=== PATIENT | male | born 1955 | race Caucasian/White ===

== ENCOUNTER 2016-08-10 21:24 | Inpatient (IN) | payer BC ==
[2016-08-10 22:55] LABS: Basophils # (A) 0.1 k/uL (0-0.2); Basophils % (A) 1 %; CH 30.2; CHCM 34.3; Eosinophils # (A) 0.1 k/uL (0-0.7); Eosinophils % (A) 2 %; HCT 45.6 % (39.0-53.0); HDW 2.36; HGB 15.1 gm/dL (13.0-17.5); Luc # (Auto) 0.18; Luc % (Auto) 2; Lymphocytes # (A) 2.4 k/uL (1.0-4.8); Lymphocytes % (A) 28 %; MCH 29.3 pg (25.0-35.0); MCHC 33.1 g/dL (31.0-37.0); MCV 88.4 fL (80.0-100.0); Mean Platelet Volume 7.5; Monocytes # (A) 0.6 k/uL (0-1.0); Monocytes % (A) 7 %; Neutrophils # (A) 5.3 k/uL (1.3-7.7); Neutrophils % (A) 61 %; RBC 5.16 m/uL (4.30-5.90); RDW 12.4 % (11.5-15.5); WBC 8.7 k/uL (3.8-10.6); WBC (Perox) 9.08
--- NOTE | 2016-08-10 23:05 | ED ---
General Adult HPI - General Source: patient, RN notes reviewed Mode of arrival: ambulatory Limitations: no limitations <Cesar Castillo - Last Filed: 08/11/16 00:06> <Armani Becerra - Last Filed: 08/11/16 00:30> - General Chief complaint: Extremity Problem,Nontraumatic Stated complaint: poss blood clot post spinal surg Time Seen by Provider: 08/10/16 21:59 - History of Present Illness Initial comments: 60-year-old male presents emergency Department with multiple complaints. Patient states that he has left calf pain over the last 2 days. Patient states he is concerned that she's had a prior DVT with PE. Patient states pain started resembles pain is having the past. Patient denies any trauma. Patient states that he had lumbar surgery performed at the [facility] and 2015. Patient states this was his fourth surgery third at the [facility]. Patient denies any chest pain or shortness breath. Patient also states that his been having low-grade times at home as high as 11.5. Patient states she's been taking Tylenol products occasionally [place]. Patient states that he's had some cough, chest congestion along with headaches. Patient states the headaches have been more frequent and consistent in which she states that the temporal region and occipital region. Patient states that shortly after the surgery he was having fever secondary to urinary tract infection in which she took antibiotics for. Patient states that he is was fever free for 1 week and his urinalysis came back clean. Patient states is also been told that he has a seroma of his incision site. Patient states it's worse when he stands up. States there is an area of bulging which is non-erythematous. Patient states that he has right leg pain on a regular basis prior to surgery. Patient states it's not worse. Patient denies bowel, bladder incontinence or retention. (Cesar Castillo) - Related Data Home Medications Medication Instructions Recorded Confirmed Diazepam [Diazepam] 5 mg PO HS PRN 01/22/15 08/10/16 HYDROcodone/APAP 10-325MG [[place] 1 tab PO DAILY PRN 01/22/15 08/10/16 10-325] Methocarbamol [Methocarbamol] 750 mg PO DAILY PRN 01/22/15 08/10/16 Tamsulosin HCl [Tamsulosin HCl] 0.4 mg PO HS 01/22/15 08/10/16 Docusate [Colace] 100 mg PO BID 08/10/16 08/10/16 Gabapentin 600 mg PO TID 08/10/16 08/10/16 Omeprazole 40 mg PO DAILY 08/10/16 08/10/16 Oxymetazoline 0.05% Nasl [place] 1 - 2 spray EA NOSTRIL HS PRN 08/10/16 08/10/16 [Afrin 0.05% Nasal [place]] Allergies Allergy/AdvReac Type Severity Reaction Status Date / Time codeine Allergy Rash/Hives Verified 08/10/16 22:24 Review of Systems ROS Other: All systems not noted in ROS Statement are negative. <Cesar Castillo - Last Filed: 08/11/16 00:06> ROS Other: All systems not noted in ROS Statement are negative. <Armani Becerra - Last Filed: 08/11/16 00:30> ROS Statement: Those systems with pertinent positive or pertinent negative responses have been documented in the HPI. Past Medical History Past Medical History: GERD/Reflux, Prostate Disorder Additional Past Medical History / Comment(s): Neuropathy; Degenerative disc disease; Back pain History of Any Multi-Drug Resistant Organisms: None Reported Past Surgical History: Back Surgery Additional Past Surgical History / Comment(s): Back surgery x4; Cervical surgery ; Knee surgery Past Psychological History: No Psychological Hx Reported Smoking Status: Never smoker Past Alcohol Use History: None Reported Past Drug Use History: None Reported <Cesar Castillo - Last Filed: 08/11/16 00:06> General Exam Limitations: no limitations General appearance: alert, in no apparent distress Head exam: Present: atraumatic, normocephalic, normal inspection ENT exam: Present: normal exam, normal oropharynx, mucous membranes moist, TM's normal bilaterally, normal external ear exam Neck exam: Present: normal inspection, full ROM. Absent: tenderness, meningismus, lymphadenopathy Respiratory exam: Present: normal lung sounds bilaterally. Absent: respiratory distress, wheezes, rales, rhonchi, stridor Cardiovascular Exam: Present: regular rate, normal rhythm, normal heart sounds. Absent: systolic murmur, diastolic murmur, rubs, gallop, clicks GI/Abdominal exam: Present: soft, normal bowel sounds. Absent: distended, tenderness, guarding, rebound, rigid Extremities exam: Present: other (Left calf there is mild tenderness, neurovascular intact full strength of lower extremities pedal pulses equal bilaterally) Back exam: Present: tenderness (Minimal lumbar). Absent: normal inspection ( Incision site noted in the lumbar region well-healed no erythema no warmth there is a large area of swelling which is boggy in nature), full ROM Neurological exam: Present: alert, oriented X3, CN II-XII intact, reflexes normal. Absent: motor sensory deficit Skin exam: Present: warm, dry, intact, normal color. Absent: rash <Cesar Castillo - Last Filed: 08/11/16 00:06> Medical Decision Making - Lab Data Result diagrams: 08/10/16 22:42 08/10/16 22:42 <Cesar Castillo - Last Filed: 08/11/16 00:06> - Lab Data Result diagrams: 08/10/16 22:42 08/10/16 22:42 <Armani Becerra - Last Filed: 08/11/16 00:30> - Medical Decision Making 60-year-old male presented for fever, left leg pain, postsurgical collection. Patient's ultrasound shows no acute DVT. Patient does have a temp of 101.4 along with an epidural and subcutaneous fluid collection along the lumbar spine. Patient be admitted at this time with dual antibiotic coverage infectious disease consult, surgery consult and observation. (Cesar Castillo) Patient reevaluated by myself, Dr. Becerra. Secondary to fever with unclear etiology patient will be admitted with consult for ID. Consult will also be placed for Dr. Medina to evaluate back and computed tomography scan. Patient and family updated. Dr. Sanders paged for admission for Dr. Mccarty. (Armani Becerra) - Lab Data Lab Results 08/10/16 08/10/16 08/10/16 Range/Units 22:42 22:42 22:42 WBC 8.7 (3.8-10.6) k/uL RBC 5.16 (4.30-5.90) m/uL Hgb 15.1 (13.0-17.5) gm/dL Hct 45.6 (39.0-53.0) % MCV 88.4 (80.0-100.0) fL MCH 29.3 (25.0-35.0) pg MCHC 33.1 (31.0-37.0) g/dL RDW 12.4 (11.5-15.5) % Plt Count 325 (150-450) k/uL Neutrophils % 61 % Lymphocytes % 28 % Monocytes % 7 % Eosinophils % 2 % Basophils % 1 % Neutrophils # 5.3 (1.3-7.7) k/uL Lymphocytes # 2.4 (1.0-4.8) k/uL Monocytes # 0.6 (0-1.0) k/uL Eosinophils # 0.1 (0-0.7) k/uL Basophils # 0.1 (0-0.2) k/uL Sodium 137 (137-145) mmol/L Potassium 4.5 (3.5-5.1) mmol/L Chloride 100 (98-107) mmol/L Carbon Dioxide 28 (22-30) mmol/L Anion Gap 9 mmol/L BUN 16 (9-20) mg/dL Creatinine 0.88 (0.66-1.25) mg/dL Est GFR (MDRD) Af Amer >60 (>60 ml/min/1.73 sqM) Est GFR (MDRD) Non-Af >60 (>60 ml/min/1.73 sqM) Glucose 104 H (74-99) mg/dL Calcium 9.5 (8.4-10.2) mg/dL Total Bilirubin 0.5 (0.2-1.3) mg/dL AST 15 L (17-59) U/L ALT 26 (21-72) U/L Alkaline Phosphatase 55 (38-126) U/L Total Protein 7.2 (6.3-8.2) g/dL Albumin 4.3 (3.5-5.0) g/dL Urine Color Urine Appearance (Clear) Urine pH (5.0-8.0) Ur Specific [place] (1.001-1.035) Urine Protein (Negative) Urine Glucose (UA) (Negative) Urine Ketones (Negative) Urine Blood (Negative) Urine Nitrate (Negative) Urine Bilirubin (Negative) Urine Urobilinogen (<2.0) mg/dL Ur Leukocyte Esterase (Negative) Influenza Type A RNA Not Detected (Not Detectd) Influenza Type B (PCR) Not Detected (Not Detectd) 08/10/16 Range/Units 23:30 WBC (3.8-10.6) k/uL RBC (4.30-5.90) m/uL Hgb (13.0-17.5) gm/dL Hct (39.0-53.0) % MCV (80.0-100.0) fL MCH (25.0-35.0) pg MCHC (31.0-37.0) g/dL RDW (11.5-15.5) % Plt Count (150-450) k/uL Neutrophils % % Lymphocytes % % Monocytes % % Eosinophils % % Basophils % % Neutrophils # (1.3-7.7) k/uL Lymphocytes # (1.0-4.8) k/uL Monocytes # (0-1.0) k/uL Eosinophils # (0-0.7) k/uL Basophils # (0-0.2) k/uL Sodium (137-145) mmol/L Potassium (3.5-5.1) mmol/L Chloride (98-107) mmol/L Carbon Dioxide (22-30) mmol/L Anion Gap mmol/L BUN (9-20) mg/dL Creatinine (0.66-1.25) mg/dL Est GFR (MDRD) Af Amer (>60 ml/min/1.73 sqM) Est GFR (MDRD) Non-Af (>60 ml/min/1.73 sqM) Glucose (74-99) mg/dL Calcium (8.4-10.2) mg/dL Total Bilirubin (0.2-1.3) mg/dL AST (17-59) U/L ALT (21-72) U/L Alkaline Phosphatase (38-126) U/L Total Protein (6.3-8.2) g/dL Albumin (3.5-5.0) g/dL Urine Color Yellow Urine Appearance Clear (Clear) Urine pH 6.5 (5.0-8.0) Ur Specific [place] 1.013 (1.001-1.035) Urine Protein Negative (Negative) Urine Glucose (UA) Negative (Negative) Urine Ketones Negative (Negative) Urine Blood Negative (Negative) Urine Nitrate Negative (Negative) Urine Bilirubin Negative (Negative) Urine Urobilinogen <2.0 (<2.0) mg/dL Ur Leukocyte Esterase Negative (Negative) Influenza Type A RNA (Not Detectd) Influenza Type B (PCR) (Not Detectd) Disposition <Cesar Castillo - Last Filed: 08/11/16 00:06> <Armani Becerra - Last Filed: 08/11/16 00:30> Clinical Impression: Lumbar surgical wound fluid collection, Fever Disposition: ADMITTED IP TO THIS HOSP Condition: Stable Referrals: Gregg Mccarty MD [Primary Care Provider] - 1-2 days
[2016-08-10 23:06] LABS: ALT 26 U/L (21-72); AST 15 U/L (17-59); Alkaline Phosphatase 55 U/L (38-126); Anion Gap 9 mmol/L; Blood Urea Nitrogen 16 mg/dL (9-20); Calcium 9.5 mg/dL (8.4-10.2); Carbon Dioxide 28 mmol/L (22-30); Chloride 100 mmol/L (98-107); Glucose 104 mg/dL (74-99); Non-African American GFR(MDRD) >60 (>60 ml/min/1.73 sqM); Potassium 4.5 mmol/L (3.5-5.1); Sodium 137 mmol/L (137-145); Total Bilirubin 0.5 mg/dL (0.2-1.3); Total Protein 7.2 g/dL (6.3-8.2)
--- NOTE | 2016-08-10 23:10 | XR ---
EXAMINATION TYPE: XR chest 2V DATE OF EXAM: 08/10/2016 10:55 PM COMPARISON: 11/08/2013 HISTORY: Chest pain TECHNIQUE: Frontal and lateral views of the chest are obtained. FINDINGS: Heart and mediastinum are normal. Lungs are clear of consolidation. There are no hilar mas ses. Costophrenic angles are clear. Bony thorax is intact. IMPRESSION: No active cardiopulmonary disease. No change.
--- NOTE | 2016-08-10 23:17 | CT ---
EXAMINATION TYPE: CT lumbar spine wo con DATE OF EXAM: 08/10/2016 11:06 PM COMPARISON: NONE HISTORY: 1 Month P O Lumbar Surgery CT DLP: 856.40 mGycm Automated exposure control for dose reduction was used. Unenhanced CT of the lumbar spine was performed. Bone and soft tissue window settings are submitted as well as coronal and sagittal reconstructions. The vertebra have normal alignment. There is moderate narrowing of disc spaces from L2 to L5. There a re small posterior disc herniations at L4-5 and L5-S1. There is laminectomy defect of L5. There is a 4 cm rounded fluid collection posterior to the spinal canal and thecal sac at the L5 level. There is also a subcutaneous fluid collection posterior to L5 L4 and L3. This measures 10 x 2 cm. I see no foc al bone destruction. The sacroiliac joints appear normal. I see no spinal stenosis. There is no lumba r paraspinal mass. IMPRESSION: There is a posterior central and right-sided L4-5 disc herniation with some impingement on the right- sided neural foramen. There is narrowing of the neural foramina bilaterally at L4-5 and L5-S1. There is a mild posterior central L5-S1 disc herniation. Epidural 4 cm fluid collection posterior to L5 consistent with a seroma or hematoma. Subcutaneous fluid collection consistent with seroma or hematoma. Multilevel spondylosis. No compression fracture. The fluid collections are new compared to old MR scan of 04/26/2016.
[2016-08-10 23:46] LABS: Appearance,Urine Clear (Clear); Bilirubin,Urine Negative (Negative); Glucose,Urine (UA) Negative (Negative); Ketones,Urine Negative (Negative); Leukocyte Esterase,Urine Negative (Negative); Nitrite,Urine Negative (Negative); PH, Urine 6.5 (5.0-8.0); Protein,Urine Negative (Negative); Specific Gravity,Urine 1.013 (1.001-1.035); UA Billing (MACRO vs. MICRO) CHEM; Urobilinogen,Urine <2.0 mg/dL (<2.0)
[2016-08-10] MEDS ORDERED: ACETAMINOPHEN TAB 325 MG TAB PO STA (23:50)
--- NOTE | 2016-08-10 23:51 | US ---
EXAMINATION TYPE: US venous doppler duplex LE LT DATE OF EXAM: 08/10/2016 11:29 PM COMPARISON: NONE CLINICAL HISTORY: Hx of PE and left leg DVT x 3 years ago, not on blood thinners. SIDE PERFORMED: Left VESSELS IMAGED: External Iliac Vein (EIV) Common Femoral Vein Deep Femoral Vein Greater Saphenous Vein * Femoral Vein Popliteal Vein Small Saphenous Vein * Proximal Calf Veins (* superficial vessels) TECHNOLOGIST IMPRESSION: Left Leg: Appears negative for DVT. Thickened valves seen in Prox Femoral Vein near bifurcation. IMPRESSION: No evidence of deep venous thrombosis in the left leg. Normal augmentation.
[2016-08-11] MEDS ORDERED: ACETAMINOPHEN TAB 325 MG TAB PO PRN (00:09)
[2016-08-11] MEDS ORDERED: NALOXONE 0.4 MG/ML 1 ML VIAL IV PRN (00:09)
[2016-08-11] MEDS ORDERED: DIAZEPAM 5 MG TAB PO PRN (00:11)
[2016-08-11] MEDS ORDERED: HYDROcodone/APAP 10-325MG 1 EACH TAB PO PRN (00:11)
[2016-08-11] MEDS ORDERED: METHOCARBAMOL 750 MG TAB PO PRN (00:11)
[2016-08-11] MEDS ORDERED: IV VANCOMYCIN PER PHARMACY 1 EACH MISC MISCELLANE PRN (00:12)
[2016-08-11] MEDS ORDERED: VANCOMYCIN 1,500 MG in SODIUM CHLORIDE 0.9% 250 ML IVPB STA (00:27)
[2016-08-11] MEDS: SODIUM CHLORIDE 0.9% 1,000 ML IV SCH ×2 (00:36→13:28)
[2016-08-11] MEDS: ONDANSETRON 4 MG/2 ML VIAL IVP PRN ×2 (00:36→08:05)
[2016-08-11] MEDS: MORPHINE SULFATE 4 MG/ML SYRINGE IV PRN ×3 (00:36→14:01)
[2016-08-11 03:17] VITALS: BMI 27.8
[2016-08-11] MEDS ORDERED: AMPICILLIN-SULBACTAM 3 GM in SODIUM CHLORIDE 0.9% 100 ML IVPB SCH (08:00)
[2016-08-11] MEDS: HYDROcodone/APAP 5-325MG 1 EACH TAB PO PRN ×2 (08:02→19:45)
[2016-08-11] MEDS: GABAPENTIN 300 MG CAP PO SCH ×3 (08:12→21:28)
[2016-08-11] MEDS: DOCUSATE 100 MG CAP PO SCH ×2 (08:12→21:29)
[2016-08-11] MEDS: PANTOPRAZOLE 40 MG/10 ML VIAL IV SCH (08:12)
--- NOTE | 2016-08-11 09:13 | P.CNOR ---
History of Present Illness - [facility] Consult date: 08/11/16 Requesting physician: Cesar Castillo Consult reason: other (Possible postoperative lumbar spine infection; headaches ; low-grade fever) History of present illness: Patient is a very pleasant 60-year-old male who is seen and examined at bedside after we are consulted for further evaluation in regards to a seroma/hematoma of the lumbar spine. He is known have recently undergone surgical intervention at the [facility] in [place], [place] on 07/12/2016. He states he had foraminotomies performed at L4-5 performed by the head of neurosurgery. He states he had been doing well postsurgically. He states over the past week has been experiencing significant headaches daily. He states he must lie down for some alleviation of his symptoms. He has also been experiencing significant swelling at the surgical site. Upon presentation to the emergency department he was having some left lower extremity calf pain. An ultrasound venous Doppler was taken at that time which showed no evidence of deep venous thrombosis. Patient states his left leg pain has subsided. He states he has not been experiencing significant back pain or lower extremity radiculopathy or weakness. He states his headaches are his most significant symptom. He states he is also been running a low-grade fever over the past several days. He states he is scheduled to follow-up with his surgeon at the [facility] on 08/23/2016. He is currently receiving Unasyn 3 g IV. Consultation has been placed for Dr. Lorenzana in infectious disease. Patient states he has been eating and voiding without difficulty does not have much of an appetite. Past Medical History Past Medical History: GERD/Reflux, Prostate Disorder Additional Past Medical History / Comment(s): Neuropathy; Degenerative disc disease; Back pain History of Any Multi-Drug Resistant Organisms: None Reported Past Surgical History: Back Surgery Additional Past Surgical History / Comment(s): Back surgery x4; Cervical surgery ; Knee surgery Past Anesthesia/Blood Transfusion Reactions: No Reported Reaction Past Psychological History: No Psychological Hx Reported Smoking Status: Never smoker Past Alcohol Use History: None Reported Past Drug Use History: None Reported - Past Family History Mother Family Medical History: Pulmonary Embolus Medications and Allergies Home Medications Medication Instructions Recorded Confirmed Type Diazepam [Diazepam] 5 mg PO HS PRN 01/22/15 08/10/16 History HYDROcodone/APAP 10-325MG [[place] 1 tab PO DAILY PRN 01/22/15 08/10/16 History 10-325] Methocarbamol [Methocarbamol] 750 mg PO DAILY PRN 01/22/15 08/10/16 History Tamsulosin HCl [Tamsulosin HCl] 0.4 mg PO HS 01/22/15 08/10/16 History Docusate [Colace] 100 mg PO BID 08/10/16 08/10/16 History Gabapentin 600 mg PO TID 08/10/16 08/10/16 History Omeprazole 40 mg PO DAILY 08/10/16 08/10/16 History Oxymetazoline 0.05% Nasl [place] 1 - 2 spray EA NOSTRIL HS PRN 08/10/16 08/10/16 History [Afrin 0.05% Nasal [place]] Allergies Allergy/AdvReac Type Severity Reaction Status Date / Time codeine Allergy Rash/Hives Verified 08/10/16 22:24 Physical Examination Physical exam: Patient is awake, alert, and oriented 3 Vital signs stable Good chest excursion with deep inspiration and expiration Abdomen soft nontender Examination of lumbar spine reveals skin is intact with no abrasions, lacerations, or bruises; no erythema, purulence or signs of infection Evidence of a well-healed incision with previous staple removal along the midline of the lower lumbar spine Evidence of a large fluid collection along the entire surgical incision that is soft to palpation and feels fluid filled; no firmness with palpation along the incision site No active drainage at the incision site; I am unable to express any drainage at the incision site No pain with palpation along the incision site Dorsiflexion, plantarflexion, and extensor hallucis longus positive sustained bilaterally Lower extremity strength 5/5 bilaterally No signs or symptoms of DVT; no calf pain; calves are soft nontender to palpation No pain with internal and external rotation of the hips bilaterally Neurovascularly intact Results Pertinent studies: CT of the lumbar spine: Subcutaneous fluid collection and L3-5 measuring approximately 10 cm x 2 cm; epidural 4 cm fluid collection posterior to L5 consistent with seroma or hematoma; L4-5 posterior central and right-sided disc herniation with some impingement of the right neural foramen; L4-5 and L5-S1 bilateral neural foraminal narrowing; L5-S1 mild posterior central disc herniation; evidence of L5 laminectomy defect Ultrasound venous Doppler left lower extremity: No evidence of deep venous thrombosis of the left leg; normal augmentation - Labs Result Diagrams: 08/10/16 22:42 08/10/16 22:42 Assessment and Plan (1) Frequent headaches Status: Acute (2) Status post lumbar surgery Status: Acute (3) Fever Status: Acute (4) Lumbar surgical wound fluid collection Status: Acute Plan: Assessment: Status post lumbar foraminotomy surgery at the [facility] in [place], [place] on 07/12/2016 Headaches Low-grade fever Subcutaneous fluid collection and L3-5 measuring approximately 10 cm x 2 cm Epidural 4 cm fluid collection posterior to L5 consistent with seroma or hematoma Plan: 1. Patient has been discussed in detail with Dr. Gautam Medina. We will further discuss the patient following my bedside examination. It was discussed with the patient that we will currently planned to continue with conservative treatment with antibiotics versus incision and drainage at the surgical site. We'll plan to have him continue with current antibiotic regimen and consultation by Dr. Lorenzana in infectious disease. We will continue to follow patient closely. After further discussion with Dr. Gautam Medina, we will adjust our plan of care accordingly if needed. If he does need to undergo an incision and drainage, we discussed the possibility of doing this procedure later today. We'll continue to follow the patient with a further treatment plan. 2. Medicine to continue following the patient 3. Patient currently waiting for consultation by Dr. Lorenzana in infectious disease 4. We will continue to follow patient closely 5. I will again discuss this patient detail with Dr. Gautam Medina Time with Patient: Greater than 30
[2016-08-11] MEDS: VANCOMYCIN 1,500 MG in SODIUM CHLORIDE 0.9% 250 ML IVPB SCH ×2 (13:00→22:04)
--- NOTE | 2016-08-11 13:15 | HP ---
DATE OF ADMISSION: The patient is a 60-year-old who came in with fevers and patient has a seroma in the back and patient underwent on the 12 of July, patient underwent back surgery with ( ) of L4-L5 performed by neurosurgery. Patient was having fevers. Patient was having flu-like symptoms as well as ( )-like symptoms. The patient denied any cough, runny nose, dysuria, nausea, vomiting and although his back mass appears to be mostly hematoma, it is not tender at all. No localized temperature. Patient denied any pain in that area except for ( ). The physical exam is not consistent with ( ) and orthopedic surgery, Dr. Medina who is the back surgeon evaluated the patient and they are doing an MRI. Patient's back pain improved. Patient is complaining of headache, which is consistent with allergic sinusitis, which is actually better now. Will go ahead and order Flonase for him. Past medical history is significant for gastroesophageal reflux disease, chronic low back pain, prostrate disorder. Patient underwent back surgery recently, knee surgery and cervical fusion surgery in the past. The patient had DVT in the past. The patient was also complaining of calf pain when he was here because of which venous Doppler of the lower extremity was obtained, which did not show any DVT. SOCIAL HISTORY: Denied any smoking, alcohol abuse or any drug abuse. FAMILY HISTORY: Significant for mother with pulmonary embolism. CT of the back is consistent with hematoma or seroma. Clinically, it appears like mostly hematoma in that area. REVIEW OF SYSTEMS: CONSTITUTIONAL: As described in HPI. HEENT: No recent visual problems or hearing problems. Denied any sore throat. CARDIOVASCULAR: No chest pain, orthopnea, PND, no palpitations, no syncope. PULMONARY: No shortness of breath, no cough, no hemoptysis. GASTROINTESTINAL: No diarrhea, no nausea, no vomiting, no abdominal pain. Normoactive bowel sounds. NEUROLOGICAL: No headaches, no weakness, no numbness. HEMATOLOGICAL: Denies any bleeding or petechiae. GENITOURINARY: Denies any burning micturition, frequency, or urgency. MUSCULOSKELETAL/RHEUMATOLOGICAL: Denies any joint pain, swelling, or any muscle pain. ENDOCRINE: Denies any polyuria or polydipsia. BACK: As described in HPI. The rest of the 14 point review of systems is negative. Home medications include: 1. Diazepam. 2. Hydrocodone. 3. ( ). 4. Methocarbamol. 5. Tamsulosin. 6. Docusate . 7. Gabapentin. 8. Omeprazole. 9. Oxymetazoline. ALLERGIES: Allergic to CODEINE. PHYSICAL EXAMINATION: Temperature 100.0, pulse of 81, respiratory rate of 18, blood pressure 110/56, saturating at 93% on room air. GENERAL: The patient is alert and oriented x3, not in any acute distress. Well developed, well nourished. HEENT: Pupils are round and equally reacting to light. EOMI. No scleral icterus. No conjunctival pallor. Normocephalic, atraumatic. No pharyngeal erythema. No thyromegaly. CARDIOVASCULAR: S1 and S2 present. No murmurs, rubs, or gallops. PULMONARY: Chest is clear to auscultation, no wheezing or crackles. ABDOMEN: Soft, nontender, nondistended, normoactive bowel sounds. No palpable organomegaly. MUSCULOSKELETAL: No joint swelling or deformity. EXTREMITIES: No cyanosis, clubbing, or pedal edema. NEUROLOGICAL: Gross neurological examination did not reveal any focal deficits. SKIN: No rashes. LABORATORY DATA: CBC, CMP, essentially within. ASSESSMENT AND PLAN: 1. Fever, etiologies are not clear. I cannot completely rule out any hematoma in the back that is causing his fevers, although clinically does not appear like abscess. Anyways, patient is on IV antibiotics in the form of vancomycin, which will be continued. Infectious Disease was consulted. Patient is also on ceftazidime. Fever as mentioned above, unsure of the exact etiology. 2. Seroma or hematoma in the back post surgical seroma or hematoma for which patient is going for drainage of hematoma, although patient does not appear to have any symptoms from that. 3. Chronic low back pain. 4. Gastroesophageal reflux disease. 5. Previous history of deep venous thrombosis. Low activity at this point of time. Patient will be on subcu heparin, deep venous thrombosis prophylaxis. 6. Allergic sinusitis for which we will use Flonase. For above mentioned chronic medical problems I will go ahead and continue his home medications. Patient's primary care physician is Dr. Gregg Mccarty.
--- NOTE | 2016-08-11 15:38 | P.CONS ---
History of Present Illness - Reason for Consult Consult date: 08/11/16 Fever - History of Present Illness This is a 60-year-old male. He has a history of undergoing foraminotomies L4-5 on July 12 at [facility] with neurosurgeon. Patient states he always had a small amount of swelling at the surgical site. One week ago he slipped getting out of the shower and he developed sharp shooting pain down his right leg that eventually went away. On the same time, he was on the floor doing his leg lifts and got up and had an extreme headache. He denies any history of migraine headaches, photophobia or phonophobia. He states he has had ongoing problems with headache and that it is very severe and has interfered with his activities of daily living. He talked to his neurosurgeon's office 2 days ago and was instructed to take it easy stop doing his exercises for 1 week. He currently has home care with RN and physical therapy in place. He states he has had some low-grade fevers at home with temperature max being 100.4. He states he's had generalized body aches as well. Patient has had cold symptoms with sore throat and runny nose as his had a cold 2 weeks ago when he thought he had the same. He has been using his incentive spirometry at home and doing very well with this. He denies having any nausea, vomiting, diarrhea. He denies urinary symptoms. Regarding the headache, he states it is sharp and it starts in his temples and the top of his head and when he walks it goes to the back of his head and down his back to between his shoulder blades. He states he developed pain in his left calf and he does have history of DVT a couple years ago and came into the hospital to have this evaluated. Ultrasound duplex of the left lower extremity was negative for DVT. He had a chest x-ray that showed no acute findings. He underwent a CAT scan of the lumbar spine that showed epidural 4 cm fluid collection at the L5 consistent with seroma or hematoma. Patient had fever of 101.4. White count is 8.7. He underwent influenza testing A and B which were negative. Urinalysis was negative. GFR greater than 60. Albumin 4.3. Patient was admitted to the [facility] floor and consult placed with orthopedic spine. He has an MRI scheduled. He was placed on Unasyn and vancomycin. Review of Systems All systems: negative Constitutional: Reports fever, Denies chills Eyes: denies blurred vision, denies pain Ears, nose, mouth and throat: Reports headache, Reports nasal congestion, Reports nasal discharge, Reports sore throat, Denies dental pain, Denies mouth pain Cardiovascular: Denies chest pain, Denies shortness of breath Respiratory: Denies cough Gastrointestinal: Denies abdominal pain, Denies diarrhea, Denies nausea, Denies vomiting Musculoskeletal: Denies myalgias Integumentary: Reports lesions, Denies pruritus, Denies rash Neurological: Denies numbness, Denies weakness Psychiatric: Denies anxiety, Denies depression Endocrine: Denies fatigue, Denies weight change Past Medical History Past Medical History: Deep Vein Thrombosis (DVT), GERD/Reflux, Prostate Disorder Additional Past Medical History / Comment(s): Neuropathy; Degenerative disc disease; Back pain, benign prostatic hypertrophy History of Any Multi-Drug Resistant Organisms: None Reported Past Surgical History: Back Surgery, Tonsillectomy Additional Past Surgical History / Comment(s): Back surgery x4; Cervical surgery ; arthroscopic right knee, TURP Past Anesthesia/Blood Transfusion Reactions: No Reported Reaction Past Psychological History: No Psychological Hx Reported Smoking Status: Never smoker Past Alcohol Use History: None Reported Additional Past Alcohol Use History / Comment(s): He was a smoker of a half a pack per day for 25-30 years. He currently lives at home with his . There are no pets in the home. They did travel last year to [place] but otherwise no extensive traveling. 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 He is currently on disability. Past Drug Use History: None Reported - Past Family History Mother Family Medical History: Pulmonary Embolus Medications and Allergies Home Medications Medication Instructions Recorded Confirmed Type Diazepam [Diazepam] 5 mg PO HS PRN 01/22/15 08/10/16 History HYDROcodone/APAP 10-325MG [[place] 1 tab PO DAILY PRN 01/22/15 08/10/16 History 10-325] Methocarbamol [Methocarbamol] 750 mg PO DAILY PRN 01/22/15 08/10/16 History Tamsulosin HCl [Tamsulosin HCl] 0.4 mg PO HS 01/22/15 08/10/16 History Docusate [Colace] 100 mg PO BID 08/10/16 08/10/16 History Gabapentin 600 mg PO TID 08/10/16 08/10/16 History Omeprazole 40 mg PO DAILY 08/10/16 08/10/16 History Oxymetazoline 0.05% Nasl [place] 1 - 2 spray EA NOSTRIL HS PRN 08/10/16 08/10/16 History [Afrin 0.05% Nasal [place]] Allergies Allergy/AdvReac Type Severity Reaction Status Date / Time codeine Allergy Rash/Hives Verified 08/10/16 22:24 Physical Exam Vitals: Vital Signs Temp Pulse Pulse Resp BP BP Pulse Ox 08/11/16 07:00 100.0 F H 81 18 110/56 93 L 08/11/16 05:50 100.3 F H 08/11/16 01:23 101.4 F H 75 17 118/59 94 L 08/11/16 00:42 100.4 F H 08/11/16 00:25 72 14 128/72 95 Intake and Output 08/10/16 08/11/16 08/11/16 22:59 06:59 14:59 Intake Total 790 Balance 790 Intake: IV 550 Sodium Chloride 0.9% 1, 300 000 ml @ 75 mls/hr IV . [id number] BYRON Rx#:[id number] Vancomycin 1,500 mg In 250 Sodium Chloride 0.9% 250 ml @ 125 mls/hr IVPB Q12H BYRON Rx#:[id number] Oral 240 Other: # Voids 1 Weight 92.986 kg Gen: This is a 60-year-old male. He is lying flat in bed and appears to be very uncomfortable due to headache. HEENT: Head is atraumatic, normocephalic. Pupils equal, round. Sclerae is anicteric. Conjunctiva pink. Mucous members of the mouth are dry. Dentition is in fair order. NECK: Supple. No JVD. No lymphadenopathy. No thyromegaly. LUNGS: Clear to auscultation. No wheezes or rhonchi. No intercostal retractions. HEART: Regular rate and rhythm. No murmur. ABDOMEN: Soft. Bowel sounds are present. No masses. No tenderness. BACK: There is a large fluid collection along the entire surgical incision in the lumbar area that is soft to palpation and appears to be fluid filled. No firmness noted no tenderness at the site. No drainage no foul odor. EXTREMITIES: No pedal edema. No calf tenderness. Her cells pedis +2 bilaterally NEUROLOGICAL: Patient is awake, alert and oriented x3. Cranial nerves 2 through 12 are grossly intact. Results Results: Laboratory Results WBC 8.7 k/uL (3.8-10.6) 08/10/16 22:42 RBC 5.16 m/uL (4.30-5.90) 08/10/16 22:42 Hgb 15.1 gm/dL (13.0-17.5) 08/10/16 22:42 Hct 45.6 % (39.0-53.0) 08/10/16 22:42 MCV 88.4 fL (80.0-100.0) 08/10/16 22:42 MCH 29.3 pg (25.0-35.0) 08/10/16:42 MCHC 33.1 g/dL (31.0-37.0) 08/10/16 22:42 RDW 12.4 % (11.5-15.5) 08/10/16 22:42 Plt Count 325 k/uL (150-450) 08/10/16 22:42 Neutrophils % 61 % 08/10/16 22:42 Lymphocytes % 28 % 08/10/16 22:42 Monocytes % 7 % 08/10/16 22:42 Eosinophils % 2 % 08/10/16 22:42 Basophils % 1 % 08/10/16 22:42 Neutrophils # 5.3 k/uL (1.3-7.7) 08/10/16 22:42 Lymphocytes # 2.4 k/uL (1.0-4.8) 08/10/16 22:42 Monocytes # 0.6 k/uL (0-1.0) 08/10/16 22:42 Eosinophils # 0.1 k/uL (0-0.7) 08/10/16 22:42 Basophils # 0.1 k/uL (0-0.2) 08/10/16 22:42 Sodium 137 mmol/L (137-145) 08/10/16 22:42 Potassium 4.5 mmol/L (3.5-5.1) 08/10/16 22:42 Chloride 100 mmol/L (98-107) 08/10/16 22:42 Carbon Dioxide 28 mmol/L (22-30) 08/10/16 22:42 Anion Gap 9 mmol/L 08/10/16 22:42 BUN 16 mg/dL (9-20) 08/10/16 22:42 Creatinine 0.88 mg/dL (0.66-1.25) 08/10/16 22:42 Est GFR (MDRD) Af Amer >60 (>60 ml/min/1.73 sqM) 08/10/16 22:42 Est GFR (MDRD) Non-Af >60 (>60 ml/min/1.73 sqM) 08/10/16 22:42 Glucose 104 mg/dL (74-99) H 08/10/16 22:42 Calcium 9.5 mg/dL (8.4-10.2) 08/10/16 22:42 Total Bilirubin 0.5 mg/dL (0.2-1.3) 08/10/16 22:42 AST 15 U/L (17-59) L 08/10/16 22:42 ALT 26 U/L (21-72) 08/10/16 22:42 Alkaline Phosphatase 55 U/L (38-126) 08/10/16 22:42 Total Protein 7.2 g/dL (6.3-8.2) 08/10/16 22:42 Albumin 4.3 g/dL (3.5-5.0) 08/10/16 22:42 Urine Color Yellow 08/10/16 23:30 Urine Appearance Clear (Clear) 08/10/16 23:30 Urine pH 6.5 (5.0-8.0) 08/10/16 23:30 Ur Specific [place] 1.013 (1.001-1.035) 08/10/16 23:30 Urine Protein Negative (Negative) 08/10/16 23:30 Urine Glucose (UA) Negative (Negative) 08/10/16 23:30 Urine Ketones Negative (Negative) 08/10/16 23:30 Urine Blood Negative (Negative) 08/10/16 23:30 Urine Nitrate Negative (Negative) 08/10/16 23: Urine Bilirubin Negative (Negative) 08/10/16 23: Urine Urobilinogen <2.0 mg/dL (<2.0) 08/10/16 23:30 Ur Leukocyte Esterase Negative (Negative) 08/10/16 23:30 Influenza Type A RNA Not Detected (Not Detectd) 08/10/16 22:42 Influenza Type B (PCR) Not Detected (Not Detectd) 08/10/16 22:42 CBC & Chem 7: 08/10/16 22:42 08/10/16 22:42 Assessment and Plan Plan: This is a 60-year-old male who presents to the hospital with headache following recent lumbar laminectomy in June. He also presents with fever with concern for cerebral spinal fluid leak. Patient is scheduled for MRI of the lumbar spine. He is followed by orthopedic spine. He has been on Unasyn and vancomycin. Due to high risk for pseudomonas infection with recent surgery , Unasyn will be switched to Fortaz. Blood cultures status received. Urine culture in progress. Cultures obtained if patient requires surgical intervention will be helpful. Continue supportive care. Further recommendations as patient progresses. The above dictated assessment and findings were discussed with Dr. Lorenzana. The impression and plan of care have been directed as dictated. Mariana Mao nurse practitioner acting as scribe for Dr. Lorenzana. Time with Patient: Greater than 30
--- NOTE | 2016-08-11 15:56 | MR ---
EXAMINATION TYPE: MR lumbar spine wo/w con DATE OF EXAM: 08/11/2016 3:03 PM COMPARISON: Correlation CT 08/10/2016 HISTORY: 60-year-old male S/P lumbar surgery; epidural fluid collection TECHNIQUE: Multiplanar, multisequence images of the lumbar spine were acquired utilizing 18 mL intrav enous MultiHance gadolinium contrast. FINDINGS: There are postsurgical changes of L5 wide laminectomy which was also present on 04/26/2016. Mild diffuse heterogeneity of marrow signal with fatty matrix hemangioma within the right posterior L 5 vertebral body and some small chronic Schmorl's nodes such as at L2-L3 and L3-L4 with associated fa tty Modic type II endplate change. There is moderate multilevel disc/endplate degenerative change with disc bulging. Alignment is maintained. Conus medullaris is normal. Redemonstrated bilateral renal cysts. There is a component of mild congenital spinal canal narrowing within the lumbar spine with AP canal dimension of 1.3 cm. At L2-L3, there is diffuse disc bulge causing mild to moderate left neuroforaminal stenosis and accen tuating the congenital canal narrowing. At L3-L4, diffuse disc bulge with facet degenerative change. Changes result in moderate left and mild right neuroforaminal stenoses without significant spinal canal stenosis. At L4-L5, there is diffuse disc bulge and hypertrophic facet arthropathy. There is moderate to severe right and moderate left neuroforaminal stenoses. There is enhancing tissue around the exiting right L4 nerve root probably granulation tissue. No spinal canal stenosis. At L5-S1, there is diffuse disc bulge and facet arthropathy causing moderate to severe right neurofor aminal stenosis. There is slight enhancement around this nerve root suggesting mild perineural granul ation tissue. There is moderate left neuroforaminal stenosis. No spinal canal stenosis. Within the L5 laminectomy defect, there is a 4.1 cm wide fluid collection that shows mild peripheral enhancement and mass effect onto the dorsal thecal sac. There is extension along the right lateral epidural space at this level and possible contiguously wit h the right L5-S1 facet joint, series 501, axial image 8. There is a tail extending from this fluid c ollection down along the left paramedian paraspinal musculature to the S2 level and additional extens ion superiorly along the right paramedian paraspinal musculature up to the L3 level for a total crani ocaudal dimension of 9.6 cm. This collection measures up to 3.7 cm AP dimension. There may be a small communication with a more superficial fluid collection located at the midline L3 level in the subcutaneous fat measuring 3.2 cm wide and 2.9 cm craniocaudal. No intradiscal enhancement or suspicious features for osteomyelitis. IMPRESSION: 1. 4.1 cm wide fluid collection in the L5 laminectomy defect impressing onto the dorsal thecal sac. T here is thin peripheral enhancement and clinical correlation is recommended as to if this could repre sent an abscess or chronic postoperative seroma. 2. The fluid collection extends to the right lateral epidural space with possible involvement of the right L5-S1 facet joint. There is also extension along the paraspinal musculature inferiorly to the S 2 level and superiorly to the L3 level for a total length of nearly 10 cm. 3. A more superficial fluid collection, seroma versus abscess, in the midline subcutaneous fat opposi te the L3 level measures 3.2 cm. 4. Moderate to severe right and moderate left neuroforaminal stenosis at L4-L5. Suspect enhancing per ineural granulation tissue along the exiting right L4 nerve root. 5. Moderate to severe right and moderate left neuroforaminal stenosis also seen at L5-S1.
[2016-08-11] MEDS: HEPARIN SODIUM,PORCINE 5,000 UNIT/ML 1 ML VIAL SQ SCH (17:29)
--- NOTE | 2016-08-11 18:14 | P.HPOR ---
History of Present Illness H&P Date: 08/11/16 Chief Complaint: Headaches and swelling at his low back with fevers, recent history of surge Patient is a very pleasant 60-year-old male with long-standing history of lumbar issues. Most recently he underwent lumbar spine surgery for decompression on 07/12/2016 approximately 4 weeks ago. His performed by Dr. Bettina garcia [facility] for apparently foraminotomy at L4 5 and L5-S1. The patient has had history of prior surgeries on his lumbar spine in the past. In [address] Barclay for decompression at L4 5, in 2002 he had surgery at [facility] with Dr. Dunbar's at L4 5 L5-S1 he had surgery again with Dr. Bettina garcia [facility] in 2012 for revision decompression, he then had surgery again in [address] Jordan foci [facility]. During his most recent surgery in June 2016 at [facility] he apparently sustained a incidental dural tear and underwent dural repair at the time of surgery. He remained in the hospital for 2 days and then was discharged home with his own vehicle laying flat on a mattress in the back of his minivan. He was told remain supine. He returned to [facility] for recheck evaluation at approximately 2 weeks after his surgery and was doing well. His incision was healing well and he was not having any headaches. Approximately a week after that he had a an incident getting out of the shower where he felt a twinge in his back. Since that time he has noticed further swelling as well as increasing headaches especially when he is in upright position. He also noticed some fevers and presented to the hospital. He has been worked up for these issues with medicine and infectious disease as well as with our service. He had a computed tomography scan which showed significant fluid around the site of his surgery as well as his prior laminectomies. With his recent surgeries and his symptoms we ordered an MRI of his lumbar spine which show significant amount of fluid it is difficult to determine if the fluid is communicating with his cervical spinal canal. He still complaining of headaches he is not having any further fevers. His white count has remained normal. He does have history of DVTs in the past. Review of Systems Admits to having significant headaches particularly when he is in an upright position. Headaches resolved to some degree when he is supine. He is not having fevers or chills. He is not having changes bowel bladder function. He is not feeling that he is having significant neurologic changes at his lower extremity is. He is not feeling significant pain in his lower back. Past Medical History Past Medical History: Deep Vein Thrombosis (DVT), GERD/Reflux, Musculoskeletal Disorder (Multiple lumbar spine surgeries in 2000, 2002, 2012, and 2015 for decompression at L4 5 L5-S1 with the most recent surgery 07/12/2016 at [facility]), Neurologic Disorder, Prostate Disorder Additional Past Medical History / Comment(s): Neuropathy; Degenerative disc disease; Back pain, benign prostatic hypertrophy History of Any Multi-Drug Resistant Organisms: None Reported Past Surgical History: Back Surgery, Tonsillectomy Additional Past Surgical History / Comment(s): Back surgery x4; Cervical surgery ; arthroscopic right knee, TURP Past Anesthesia/Blood Transfusion Reactions: No Reported Reaction Past Psychological History: No Psychological Hx Reported Smoking Status: Never smoker Past Alcohol Use History: None Reported Additional Past Alcohol Use History / Comment(s): He was a smoker of a half a pack per day for 25-30 years. He currently lives at home with his . There are no pets in the home. They did travel last year to [place] but otherwise no extensive traveling. 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 He is currently on disability. Past Drug Use History: None Reported - Past Family History Mother Family Medical History: Pulmonary Embolus Medications and Allergies Home Medications Medication Instructions Recorded Confirmed Type Diazepam [Diazepam] 5 mg PO HS PRN 01/22/15 08/10/16 History HYDROcodone/APAP 10-325MG [[place] 1 tab PO DAILY PRN 01/22/15 08/10/16 History 10-325] Methocarbamol [Methocarbamol] 750 mg PO DAILY PRN 01/22/15 08/10/16 History Tamsulosin HCl [Tamsulosin HCl] 0.4 mg PO HS 01/22/15 08/10/16 History Docusate [Colace] 100 mg PO BID 08/10/16 08/10/16 History Gabapentin 600 mg PO TID 08/10/16 08/10/16 History Omeprazole 40 mg PO DAILY 08/10/16 08/10/16 History Oxymetazoline 0.05% Nasl [place] 1 - 2 spray EA NOSTRIL HS PRN 08/10/16 08/10/16 History [Afrin 0.05% Nasal [place]] Allergies Allergy/AdvReac Type Severity Reaction Status Date / Time codeine Allergy Rash/Hives Verified 08/10/16 22:24 Physical Examination Osteopathic Statement: *. No significant issues noted on an osteopathic structural exam other than those noted in the History and Physical/Consult. - L Spine: dermatomal strength & reflexes bilateral Strength: hip flexion: 5/5 (At his back he has a well-healed incision from 4 weeks ago at the midline at his lower lumbar spine. There is significant swelling around the site approximately 15 cm x 4 cm x 3 cm high. There is no erythema. His nontender. His quite fluctuant space. It is nontender to palpation. There is no active drainage. His lower extremities have sustained dorsal flexion plantarflexion and EHL. Incising calves are soft and nontender.) Results - Labs Result Diagrams: 08/10/16 22:42 08/10/16 22:42 - Diagnostic results Lumbar MRI with/without contrast: report reviewed, image reviewed CT Scan - lumbar: report reviewed (I reviewed that MRI and computed tomography scan and x-rays of his lumbar spine. It shows evidence of prior laminectomy L4 5 with decompression L4 5 and L5-S1. There is significant fluid collection around the spinal canal toward the right side and extending into the paraspinal tissue and to the subcutaneous tissue as well. There is neural compression due to the fluid collection.), image reviewed Assessment and Plan Plan: 4 weeks status post revision foraminotomy done on 07/12/[address] 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 He had an incidental durotomy at the time of his surgery in June 2014 and this seems to have reopened in the past week and a half. He did have a fever but his white count is normal and there is no deep margination of his white cells. This does not appear to be active infection but certainly may need to be careful of this given the fluid collection and his one-time fever. Infectious disease is following him as well and he should remain on prophylactic IV antibiotics. I think we need to treat him as an active spinal leak. We should have him on strict bedrest laying in a supine position to decrease the pressure on the dura and all potentially allow healing at the dural leak site. We should have him flat for at least 48 hours to see if his symptoms resolved before starting to mobilize. If he is not having improvement then I think he would best for him to have further evaluation and possible surgical intervention at his spine surgeons facility in [place]. I discussed this with him and they have discussed it with Dr. Dunbar's at [facility] and they appear to be in agreement. We discussed the possibility of transferring now for further observation there but they would like to remain here if possible. We will have to follow him closely and if there is any sign of neurologic decline or evidence of active acute infection we may have to pursue urgent surgery here in town before transferring him back to [facility]. As such we'll make him nothing by mouth after midnight if things become emergent. Our hope is that he make some progress with continued immobilization and supine position but if he is not making progress we will plan for transfer back to [facility]. I discussed this with him at length as well as with infectious disease and housestaff and we are in agreement.
[2016-08-11] MEDS: TAMSULOSIN 0.4 MG CAP.ER.24H PO SCH (21:28)
--- NOTE | 2016-08-11 21:40 | P.CON ---
Consult Note - . Consult date: 08/11/16 Assessment/Plan:: This is a 60-year-old male. He has a history of undergoing foraminotomies L4-5 on July 12 at [facility] with neurosurgeon. Patient states he always had a small amount of swelling at the surgical site. One week ago he slipped getting out of the shower and he developed sharp shooting pain down his right leg that eventually went away. On the same time, he was on the floor doing his leg lifts and got up and had an extreme headache. He denies any history of migraine headaches, photophobia or phonophobia. He states he has had ongoing problems with headache and that it is very severe and has interfered with his activities of daily living. He talked to his neurosurgeon's office 2 days ago and was instructed to take it easy stop doing his exercises for 1 week. He currently has home care with RN and physical therapy in place. He states he has had some low-grade fevers at home with temperature max being 100.4. He states he's had generalized body aches as well. Patient has had cold symptoms with sore throat and runny nose as his had a cold 2 weeks ago when he thought he had the same. He has been using his incentive spirometry at home and doing very well with this. He denies having any nausea, vomiting, diarrhea. He denies urinary symptoms. Regarding the headache, he states it is sharp and it starts in his temples and the top of his head and when he walks it goes to the back of his head and down his back to between his shoulder blades. He states he developed pain in his left calf and he does have history of DVT a couple years ago and came into the hospital to have this evaluated. Ultrasound duplex of the left lower extremity was negative for DVT. He had a chest x-ray that showed no acute findings. He underwent a CAT scan of the lumbar spine that showed epidural 4 cm fluid collection at the L5 consistent with seroma or hematoma. Patient had fever of 101.4. White count is 8.7. He underwent influenza testing A and B which were negative. Urinalysis was negative. GFR greater than 60. Albumin 4.3. Patient was admitted to the [facility] floor and consult placed with orthopedic spine. He has an MRI scheduled. He was placed on Unasyn and vancomycin. Please see the consult note is dictated by nurse practitioner Mrs. Mariana Mao. exam reveals this pleasant 52-year-old male to be in no kayla distress at the moment. He is laying supine as he has been requested. With this his headache is slightly better. He is need of assistance with his meal. I'm able to obtain a Styrofoam cup that he has a lid that is made for sipping coffee that allows him to drink his soup without difficulty. We obtain more soup and some tea for him to help him. She just that he drinks as much caffeine as he can't this will help his headache from his CSF leak. Concerns would be to other sources of infection. His lungs are completely clear despite his recent symptoms. He is having no wheezing on the exam. Chest x-ray is negative. He' s had some sinus congestion this is likely somewhat chronic in nature since he does use some Flonase and other medications. We'll request Gali. If this time he did have the fever which is of concern giving his CSF leak. This should be the most likely and most probable source of infection given his history. In concert antibiotic therapy has been placed at the same with vancomycin and ceftazidime for cover the most likely pathogens related to his central nervous system surgery. Agree that the site is without significant erythema or significant tenderness but still infection at that site is of greatest concern. He is being seen by Dr. Medina of orthopedic spine surgery. And is communicating with the surgeon at the [facility] the lesion does not need emergent surgery. If surgery is required the likely will transport himself to the [facility] for intervention as long as her is not an acute life-threatening need. Air mattress overlay as requested. Horace primary is requested. Fioricet for pain control as requested. He understands he needs to be supine for 48 hours and urinalysis applied as well as bedpan as needed. We will monitor. I agree with evaluation, assessment and plan as dictated by nurse practitioner Mrs. Mariana Mao.
[2016-08-12] MEDS: HEPARIN SODIUM,PORCINE 5,000 UNIT/ML 1 ML VIAL SQ SCH ×4 (00:53→23:56)
[2016-08-12] MEDS: DIAZEPAM 5 MG TAB PO PRN ×3 (01:00→21:42)
[2016-08-12] MEDS: SODIUM CHLORIDE 0.9% 1,000 ML IV SCH ×2 (08:35→15:30)
[2016-08-12] MEDS: FLUTICASONE 50MCG/SPRAY NASAL 16GM EA NOSTRIL PRN (08:37)
[2016-08-12] MEDS: PANTOPRAZOLE 40 MG/10 ML VIAL IV SCH (08:38)
[2016-08-12] MEDS: GABAPENTIN 300 MG CAP PO SCH ×3 (08:38→21:43)
[2016-08-12] MEDS: DOCUSATE 100 MG CAP PO SCH ×2 (08:38→20:00)
[2016-08-12] MEDS: BUTALB/APAP/CAFF 50-325-40MG TAB PO PRN ×2 (08:40→21:49)
[2016-08-12 09:16] LABS: CHCM 33.8; HCT 39.7 % (39.0-53.0); HDW 2.36; HGB 12.8 gm/dL (13.0-17.5); MCH 28.8 pg (25.0-35.0); MCHC 32.4 g/dL (31.0-37.0); MCV 89.1 fL (80.0-100.0); Mean Platelet Volume 7.1; RBC 4.46 m/uL (4.30-5.90); RDW 12.3 % (11.5-15.5); WBC 7.2 k/uL (3.8-10.6)
[2016-08-12 09:34] LABS: Anion Gap 9 mmol/L; Blood Urea Nitrogen 11 mg/dL (9-20); Carbon Dioxide 28 mmol/L (22-30); Chloride 104 mmol/L (98-107); Glucose 108 mg/dL (74-99); Non-African American GFR(MDRD) >60 (>60 ml/min/1.73 sqM); Potassium 4.2 mmol/L (3.5-5.1); Sodium 141 mmol/L (137-145)
--- NOTE | 2016-08-12 09:45 | P.PN ---
Progress Note - Text Patient is seen and examined today at bedside. He is having significant difficulty with his bedrest status because he is unable to urinate while making a bed. He got up out of bed 3 times last night to urinate. He says he had increased headaches each time he got up. He feels his headaches worsened after he got up each time. He denies any nausea or vomiting. He denies any fevers or chills. He denies any changes in his neurologic status and his lower extremities. T-max is 100.7 White count is normal at 7.4 On exam his eminence soft nontender. Chest is good excursion deep inspection expiration. At his back the swelling has not changed there is fluctuation at the incision site with fluid under the skin. There is no erythema. There is no drainage. His lower extremities; at the right lower extremity he has chronic weakness with dorsiflexion and EHL. His thighs and calves soft nontender. There is no acute neurologic change Assessment and plan Headaches appear to be due to spinal headaches with a dural leak secondary to recent lumbar spine surgery of revision decompression at L4 5 L5-S1 at [facility] on 07/12/2016. There was a durotomy with apparent repair at the time of surgery in June at [facility] and there seems to be a recurrent leak at the space causing his headaches. He is having significant difficulty maintaining supine position and bed rest due to his urination and so I think we should go ahead and place a Rosenthal catheter so that he can be immobilized in bed in a supine flat position to give the best chance of healing of the durotomy conservatively. He does not appear to have evidence of infection and I think that the low-grade temperatures are due to atelectasis and he needs to be encouraged to do incentive spirometry. His white count has remained normal. He should continue prophylactic antibiotics for now. He can go ahead and eat today is benign plans for surgical intervention for him at this point. If he were to require surgical intervention I think you be best served with returning to [facility] where he had his surgeries recently and in the past for further definitive care. We'll have case management look into this process or possibly returning to [facility].
[2016-08-12] MEDS ORDERED: VANCOMYCIN TROUGH DUE 1 EACH MISC MISCELLANE ONE (10:00)
[2016-08-12] MEDS: VANCOMYCIN 1,500 MG in SODIUM CHLORIDE 0.9% 250 ML IVPB SCH ×2 (10:53→19:35)
--- NOTE | 2016-08-12 12:16 | PN ---
The patient is admitted with low grade fevers, probably related to hematoma atelectasis and patient is also having spinal headache. Patient had a recent lumbar spine surgery. Patient has a seroma or a hematoma in the back and does not appear to be infected and no intervention is being planned at this point of time as per the recommendations from the neurosurgeon from [facility] as well as our back surgeon. REVIEW OF SYSTEMS: CARDIOVASCULAR: No chest pain, no orthopnea, no PND, no palpitations. PULMONARY: Denied any shortness of breath. No cough or hemoptysis. GASTROINTESTINAL: No diarrhea, nausea or vomiting. No abdominal pain. Normoactive bowel sounds. NEUROLOGICAL: Patient started having headache again, which is a spinal headache. Medications were reviewed. PHYSICAL EXAMINATION: VITAL SIGNS: Temperature 100.7 pulse of 77, respiratory rate of 18, blood pressure is 128/68, saturating at 92% on room air. GENERAL: The patient is alert and oriented x3, not in any acute distress. Well developed, well nourished. HEENT: Pupils are round and equally reacting to light. EOMI. No scleral icterus. No conjunctival pallor. Normocephalic, atraumatic. No pharyngeal erythema. No thyromegaly. CARDIOVASCULAR: S1 and S2 present. No murmurs, rubs, or gallops. PULMONARY: Chest is clear to auscultation, no wheezing or crackles. ABDOMEN: Soft, nontender, nondistended, normoactive bowel sounds. No palpable organomegaly. MUSCULOSKELETAL: No significant change compared to yesterday. EXTREMITIES: No cyanosis, clubbing, or pedal edema. NEUROLOGICAL: Gross neurological examination did not reveal any focal deficits. DERMATOLOGIC: No significant change compared to yesterday. LABORATORY DATA: CBC, CMP essentially within normal limits. ASSESSMENT AND PLAN: 1. Fever without any leukocytosis, unsure this is source of sepsis. The patient may not be septic. The patient probably has atelectasis and the back does not appear to be infected and patient is on ceftazidime and vancomycin. 2. Chronic low back pain. Patient underwent back surgery recently. 3. Gastroesophageal reflux disease. 4. History of deep venous thrombosis in the past. 5. Allergic sinusitis. Patient will be continued on IV antibiotics as per recommendation from Infectious Disease until it is proven that patient does not have any source of infection. Continue with symptomatic treatment for his headache, which appears to be spinal headache. ( ) management for seroma or hematoma.
[2016-08-12] MEDS: TAMSULOSIN 0.4 MG CAP.ER.24H PO SCH (20:00)
--- NOTE | 2016-08-12 22:39 | P.PN ---
Subjective Principal diagnosis: CSF leak with fever This is a 60-year-old male. He has a history of undergoing foraminotomies L4-5 on July 12 at [facility] with neurosurgeon. Patient states he always had a small amount of swelling at the surgical site. One week ago he slipped getting out of the shower and he developed sharp shooting pain down his right leg that eventually went away. On the same time, he was on the floor doing his leg lifts and got up and had an extreme headache. He denies any history of migraine headaches, photophobia or phonophobia. He states he has had ongoing problems with headache and that it is very severe and has interfered with his activities of daily living. He talked to his neurosurgeon's office 2 days ago and was instructed to take it easy stop doing his exercises for 1 week. He currently has home care with RN and physical therapy in place. He states he has had some low-grade fevers at home with temperature max being 100.4. He states he's had generalized body aches as well. Patient has had cold symptoms with sore throat and runny nose as his had a cold 2 weeks ago when he thought he had the same. He has been using his incentive spirometry at home and doing very well with this. He denies having any nausea, vomiting, diarrhea. He denies urinary symptoms. Regarding the headache, he states it is sharp and it starts in his temples and the top of his head and when he walks it goes to the back of his head and down his back to between his shoulder blades. He states he developed pain in his left calf and he does have history of DVT a couple years ago and came into the hospital to have this evaluated. Ultrasound duplex of the left lower extremity was negative for DVT. He had a chest x-ray that showed no acute findings. He underwent a CAT scan of the lumbar spine that showed epidural 4 cm fluid collection at the L5 consistent with seroma or hematoma. Patient had fever of 101.4. White count is 8.7. He underwent influenza testing A and B which were negative. Urinalysis was negative. GFR greater than 60. Albumin 4.3.patient has had some new developments overnight. He had kirby the night. This Rosenthal catheter was attempted to prostate issues. Surprisingly after the Rosenthal attempts it appears to have loosened a stricture and is This temporarily helping his headac spirometer. He improved today. Objective - Vital Signs Vital signs: Vital Signs Temp 98.8 F 08/12/16 22:33 Pulse 72 08/12/16 22:33 Resp 18 08/12/16 22:33 BP 115/66 08/12/16 22:33 Pulse Ox 96 08/12/16 22:33 Intake & Output 08/12/16 08/12/16 08/13/16 06:59 18:59 06:59 Output Total 550 Balance -550 Output: Urine 550 - Exam Gen: This is a 60-year-old male. He is lying flat in bed and appears to be very uncomfortable due to headache. HEENT: Head is atraumatic, normocephalic. Pupils equal, round. Sclerae is anicteric. Conjunctiva pink. Mucous members of the mouth are dry. Dentition is in fair order. NECK: Supple. No JVD. No lymphadenopathy. No thyromegaly. LUNGS: Clear to auscultation. No wheezes or rhonchi. No intercostal retractions. HEART: Regular rate and rhythm. No murmur. ABDOMEN: Soft. Bowel sounds are present. No masses. No tenderness. BACK: There is a large fluid collection along the entire surgical incision in the lumbar area that is soft to palpation and appears to be fluid filled. No firmness noted no tenderness at the site. No drainage no foul odor. EXTREMITIES: No pedal edema. No calf tenderness. Her cells pedis +2 bilaterally NEUROLOGICAL: Patient is awake, alert and oriented x3. - Labs CBC & Chem 7: 08/12/16 08:56 08/12/16 08:56 Labs: Laboratory Results WBC 7.2 k/uL (3.8-10.6) 08/12/16 08:56 RBC 4.46 m/uL (4.30-5.90) 08/12/16 08:56 Hgb 12.8 gm/dL (13.0-17.5) L 08/12/16 08:56 Hct 39.7 % (39.0-53.0) 08/12/16 08:56 MCV 89.1 fL (80.0-100.0) 08/12/16 08:56 MCH 28.8 pg (25.0-35.0) 08/12/16 08:56 MCHC 32.4 g/dL (31.0-37.0) 08/12/16 08:56 RDW 12.3 % (11.5-15.5) 08/12/16 08:56 Plt Count 263 k/uL (150-450) 08/12/16 08:56 Neutrophils % 61 % 08/10/16 22:42 Lymphocytes % 28 % 08/10/16 22:42 Monocytes % 7 % 08/10/16 22:42 Eosinophils % 2 % 08/10/16 22:42 Basophils % 1 % 08/10/16 22:42 Neutrophils # 5.3 k/uL (1.3-7.7) 08/10/16 22:42 Lymphocytes # 2.4 k/uL (1.0-4.8) 08/10/16 22:42 Monocytes # 0.6 k/uL (0-1.0) 08/10/16 22:42 Eosinophils # 0.1 k/uL (0-0.7) 08/10/16 22:42 Basophils # 0.1 k/uL (0-0.2) 08/10/16 22:42 Sodium 141 mmol/L (137-145) 08/12/16 08:56 Potassium 4.2 mmol/L (3.5-5.1) 08/12/16 08:56 Chloride 104 mmol/L (98-107) 08/12/16 08:56 Carbon Dioxide 28 mmol/L (22-30) 08/12/16 08:56 Anion Gap 9 mmol/L 08/12/16 08:56 BUN 11 mg/dL (9-20) 08/12/16 08:56 Creatinine 0.87 mg/dL (0.66-1.25) 08/12/16 08:56 Est GFR (MDRD) Af Amer >60 (>60 ml/min/1.73 sqM) 08/12/16 08:56 Est GFR (MDRD) Non-Af >60 (>60 ml/min/1.73 sqM) 08/12/16 08:56 Glucose 108 mg/dL (74-99) H 08/12/16 08:56 Calcium 9.0 mg/dL (8.4-10.2) 08/12/16 08:56 Total Bilirubin 0.5 mg/dL (0.2-1.3) 08/10/16 22:42 AST 15 U/L (17-59) L 08/10/16 22:42 ALT 26 U/L (21-72) 08/10/16 22:42 Alkaline Phosphatase 55 U/L (38-126) 08/10/16 22:42 Total Protein 7.2 g/dL (6.3-8.2) 08/10/16 22:42 Albumin 4.3 g/dL (3.5-5.0) 08/10/16 22:42 Urine Color Yellow 08/10/16 23:30 Urine Appearance Clear (Clear) 08/10/16 23:30 Urine pH 6.5 (5.0-8.0) 08/10/16 23:30 Ur Specific Dunlow 1.013 (1.001-1.035) 08/10/16 23:30 Urine Protein Negative (Negative) 08/10/16 23:30 Urine Glucose (UA) Negative (Negative) 08/10/16 23:30 Urine Ketones Negative (Negative) 08/10/16 23:30 Urine Blood Negative (Negative) 08/10/16 23:30 Urine Nitrate Negative (Negative) 08/10/16 23:30 Urine Bilirubin Negative (Negative) 08/10/16 23:30 Urine Urobilinogen <2.0 mg/dL (<2.0) 08/10/16 23:30 Ur Leukocyte Esterase Negative (Negative) 08/10/16 23:30 Vancomycin Trough 11.6 ug/mL 08/12/16 08:56 Influenza Type A RNA Not Detected (Not Detectd) 08/10/16 22:42 Influenza Type B (PCR) Not Detected (Not Detectd) 08/10/16 22:42 Microbiology 08/10/16 23:30 Urine,Clean Catch Urine Culture - Final 08/10/16 22:42 Blood Blood Culture - Preliminary No Growth after 24 hours Assessment and Plan (1) Lumbar surgical wound fluid collection Narrative/Plan: 60-year-old male presents to Hospital status post his spinal surgery. Has developed difficulty with a CSF leak with resultant pain and severe headache. This was complicated with fever and consequently he has been admitted. He's been seen by orthopedic spine there's been medication with the neurosurgeon at the [facility] where her surgeries been performed. At this time patient is to only improved. Fevers improved. Is feeling better overall. He is able to urinate laying flat is noted. Is denying other new difficulties. He is definitely feeling better by not having to get to the upright position He is also having good amounts of caffeine. At this time cultures are processing he is receiving antibiotic therapy with vancomycin ceftaz and given the significant concerns. Fortunately he is improving. Does not appear to have evidence of pneumonia or other infection. If he remains afebrile and has no other changes and by therapy will be able to be discontinued in 24-48 hours. Status: Acute (2) Fever Status: Acute
[2016-08-13] MEDS: VANCOMYCIN 1,500 MG in SODIUM CHLORIDE 0.9% 250 ML IVPB SCH ×3 (03:53→19:44)
[2016-08-13] MEDS: HYDROcodone/APAP 5-325MG 1 EACH TAB PO PRN ×3 (04:07→21:45)
[2016-08-13 07:24] LABS: CH 30.1; CHCM 34.1; HCT 38.9 % (39.0-53.0); HDW 2.36; HGB 12.7 gm/dL (13.0-17.5); MCHC 32.7 g/dL (31.0-37.0); MCV 88.6 fL (80.0-100.0); Mean Platelet Volume 7.1; RBC 4.39 m/uL (4.30-5.90); RDW 12.4 % (11.5-15.5); WBC 7.9 k/uL (3.8-10.6)
[2016-08-13] MEDS: SODIUM CHLORIDE 0.9% 1,000 ML IV SCH ×2 (07:28→18:08)
[2016-08-13 07:49] LABS: Anion Gap 9 mmol/L; Blood Urea Nitrogen 11 mg/dL (9-20); Calcium 9.1 mg/dL (8.4-10.2); Carbon Dioxide 29 mmol/L (22-30); Chloride 105 mmol/L (98-107); Glucose 90 mg/dL (74-99); Non-African American GFR(MDRD) >60 (>60 ml/min/1.73 sqM); Potassium 4.3 mmol/L (3.5-5.1); Sodium 143 mmol/L (137-145)
[2016-08-13] MEDS: GABAPENTIN 300 MG CAP PO SCH ×3 (10:12→21:45)
[2016-08-13] MEDS: HEPARIN SODIUM,PORCINE 5,000 UNIT/ML 1 ML VIAL SQ SCH ×2 (10:12→16:26)
[2016-08-13] MEDS: DOCUSATE 100 MG CAP PO SCH ×2 (10:12→10:16)
[2016-08-13] MEDS: PANTOPRAZOLE 40 MG/10 ML VIAL IV SCH (10:13)
[2016-08-13] MEDS: FLUTICASONE 50MCG/SPRAY NASAL 16GM EA NOSTRIL PRN (10:13)
--- NOTE | 2016-08-13 10:56 | P.PN ---
Progress Note - Text Patient is a very pleasant 60-year-old male who seems at bedside for follow-up evaluation for his lumbar spine. He recently underwent surgical intervention at the [facility]. He was known have a dural tear at that time. He appears his had exacerbation of his dural tear. Since being seen exam yesterday , he has remained lying flat in bed. Since that time he states his headaches have improved. He has been afebrile since yesterday. He continues be seen by medicine as well. He was having some difficulty previously with lying flat in bed due to having to urinate. A Rosenthal catheter was attempted to be placed yesterday but he is known to have prostate stricture and a Rosenthal catheter was unable to be placed. Patient states after attempting to place the Rosenthal he has been able to urinate much better. He states he's been able to lay a bit more easily now. Overall his pain is been well-controlled. He is not currently experiencing significant low back pain. We discussed we are planning for him to remain lying flat in bed until tomorrow at which time we will plan to have him sit upright in standard the bedside at lunchtime tomorrow to see if his headaches are exacerbated. He has not had any recurrence of low-grade fever since being seen and examined yesterday. Physical exam: Patient is awake, alert, and oriented 3; patient is examined lying flat in bed Vital signs stable Good chest excursion with deep inspiration and expiration Abdomen soft nontender Examination of lumbar spine reveals skin is intact with no abrasions, lacerations, or bruises; no erythema, purulence or signs of infection Evidence of a well-healed incision with previous staple removal along the midline of the lower lumbar spine Evidence of a large fluid collection along the entire surgical incision that is soft to palpation and feels fluid filled; no firmness with palpation along the incision site No active drainage at the incision site; I am unable to express any drainage at the incision site No pain with palpation along the incision site Dorsiflexion, plantarflexion, and extensor hallucis longus positive sustained bilaterally Lower extremity strength positive sustained bilaterally No signs or symptoms of DVT; no calf pain; calves are soft nontender to palpation Neurovascularly intact Assessment: Status post revision lumbar decompression L4-5 and L5-S1 surgery at the [facility] in [place], [place] on 07/12/2016 Recurrent dural leak Headaches Subcutaneous fluid collection and L3-5 measuring approximately 10 cm x 2 cm Epidural 4 cm fluid collection posterior to L5 consistent with seroma or hematoma Plan: 1. Patient has been discussed in detail with Dr. Gautam Medina. We will plan to have him remain lying flat in bed until tomorrow afternoon. At that time the plan to have him stand at the bedside sat upright to see if he has exacerbation of his headaches. If he has an exacerbation of headaches, we will appears his dural leak has not healed. At that time we'll discuss the possibility of restarting the process with him lying down for another 48-72 hours or discuss transferred to the [facility] for further evaluation by his spinal surgeon. We discussed if we are able to get him stable we will plan for discharge with him to return to the [facility] for further evaluation as well. We are not currently planning acute surgical intervention in regards to his lumbar spine. He must continue to lie flat in bed. 2. Medicine to continue following the patient 3. Continue his IV antibiotic regimen per Dr. Lorenzana recommendations 4. We will continue to follow patient closely 5. I have again discussed this patient detail with Dr. Gautam Medina and he agrees with this plan
--- NOTE | 2016-08-13 14:58 | P.PN ---
Subjective Principal diagnosis: CSF leak with fever This is a 60-year-old male. He has a history of undergoing foraminotomies L4-5 on July 12 at [facility] with neurosurgeon. Patient states he always had a small amount of swelling at the surgical site. One week ago he slipped getting out of the shower and he developed sharp shooting pain down his right leg that eventually went away. On the same time, he was on the floor doing his leg lifts and got up and had an extreme headache. He denies any history of migraine headaches, photophobia or phonophobia. He states he has had ongoing problems with headache and that it is very severe and has interfered with his activities of daily living. He talked to his neurosurgeon's office 2 days ago and was instructed to take it easy stop doing his exercises for 1 week. He currently has home care with RN and physical therapy in place. He states he has had some low-grade fevers at home with temperature max being 100.4. He states he's had generalized body aches as well. Patient has had cold symptoms with sore throat and runny nose as his had a cold 2 weeks ago when he thought he had the same. He has been using his incentive spirometry at home and doing very well with this. He denies having any nausea, vomiting, diarrhea. He denies urinary symptoms. Regarding the headache, he states it is sharp and it starts in his temples and the top of his head and when he walks it goes to the back of his head and down his back to between his shoulder blades. He states he developed pain in his left calf and he does have history of DVT a couple years ago and came into the hospital to have this evaluated. Ultrasound duplex of the left lower extremity was negative for DVT. He had a chest x-ray that showed no acute findings. He underwent a CAT scan of the lumbar spine that showed epidural 4 cm fluid collection at the L5 consistent with seroma or hematoma. Patient had fever of 101.4. White count is 8.7. He underwent influenza testing A and B which were negative. Urinalysis was negative. GFR greater than 60. Albumin 4.3.patient has had some new developments overnight. He had kirby the night. This Rosenthal catheter was attempted to prostate issues. Surprisingly after the Rosenthal attempts it appears to have loosened a stricture and is This temporarily helping his urinary symptoms He is improved today. Objective - Vital Signs Vital signs: Vital Signs Temp 98.0 F 08/13/16 07:00 Pulse 63 08/13/16 08:00 Resp 18 08/13/16 08:00 BP 128/58 08/13/16 07:00 Pulse Ox 93 L 08/13/16 07:00 Intake & Output 08/12/16 08/13/16 08/13/16 18:59 06:59 18:59 Intake Total 600 Output Total 1850 Balance -1250 Intake: IV 600 Sodium Chloride 0.9% 1, 600 000 ml @ 75 mls/hr IV . [id number] [facility] Rx#:[id number] Output: Urine 1850 Other: Voiding Method Urinal Urinal # Voids 4 - Exam Gen: This is a 60-year-old male. He is lying flat in bed and appears to be very uncomfortable due to headache. HEENT: Head is atraumatic, normocephalic. Pupils equal, round. Sclerae is anicteric. Conjunctiva pink. Mucous members of the mouth are dry. Dentition is in fair order. NECK: Supple. No JVD. No lymphadenopathy. No thyromegaly. LUNGS: Clear to auscultation. No wheezes or rhonchi. No intercostal retractions. HEART: Regular rate and rhythm. No murmur. ABDOMEN: Soft. Bowel sounds are present. No masses. No tenderness. BACK: There is a large fluid collection along the entire surgical incision in the lumbar area that is soft to palpation and appears to be fluid filled. No firmness noted no tenderness at the site. No drainage no foul odor. EXTREMITIES: No pedal edema. No calf tenderness. Her cells pedis +2 bilaterally NEUROLOGICAL: Patient is awake, alert and oriented x3. - Labs CBC & Chem 7: 08/13/16 06:51 08/13/16 06:51 Labs: Abnormal Lab Results - Last 24 Hours (Table) 08/13/16 Range/Units 06:51 Hgb 12.7 L (13.0-17.5) gm/dL Hct 38.9 L (39.0-53.0) % Laboratory Results WBC 7.9 k/uL (3.8-10.6) 08/13/16 06:51 RBC 4.39 m/uL (4.30-5.90) 08/13/16 06:51 Hgb 12.7 gm/dL (13.0-17.5) L 08/13/16 06:51 Hct 38.9 % (39.0-53.0) L 08/13/16 06:51 MCV 88.6 fL (80.0-100.0) 08/13/16 06:51 MCH 29.0 pg (25.0-35.0) 08/13/16 06:51 MCHC 32.7 g/dL (31.0-37.0) 08/13/16 06:51 RDW 12.4 % (11.5-15.5) 08/13/16 06:51 Plt Count 259 k/uL (150-450) 08/13/16 06:51 Neutrophils % 61 % 08/10/16 22:42 Lymphocytes % 28 % 08/10/16 22:42 Monocytes % 7 % 08/10/16 22:42 Eosinophils % 2 % 08/10/16 22:42 Basophils % 1 % 08/10/16 22:42 Neutrophils # 5.3 k/uL (1.3-7.7) 08/10/16 22:42 Lymphocytes # 2.4 k/uL (1.0-4.8) 08/10/16 22:42 Monocytes # 0.6 k/uL (0-1.0) 08/10/16 22:42 Eosinophils # 0.1 k/uL (0-0.7) 08/10/16 22:42 Basophils # 0.1 k/uL (0-0.2) 08/10/16 22:42 Sodium 143 mmol/L (137-145) 08/13/16 06:51 Potassium 4.3 mmol/L (3.5-5.1) 08/13/16 06:51 Chloride 105 mmol/L (98-107) 08/13/16 06:51 Carbon Dioxide 29 mmol/L (22-30) 08/13/16 06:51 Anion Gap 9 mmol/L 08/13/16 06:51 BUN 11 mg/dL (9-20) 08/13/16 06:51 Creatinine 0.85 mg/dL (0.66-1.25) 08/13/16 06:51 Est GFR (MDRD) Af Amer >60 (>60 ml/min/1.73 sqM) 08/13/16 06:51 Est GFR (MDRD) Non-Af >60 (>60 ml/min/1.73 sqM) 08/13/16 06:51 Glucose 90 mg/dL (74-99) 08/13/16 06:51 Calcium 9.1 mg/dL (8.4-10.2) 08/13/16 06:51 Total Bilirubin 0.5 mg/dL (0.2-1.3) 08/10/16 22:42 AST 15 U/L (17-59) L 08/10/16 22:42 ALT 26 U/L (21-72) 08/10/16 22:42 Alkaline Phosphatase 55 U/L (38-126) 08/10/16 22:42 Total Protein 7.2 g/dL (6.3-8.2) 08/10/16 22:42 Albumin 4.3 g/dL (3.5-5.0) 08/10/16 22:42 Urine Color Yellow 08/10/16 23:30 Urine Appearance Clear (Clear) 08/10/16 23:30 Urine pH 6.5 (5.0-8.0) 08/10/16 23:30 Ur Specific [place] 1.013 (1.001-1.035) 08/10/16 23:30 Urine Protein Negative (Negative) 08/10/16 23:30 Urine Glucose (UA) Negative (Negative) 08/10/16 23:30 Urine Ketones Negative (Negative) 08/10/16 23:30 Urine Blood Negative (Negative) 08/10/16 23:30 Urine Nitrate Negative (Negative) 08/10/16 23:30 Urine Bilirubin Negative (Negative) 08/10/16 23:30 Urine Urobilinogen <2.0 mg/dL (<2.0) 08/10/16 23:30 Ur Leukocyte Esterase Negative (Negative) 08/10/16 23:30 Vancomycin Trough 11.6 ug/mL 08/12/16 08:56 Influenza Type A RNA Not Detected (Not Detectd) 08/10/16 22:42 Influenza Type B (PCR) Not Detected (Not Detectd) 08/10/16 22:42 Microbiology 08/10/16 22:42 Blood Blood Culture - Preliminary No Growth after 48 hours 08/10/16 23:30 Urine,Clean Catch Urine Culture - Final Assessment and Plan (1) Lumbar surgical wound fluid collection Narrative/Plan: 60-year-old male presents to Hospital status post his spinal surgery. Has developed difficulty with a CSF leak with resultant pain and severe headache. This was complicated with fever and consequently he has been admitted. He's been seen by orthopedic spine there's been medication with the neurosurgeon at the [facility] where her surgeries been performed. At this time patient is to only improved. Fevers improved. Is feeling better overall. He is able to urinate laying flat is noted. Is denying other new difficulties. He is definitely feeling better by not having to get to the upright position He is also having good amounts of caffeine. At this time cultures are processing he is receiving antibiotic therapy with vancomycin ceftaz and given the significant concerns. Fortunately he is improving. Does not appear to have evidence of pneumonia or other infection. If he remains afebrile and has no other changes and by therapy will be able to be discontinued in 24 hours. Status: Acute (2) Fever Status: Acute
--- NOTE | 2016-08-13 15:56 | PN ---
Patient is admitted with a fever, probable source being hematoma atelectasis and no other source of infection was identified. Patient has a dural leak, leading to spinal headache and patient has a collection in the lower back area which does not appear to be infected. Patient appears to be doing well at this point of time. REVIEW OF SYSTEMS: CARDIOVASCULAR: No chest pain, no orthopnea, no PND, no palpitations. PULMONARY: Denied any shortness of breath. No cough or hemoptysis. GASTROINTESTINAL: No diarrhea, nausea or vomiting. No abdominal pain. Normoactive bowel sounds. NEUROLOGIC: No headaches, no weakness, no numbness. MUSCULOSKELETAL: As described in HPI. Medications were reviewed. PHYSICAL EXAMINATION: Temperature 98.0, pulse is 63, respiratory rate of 18, blood pressure 128/58, saturating at 93% on room air. GENERAL: The patient is alert and oriented x3, not in any acute distress. Well developed, well nourished. HEENT: Pupils are round and equally reacting to light. EOMI. No scleral icterus. No conjunctival pallor. Normocephalic, atraumatic. No pharyngeal erythema. No thyromegaly. CARDIOVASCULAR: S1 and S2 present. No murmurs, rubs, or gallops. PULMONARY: Chest is clear to auscultation, no wheezing or crackles. ABDOMEN: Soft, nontender, nondistended, normoactive bowel sounds. No palpable organomegaly. EXTREMITIES: No cyanosis, clubbing, or pedal edema. NEUROLOGICAL: Gross neurological examination did not reveal any focal deficits. SKIN: No rashes. MUSCULOSKELETAL: Unchanged compared to yesterday. ASSESSMENT AND PLAN: 1. Fever without any leukocytosis. Source of sepsis is not evident. Patient's fever is probably related to above-mentioned reasons. 2. Chronic low back pain with a seroma or a hematoma in the back with a dural leak leading to headache. 3. Gastroesophageal reflux disease. 4. Chronic obstructive pulmonary disease in the past. 5. Allergic sinusitis. Continue with the antibiotics as per recommendations per Dr. Lorenzana, probably wait for finalization of the cultures and sensitivities. If he is clinically doing well, patient will be discharged home and will follow with the neurosurgeon in [facility].
[2016-08-13] MEDS: BUTALB/APAP/CAFF 50-325-40MG TAB PO PRN (16:25)
[2016-08-13] MEDS: TAMSULOSIN 0.4 MG CAP.ER.24H PO SCH (19:46)
[2016-08-13 21:45] VITALS: RESP 16
[2016-08-13] MEDS: DIAZEPAM 5 MG TAB PO PRN (21:45)
[2016-08-14] MEDS: HEPARIN SODIUM,PORCINE 5,000 UNIT/ML 1 ML VIAL SQ SCH ×2 (00:12→08:04)
[2016-08-14] MEDS ORDERED: VANCOMYCIN TROUGH DUE 1 EACH MISC MISCELLANE ONE (03:00)
[2016-08-14] MEDS: VANCOMYCIN 1,500 MG in SODIUM CHLORIDE 0.9% 250 ML IVPB SCH (04:51)
[2016-08-14] MEDS: DIAZEPAM 5 MG TAB PO PRN (04:57)
[2016-08-14] MEDS: HYDROcodone/APAP 5-325MG 1 EACH TAB PO PRN (04:57)
[2016-08-14] MEDS: GABAPENTIN 300 MG CAP PO SCH (08:05)
[2016-08-14] MEDS: DOCUSATE 100 MG CAP PO SCH (08:05)
[2016-08-14] MEDS: PANTOPRAZOLE 40 MG/10 ML VIAL IV SCH (08:06)
[2016-08-14] MEDS: BUTALB/APAP/CAFF 50-325-40MG TAB PO PRN (08:09)
--- NOTE | 2016-08-14 08:30 | P.PN ---
Progress Note - Text Patient is a very pleasant 60-year-old male who seems at bedside for follow-up evaluation for his lumbar spine. He recently underwent surgical intervention at the [facility]. He was known have a dural tear at that time. He appears his had exacerbation of his dural tear. Since being seen exam yesterday , he has remained lying flat in bed. He has continued to have some improvement of his headaches but states he was given Fioricet last night by his nurse for some control of his headaches. He continues to be afebrile. He has been able to urinate while lying in bed without significant difficulty. Overall his pain has been well-controlled. He is not currently experiencing significant low back pain. We discussed we are planning for him to remain lying flat in bed until this afternoon at which time we will plan to have him sit upright in standard the bedside at lunchtime to see if his headaches are exacerbated. He has not had any recurrence of low-grade fever since being seen and examined yesterday. Physical exam: Patient is awake, alert, and oriented 3; patient is examined lying flat in bed Vital signs stable Good chest excursion with deep inspiration and expiration Abdomen soft nontender Lumbar spine is unable to be examined as patient is currently lying flat in bed and is restricted to bed rest lying flat Dorsiflexion, plantarflexion, and extensor hallucis longus positive sustained bilaterally Lower extremity strength positive sustained bilaterally No signs or symptoms of DVT; no calf pain; calves are soft nontender to palpation Neurovascularly intact Assessment: Status post revision lumbar decompression L4-5 and L5-S1 surgery at the [facility] in [place], [place] on 07/12/2016 Recurrent dural leak Headaches Subcutaneous fluid collection and L3-5 measuring approximately 10 cm x 2 cm Epidural 4 cm fluid collection posterior to L5 consistent with seroma or hematoma Plan: 1. Patient has been discussed in detail with Dr. Gautam Medina. We will plan to have him remain lying flat in bed until early this afternoon. At that time the plan to have him stand at the bedside sat upright to see if he has exacerbation of his headaches. If he has an exacerbation of headaches, we will appears his dural leak has not healed. At that time we'll discuss the possibility of restarting the process with him lying down for another 48-72 hours or discuss transferred to the [facility] for further evaluation by his spinal surgeon. We discussed if we are able to get him stable we will plan for discharge with him to return to the [facility] for further evaluation as well. We are not currently planning acute surgical intervention in regards to his lumbar spine. He must continue to lie flat in bed. We will also plan to hold his Fioricet this morning prior to having him stand early this afternoon. 2. Medicine to continue following the patient 3. Continue his IV antibiotic regimen per Dr. Lorenzana recommendations 4. We will continue to follow patient closely 5. I have again discussed this patient detail with Dr. Gautam eMdina and he agrees with this plan
[2016-08-14 08:33] VITALS: BP 102/58; PULSE 68; TEMP 98.2
[2016-08-14] MEDS ORDERED: PSYLLIUM HUSK 100% 6 GM PACKET PO SCH (11:30)
[2016-08-14] MEDS: SODIUM CHLORIDE 0.9% 1,000 ML IV SCH (14:17)
--- NOTE | 2016-08-14 15:06 | P.PN ---
Progress Note - Text Patient is seen and examined today at bedside. He reports no headache swelling flat. He has been able to void while in bed without Rosenthal. He denies any neurologic change. On exam at his low back there is still fluid collection underneath his skin. There is no erythema. There is no active drainage. He is nontender over the area. There is fluctuance. His lower extremities do not have neurologic change. He has chronic weakness of the right lower extremity with dorsiflexion and EHL. Assessment and plan Fluid collection lumbar spine wound likely recurrent dural leak status post revision laminectomy decompression in June at [facility] with reported incidental durotomy at surgery and repair. At this point patient has been in bed flat for 48 hours and we try to sit him up at bedside today. He was able to sit up well without evidence of spinal headaches and after 5 minutes we was able to stand up and again remained without any evidence of headaches after approximately 10-15 minutes. He may have had closure at the durotomy and as such it is okay for him to start to gently mobilize. If he remains clear of headaches I think it'll be okay for him to be discharged home. From an orthopedic spine standpoint he is not having neurologic change or neurologic new deficits. He does not appear to have spinal infection. I think it is okay for discharge if he is no longer having spinal headaches and I think he should follow-up with his own spine surgeon at [facility] as scheduled next week. If he is having worsening of his symptoms I think he should contact his surgeon and present to [facility] for further definitive care. I discussed this with him and his at length at bedside. I do not have plans of providing surgical intervention at this point as he is not having any neurologic deficit. If he requires any further surgical intervention for his back he should report to his prior spine surgeon, from whom he is still actively receiving care. In fact he is still in his global period from his recent surgery and has been in contact with his spine surgeon for further follow -up next week.
[2016-08-14] MEDS ORDERED: VANCOMYCIN 1,250 MG in SODIUM CHLORIDE 0.9% 250 ML IVPB SCH (16:00)
--- NOTE | 2016-08-14 22:03 | P.PN ---
Subjective Principal diagnosis: CSF leak with fever This is a 60-year-old male. He has a history of undergoing foraminotomies L4-5 on July 12 at [facility] with neurosurgeon. Patient states he always had a small amount of swelling at the surgical site. One week ago he slipped getting out of the shower and he developed sharp shooting pain down his right leg that eventually went away. On the same time, he was on the floor doing his leg lifts and got up and had an extreme headache. He denies any history of migraine headaches, photophobia or phonophobia. He states he has had ongoing problems with headache and that it is very severe and has interfered with his activities of daily living. He talked to his neurosurgeon's office 2 days ago and was instructed to take it easy stop doing his exercises for 1 week. He currently has home care with RN and physical therapy in place. He states he has had some low-grade fevers at home with temperature max being 100.4. He states he's had generalized body aches as well. Patient has had cold symptoms with sore throat and runny nose as his had a cold 2 weeks ago when he thought he had the same. He has been using his incentive spirometry at home and doing very well with this. He denies having any nausea, vomiting, diarrhea. He denies urinary symptoms. Regarding the headache, he states it is sharp and it starts in his temples and the top of his head and when he walks it goes to the back of his head and down his back to between his shoulder blades. He states he developed pain in his left calf and he does have history of DVT a couple years ago and came into the hospital to have this evaluated. Ultrasound duplex of the left lower extremity was negative for DVT. He had a chest x-ray that showed no acute findings. He underwent a CAT scan of the lumbar spine that showed epidural 4 cm fluid collection at the L5 consistent with seroma or hematoma. Patient had fever of 101.4. White count is 8.7. He underwent influenza testing A and B which were negative. Urinalysis was negative. GFR greater than 60. Albumin 4.3.patient has had some new developments overnight. He had kirby the night. This Rosenthal catheter was attempted to prostate issues. Surprisingly after the Rosenthal attempts it appears to have loosened a stricture and is This temporarily helping his urinary symptoms Patient has had further improvement. He's been seen by a orthopedic spine surgeon. He's been allowed to sit up. He was stable. Consequently be discharged home today. With no evidence of any further fever or infection. Objective - Vital Signs Vital signs: Vital Signs Temp 98.2 F 08/14/16 07:00 Pulse 68 08/14/16 08:00 Resp 16 08/14/16 08:00 BP 102/58 08/14/16 07:00 Pulse Ox 98 08/14/16 07:00 Intake & Output 08/14/16 08/14/16 08/15/16 06:59 18:59 06:59 Intake Total 1702 Output Total 400 Balance 1302 Intake: IV 750 Sodium Chloride 0.9% 1, 750 000 ml @ 75 mls/hr IV . [id number] [facility] Rx#:[id number] Intake, IV Titration 250 Amount Vancomycin 1,500 mg In 250 Sodium Chloride 0.9% 250 ml @ 125 mls/hr IVPB Q8H [facility] Rx#:[id number] Oral 702 Output: Urine 400 Other: Voiding Method Urinal Urinal # Voids 1 - Exam Gen: This is a 60-year-old male. He is lying flat in bed and appears to be very uncomfortable due to headache. HEENT: Head is atraumatic, normocephalic. Pupils equal, round. Sclerae is anicteric. Conjunctiva pink. Mucous members of the mouth are dry. Dentition is in fair order. NECK: Supple. No JVD. No lymphadenopathy. No thyromegaly. LUNGS: Clear to auscultation. No wheezes or rhonchi. No intercostal retractions. HEART: Regular rate and rhythm. No murmur. ABDOMEN: Soft. Bowel sounds are present. No masses. No tenderness. BACK: There is a large fluid collection along the entire surgical incision in the lumbar area that is soft to palpation and appears to be fluid filled. No firmness noted no tenderness at the site. No drainage no foul odor. EXTREMITIES: No pedal edema. No calf tenderness. NEUROLOGICAL: Patient is awake, alert and oriented x3. - Labs CBC & Chem 7: 08/13/16 06:51 08/13/16 06:51 Labs: Laboratory Results WBC 7.9 k/uL (3.8-10.6) 08/13/16 06:51 RBC 4.39 m/uL (4.30-5.90) 08/13/16 06:51 Hgb 12.7 gm/dL (13.0-17.5) L 08/13/16 06:51 Hct 38.9 % (39.0-53.0) L 08/13/16 06:51 MCV 88.6 fL (80.0-100.0) 08/13/16 06:51 MCH 29.0 pg (25.0-35.0) 08/13/16 06:51 MCHC 32.7 g/dL (31.0-37.0) 08/13/16 06:51 RDW 12.4 % (11.5-15.5) 08/13/16 06:51 Plt Count 259 k/uL (150-450) 08/13/16 06:51 Neutrophils % 61 % 08/10/16 22:42 Lymphocytes % 28 % 08/10/16 22:42 Monocytes % 7 % 08/10/16 22:42 Eosinophils % 2 % 08/10/16 22:42 Basophils % 1 % 08/10/16 22:42 Neutrophils # 5.3 k/uL (1.3-7.7) 08/10/16 22:42 Lymphocytes # 2.4 k/uL (1.0-4.8) 08/10/16 22:42 Monocytes # 0.6 k/uL (0-1.0) 08/10/16 22:42 Eosinophils # 0.1 k/uL (0-0.7) 08/10/16 22:42 Basophils # 0.1 k/uL (0-0.2) 08/10/16 22:42 Sodium 143 mmol/L (137-145) 08/13/16 06:51 Potassium 4.3 mmol/L (3.5-5.1) 08/13/16 06:51 Chloride 105 mmol/L (98-107) 08/13/16 06:51 Carbon Dioxide 29 mmol/L (22-30) 08/13/16 06:51 Anion Gap 9 mmol/L 08/13/16 06:51 BUN 11 mg/dL (9-20) 08/13/16 06:51 Creatinine 0.85 mg/dL (0.66-1.25) 08/13/16 06:51 Est GFR (MDRD) Af Amer >60 (>60 ml/min/1.73 sqM) 08/13/16 06:51 Est GFR (MDRD) Non-Af >60 (>60 ml/min/1.73 sqM) 08/13/16 06:51 Glucose 90 mg/dL (74-99) 08/13/16 06:51 Calcium 9.1 mg/dL (8.4-10.2) 08/13/16 06:51 Total Bilirubin 0.5 mg/dL (0.2-1.3) 08/10/16 22:42 AST 15 U/L (17-59) L 08/10/16 22:42 ALT 26 U/L (21-72) 08/10/16 22:42 Alkaline Phosphatase 55 U/L (38-126) 08/10/16 22:42 Total Protein 7.2 g/dL (6.3-8.2) 08/10/16 22:42 Albumin 4.3 g/dL (3.5-5.0) 08/10/16 22:42 Urine Color Yellow 08/10/16 23:30 Urine Appearance Clear (Clear) 08/10/16 23:30 Urine pH 6.5 (5.0-8.0) 08/10/16 23:30 Ur Specific [place] 1.013 (1.001-1.035) 08/10/16 23:30 Urine Protein Negative (Negative) 08/10/16 23:30 Urine Glucose (UA) Negative (Negative) 08/10/16 23:30 Urine Ketones Negative (Negative) 08/10/16 23:30 Urine Blood Negative (Negative) 08/10/16 23:30 Urine Nitrate Negative (Negative) 08/10/16 23:30 Urine Bilirubin Negative (Negative) 08/10/16 23:30 Urine Urobilinogen <2.0 mg/dL (<2.0) 08/10/16 23:30 Ur Leukocyte Esterase Negative (Negative) 08/10/16 23:30 Vancomycin Trough 22.9 ug/mL 08/14/16 02:52 Influenza Type A RNA Not Detected (Not Detectd) 08/10/16 22:42 Influenza Type B (PCR) Not Detected (Not Detectd) 08/10/16 22:42 Microbiology 08/10/16 22:42 Blood Blood Culture - Preliminary No Growth after 72 hours 08/10/16 23:30 Urine,Clean Catch Urine Culture - Final Assessment and Plan (1) Lumbar surgical wound fluid collection Narrative/Plan: 60-year-old male presents to Hospital status post his spinal surgery. Has developed difficulty with a CSF leak with resultant pain and severe headache. This was complicated with fever and consequently he has been admitted. He's been seen by orthopedic spine there's been medication with the neurosurgeon at the [facility] where her surgeries been performed. At this time patient is to only improved. Fevers improved. Is feeling better overall. He is able to urinate laying flat is noted. Is denying other new difficulties. He is definitely feeling better by not having to get to the upright position He is also having good amounts of caffeine. At this time cultures are processing he is receiving antibiotic therapy with vancomycin ceftaz and given the significant concerns. Fortunately he is improving. Does not appear to have evidence of pneumonia or other infection. 79-year-old male presents to the emergency center after gently going to the floor while he was in front of the sink. He does recall the event. He became weak and went to the floor. Was brought in by EMS because he was so weak. Was found to have evidence of significant shortness of breath and was brought into hospital. He then decompensated and required transfer to intensive care unit because of respiratory failure. He was treated with BiPAP. He has been added by cardiology for his non-ST segment depression myocardial infarction. He also has had some worsening of his underlying atrial fibrillation.because he developed fever Abic therapy was initiated with c and infectious diseases consultation was requested. Status: Acute (2) Fever Status: Acute
--- NOTE | 2016-08-15 08:20 | DS ---
DATE OF ADMISSION: 08/12/2016 DATE OF DISCHARGE: 08/14/2016 Patient is admitted with fever, possible source being hematoma or atelectasis and patient has a recent back surgery and patient has a dural leak and a hematoma or seroma in the back, that does not appear to be infected. Clinical exam is not consistent with abscess. Patient is having bedrest and patient's pain, headache is controlled with Fioricet because of which I am going to discharge him on Fioricet. Spinal surgeon here evaluated the patient and they are recommending him to stand up around afternoon. If he is stable enough, the patient will be discharged as per their assessment. Patient will not require any antibiotics. Infectious Disease evaluated the patient as well. Patient was seen and examined on the day of discharge. Vitals are stable. PHYSICAL EXAMINATION: GENERAL: The patient is alert and oriented x3, not in any acute distress. Well developed, well nourished. HEENT: Pupils are round and equally reacting to light. EOMI. No scleral icterus. No conjunctival pallor. Normocephalic, atraumatic. No pharyngeal erythema. No thyromegaly. CARDIOVASCULAR: S1 and S2 present. No murmurs, rubs, or gallops. PULMONARY: Chest is clear to auscultation, no wheezing or crackles. ABDOMEN: Soft, nontender, nondistended, normoactive bowel sounds. No palpable organomegaly. MUSCULOSKELETAL: Unchanged compared to yesterday. EXTREMITIES: No cyanosis, clubbing, or pedal edema. NEUROLOGICAL: Gross neurological examination did not reveal any focal deficits. SKIN: No rashes. FINAL DIAGNOSES: 1. Fever without any leukocytosis. All the cultures are negative. No source of sepsis was found. Patient's fever is probably related to atelectasis or hematoma in the back. 2. Chronic low back pain with seroma, hematoma in the back and dural leak leading to headache post back surgery. 3. Gastroesophageal reflux disease. 4. Chronic obstructive pulmonary disease without any acute exacerbation. 5. Allergic sinusitis. Please refer to my depart summary for further details of discharge medications. Patient's primary care physician is Dr. Gregg Mccarty, in 3 to 7 days. Follow with [facility] where he got the back surgery done in the next couple of days. Activity as tolerated. Regular diet. Spent greater than 35 minutes in total discharge process. Patient does have benign prostatic hypertrophy.
== END 2016-08-14 15:42 | disposition home or self-care (01) | DRG 920 ==
LOC: EC 21:24 → 5MS5E 08-11 00:09 → INTOOBSV 08-11 00:09 → 5MS5E 08-11 00:35 → OBSVTOIN 08-12 14:52
PROVIDERS: ADMIT Hospitalist; ATTEND Hospitalist
DX: G97.63 Postprocedural seroma of a nervous system organ or structure following a nervous system procedure (principal); G97.82 Other postprocedural complications and disorders of nervous system; G96.0 Cerebrospinal fluid leak; I48.91 Unspecified atrial fibrillation; G62.9 Polyneuropathy, unspecified; J44.9 Chronic obstructive pulmonary disease, unspecified; J98.11 Atelectasis; G97.61 Postprocedural hematoma of a nervous system organ or structure following a nervous system procedure; K21.9 Gastro-esophageal reflux disease without esophagitis; J30.9 Allergic rhinitis, unspecified; N40.0 Benign prostatic hyperplasia without lower urinary tract symptoms; G89.29 Other chronic pain; Z86.718 Personal history of other venous thrombosis and embolism; Z87.891 Personal history of nicotine dependence; Y83.4 Other reconstructive surgery as the cause of abnormal reaction of the patient, or of later complication, without mention of misadventure at the time of the procedure; Y92.009 Unspecified place in unspecified non-institutional (private) residence as the place of occurrence of the external cause
CPT/HCPCS: 36415; 71020; 72131; 72158; 80048; 80053; 80202; 81003; 85025; 85027; 87040; 87086; 87502; 96361; 96365; 96366; 96372; 96375; 96376; 99284

== ENCOUNTER 2016-08-16 12:13 | Inpatient (IN) | payer BC ==
[2016-08-16] MEDS ORDERED: SODIUM CHLORIDE 0.9% 1,000 ML IV STA (13:15)
[2016-08-16] MEDS ORDERED: RX INFO: IV CONTRAST WAS GIVEN 1 EACH MISC MISCELLANE PRN (13:17)
--- NOTE | 2016-08-16 13:21 | ED ---
Recheck HPI - General Chief Complaint: Recheck/Abnormal Lab/Rx Stated Complaint: Pain in Ribcage/SOB sent by Time Seen by Provider: 08/16/16 13:00 Source: patient, RN/MD, RN notes reviewed, old records reviewed Mode of arrival: wheelchair Limitations: no limitations - History of Present Illness Initial Comments: This is a 60-year-old male who is sent to the emergency department by his family physician reevaluation less sided chest pain and fever. He does have a history of DVT and pulmonary embolus in the past he had a recent foraminotomy of L4 [address] [facility] on 07/12/16 apparently was a dural tear at that time he does have swelling to the lower lumbar region at the surgical site. He recently was in the hospital for a fever of unknown origin on IV antibiotics and did seem to improve he purely was then sent home with oral antibiotics. He today his temperature 100.9. Additionally per family he has a history of a urinary tract infection. He states he has left-sided anterior chest pain gets worse with deep breathing somewhat sharp in nature. Some cough no definite phlegm production. Concern is for pneumonia and/or pulmonary embolism. - Related Data Home Medications Medication Instructions Recorded Confirmed Diazepam 5 mg PO HS PRN 01/22/15 08/16/16 HYDROcodone/APAP 10-325MG [[place] 1 tab PO DAILY PRN 01/22/15 08/16/16 10-325] Methocarbamol 750 mg PO DAILY PRN 01/22/15 08/16/16 Tamsulosin HCl 0.4 mg PO HS 01/22/15 08/16/16 Docusate [Colace] 100 mg PO BID 08/10/16 08/16/16 Gabapentin 600 mg PO TID 08/10/16 08/16/16 Omeprazole 40 mg PO DAILY 08/10/16 08/16/16 Acetaminophen Tab [Tylenol Tab] 325 mg PO Q4H PRN 08/16/16 08/16/16 Previous Rx's Medication Instructions Recorded Fluticasone Nasal [place] [Flonase 2 spray EA NOSTRIL DAILY PRN #1 08/14/16 Nasal [place]] each Allergies Allergy/AdvReac Type Severity Reaction Status Date / Time codeine Allergy Rash/Hives Verified 08/16/16 13:33 Review of Systems ROS Statement: Those systems with pertinent positive or pertinent negative responses have been documented in the HPI. ROS Other: All systems not noted in ROS Statement are negative. Past Medical History Past Medical History: Deep Vein Thrombosis (DVT), GERD/Reflux, Musculoskeletal Disorder, Neurologic Disorder, Prostate Disorder Additional Past Medical History / Comment(s): Neuropathy; Degenerative disc disease; Back pain, benign prostatic hypertrophy History of Any Multi-Drug Resistant Organisms: None Reported Past Surgical History: Back Surgery, Tonsillectomy Additional Past Surgical History / Comment(s): Back surgery x4; Cervical surgery ; arthroscopic right knee, TURP Past Anesthesia/Blood Transfusion Reactions: No Reported Reaction Past Psychological History: No Psychological Hx Reported Smoking Status: Never smoker Past Alcohol Use History: None Reported Additional Past Alcohol Use History / Comment(s): He was a smoker of a half a pack per day for 25-30 years. He currently lives at home with his . There are no pets in the home. They did travel last year to [place] but otherwise no extensive traveling. 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 He is currently on disability. Past Drug Use History: None Reported - Past Family History Mother Family Medical History: Pulmonary Embolus Father Family Medical History: Pulmonary Embolus General Exam - General Exam Comments Initial Comments: This is a well-developed well-nourished awake alert oriented 3 male Limitations: no limitations General appearance: alert, in distress Head exam: Present: atraumatic, normocephalic, normal inspection Eye exam: Present: normal appearance, PERRL, EOMI. Absent: scleral icterus, conjunctival injection, periorbital swelling ENT exam: Present: mucous membranes dry Neck exam: Present: normal inspection. Absent: tenderness, meningismus, lymphadenopathy Respiratory exam: Present: rales, rhonchi, decreased breath sounds. Absent: respiratory distress, wheezes, stridor Cardiovascular Exam: Present: regular rate, normal rhythm, normal heart sounds. Absent: systolic murmur, diastolic murmur, rubs, gallop, clicks GI/Abdominal exam: Present: soft, normal bowel sounds. Absent: distended, tenderness, guarding, rebound, rigid Extremities exam: Present: normal inspection, full ROM, normal capillary refill. Absent: tenderness, pedal edema, joint swelling, calf tenderness Back exam: Present: full ROM, other (Examination lower back reveals the aforementioned lumbar swelling consistent with a dural leak. Nontender to palpation no increased localized temperature no erythema no fluid the it well- healed surgical line.). Absent: tenderness Neurological exam: Present: alert, oriented X3, CN II-XII intact Psychiatric exam: Present: normal affect, normal mood Skin exam: Present: warm, dry, intact, normal color. Absent: rash Course Vital Signs 08/16/16 08/16/16 08/16/16 12:27 12:45 14:02 Temperature 98.8 F 100.9 F H 100.4 F H Pulse Rate 98 89 81 Respiratory 22 18 16 Rate Blood Pressure 108/74 129/61 114/75 O2 Sat by Pulse 93 L 88 L 96 Oximetry 08/16/16 14:46 Temperature Pulse Rate 78 Respiratory 16 Rate Blood Pressure 110/84 O2 Sat by Pulse 92 L Oximetry - Reevaluation(s) Reevaluation #1: 08/16/16 15:02 Reevaluation patient reveals no changes Medical Decision Making - Medical Decision Making I did a long discussion the patient family regarding findings at did discuss case with Dr. Mccarty patient will be admitted with diagnoses of pulmonary embolism and fever of unknown origin. Dr. Lorenzana will be consulted. - Lab Data Result diagrams: 08/16/16 12:50 08/16/16 12:50 Lab Results 08/16/16 08/16/16 08/16/16 Range/Units 12:50 12:50 12:50 WBC 9.5 (3.8-10.6) k/uL RBC 5.03 (4.30-5.90) m/uL Hgb 15.0 (13.0-17.5) gm/dL Hct 44.3 (39.0-53.0) % MCV 88.0 (80.0-100.0) fL MCH 29.8 (25.0-35.0) pg MCHC 33.8 (31.0-37.0) g/dL RDW 12.5 (11.5-15.5) % Plt Count 276 (150-450) k/uL Neutrophils % 72 % Lymphocytes % 17 % Monocytes % 7 % Eosinophils % 1 % Basophils % 1 % Neutrophils # 6.9 (1.3-7.7) k/uL Lymphocytes # 1.7 (1.0-4.8) k/uL Monocytes # 0.6 (0-1.0) k/uL Eosinophils # 0.1 (0-0.7) k/uL Basophils # 0.1 (0-0.2) k/uL PT (9.0-12.0) sec INR (<1.1) APTT (22.0-30.0) sec D-Dimer (<0.60) mg/L FEU Sodium 140 (137-145) mmol/L Potassium 4.6 (3.5-5.1) mmol/L Chloride 103 (98-107) mmol/L Carbon Dioxide 27 (22-30) mmol/L Anion Gap 10 mmol/L BUN 14 (9-20) mg/dL Creatinine 0.81 (0.66-1.25) mg/dL Est GFR (MDRD) Af Amer >60 (>60 ml/min/1.73 sqM) Est GFR (MDRD) Non-Af >60 (>60 ml/min/1.73 sqM) Glucose 113 H (74-99) mg/dL Plasma Lactic Acid Andrey (0.7-2.0) mmol/L Calcium 9.4 (8.4-10.2) mg/dL Magnesium 2.2 (1.6-2.3) mg/dL Total Bilirubin 0.5 (0.2-1.3) mg/dL AST 17 (17-59) U/L ALT 31 (21-72) U/L Alkaline Phosphatase 61 (38-126) U/L Total Creatine Kinase 27 L (55-170) U/L CK-MB (CK-2) <0.2 (0.0-2.4) ng/mL CK-MB (CK-2) Rel Index Troponin I <0.012 (0.000-0.034) ng/mL NT-Pro-B Natriuret Pep pg/mL Total Protein 6.7 (6.3-8.2) g/dL Albumin 3.9 (3.5-5.0) g/dL 08/16/16 08/16/16 08/16/16 Range/Units 12:50 12:50 12:50 WBC (3.8-10.6) k/uL RBC (4.30-5.90) m/uL Hgb (13.0-17.5) gm/dL Hct (39.0-53.0) % MCV (80.0-100.0) fL MCH (25.0-35.0) pg MCHC (31.0-37.0) g/dL RDW (11.5-15.5) % Plt Count (150-450) k/uL Neutrophils % % Lymphocytes % % Monocytes % % Eosinophils % % Basophils % % Neutrophils # (1.3-7.7) k/uL Lymphocytes # (1.0-4.8) k/uL Monocytes # (0-1.0) k/uL Eosinophils # (0-0.7) k/uL Basophils # (0-0.2) k/uL PT 11.0 (9.0-12.0) sec INR 1.1 (<1.1) APTT 22.7 (22.0-30.0) sec D-Dimer 5.71 H (<0.60) mg/L FEU Sodium (137-145) mmol/L Potassium (3.5-5.1) mmol/L Chloride (98-107) mmol/L Carbon Dioxide (22-30) mmol/L Anion Gap mmol/L BUN (9-20) mg/dL Creatinine (0.66-1.25) mg/dL Est GFR (MDRD) Af Amer (>60 ml/min/1.73 sqM) Est GFR (MDRD) Non-Af (>60 ml/min/1.73 sqM) Glucose (74-99) mg/dL Plasma Lactic Acid Andrey 1.1 (0.7-2.0) mmol/L Calcium (8.4-10.2) mg/dL Magnesium (1.6-2.3) mg/dL Total Bilirubin (0.2-1.3) mg/dL AST (17-59) U/L ALT (21-72) U/L Alkaline Phosphatase (38-126) U/L Total Creatine Kinase (55-170) U/L CK-MB (CK-2) (0.0-2.4) ng/mL CK-MB (CK-2) Rel Index Troponin I (0.000-0.034) ng/mL NT-Pro-B Natriuret Pep 31 pg/mL Total Protein (6.3-8.2) g/dL Albumin (3.5-5.0) g/dL - EKG Data -: EKG Interpreted by Me EKG shows normal: sinus rhythm, axis, intervals, QRS complexes, ST-T waves (EKG shows normal sinus rhythm of 89. A 148 QRS rate 86 daily since QTC of 376/[address]-T wave changes.) Rate: normal - Radiology Data Radiology results: report reviewed (I did discuss findings with radiologist he does demonstrate pulmonary embolism with a small central embolus. No right heart strain seen at this time), image reviewed Critical Care Time Critical Care Time: Yes Critical Care Time: 31 minutes which includes the initial presentation with history physical and initial discussion with the sending physician and later discussion with him for admission. Evaluation of lab work and CAT scan as well as results discussion with the radiologist. Review of old charting. Admission orders and documentation of the above. Disposition Clinical Impression: Pulmonary embolism, Fever of unknown origin (FUO), Chest pain Disposition: ADMITTED IP TO THIS [facility] Condition: Serious
[2016-08-16 13:27] LABS: Basophils # (A) 0.1 k/uL (0-0.2); Basophils % (A) 1 %; CHCM 34.2; Eosinophils # (A) 0.1 k/uL (0-0.7); Eosinophils % (A) 1 %; HCT 44.3 % (39.0-53.0); HDW 2.34; Luc # (Auto) 0.22; Luc % (Auto) 2; Lymphocytes # (A) 1.7 k/uL (1.0-4.8); Lymphocytes % (A) 17 %; MCH 29.8 pg (25.0-35.0); MCHC 33.8 g/dL (31.0-37.0); Mean Platelet Volume 6.6; Monocytes # (A) 0.6 k/uL (0-1.0); Monocytes % (A) 7 %; Neutrophils # (A) 6.9 k/uL (1.3-7.7); Neutrophils % (A) 72 %; RBC 5.03 m/uL (4.30-5.90); RDW 12.5 % (11.5-15.5); WBC 9.5 k/uL (3.8-10.6); WBC (Perox) 9.91
[2016-08-16 13:42] LABS: ALT 31 U/L (21-72); AST 17 U/L (17-59); Alkaline Phosphatase 61 U/L (38-126); Anion Gap 10 mmol/L; Blood Urea Nitrogen 14 mg/dL (9-20); Calcium 9.4 mg/dL (8.4-10.2); Carbon Dioxide 27 mmol/L (22-30); Chloride 103 mmol/L (98-107); Glucose 113 mg/dL (74-99); Magnesium 2.2 mg/dL (1.6-2.3); Non-African American GFR(MDRD) >60 (>60 ml/min/1.73 sqM); Potassium 4.6 mmol/L (3.5-5.1); Sodium 140 mmol/L (137-145); Total Bilirubin 0.5 mg/dL (0.2-1.3); Total Protein 6.7 g/dL (6.3-8.2)
--- NOTE | 2016-08-16 13:45 | XR ---
EXAMINATION TYPE: XR chest 2V DATE OF EXAM: 08/16/2016 1:33 PM COMPARISON: Prior chest x-ray August 10, 2016 HISTORY: Chest pain per order. History of spinal surgery last week with new shortness of breath, coug h, and fever. TECHNIQUE: Frontal and lateral views of the chest are obtained. FINDINGS: There is new bibasilar opacity consistent with infiltrate and/or atelectasis with suspecte d new small right greater than left pleural effusions as there is fluid extending into major fissure on lateral view. Upper lungs are clear without pneumothorax. The cardiac silhouette size is within no rmal limits. There is fusion plate in the lower cervical spine partially imaged. IMPRESSION: New patchy bibasilar atelectasis and/or infiltrate and small right greater than left ple ural effusions suspected.
[2016-08-16 13:53] LABS: INR 1.1 (<1.1); Partial Thromboplastin Time 22.7 sec (22.0-30.0)
[2016-08-16 13:55] LABS: Creatine Kinase 27 U/L (55-170)
[2016-08-16 14:06] LABS: Creatine Kinase MB <0.2 ng/mL (0.0-2.4); Troponin I <0.012 ng/mL (0.000-0.034)
--- NOTE | 2016-08-16 14:17 | CT ---
EXAMINATION TYPE: CT angio chest DATE OF EXAM: 08/16/2016 2:03 PM COMPARISON: Radiograph same day HISTORY: 60-year-old male left-sided chest pain, shortness of breath, elevated d-dimer TECHNIQUE: Contiguous axial scanning of the chest performed with IV Contrast, patient injected with 7 5 mL of Omnipaque 350. Coronal/sagittal MIP reconstructions performed. CT DLP: 352.3 mGycm Automated exposure control for dose reduction was used. FINDINGS: Heart is normal size without pericardial effusion. There is no flattening of the interventricular sep pilo or reflux of contrast into the IVC/hepatic veins. The aorta is normal caliber with conventional arch vessel branching anatomy. No thoracic lymphadenopathy. Satisfactory opacification of the pulmonary arterial system with a exam positive for bilateral pulmon wallace emboli. There is a small saddle embolism present. On the left, embolic material extends into the lobar branches and proximal segmental branches of the lingula and into the segmental and subsegmental branches of the basilar left lower lobe. On the right, there is prominent embolic material at the di stal main pulmonary artery with a lobar embolic material in to the upper lobe and lower lobe and mayi tional thrombus extending throughout the segmental and subsegmental vessels. Prominent strandy areas of atelectasis in the mid to lower lungs. There is a 6 mm subpleural pulmonary nodule peripheral right mid lung axial image 69 warrants follow- up. There appears to be a trace left pleural effusion and prominent dependent atelectasis. Visualized upper abdomen shows no gross abnormality. Bones: No osseous destructive process. IMPRESSION: 1. EXAM POSITIVE FOR BILATERAL PULMONARY EMBOLI, MODERATE TO SEVERE BURDEN, RIGHT GREATER THAN LEFT. A SMALL SADDLE EMBOLUS IS ALSO PRESENT. 2. NO CT FEATURES OF RIGHT HEART STRAIN. 3. PROMINENT BANDS OF ATELECTASIS IN THE MID TO LOWER LUNGS. 4. A TRACE LEFT PLEURAL EFFUSION AND A 6 MM RIGHT MIDLUNG PULMONARY NODULE WHICH WARRANTS A 6 MONTH F OLLOW-UP EXAM. CRITICAL FINDINGS ABOVE CALLED TO DR. AMBRIZ IN THE ER AT 2:10 PM.
[2016-08-16] MEDS ORDERED: HEPARIN SODIUM,PORCINE 5,000 UNIT/ML 1 ML VIAL IV STA (14:20)
[2016-08-16] MEDS ORDERED: ACETAMINOPHEN IV (For NPO) 1,000 MG in EMPTY BAG 1 BAG IVPB STA (14:35)
[2016-08-16] MEDS ORDERED: ONDANSETRON 4 MG/2 ML VIAL IVP PRN (15:06)
[2016-08-16] MEDS ORDERED: NALOXONE 0.4 MG/ML 1 ML VIAL IV PRN (15:06)
[2016-08-16] MEDS ORDERED: ACETAMINOPHEN TAB 325 MG TAB PO PRN (15:08)
[2016-08-16] MEDS ORDERED: IPRATROPIUM-ALBUTEROL 3 ML NEB INHALATION STA (15:09)
[2016-08-16 15:20] LABS: Glucose,Whole Blood 126 mg/dL (75-99)
[2016-08-16] MEDS: HEPARIN SODIUM,PORCINE/D5W PMX 25,000 UNIT in DEXTROSE/WATER 1 500ML.BAG IV SCH (15:21)
[2016-08-16 16:05] LABS: Appearance,Urine Clear (Clear); Bilirubin,Urine Negative (Negative); Glucose,Urine (UA) Negative (Negative); Ketones,Urine Negative (Negative); Leukocyte Esterase,Urine Negative (Negative); Nitrite,Urine Negative (Negative); Protein,Urine Trace (Negative); UA Billing (MACRO vs. MICRO) CHEM; Urobilinogen,Urine <2.0 mg/dL (<2.0)
[2016-08-16] MEDS ORDERED: IV VANCOMYCIN PER PHARMACY 1 EACH MISC MISCELLANE PRN (17:16)
[2016-08-16] MEDS: VANCOMYCIN 1,500 MG in SODIUM CHLORIDE 0.9% 250 ML IVPB SCH (18:18)
[2016-08-16] MEDS: GABAPENTIN 300 MG CAP PO SCH ×2 (18:19→23:32)
[2016-08-16] MEDS: HYDROcodone/APAP 10-325MG 1 EACH TAB PO PRN (19:16)
--- NOTE | 2016-08-16 21:09 | P.CONS ---
History of Present Illness - Reason for Consult Consult date: 08/16/16 - Chief Complaint Left chest pain - History of Present Illness 60-year-old male who is a known history of severe degenerative disc disease of the spine has had 7 surgeries to his spine. On 07/12/2016 he had his last seizure. This is an L4-L5 f foraminotomies. Apparently had difficulty in the postoperative time frame with a dural tear. And when he was discharged home he laid in a mattress in the back of their minivan for his trip to home. As time went by was having difficulties with some swelling to the his lower back. The swelling increased. He then developed low-grade fever and had severe headache. It was so severe that he could not tolerate and he came to hospital. There is no evidence of a ongoing cervical spinal fluid leak. Because of his fever there was concerns of infection. He was treated with antibiotic therapy and conservative therapy which was bed rest. After 48 hours of rest he had marked improvement. Cultures were negative and he was discharged home with no antibiotic therapy. The MRI that was performed showed evidence of the fluid extension rate to the lateral epidural space. There was fortunately no evidence of any infection. The patient was sent home but he is now developed increasing discomfort in his left side of his chest. He had some mild shortness of breath and again a fever of 102. Because he presented emergency center. A CT chest angiogram revealed evidence of the saddle thrombus and bilateral pulmonary embolus. The patient was treated with heparin therapy as well as mechanical treatment during his stay because of his high risk of deep venous thrombosis. Is no history of a DVT after surgery a few years ago. He also apparently had pulmonary embolus at that time. Relates this time is different because he did not feel it moving through his chest. Because of the fever the infectious diseases consultation is been requested Review of Systems Constitutional: Reports fever, Denies chills Eyes: denies blurred vision, denies pain Ears, nose, mouth and throat: Reports headache, Reports nasal congestion, Reports nasal discharge, Reports sore throat, Denies dental pain, Denies mouth pain Cardiovascular: Denies chest pain, Denies shortness of breath Respiratory: Denies cough Gastrointestinal: Denies abdominal pain, Denies diarrhea, Denies nausea, Denies vomiting Musculoskeletal: Denies myalgias Integumentary: Reports lesions, Denies pruritus, Denies rash Neurological: Denies numbness, Denies weakness Psychiatric: Denies anxiety, Denies depression Endocrine: Denies fatigue, Denies weight change Past Medical History Past Medical History: Deep Vein Thrombosis (DVT), GERD/Reflux, Musculoskeletal Disorder, Neurologic Disorder, Prostate Disorder Additional Past Medical History / Comment(s): Neuropathy; Degenerative disc disease; Back pain, benign prostatic hypertrophy History of Any Multi-Drug Resistant Organisms: None Reported Past Surgical History: Back Surgery, Tonsillectomy Additional Past Surgical History / Comment(s): Back surgery x4; Cervical surgery ; arthroscopic right knee, TURP Past Anesthesia/Blood Transfusion Reactions: No Reported Reaction Past Psychological History: No Psychological Hx Reported Smoking Status: Never smoker Past Alcohol Use History: None Reported Additional Past Alcohol Use History / Comment(s): He was a smoker of a half a pack per day for 25-30 years. He currently lives at home with his . There are no pets in the home. They did travel last year to [place] but otherwise no extensive traveling. 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 He is currently on disability. Past Drug Use History: None Reported - Past Family History Mother Family Medical History: Pulmonary Embolus Father Family Medical History: Pulmonary Embolus Medications and Allergies Home Medications and Allergies Comment(s): Current Medications Acetaminophen (Tylenol Tab) 650 mg PO Q6HR PRN PRN Reason: Mild Pain or Fever > 100.5 Acetaminophen/Hydrocodone Bitart ([place] 10) 1 each PO DAILY PRN PRN Reason: Moderate Pain Last Admin: 08/16/16 19:16 Dose: 1 each Diazepam (Valium) 5 mg PO HS PRN PRN Reason: Insomnia Docusate Sodium (Colace) 100 mg PO BID [facility] Fluticasone Propionate (Flonase Nasal [place]) 2 spray EA NOSTRIL DAILY PRN PRN Reason: Allergy Symptoms Gabapentin (Neurontin) 600 mg PO TID [place] Last Admin: 08/16/16 18:19 Dose: 600 mg Sodium Chloride (Saline 0.9%) 1,000 mls @ 75 mls/hr IV .[id number] STA Stop: 08/17/16 02:34 Last Admin: 08/16/16 14:44 Dose: 75 mls/hr Heparin Sodium/Dextrose 25,000 (unit/ IV Solution) 500 mls @ 32.65 mls/hr IV .[id number] [place]; 18 UNITS/KG/HR PRN Reason: Protocol Last Admin: 08/16/16 15:21 Dose: 18 units/kg/hr, 32.65 mls/hr Ceftazidime 2 gm/ Sodium (Chloride) 100 mls @ 100 mls/hr IVPB Q8HR [facility] Vancomycin HCl 1,500 mg/ (Sodium Chloride) 250 mls @ 125 mls/hr IVPB Q12H [facility] Last Admin: 08/16/16 18:18 Dose: 125 mls/hr Methocarbamol (Robaxin) 750 mg PO DAILY PRN PRN Reason: Spasms Miscellaneous Information (Rx Info: Iv Contrast Was Given) 1 each MISCELLANE DAILY PRN PRN Reason: Per Protocol Stop: 08/18/16 13:17 Naloxone HCl (Narcan) 0.2 mg IV Q2M PRN PRN Reason: Opioid Reversal Ondansetron HCl (Zofran) 4 mg IVP Q8HR PRN PRN Reason: Nausea And Vomiting Pantoprazole Sodium (Protonix) 40 mg PO DAILY [facility] Tamsulosin HCl (Flomax) 0.4 mg PO HS [facility] Home Medications Medication Instructions Recorded Confirmed Type Diazepam 5 mg PO HS PRN 01/22/15 08/16/16 History HYDROcodone/APAP 10-325MG [[place] 1 tab PO DAILY PRN 01/22/15 08/16/16 History 10-325] Methocarbamol 750 mg PO DAILY PRN 01/22/15 08/16/16 History Tamsulosin HCl 0.4 mg PO HS 01/22/15 08/16/16 History Docusate [Colace] 100 mg PO BID 08/10/16 08/16/16 History Gabapentin 600 mg PO TID 08/10/16 08/16/16 History Omeprazole 40 mg PO DAILY 08/10/16 08/16/16 History Acetaminophen Tab [Tylenol Tab] 325 mg PO Q4H PRN 08/16/16 08/16/16 History Allergies Allergy/AdvReac Type Severity Reaction Status Date / Time codeine Allergy Rash/Hives Verified 08/16/16 13:33 Physical Exam Vitals: Vital Signs Temp Pulse Pulse Resp BP BP Pulse Ox 08/16/16 18:57 20 08/16/16 18:54 100.3 F H 77 20 99/70 96 08/16/16 17:37 98 F 71 20 120/77 96 08/16/16 16:25 72 20 120/77 95 08/16/16 15:25 69 18 117/69 92 L Intake and Output 08/16/16 08/16/16 08/16/16 06:59 14:59 22:59 Intake Total 180 Balance 180 Intake: Oral 180 Other: # Voids 2 Pleasant 60-year-old male who has some ongoing left chest pain and is not extremely short of breath HEENT: Anicteric conjunctiva are pink and moist nasal mucosa grossly intact without significant lesions, there is no thrush. Neck: The neck is supple without significant lymphadenopathy or thyromegaly. Lungs: Good bilateral air entry without significant crackles or wheezing. There is no significant bronchial sounds. There is no egophony or dullness. Does complain of some left-sided chest pain when he takes a deep breath Heart: Regular rate and rhythm with an audible S1-S2, loud S4. There is no significant murmur click or rub, PMI was nondisplaced. Abdomen: Positive bowel sounds soft and nontender without palpable masses or organomegaly. There was no guarding or rebound. Extremities: The upper extremities have excellent pulses they are symmetric, no significant petechiae or telangiectasia. No splinter hemorrhages were noted. The lower extremities are free from significant edema. The peripheral pulses were 2+ and symmetric. Neuro: Awake alert oriented to person place and time. There are no acute new gross focal sensory motor deficits. The back shows evidence of recent surgical intervention. The large fluid collection is still present. It is however less taunt than it was on the last examination and is less tender. Results CBC & Chem 7: 08/16/16 12:50 08/16/16 12:50 Labs: Abnormal Lab Results - Last 24 Hours (Table) 08/16/16 08/16/16 Range/Units 15:13 15:56 POC Glucose (mg/dL) 126 H (75-99) mg/dL Ur Specific [place] 1.050 H (1.001-1.035) Urine Protein Trace H (Negative) Laboratory Results WBC 9.5 k/uL (3.8-10.6) 08/16/16 12:50 RBC 5.03 m/uL (4.30-5.90) 08/16/16 12:50 Hgb 15.0 gm/dL (13.0-17.5) 08/16/16 12:50 Hct 44.3 % (39.0-53.0) 08/16/16 12:50 MCV 88.0 fL (80.0-100.0) 08/16/16 12:50 MCH 29.8 pg (25.0-35.0) 08/16/16 12:50 MCHC 33.8 g/dL (31.0-37.0) 08/16/16 12:50 RDW 12.5 % (11.5-15.5) 08/16/16 12:50 Plt Count 276 k/uL (150-450) 08/16/16 12:50 Neutrophils % 72 % 08/16/16 12:50 Lymphocytes % 17 % 08/16/16 12:50 Monocytes % 7 % 08/16/16 12:50 Eosinophils % 1 % 08/16/16 12:50 Basophils % 1 % 08/16/16 12:50 Neutrophils # 6.9 k/uL (1.3-7.7) 08/16/16 12:50 Lymphocytes # 1.7 k/uL (1.0-4.8) 08/16/16 12:50 Monocytes # 0.6 k/uL (0-1.0) 08/16/16 12:50 Eosinophils # 0.1 k/uL (0-0.7) 08/16/16 12:50 Basophils # 0.1 k/uL (0-0.2) 08/16/16 12:50 PT 11.0 sec (9.0-12.0) 08/16/16 12:50 INR 1.1 (<1.1) 08/16/16 12:50 APTT 22.7 sec (22.0-30.0) 08/16/16 12:50 D-Dimer 5.71 mg/L FEU (<0.60) H 08/16/16 12:50 Sodium 140 mmol/L (137-145) 08/16/16 12:50 Potassium 4.6 mmol/L (3.5-5.1) 08/16/16 12:50 Chloride 103 mmol/L (98-107) 08/16/16 12:50 Carbon Dioxide 27 mmol/L (22-30) 08/16/16 12:50 Anion Gap 10 mmol/L 08/16/16 12:50 BUN 14 mg/dL (9-20) 08/16/16 12:50 Creatinine 0.81 mg/dL (0.66-1.25) 08/16/16 12:50 Est GFR (MDRD) Af Amer >60 (>60 ml/min/1.73 sqM) 08/16/16 12:50 Est GFR (MDRD) Non-Af >60 (>60 ml/min/1.73 sqM) 08/16/16 12:50 Glucose 113 mg/dL (74-99) H 08/16/16 12:50 POC Glucose (mg/dL) 126 mg/dL (75-99) H 08/16/16 15:13 POC Glu Human Service Technician ID [place] 08/16/16 15:13 Plasma Lactic Acid [place] 1.1 mmol/L (0.7-2.0) 08/16/16 12:50 Calcium 9.4 mg/dL (8.4-10.2) 08/16/16 12:50 Magnesium 2.2 mg/dL (1.6-2.3) 08/16/16 12:50 Total Bilirubin 0.5 mg/dL (0.2-1.3) 08/16/16 12:50 AST 17 U/L (17-59) 08/16/16 12:50 ALT 31 U/L (21-72) 08/16/16 12:50 Alkaline Phosphatase 61 U/L (38-126) 08/16/16 12:50 Total Creatine Kinase 27 U/L (55-170) L 08/16/16 12:50 CK-MB (CK-2) <0.2 ng/mL (0.0-2.4) 08/16/16 12:50 CK-MB (CK-2) Rel Index 08/16/16 12:50 Troponin I <0.012 ng/mL (0.000-0.034) 08/16/16 12:50 NT-Pro-B Natriuret Pep 31 pg/mL 08/16/16 12:50 Total Protein 6.7 g/dL (6.3-8.2) 08/16/16 12:50 Albumin 3.9 g/dL (3.5-5.0) 08/16/16 12:50 Urine Color Yellow 08/16/16 15:56 Urine Appearance Clear (Clear) 08/16/16 15:56 Urine pH 8.0 (5.0-8.0) 08/16/16 15:56 Ur Specific [place] 1.050 (1.001-1.035) H 08/16/16 15:56 Urine Protein Trace (Negative) H 08/16/16 15:56 Urine Glucose (UA) Negative (Negative) 08/16/16 15:56 Urine Ketones Negative (Negative) 08/16/16 15:56 Urine Blood Negative (Negative) 08/16/16 15:56 Urine Nitrate Negative (Negative) 08/16/16 15:56 Urine Bilirubin Negative (Negative) 08/16/16 15:56 Urine Urobilinogen <2.0 mg/dL (<2.0) 08/16/16 15:56 Ur Leukocyte Esterase Negative (Negative) 08/16/16 15:56 CT scan - chest: report reviewed (Bilateral pulmonary emboli a small saddle embolus is also present) Assessment and Plan (1) Status post lumbar surgery Status: Acute (2) Dural tear Status: Acute (3) Saddle pulmonary embolus Narrative/Plan: 60-year-old male presents to hospital with sudden onset of discomfort into his left chest with some shortness of breath. He does have a history of a known prior DVT in the left leg and pulmonary embolism after surgery a few years ago. He has recently been anticoagulated and received mechanical compressive therapy to the lower extremities due to his immobility during his recent stay. It appears despite these interventions he's had another pulmonary embolus. Duplex scans are pending. Patient has been antibiotic with heparin. Because of the fever antibiotic therapy was restarted with vancomycin and ceftazidime. This is utilize during his recent hospitalization when there was a potential for greater than infection related to the fluid collection. However we had cultures that were negative and his fever resolved. The current fever appears to be directly related to the acute pulmonary embolus. He has had some difficulties with his urinary system over time. Analysis performed which is negative and he is not having significant urinary symptoms except some difficulties with retention which is not new. It is tender appears to be no stiffness source of infection, any fever appears to be related to the acute pulmonary embolus. Would discontinue antibiotic therapy at this time. Ongoing monitoring for any other potential sources of infection should be performed. Oxygen saturation has improved. Status: Acute
[2016-08-16] MEDS: TAMSULOSIN 0.4 MG CAP.ER.24H PO SCH (21:42)
[2016-08-16] MEDS: DIAZEPAM 5 MG TAB PO PRN (21:42)
[2016-08-16] MEDS: DOCUSATE 100 MG CAP PO SCH (21:42)
[2016-08-17] MEDS: VANCOMYCIN 1,500 MG in SODIUM CHLORIDE 0.9% 250 ML IVPB SCH (06:14)
[2016-08-17] MEDS: HEPARIN SODIUM,PORCINE/D5W PMX 25,000 UNIT in DEXTROSE/WATER 1 500ML.BAG IV SCH (06:14)
[2016-08-17] MEDS: PANTOPRAZOLE 40 MG TABLET PO SCH (09:56)
[2016-08-17] MEDS: DOCUSATE 100 MG CAP PO SCH ×2 (09:56→22:28)
[2016-08-17] MEDS: GABAPENTIN 300 MG CAP PO SCH ×3 (09:56→22:28)
[2016-08-17] MEDS: ACETAMINOPHEN TAB 325 MG TAB PO PRN ×2 (11:30→22:28)
--- NOTE | 2016-08-17 11:54 | P.HPIM ---
History of Present Illness 60-year-old male after evaluation and family physician office was sent over for workup of chest pain. Found to have a cerebral thrombosis with pulmonary embolism. History of recent lumbar surgery with the dural tear. Patient is return visit for fever was treated and released after IV antibiotics last week patient to be evaluated by pulmonology and infectious disease Dr. Lorenzana patient does have history of DVT Review of Systems Constitutional: Reports fever Cardiovascular: Reports chest pain, Reports shortness of breath Past Medical History Past Medical History: Deep Vein Thrombosis (DVT), GERD/Reflux, Musculoskeletal Disorder, Neurologic Disorder, Prostate Disorder Additional Past Medical History / Comment(s): Neuropathy; Degenerative disc disease; Back pain, benign prostatic hypertrophy History of Any Multi-Drug Resistant Organisms: None Reported Past Surgical History: Back Surgery, Tonsillectomy Additional Past Surgical History / Comment(s): Back surgery x4; Cervical surgery ; arthroscopic right knee, TURP Past Anesthesia/Blood Transfusion Reactions: No Reported Reaction Past Psychological History: No Psychological Hx Reported Smoking Status: Former smoker Past Alcohol Use History: None Reported Additional Past Alcohol Use History / Comment(s): He was a smoker of a half a pack per day for 25-30 years. He currently lives at home with his . There are no pets in the home. They did travel last year to [place] but otherwise no extensive traveling. 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 He is currently on disability. Past Drug Use History: None Reported - Past Family History Mother Family Medical History: Pulmonary Embolus Sister(s) Family Medical History: Cancer Additional Family Medical History / Comment(s): MELANOMA Father Family Medical History: Pulmonary Embolus Medications and Allergies Home Medications Medication Instructions Recorded Confirmed Type Diazepam 5 mg PO HS PRN 01/22/15 08/16/16 History HYDROcodone/APAP 10-325MG [[place] 1 tab PO DAILY PRN 01/22/15 08/16/16 History 10-325] Methocarbamol 750 mg PO DAILY PRN 01/22/15 08/16/16 History Tamsulosin HCl 0.4 mg PO HS 01/22/15 08/16/16 History Docusate [Colace] 100 mg PO BID 08/10/16 08/16/16 History Gabapentin 600 mg PO TID 08/10/16 08/16/16 History Omeprazole 40 mg PO DAILY 08/10/16 08/16/16 History Acetaminophen Tab [Tylenol Tab] 325 mg PO Q4H PRN 08/16/16 08/16/16 History Allergies Allergy/AdvReac Type Severity Reaction Status Date / Time codeine Allergy Rash/Hives Verified 08/16/16 13:33 Physical Exam Vitals: Vital Signs Temp Pulse Pulse Resp BP BP Pulse Ox 08/17/16 08:00 98.7 F 71 16 117/69 95 08/17/16 04:33 98.2 F 73 16 98/58 93 L 08/17/16 00:00 97.7 F 72 16 122/76 95 08/16/16 20:00 99.1 F 71 18 112/71 91 L 08/16/16 18:57 20 08/16/16 18:54 100.3 F H 77 20 99/70 96 08/16/16 17:37 98 F 71 20 120/77 96 08/16/16 16:25 72 20 120/77 95 08/16/16 15:25 69 18 117/69 92 L Intake and Output 08/16/16 08/17/16 08/17/16 22:59 06:59 14:59 Intake Total 421.61 258.39 240 Output Total 600 840 Balance 421.61 -341.61 -600 Intake: Intake, IV Titration 241.61 258.39 Amount Heparin Sodium,Porcine/ 241.61 258.39 D5w Pmx 25,000 unit In Dextrose/Water 1 500ml. bag @ 18 UNITS/KG/HR 32. 65 mls/hr IV .[id number] [facility] Rx#:[id number] Oral 180 240 Output: Urine 600 840 Other: # Voids 2 Weight 91 kg Patient Weight 08/18/16 06:59 Weight 91 kg - Constitutional General appearance: mild distress, obese - EENT Eyes: PERRLA Ears: bilateral: normal - Neck Neck: normal ROM - Respiratory Respiratory: bilateral: CTA - Cardiovascular Rhythm: regular - Gastrointestinal General gastrointestinal: soft - Integumentary Integumentary: normal - Neurologic Neurologic: CNII-XII intact - Musculoskeletal Musculoskeletal: generalized weakness - Psychiatric Psychiatric: A&O x's 3, appropriate affect, intact judgment & insight Results CBC & Chem 7: 08/16/16 12:50 08/16/16 12:50 Labs: Abnormal Lab Results - Last 24 Hours (Table) 08/16/16 08/16/16 08/16/16 Range/Units 15:13 15:56 22:00 APTT 33.9 H (22.0-30.0) sec POC Glucose (mg/dL) 126 H (75-99) mg/dL Ur Specific [place] 1.050 H (1.001-1.035) Urine Protein Trace H (Negative) 08/17/16 Range/Units 05:16 APTT 41.7 H (22.0-30.0) sec POC Glucose (mg/dL) (75-99) mg/dL Ur Specific [place] (1.001-1.035) Urine Protein (Negative) Chest x-ray: report reviewed CT scan - chest: report reviewed Thrombosis Risk Factor Assmnt - Choose All That Apply Any of the Below Risk Factors Present?: Yes Each Factor Represents 1 point: Age 41-60 years, Obesity (BMI >25) Other Risk Factors: Yes Each Risk Factor Represents 3 Points: Family history of DVT/PE, History of DVT/ PE Other congenital or acquired thrombophilia - If yes, enter type in comment: No Thrombosis Risk Factor Assessment Total Risk Factor Score: 8 Thrombosis Risk Factor Assessment Level: High Risk Assessment and Plan Plan: Assessment Pulmonary embolism with saddle embolus Fever of unknown origin which chest pain History of DVT History of GERD Degenerative disc disease with recent lumbar surgery with dural tear Plan Consultation with Dr. Lorenzana regarding fever on vancomycin and ceftazidine Patient to be evaluated by pulmonology Venous Doppler studies and echo ordered
--- NOTE | 2016-08-17 13:00 | P.CNPUL ---
History of Present Illness Consult date: 08/17/16 Requesting physician: Gregg Mccarty Reason for consult: pulmonary embolism Chief complaint: Left-sided chest pain History of present illness: This is a very pleasant 60-year-old gentleman who follows with Dr. Gregg Mccarty as his primary care physician. He has a past medical history of osteoarthritis , degenerative disc disease, gastroesophageal reflux disease, benign prosthetic hypertrophy, neuropathy. He has had multiple back surgeries including a cervical surgery. He did have a DVT following one of his surgeries 3 years ago. He was treated with warfarin for 4 months. His most recent back surgery was at the [facility] in June 2016. He was admitted here on 2016 with complaints of fever and ongoing back pain. He had developed was felt to be a seroma and he had been seen and evaluated by infectious disease at that time. He also had complained of left lower extremity discomfort and the Doppler was negative for DVT. He is subsequent discharged on 08/14/2016. Later that same evening he had developed recurrent fever and by yesterday he was complaining of left-sided chest discomfort and was seen by his PCP who referred him here to the emergency room. A CT angiogram did confirm bilateral pulmonary pulmonary emboli with moderate to severe burden right greater than left. There is also a small saddle embolism present. Consulted for the same. There is also a 6 mm right mid lung pulmonary nodule noted. Of note, the patient had been followed in regards to this nodule approximately [address] Parker. The patient subsequently felt that there was no changes and had not returned to the office since then. He has no other pulmonary disease. No COPD/emphysema no asthma. No inhalers at home. He is seen today in consultation on the selective care unit. He is awake and alert in no acute distress. He states the left-sided chest discomfort has subsided somewhat. He still has pain on inhalation. He denies any worsening shortness of breath. He is maintaining good O2 saturations in the upper 90s on 3 L/m per nasal cannula. He is complaining of some right lower extremity discomfort. He's been afebrile. Hemodynamically stable. He is currently on a heparin drip. Review of Systems 14 point review of system was conducted. All negative other than as mentioned in the HPI. Past Medical History Past Medical History: Deep Vein Thrombosis (DVT), GERD/Reflux, Musculoskeletal Disorder, Neurologic Disorder, Prostate Disorder Additional Past Medical History / Comment(s): Neuropathy; Degenerative disc disease; Back pain, benign prostatic hypertrophy History of Any Multi-Drug Resistant Organisms: None Reported Past Surgical History: Back Surgery, Tonsillectomy Additional Past Surgical History / Comment(s): Back surgery x4; Cervical surgery ; arthroscopic right knee, TURP Past Anesthesia/Blood Transfusion Reactions: No Reported Reaction Past Psychological History: No Psychological Hx Reported Smoking Status: Former smoker Past Alcohol Use History: None Reported Additional Past Alcohol Use History / Comment(s): He was a smoker of a half a pack per day for 25-30 years. He currently lives at home with his . There are no pets in the home. They did travel last year to [place] but otherwise no extensive traveling. 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 He is currently on disability. Past Drug Use History: None Reported - Past Family History Mother Family Medical History: Pulmonary Embolus Sister(s) Family Medical History: Cancer Additional Family Medical History / Comment(s): MELANOMA Father Family Medical History: Pulmonary Embolus Medications and Allergies Home Medications Medication Instructions Recorded Confirmed Type Diazepam 5 mg PO HS PRN 01/22/15 08/16/16 History HYDROcodone/APAP 10-325MG [[place] 1 tab PO DAILY PRN 01/22/15 08/16/16 History 10-325] Methocarbamol 750 mg PO DAILY PRN 01/22/15 08/16/16 History Tamsulosin HCl 0.4 mg PO HS 01/22/15 08/16/16 History Docusate [Colace] 100 mg PO BID 08/10/16 08/16/16 History Gabapentin 600 mg PO TID 08/10/16 08/16/16 History Omeprazole 40 mg PO DAILY 08/10/16 08/16/16 History Acetaminophen Tab [Tylenol Tab] 325 mg PO Q4H PRN 08/16/16 08/16/16 History Allergies Allergy/AdvReac Type Severity Reaction Status Date / Time codeine Allergy Rash/Hives Verified 08/16/16 13:33 Physical Exam Vitals: Vital Signs Temp Pulse Pulse Resp BP BP Pulse Ox 08/17/16 12:00 97.5 F L 70 16 108/62 97 08/17/16 08:00 98.7 F 71 16 117/69 95 08/17/16 04:33 98.2 F 73 16 98/58 93 L 08/17/16 00:00 97.7 F 72 16 122/76 95 08/16/16 20:00 99.1 F 71 18 112/71 91 L 08/16/16 18:57 20 08/16/16 18:54 100.3 F H 77 20 99/70 96 08/16/16 17:37 98 F 71 20 120/77 96 08/16/16 16:25 72 20 120/77 95 08/16/16 15:25 69 18 117/69 92 L Intake and Output 08/16/16 08/17/16 08/17/16 22:59 06:59 14:59 Intake Total 421.61 258.39 240 Output Total 600 840 Balance 421.61 -341.61 -600 Intake: Intake, IV Titration 241.61 258.39 Amount Heparin Sodium,Porcine/ 241.61 258.39 D5w Pmx 25,000 unit In Dextrose/Water 1 500ml. bag @ 18 UNITS/KG/HR 32. 65 mls/hr IV .[id number] [facility] Rx#:[id number] Oral 180 240 Output: Urine 600 840 Other: # Voids 2 Weight 91 kg Patient Weight 08/18/16 06:59 Weight 91 kg GENERAL EXAM: Alert, comfortable in no apparent distress. HEAD: Normocephalic. EYES: Normal reaction of pupils, equal size. NOSE: Clear with pink turbinates. THROAT: No erythema or exudates. NECK: No masses, no JVD. CHEST: No chest wall deformity. LUNGS: Equal air entry with no crackles, wheeze, rhonchi or dullness. CVS: S1 and S2 normal with no audible murmurs, regular rhythm. ABDOMEN: No hepatosplenomegaly, normal bowel sounds, no guarding or rigidity. SPINE: Multiple scars noted. SKIN: No rashes CENTRAL NERVOUS SYSTEM: No focal deficits, tone is normal in all 4 extremities. Extremities: There is no significant peripheral edema. No clubbing, no cyanosis. Peripheral pulses are intact. Results - Laboratory Findings CBC and BMP: 08/16/16 12:50 08/16/16 12:50 PT/INR, D-dimer PT 11.0 sec (9.0-12.0) 08/16/16 12:50 INR 1.1 (<1.1) 08/16/16 12:50 D-Dimer 5.71 mg/L FEU (<0.60) H 08/16/16 12:50 Abnormal lab findings: Abnormal Labs 08/16/16 08/16/16 08/16/16 15:13 15:56 22:00 APTT 33.9 H POC Glucose (mg/dL) 126 H Ur Specific [place] 1.050 H Urine Protein Trace H 08/17/16 05:16 APTT 41.7 H POC Glucose (mg/dL) Ur Specific [place] Urine Protein - Diagnostic Findings Chest x-ray: image reviewed CT scan - chest: image reviewed Assessment and Plan Plan: Impression: #1 Left sided chest discomfort secondary to bilateral pulmonary emboli including small saddle embolus. Most likely secondary to sedentary lifestyle following recent back surgery and subsequent complications of suspected seroma/ hematoma and febrile illness. #2 Degenerative disc disease with multiple back surgeries most recently on 07/12 at the [facility] with subsequent dural tear/leak, admitted here from 08/12 through 08/14/2016. DVT of the left lower extremity was negative. #3 History of DVT following back surgery approximately 3 years ago. Treated with 4 months of warfarin. #4 Gastroesophageal reflux disease. #5 Benign prostatic hypertrophy. #6 Family history of fatal pulmonary embolism in his father. #7 Chronic tobacco dependence for approximately 30 years however quit 3 years ago. #8 History of 6 mm right-sided pulmonary nodule which had been followed in the outpatient setting. Remains stable on computed tomography scan from yesterday. Plan: The patient was seen and evaluated by Dr. Parker. His chest x-ray and CT scans were reviewed. There is significant amount of clot burden noted. Echocardiogram is pending. Dopplers of lower extremity are pending. We'll continue the patient on heparin. He will definitely need lifelong anticoagulation based on his recurrent history of DVT/PE. We will continue to follow the nonspecific pulmonary nodule in the outpatient setting. We'll continue to follow make further recommendations based on his clinical status. Time with Patient: Greater than 30
[2016-08-17 13:38] VITALS: BMI 27.9
--- NOTE | 2016-08-17 16:05 | US ---
EXAMINATION TYPE: US venous doppler duplex LE BI DATE OF EXAM: 08/17/2016 11:49 AM COMPARISON: NONE CLINICAL HISTORY: 60-year-old male with pulmonary embolism, calf pain, patient states clots seen with in calf veins at [facility]. TECHNIQUE: Duplex Doppler ultrasound examination of the bilateral lower extremities. FINDINGS: SIDE PERFORMED: Bilateral VESSELS IMAGED: External Iliac Vein (EIV) Common Femoral Vein Deep Femoral Vein Greater Saphenous Vein * Femoral Vein Popliteal Vein Small Saphenous Vein * Proximal Calf Veins Posterior tibial veins (* superficial vessels) Right Leg: Appears negative for DVT Left Leg: Some mural-based echogenic material is seen along the anterior margin of the lower common femoral vein near the valve preventing complete compressibility. IMPRESSION: 1. No evidence of DVT within the right lower extremity. 2. Possibly some nonocclusive chronic mural DVT in the lower left common femoral vein. No evidence fo r acute DVT in the left lower extremity.
[2016-08-17] MEDS: HEPARIN SODIUM,PORCINE 5,000 UNIT/ML 1 ML VIAL IV PRN (17:31)
--- NOTE | 2016-08-17 22:10 | P.PN ---
Subjective Principal diagnosis: Fever 60-year-old male who is a known history of severe degenerative disc disease of the spine has had 7 surgeries to his spine. On 07/12/2016 he had his last seizure. This is an L4-L5 f foraminotomies. Apparently had difficulty in the postoperative time frame with a dural tear. And when he was discharged home he laid in a mattress in the back of their minivan for his trip to home. As time went by was having difficulties with some swelling to the his lower back. The swelling increased. He then developed low-grade fever and had severe headache. It was so severe that he could not tolerate and he came to hospital. There is no evidence of a ongoing cervical spinal fluid leak. Because of his fever there was concerns of infection. He was treated with antibiotic therapy and conservative therapy which was bed rest. After 48 hours of rest he had marked improvement. Cultures were negative and he was discharged home with no antibiotic therapy. The MRI that was performed showed evidence of the fluid extension rate to the lateral epidural space. There was fortunately no evidence of any infection. The patient was sent home but he is now developed increasing discomfort in his left side of his chest. He had some mild shortness of breath and again a fever of 102. Because he presented emergency center. A CT chest angiogram revealed evidence of the saddle thrombus and bilateral pulmonary embolus. The patient was treated with heparin therapy as well as mechanical treatment during his stay because of his high risk of deep venous thrombosis. Is no history of a DVT after surgery a few years ago. He also apparently had pulmonary embolus at that time. Relates this time is different because he did not feel it moving through his chest. Because of the fever the infectious diseases consultation is been requested Patient is feeling better today. Fever is improved. Cultures are negative. Objective - Vital Signs Vital signs: Vital Signs Temp 98.1 F 08/17/16 16:00 Pulse 68 08/17/16 16:00 Resp 16 08/17/16 16:00 BP 119/70 08/17/16 16:00 Pulse Ox 92 L 08/17/16 16:00 Intake & Output 08/17/16 08/17/16 08/18/16 06:59 18:59 06:59 Intake Total 680.00 927.044 Output Total 600 1240 450 Balance 80.00 -312.956 -450 Weight 91 kg Intake: Intake, IV Titration 500.00 447.044 Amount Heparin Sodium,Porcine/ 500.00 447.044 D5w Pmx 25,000 unit In Dextrose/Water 1 500ml. bag @ 18 UNITS/KG/HR 32. 65 mls/hr IV .[id number] [facility] Rx#:[id number] Oral 180 480 Output: Urine 600 1240 450 Other: # Voids 2 - Exam Pleasant 60-year-old male who has some ongoing left chest pain and is not extremely short of breath HEENT: Anicteric conjunctiva are pink and moist nasal mucosa grossly intact without significant lesions, there is no thrush. Neck: The neck is supple without significant lymphadenopathy or thyromegaly. Lungs: Good bilateral air entry without significant crackles or wheezing. There is no significant bronchial sounds. There is no egophony or dullness. Does complain of some left-sided chest pain when he takes a deep breath Heart: Regular rate and rhythm with an audible S1-S2, loud S4. There is no significant murmur click or rub, PMI was nondisplaced. Abdomen: Positive bowel sounds soft and nontender without palpable masses or organomegaly. There was no guarding or rebound. Extremities: The upper extremities have excellent pulses they are symmetric, no significant petechiae or telangiectasia. No splinter hemorrhages were noted. The lower extremities are free from significant edema. The peripheral pulses were 2+ and symmetric. Neuro: Awake alert oriented to person place and time. There are no acute new gross focal sensory motor deficits. The back shows evidence of recent surgical intervention. The large fluid collection is still present. It is however less taunt than it was on the last examination and is less tender. - Labs CBC & Chem 7: 08/16/16 12:50 08/16/16 12:50 Labs: Abnormal Lab Results - Last 24 Hours (Table) 08/16/16 08/17/16 08/17/16 Range/Units 22:00 05:16 15:45 APTT 33.9 H 41.7 H 39.0 H (22.0-30.0) sec Laboratory Results WBC 9.5 k/uL (3.8-10.6) 08/16/16 12:50 RBC 5.03 m/uL (4.30-5.90) 08/16/16 12:50 Hgb 15.0 gm/dL (13.0-17.5) 08/16/16 12:50 Hct 44.3 % (39.0-53.0) 08/16/16 12:50 MCV 88.0 fL (80.0-100.0) 08/16/16 12:50 MCH 29.8 pg (25.0-35.0) 08/16/16 12:50 MCHC 33.8 g/dL (31.0-37.0) 08/16/16 12:50 RDW 12.5 % (11.5-15.5) 08/16/16 12:50 Plt Count 276 k/uL (150-450) 08/16/16 12:50 Neutrophils % 72 % 08/16/16 12:50 Lymphocytes % 17 % 08/16/16 12:50 Monocytes % 7 % 08/16/16 12:50 Eosinophils % 1 % 08/16/16 12:50 Basophils % 1 % 08/16/16 12:50 Neutrophils # 6.9 k/uL (1.3-7.7) 08/16/16 12:50 Lymphocytes # 1.7 k/uL (1.0-4.8) 08/16/16 12:50 Monocytes # 0.6 k/uL (0-1.0) 08/16/16 12:50 Eosinophils # 0.1 k/uL (0-0.7) 08/16/16 12:50 Basophils # 0.1 k/uL (0-0.2) 08/16/16 12:50 PT 11.0 sec (9.0-12.0) 08/16/16 12:50 INR 1.1 (<1.1) 08/16/16 12:50 APTT 39.0 sec (22.0-30.0) H 08/17/16 15:45 D-Dimer 5.71 mg/L FEU (<0.60) H 08/16/16 12:50 Sodium 140 mmol/L (137-145) 08/16/16 12:50 Potassium 4.6 mmol/L (3.5-5.1) 08/16/16 12:50 Chloride 103 mmol/L (98-107) 08/16/16 12:50 Carbon Dioxide 27 mmol/L (22-30) 08/16/16 12:50 Anion Gap 10 mmol/L 08/16/16 12:50 BUN 14 mg/dL (9-20) 08/16/16 12:50 Creatinine 0.81 mg/dL (0.66-1.25) 08/16/16 12:50 Est GFR (MDRD) Af Amer >60 (>60 ml/min/1.73 sqM) 08/16/16 12:50 Est GFR (MDRD) Non-Af >60 (>60 ml/min/1.73 sqM) 08/16/16 12:50 Glucose 113 mg/dL (74-99) H 08/16/16 12:50 POC Glucose (mg/dL) 126 mg/dL (75-99) H 08/16/16 15:13 POC Glu Hand Ii Blocker ID Alma De Dios 08/16/16 15:13 Plasma Lactic Acid And[place] 1.1 mmol/L (0.7-2.0) 08/16/16 12:50 Calcium 9.4 mg/dL (8.4-10.2) 08/16/16 12:50 Magnesium 2.2 mg/dL (1.6-2.3) 08/16/16 12:50 Total Bilirubin 0.5 mg/dL (0.2-1.3) 08/16/16 12:50 AST 17 U/L (17-59) 08/16/16 12:50 ALT 31 U/L (21-72) 08/16/16 12:50 Alkaline Phosphatase 61 U/L (38-126) 08/16/16 12:50 Total Creatine Kinase 27 U/L (55-170) L 08/16/16 12:50 CK-MB (CK-2) <0.2 ng/mL (0.0-2.4) 08/16/16 12:50 CK-MB (CK-2) Rel Index 08/16/16 12:50 Troponin I <0.012 ng/mL (0.000-0.034) 08/16/16 12:50 NT-Pro-B Natriuret Pep 31 pg/mL 08/16/16 12:50 Total Protein 6.7 g/dL (6.3-8.2) 08/16/16 12:50 Albumin 3.9 g/dL (3.5-5.0) 08/16/16 12:50 Urine Color Yellow 08/16/16 15:56 Urine Appearance Clear (Clear) 08/16/16 15:56 Urine pH 8.0 (5.0-8.0) 08/16/16 15:56 Ur Specific [place] 1.050 (1.001-1.035) H 08/16/16 15:56 Urine Protein Trace (Negative) H 08/16/16 15:56 Urine Glucose (UA) Negative (Negative) 08/16/16 15:56 Urine Ketones Negative (Negative) 08/16/16 15:56 Urine Blood Negative (Negative) 08/16/16 15:56 Urine Nitrate Negative (Negative) 08/16/16 15:56 Urine Bilirubin Negative (Negative) 08/16/16 15:56 Urine Urobilinogen <2.0 mg/dL (<2.0) 08/16/16 15:56 Ur Leukocyte Esterase Negative (Negative) 08/16/16 15:56 Microbiology 08/16/16 12:50 Blood Blood Culture - Preliminary No Growth after 24 hours Assessment and Plan (1) Status post lumbar surgery Status: Acute (2) Dural tear Status: Acute (3) Saddle pulmonary embolus Narrative/Plan: 60-year-old male presents to hospital with sudden onset of discomfort into his left chest with some shortness of breath. He does have a history of a known prior DVT in the left leg and pulmonary embolism after surgery a few years ago. He has recently been anticoagulated and received mechanical compressive therapy to the lower extremities due to his immobility during his recent stay. It appears despite these interventions he's had another pulmonary embolus. Duplex scans are pending. Patient has been antibiotic with heparin. Because of the fever antibiotic therapy was restarted with vancomycin and ceftazidime. This is utilize during his recent hospitalization when there was a potential for greater than infection related to the fluid collection. However we had cultures that were negative and his fever resolved. The current fever appears to be directly related to the acute pulmonary embolus. He has had some difficulties with his urinary system over time. Analysis performed which is negative and he is not having significant urinary symptoms except some difficulties with retention which is not new. It is tender does not appear to be a source of infection, fever appears to be related to the acute pulmonary embolus. Antibiotic therapy was discontinued. Ongoing monitoring for any other potential sources of infection should be performed. Oxygen saturation has improved. Status: Acute
[2016-08-17] MEDS: DIAZEPAM 5 MG TAB PO PRN (22:28)
[2016-08-17] MEDS: TAMSULOSIN 0.4 MG CAP.ER.24H PO SCH (22:28)
[2016-08-18] MEDS: HEPARIN SODIUM,PORCINE/D5W PMX 25,000 UNIT in DEXTROSE/WATER 1 500ML.BAG IV SCH ×2 (02:48→08:34)
[2016-08-18] MEDS ORDERED: VANCOMYCIN TROUGH DUE 1 EACH MISC MISCELLANE ONE (05:00)
[2016-08-18] MEDS: DOCUSATE 100 MG CAP PO SCH ×2 (08:32→21:05)
[2016-08-18] MEDS: PANTOPRAZOLE 40 MG TABLET PO SCH (08:32)
[2016-08-18] MEDS: GABAPENTIN 300 MG CAP PO SCH ×3 (08:33→21:04)
[2016-08-18] MEDS: HYDROcodone/APAP 10-325MG 1 EACH TAB PO PRN (10:42)
[2016-08-18] MEDS: FLUTICASONE 50MCG/SPRAY NASAL 16GM EA NOSTRIL PRN (10:43)
--- NOTE | 2016-08-18 12:06 | ECHOF ---
Referral Reason:pulmonary embolism MEASUREMENTS -------- HEIGHT: 182.9 cm WEIGHT: 90.7 kg BP: RVIDd: 2.7 cm (< 3.3) IVSd: 1.2 cm (0.6 - 1.1) LVIDd: 4.7 cm (3.9 - 5.3) LVPWd: 1.3 cm (0.6 - 1.1) IVSs: 1.6 cm LVIDs: 3.2 cm LVPWs: 1.6 cm Ao Diam: 3.5 cm (2.0 - 3.7) AV Cusp: 2.5 cm (1.5 - 2.6) LA Diam: 4.1 cm (2.7 - 3.8) MV EXCURSION: 13.189 mm (> 18.000) MV EF SLOPE: 63 mm/s (70 - 150) EPSS: 0.6 cm MV E Mick: 0.44 m/s MV DecT: 317 ms MV A Mick: 0.75 m/s MV E/A Ratio: 0.59 RAP: 5.00 mmHg RVSP: 30.99 mmHg FINDINGS -------- Sinus rhythm. This was a technically good study. There is mild concentric left ventricular hypertrophy. Overall left ventricular systolic function is normal with, an EF between 55 - 60 %. The right ventricle is normal in size and function. The left atrium is normal in size. The right atrium is normal in size. Aortic valve is trileaflet and is mildly thickened. The mitral valve leaflets are mildly thickened. Mild mitral annular calcification present. There is trace mitral regurgitation. Mild tricuspid regurgitation present. The right ventricular systolic pressure, as measured by Doppler, is 30.99mmHg. Pulmonic valve appears structurally normal. The aortic root, ascending aorta and aortic arch are normal. The pericardium is normal. CONCLUSIONS -------- 1. Sinus rhythm. 2. Mild mitral annular calcification present. 3. There is trace mitral regurgitation. 4. Mild tricuspid regurgitation present. 5. The right ventricular systolic pressure, as measured by Doppler, is 30.99mmHg. 6. Pulmonic valve appears structurally normal. 7. The aortic root, ascending aorta and aortic arch are normal. 8. The pericardium is normal. 9. This was a technically good study. 10. There is mild concentric left ventricular hypertrophy. 11. Overall left ventricular systolic function is normal with, an EF between 55 - 60 %. 12. The right ventricle is normal in size and function. 13. The left atrium is normal in size. 14. The right atrium is normal in size. 15. Aortic valve is trileaflet and is mildly thickened. 16. The mitral valve leaflets are mildly thickened. TRANSPORT ANALYST: Dominique Cerda RDCS
--- NOTE | 2016-08-18 13:05 | P.PN ---
Subjective Principal diagnosis: Acute pulmonary embolism This is a very pleasant 60-year-old gentleman who follows with Dr. Gregg Mccarty as his primary care physician. He has a past medical history of osteoarthritis , degenerative disc disease, gastroesophageal reflux disease, benign prosthetic hypertrophy, neuropathy. He has had multiple back surgeries including a cervical surgery. He did have a DVT following one of his surgeries 3 years ago. He was treated with warfarin for 4 months. His most recent back surgery was at the [facility] in June 2016. He was admitted here on 2016 with complaints of fever and ongoing back pain. He had developed was felt to be a seroma and he had been seen and evaluated by infectious disease at that time. He also had complained of left lower extremity discomfort and the Doppler was negative for DVT. He is subsequent discharged on 08/14/2016. Later that same evening he had developed recurrent fever and by yesterday he was complaining of left-sided chest discomfort and was seen by his PCP who referred him here to the emergency room. A CT angiogram did confirm bilateral pulmonary pulmonary emboli with moderate to severe burden right greater than left. There is also a small saddle embolism present. Consulted for the same. There is also a 6 mm right mid lung pulmonary nodule noted. Of note, the patient had been followed in regards to this nodule approximately [address] Parker. The patient subsequently felt that there was no changes and had not returned to the office since then. He has no other pulmonary disease. No COPD/emphysema no asthma. No inhalers at home. He is seen today in consultation on the selective care unit. He is awake and alert in no acute distress. He states the left-sided chest discomfort has subsided somewhat. He still has pain on inhalation. He denies any worsening shortness of breath. He is maintaining good O2 saturations in the upper 90s on 3 L/m per nasal cannula. He is complaining of some right lower extremity discomfort. He's been afebrile. Hemodynamically stable. He is currently on a heparin drip. Reevaluated today on 08/18/2016, patient is feeling better, less shortness of breath, less chest pain, remains on heparin and the PTT is therapeutic. Objective - Vital Signs Vital signs: Vital Signs Temp 98.4 F 08/18/16 08:00 Pulse 78 08/18/16 08:00 Resp 16 08/18/16 08:00 BP 102/80 08/18/16 08:00 Pulse Ox 94 L 08/18/16 08:00 Intake & Output 08/17/16 08/18/16 08/18/16 18:59 06:59 18:59 Intake Total 927.044 52.956 388.603 Output Total 1240 650 400 Balance -312.956 -597.044 -11.397 Weight 91 kg 91.5 kg Intake: Intake, IV Titration 447.044 52.956 268.603 Amount Heparin Sodium,Porcine/ 447.044 52.956 268.603 D5w Pmx 25,000 unit In Dextrose/Water 1 500ml. bag @ 18 UNITS/KG/HR 32. 65 mls/hr IV .[id number] [facility] Rx#:[id number] Oral 480 120 Output: Urine 1240 650 400 Other: # Voids 1 - Exam GENERAL EXAM: Alert, comfortable in no apparent distress. HEAD: Normocephalic. EYES: Normal reaction of pupils, equal size. NOSE: Clear with pink turbinates. THROAT: No erythema or exudates. NECK: No masses, no JVD. CHEST: No chest wall deformity. LUNGS: Equal air entry with no crackles, wheeze, rhonchi or dullness. CVS: S1 and S2 normal with no audible murmurs, regular rhythm. ABDOMEN: No hepatosplenomegaly, normal bowel sounds, no guarding or rigidity. SPINE: Multiple scars noted. SKIN: No rashes CENTRAL NERVOUS SYSTEM: No focal deficits, tone is normal in all 4 extremities. Extremities: There is no significant peripheral edema. No clubbing, no cyanosis. Peripheral pulses are intact. - Labs CBC & Chem 7: 08/16/16 12:50 08/16/16 12:50 Labs: Abnormal Lab Results - Last 24 Hours (Table) 08/17/16 08/17/16 08/18/16 Range/Units 15:45 23:55 05:50 APTT 39.0 H 88.8 H 77.7 H (22.0-30.0) sec Assessment and Plan Plan: #1 Left sided chest discomfort secondary to bilateral pulmonary emboli including small saddle embolus. Most likely secondary to sedentary lifestyle following recent back surgery and subsequent complications of suspected seroma/ hematoma and febrile illness. #2 Degenerative disc disease with multiple back surgeries most recently on 07/12 at the [facility] with subsequent dural tear/leak, admitted here from 08/12 through 08/14/2016. DVT of the left lower extremity was negative. #3 History of DVT following back surgery approximately 3 years ago. Treated with 4 months of warfarin. #4 Gastroesophageal reflux disease. #5 Benign prostatic hypertrophy. #6 Family history of fatal pulmonary embolism in his father. #7 Chronic tobacco dependence for approximately 30 years however quit 3 years ago. #8 History of 6 mm right-sided pulmonary nodule which had been followed in the outpatient setting. Remains stable on computed tomography scan from yesterday. Recommendation: Continue present treatment plan, consider switching patient to Xarelto in a.m., assuming it would be approved by his provider, and consider discharge planning in the next 24-48 hours. Time with Patient: Less than 30
[2016-08-18] MEDS: METHOCARBAMOL 750 MG TAB PO PRN (17:06)
[2016-08-18] MEDS: ACETAMINOPHEN TAB 325 MG TAB PO PRN (21:04)
[2016-08-18] MEDS: TAMSULOSIN 0.4 MG CAP.ER.24H PO SCH (21:05)
[2016-08-18] MEDS: DIAZEPAM 5 MG TAB PO PRN (22:02)
--- NOTE | 2016-08-18 23:01 | P.PN ---
Subjective Principal diagnosis: Fever 60-year-old male who is a known history of severe degenerative disc disease of the spine has had 7 surgeries to his spine. On 07/12/2016 he had his last seizure. This is an L4-L5 f foraminotomies. Apparently had difficulty in the postoperative time frame with a dural tear. And when he was discharged home he laid in a mattress in the back of their minivan for his trip to home. As time went by was having difficulties with some swelling to the his lower back. The swelling increased. He then developed low-grade fever and had severe headache. It was so severe that he could not tolerate and he came to hospital. There is no evidence of a ongoing cervical spinal fluid leak. Because of his fever there was concerns of infection. He was treated with antibiotic therapy and conservative therapy which was bed rest. After 48 hours of rest he had marked improvement. Cultures were negative and he was discharged home with no antibiotic therapy. The MRI that was performed showed evidence of the fluid extension rate to the lateral epidural space. There was fortunately no evidence of any infection. The patient was sent home but he is now developed increasing discomfort in his left side of his chest. He had some mild shortness of breath and again a fever of 102. Because he presented emergency center. A CT chest angiogram revealed evidence of the saddle thrombus and bilateral pulmonary embolus. The patient was treated with heparin therapy as well as mechanical treatment during his stay because of his high risk of deep venous thrombosis. Is no history of a DVT after surgery a few years ago. He also apparently had pulmonary embolus at that time. Relates this time is different because he did not feel it moving through his chest. Because of the fever the infectious diseases consultation is been requested Patient is feeling better today. Fever is resolved. Cultures are negative. Objective - Vital Signs Vital signs: Vital Signs Temp 97.5 F L 08/18/16 16:00 Pulse 68 08/18/16 16:00 Resp 16 08/18/16 16:00 BP 101/71 08/18/16 16:00 Pulse Ox 94 L 08/18/16 16:00 Intake & Output 08/18/16 08/18/16 08/19/16 06:59 18:59 06:59 Intake Total 52.956 868.603 Output Total 650 900 Balance -597.044 -31.397 Weight 91.5 kg Intake: Intake, IV Titration 52.956 268.603 Amount Heparin Sodium,Porcine/ 52.956 268.603 D5w Pmx 25,000 unit In Dextrose/Water 1 500ml. bag @ 18 UNITS/KG/HR 32. 65 mls/hr IV .[id number] [facility] Rx#:[id number] Oral 600 Output: Urine 650 900 Other: # Voids 1 - Exam Pleasant 60-year-old male who has some ongoing left chest pain and is not extremely short of breath HEENT: Anicteric conjunctiva are pink and moist nasal mucosa grossly intact without significant lesions, there is no thrush. Neck: The neck is supple without significant lymphadenopathy or thyromegaly. Lungs: Good bilateral air entry without significant crackles or wheezing. There is no significant bronchial sounds. There is no egophony or dullness. Does complain of some left-sided chest pain when he takes a deep breath Heart: Regular rate and rhythm with an audible S1-S2, loud S4. There is no significant murmur click or rub, PMI was nondisplaced. Abdomen: Positive bowel sounds soft and nontender without palpable masses or organomegaly. There was no guarding or rebound. Extremities: The upper extremities have excellent pulses they are symmetric, no significant petechiae or telangiectasia. No splinter hemorrhages were noted. The lower extremities are free from significant edema. The peripheral pulses were 2+ and symmetric. Neuro: Awake alert oriented to person place and time. There are no acute new gross focal sensory motor deficits. The back shows evidence of recent surgical intervention. The large fluid collection is still present. but improved. - Labs CBC & Chem 7: 08/16/16 12:50 08/16/16 12:50 Labs: Abnormal Lab Results - Last 24 Hours (Table) 08/17/16 08/18/16 08/18/16 Range/Units 23:55 05:50 16:12 APTT 88.8 H 77.7 H 47.8 H (22.0-30.0) sec Laboratory Results WBC 9.5 k/uL (3.8-10.6) 08/16/16 12:50 RBC 5.03 m/uL (4.30-5.90) 08/16/16 12:50 Hgb 15.0 gm/dL (13.0-17.5) 08/16/16 12:50 Hct 44.3 % (39.0-53.0) 08/16/16 12:50 MCV 88.0 fL (80.0-100.0) 08/16/16 12:50 MCH 29.8 pg (25.0-35.0) 08/16/16 12:50 MCHC 33.8 g/dL (31.0-37.0) 08/16/16 12:50 RDW 12.5 % (11.5-15.5) 08/16/16 12:50 Plt Count 276 k/uL (150-450) 08/16/16 12:50 Neutrophils % 72 % 08/16/16 12:50 Lymphocytes % 17 % 08/16/16 12:50 Monocytes % 7 % 08/16/16 12:50 Eosinophils % 1 % 08/16/16 12:50 Basophils % 1 % 08/16/16 12:50 Neutrophils # 6.9 k/uL (1.3-7.7) 08/16/16 12:50 Lymphocytes # 1.7 k/uL (1.0-4.8) 08/16/16 12:50 Monocytes # 0.6 k/uL (0-1.0) 08/16/16 12:50 Eosinophils # 0.1 k/uL (0-0.7) 08/16/16 12:50 Basophils # 0.1 k/uL (0-0.2) 08/16/16 12:50 PT 11.0 sec (9.0-12.0) 08/16/16 12:50 INR 1.1 (<1.1) 08/16/16 12:50 APTT 47.2 sec (22.0-30.0) H 08/18/16 22:17 D-Dimer 5.71 mg/L FEU (<0.60) H 08/16/16 12:50 Sodium 140 mmol/L (137-145) 08/16/16 12:50 Potassium 4.6 mmol/L (3.5-5.1) 08/16/16 12:50 Chloride 103 mmol/L (98-107) 08/16/16 12:50 Carbon Dioxide 27 mmol/L (22-30) 08/16/16 12:50 Anion Gap 10 mmol/L 08/16/16 12:50 BUN 14 mg/dL (9-20) 08/16/16 12:50 Creatinine 0.81 mg/dL (0.66-1.25) 08/16/16 12:50 Est GFR (MDRD) Af Amer >60 (>60 ml/min/1.73 sqM) 08/16/16 12:50 Est GFR (MDRD) Non-Af >60 (>60 ml/min/1.73 sqM) 08/16/16 12:50 Glucose 113 mg/dL (74-99) H 08/16/16 12:50 POC Glucose (mg/dL) 126 mg/dL (75-99) H 08/16/16 15:13 POC Glu Staffing Recruiter ID Alma De Dios 08/16/16 15:13 Plasma Lactic Acid Andrey 1.1 mmol/L (0.7-2.0) 08/16/16 12:50 Calcium 9.4 mg/dL (8.4-10.2) 08/16/16 12:50 Magnesium 2.2 mg/dL (1.6-2.3) 08/16/16 12:50 Total Bilirubin 0.5 mg/dL (0.2-1.3) 08/16/16 12:50 AST 17 U/L (17-59) 08/16/16 12:50 ALT 31 U/L (21-72) 08/16/16 12:50 Alkaline Phosphatase 61 U/L (38-126) 08/16/16 12:50 Total Creatine Kinase 27 U/L (55-170) L 08/16/16 12:50 CK-MB (CK-2) <0.2 ng/mL (0.0-2.4) 08/16/16 12:50 CK-MB (CK-2) Rel Index 08/16/16 12:50 Troponin I <0.012 ng/mL (0.000-0.034) 08/16/16 12:50 NT-Pro-B Natriuret Pep 31 pg/mL 08/16/16 12:50 Total Protein 6.7 g/dL (6.3-8.2) 08/16/16 12:50 Albumin 3.9 g/dL (3.5-5.0) 08/16/16 12:50 Urine Color Yellow 08/16/16 15:56 Urine Appearance Clear (Clear) 08/16/16 15:56 Urine pH 8.0 (5.0-8.0) 08/16/16 15:56 Ur Specific [place] 1.050 (1.001-1.035) H 08/16/16 15:56 Urine Protein Trace (Negative) H 08/16/16 15:56 Urine Glucose (UA) Negative (Negative) 08/16/16 15:56 Urine Ketones Negative (Negative) 08/16/16 15:56 Urine Blood Negative (Negative) 08/16/16 15:56 Urine Nitrate Negative (Negative) 08/16/16 15:56 Urine Bilirubin Negative (Negative) 08/16/16 15:56 Urine Urobilinogen <2.0 mg/dL (<2.0) 08/16/16 15:56 Ur Leukocyte Esterase Negative (Negative) 08/16/16 15:56 Assessment and Plan (1) Status post lumbar surgery Status: Acute (2) Dural tear Status: Acute (3) Saddle pulmonary embolus Narrative/Plan: 60-year-old male presents to hospital with sudden onset of discomfort into his left chest with some shortness of breath. He does have a history of a known prior DVT in the left leg and pulmonary embolism after surgery a few years ago. He has recently been anticoagulated and received mechanical compressive therapy to the lower extremities due to his immobility during his recent stay. It appears despite these interventions he's had another pulmonary embolus. Duplex scans are pending. Patient has been antibiotic with heparin. Because of the fever antibiotic therapy was restarted with vancomycin and ceftazidime. This is utilize during his recent hospitalization when there was a potential for greater than infection related to the fluid collection. However we had cultures that were negative and his fever resolved. The current fever appears to be directly related to the acute pulmonary embolus. He has had some difficulties with his urinary system over time. Analysis performed which is negative and he is not having significant urinary symptoms except some difficulties with retention which is not new. It is tender does not appear to be a source of infection, fever appears to be related to the acute pulmonary embolus. Antibiotic therapy was discontinued. Ongoing monitoring for any other potential sources of infection should be performed. Oxygen saturation has improved. Status: Acute
[2016-08-19] MEDS: HEPARIN SODIUM,PORCINE/D5W PMX 25,000 UNIT in DEXTROSE/WATER 1 500ML.BAG IV SCH (02:30)
[2016-08-19] MEDS: PANTOPRAZOLE 40 MG TABLET PO SCH (06:37)
[2016-08-19] MEDS: GABAPENTIN 300 MG CAP PO SCH ×3 (09:07→20:46)
[2016-08-19] MEDS: DOCUSATE 100 MG CAP PO SCH ×2 (09:07→20:47)
[2016-08-19] MEDS: FLUTICASONE 50MCG/SPRAY NASAL 16GM EA NOSTRIL PRN (09:07)
[2016-08-19] MEDS: HYDROcodone/APAP 10-325MG 1 EACH TAB PO PRN (09:08)
[2016-08-19] MEDS: HEPARIN SODIUM,PORCINE 5,000 UNIT/ML 1 ML VIAL IV PRN (09:15)
--- NOTE | 2016-08-19 09:31 | PN ---
DATE OF SERVICE: 08/18/2016 INTERVAL HISTORY: Mr. Marin is a 60-year-old man with a known history of degenerative disc disease and GERD and benign prostatic hypertrophy, and neuropathy, history of deep venous thrombosis about three years back who had a recent back surgery at [facility] in June 2016. The patient was admitted to the hospital from primary care physician's office with complaints of left-sided chest pain and was found to have CT angiogram evidence of pulmonary embolism and small saddle embolism as well with moderate to severe ( ) right greater than left. Currently on anticoagulation with heparin and being evaluated for oral anticoagulants, depending on ( ) depending on his ( ) Cipro and pulmonary following the patient. Otherwise, patient does have ( ) from the previous back surgery. Currently he is not suggestive of infective focus and no antibiotics have been started now. Otherwise, the patient denied any complaints of chest pain today. No nausea or vomiting. No complaints of dizziness or lightheadedness. Sating well on 3 L nasal cannula. REVIEW OF SYSTEMS: CONSTITUTIONAL: No fever. No chills. RESPIRATORY: No cough or sputum production. CARDIOVASCULAR: No chest pain. No short of breath. No leg swelling. ABDOMEN: No nausea, vomiting or abdominal pain. GENITOURINARY: Negative. SKIN: Negative. PSYCHIATRY: Negative. MUSCULOSKELETAL: Negative. All other 14 point review of systems negative except as above. Current medications include: 1. Tylenol. 2. [place] 10. 3. Valium. 4. Colace. 5. Flonase. 6. Neurontin. 7. Heparin IV. 8. Robaxin. 9. Narcan. 10. Zofran. 11. Protonix. 12. Flomax. PHYSICAL EXAMINATION: A 60-year-old male lying in bed comfortably, awake and alert and oriented times three. Appears to be in no apparent distress. VITALS: Blood pressure is 101/71, pulse is 68, respiration 16, temperature afebrile, pulse ox 95% on 3 liters nasal cannula. HEENT: Atraumatic, normocephalic. Neck is supple. No JVD. CVS: S1, S2 are heard. No murmurs. No gallop. No rub. LUNGS: Bilateral air entry is present. No wheezing, no crackles. Nonlabored breathing. ABDOMEN: Soft, nontender. Bowel sounds present. APPLE PICKING SUPERVISOR: Awake, alert, oriented, x3. No focal neurologic deficits. Cranial nerves grossly intact. EXTREMITIES: No edema. Pulses palpable bilaterally. No clubbing or cyanosis. PSYCHIATRIC: Cooperative. LABORATORY DATA: Reviewed. IMPRESSION: 1. Left-sided chest pain secondary to bilateral pulmonary including small saddle embolus most likely secondary to sedentary from recent back surgery. 2. History of deep venous thrombosis following back surgery about 3 years ago. 3. Degenerative joint disc disease and back surgery at [facility] on 07/12/2016 with subsequent dural leak, admitted here from 08/12 to 08/14. 4. Improved now. 5. Gastroesophageal reflux disease. 6. Benign prostatic hypertrophy. 7. Family history of saddle pulmonary embolism in his father. 8. Chronic tobacco abuse approximately 30 years, however, quit three years ago. 9. History of right side pulmonary nodule, follow-up as an outpatient. RECOMMENDATIONS AND PLAN: We will continue with IV heparin now. Pulmonary will start xarelto tomorrow and await for provider approval. Otherwise, we will continue current management and continue ambulation. Further recommendation based on clinical course. MTDD
--- NOTE | 2016-08-19 11:41 | P.PN ---
Subjective Principal diagnosis: Acute pulmonary embolism This is a very pleasant 60-year-old gentleman who follows with Dr. Gregg Mccarty as his primary care physician. He has a past medical history of osteoarthritis , degenerative disc disease, gastroesophageal reflux disease, benign prosthetic hypertrophy, neuropathy. He has had multiple back surgeries including a cervical surgery. He did have a DVT following one of his surgeries 3 years ago. He was treated with warfarin for 4 months. His most recent back surgery was at the [facility] in June 2016. He was admitted here on 2016 with complaints of fever and ongoing back pain. He had developed was felt to be a seroma and he had been seen and evaluated by infectious disease at that time. He also had complained of left lower extremity discomfort and the Doppler was negative for DVT. He is subsequent discharged on 08/14/2016. Later that same evening he had developed recurrent fever and by yesterday he was complaining of left-sided chest discomfort and was seen by his PCP who referred him here to the emergency room. A CT angiogram did confirm bilateral pulmonary pulmonary emboli with moderate to severe burden right greater than left. There is also a small saddle embolism present. Consulted for the same. There is also a 6 mm right mid lung pulmonary nodule noted. Of note, the patient had been followed in regards to this nodule approximately [address] Parker. The patient subsequently felt that there was no changes and had not returned to the office since then. He has no other pulmonary disease. No COPD/emphysema no asthma. No inhalers at home. He is seen today in consultation on the selective care unit. He is awake and alert in no acute distress. He states the left-sided chest discomfort has subsided somewhat. He still has pain on inhalation. He denies any worsening shortness of breath. He is maintaining good O2 saturations in the upper 90s on 3 L/m per nasal cannula. He is complaining of some right lower extremity discomfort. He's been afebrile. Hemodynamically stable. He is currently on a heparin drip. Reevaluated today on 08/18/2016, patient is feeling better, less shortness of breath, less chest pain, remains on heparin and the PTT is therapeutic. Reevaluated today on 08/19/2016, continues to do well, less shortness of breath, no chest pain, no cough, no fever, no chills, no hemoptysis. PTT is 43.2, patient remains on protocol for heparin Objective - Vital Signs Vital signs: Vital Signs Temp 97.6 F 08/19/16 08:00 Pulse 72 08/19/16 08:00 Resp 18 08/19/16 08:00 BP 112/78 08/19/16 08:00 Pulse Ox 95 08/19/16 08:00 Intake & Output 08/18/16 08/19/16 08/19/16 18:59 06:59 18:59 Intake Total 868.603 500 291.548 Output Total 900 900 Balance -31.397 -400 291.548 Weight 97.5 kg Intake: Intake, IV Titration 268.603 500 291.548 Amount Heparin Sodium,Porcine/ 268.603 500 291.548 D5w Pmx 25,000 unit In Dextrose/Water 1 500ml. bag @ 18 UNITS/KG/HR 32. 65 mls/hr IV .[id number] [facility] Rx#:[id number] Oral 600 Output: Urine 900 900 Other: # Voids 4 - Exam GENERAL EXAM: Alert, comfortable in no apparent distress. HEAD: Normocephalic. EYES: Normal reaction of pupils, equal size. NOSE: Clear with pink turbinates. THROAT: No erythema or exudates. NECK: No masses, no JVD. CHEST: No chest wall deformity. LUNGS: Equal air entry with no crackles, wheeze, rhonchi or dullness. CVS: S1 and S2 normal with no audible murmurs, regular rhythm. ABDOMEN: No hepatosplenomegaly, normal bowel sounds, no guarding or rigidity. SPINE: Multiple scars noted. SKIN: No rashes CENTRAL NERVOUS SYSTEM: No focal deficits, tone is normal in all 4 extremities. Extremities: There is no significant peripheral edema. No clubbing, no cyanosis. Peripheral pulses are intact. - Labs CBC & Chem 7: 08/16/16 12:50 08/16/16 12:50 Labs: Abnormal Lab Results - Last 24 Hours (Table) 08/18/16 08/18/16 08/19/16 Range/Units 16:12 22:17 05:43 APTT 47.8 H 47.2 H 43.2 H (22.0-30.0) sec Assessment and Plan Plan: #1 Left sided chest discomfort secondary to bilateral pulmonary emboli including small saddle embolus. Most likely secondary to sedentary lifestyle following recent back surgery and subsequent complications of suspected seroma/ hematoma and febrile illness. #2 Degenerative disc disease with multiple back surgeries most recently on 07/12 at the [facility] with subsequent dural tear/leak, admitted here from 08/12 through 08/14/2016. DVT of the left lower extremity was negative. #3 History of DVT following back surgery approximately 3 years ago. Treated with 4 months of warfarin. #4 Gastroesophageal reflux disease. #5 Benign prostatic hypertrophy. #6 Family history of fatal pulmonary embolism in his father. #7 Chronic tobacco dependence for approximately 30 years however quit 3 years ago. #8 History of 6 mm right-sided pulmonary nodule which had been followed in the outpatient setting. Remains stable on computed tomography scan from yesterday. Recommendation: Continue present treatment plan, consider switching patient to Xarelto assuming it would be approved by his provider, and consider discharge planning in the next 24-48 hours. Time with Patient: Less than 30
[2016-08-19] MEDS: METHOCARBAMOL 750 MG TAB PO PRN (11:50)
[2016-08-19] MEDS: RIVAROXABAN 15 MG TAB PO SCH (17:29)
[2016-08-19] MEDS: DIAZEPAM 5 MG TAB PO PRN (20:46)
[2016-08-19] MEDS: ACETAMINOPHEN TAB 325 MG TAB PO PRN (20:46)
[2016-08-19] MEDS: TAMSULOSIN 0.4 MG CAP.ER.24H PO SCH (20:47)
[2016-08-20] MEDS: HYDROcodone/APAP 10-325MG 1 EACH TAB PO PRN (01:56)
[2016-08-20 05:46] VITALS: TEMP 97.4
[2016-08-20 06:27] LABS: Basophils # (A) 0.1 k/uL (0-0.2); Basophils % (A) 1 %; CH 29.4; CHCM 32.8; Eosinophils # (A) 0.3 k/uL (0-0.7); Eosinophils % (A) 4 %; HCT 44.1 % (39.0-53.0); HDW 2.49; Luc # (Auto) 0.22; Luc % (Auto) 3; Lymphocytes # (A) 2.2 k/uL (1.0-4.8); Lymphocytes % (A) 31 %; MCH 28.6 pg (25.0-35.0); MCHC 31.8 g/dL (31.0-37.0); MCV 90.1 fL (80.0-100.0); Mean Platelet Volume 8.2; Monocytes # (A) 0.7 k/uL (0-1.0); Monocytes % (A) 10 %; Neutrophils # (A) 3.6 k/uL (1.3-7.7); Neutrophils % (A) 52 %; RBC 4.89 m/uL (4.30-5.90); RDW 12.4 % (11.5-15.5); WBC (Perox) 6.41
[2016-08-20 06:37] LABS: Anion Gap 9 mmol/L; Blood Urea Nitrogen 15 mg/dL (9-20); Calcium 9.5 mg/dL (8.4-10.2); Carbon Dioxide 27 mmol/L (22-30); Chloride 106 mmol/L (98-107); Glucose 88 mg/dL (74-99); Non-African American GFR(MDRD) >60 (>60 ml/min/1.73 sqM); Potassium 4.7 mmol/L (3.5-5.1); Sodium 142 mmol/L (137-145)
[2016-08-20] MEDS: RIVAROXABAN 15 MG TAB PO SCH ×2 (06:54→17:37)
[2016-08-20] MEDS: PANTOPRAZOLE 40 MG TABLET PO SCH (06:54)
[2016-08-20] MEDS: ACETAMINOPHEN TAB 325 MG TAB PO PRN (10:54)
[2016-08-20] MEDS: GABAPENTIN 300 MG CAP PO SCH ×2 (10:55→17:37)
[2016-08-20] MEDS: DOCUSATE 100 MG CAP PO SCH (10:55)
--- NOTE | 2016-08-20 11:59 | P.PN ---
Subjective Principal diagnosis: Acute pulmonary embolism This is a very pleasant 60-year-old gentleman who follows with Dr. Gregg Mccarty as his primary care physician. He has a past medical history of osteoarthritis , degenerative disc disease, gastroesophageal reflux disease, benign prosthetic hypertrophy, neuropathy. He has had multiple back surgeries including a cervical surgery. He did have a DVT following one of his surgeries 3 years ago. He was treated with warfarin for 4 months. His most recent back surgery was at the [facility] in June 2016. He was admitted here on 2016 with complaints of fever and ongoing back pain. He had developed was felt to be a seroma and he had been seen and evaluated by infectious disease at that time. He also had complained of left lower extremity discomfort and the Doppler was negative for DVT. He is subsequent discharged on 08/14/2016. Later that same evening he had developed recurrent fever and by yesterday he was complaining of left-sided chest discomfort and was seen by his PCP who referred him here to the emergency room. A CT angiogram did confirm bilateral pulmonary pulmonary emboli with moderate to severe burden right greater than left. There is also a small saddle embolism present. Consulted for the same. There is also a 6 mm right mid lung pulmonary nodule noted. Of note, the patient had been followed in regards to this nodule approximately [address] Parker. The patient subsequently felt that there was no changes and had not returned to the office since then. He has no other pulmonary disease. No COPD/emphysema no asthma. No inhalers at home. He is seen today in consultation on the selective care unit. He is awake and alert in no acute distress. He states the left-sided chest discomfort has subsided somewhat. He still has pain on inhalation. He denies any worsening shortness of breath. He is maintaining good O2 saturations in the upper 90s on 3 L/m per nasal cannula. He is complaining of some right lower extremity discomfort. He's been afebrile. Hemodynamically stable. He is currently on a heparin drip. Reevaluated today on 08/18/2016, patient is feeling better, less shortness of breath, less chest pain, remains on heparin and the PTT is therapeutic. Reevaluated today on 08/19/2016, continues to do well, less shortness of breath, no chest pain, no cough, no fever, no chills, no hemoptysis. PTT is 43.2, patient remains on protocol for heparin Reevaluated today on 08/20/2016, continues to do well, no hemodynamic instability , no cough no wheezing, no shortness of breath. His labs were reviewed, and his last PTT was 56.6 yesterday. Patient was started on Xarelto yesterday, and he is presently on 15 mg by mouth twice a day for 21 days. Hence I believe the patient could be considered for discharge planning today. Objective - Vital Signs Vital signs: Vital Signs Temp 97.4 F L 08/20/16 04:00 Pulse 73 08/20/16 04:00 Resp 16 08/20/16 04:00 BP 117/75 08/20/16 04:00 Pulse Ox 98 08/20/16 04:00 Intake & Output 08/19/16 08/20/16 08/20/16 18:59 06:59 18:59 Intake Total 291.548 Output Total 900 Balance 291.548 -900 Weight 90.4 kg Intake: Intake, IV Titration 291.548 Amount Heparin Sodium,Porcine/ 291.548 D5w Pmx 25,000 unit In Dextrose/Water 1 500ml. bag @ 18 UNITS/KG/HR 32. 65 mls/hr IV .[id number] [facility] Rx#:[id number] Output: Urine 900 Other: # Voids 1 - Exam GENERAL EXAM: Alert, comfortable in no apparent distress. HEAD: Normocephalic. EYES: Normal reaction of pupils, equal size. NOSE: Clear with pink turbinates. THROAT: No erythema or exudates. NECK: No masses, no JVD. CHEST: No chest wall deformity. LUNGS: Equal air entry with no crackles, wheeze, rhonchi or dullness. CVS: S1 and S2 normal with no audible murmurs, regular rhythm. ABDOMEN: No hepatosplenomegaly, normal bowel sounds, no guarding or rigidity. SPINE: Multiple scars noted. SKIN: No rashes CENTRAL NERVOUS SYSTEM: No focal deficits, tone is normal in all 4 extremities. Extremities: There is no significant peripheral edema. No clubbing, no cyanosis. Peripheral pulses are intact. - Labs CBC & Chem 7: 08/20/16 06:00 08/20/16 06:00 Labs: Abnormal Lab Results - Last 24 Hours (Table) 08/19/16 Range/Units 15:46 APTT 56.6 H (22.0-30.0) sec Assessment and Plan Plan: #1 Left sided chest discomfort secondary to bilateral pulmonary emboli including small saddle embolus. Most likely secondary to sedentary lifestyle following recent back surgery and subsequent complications of suspected seroma/ hematoma and febrile illness. #2 Degenerative disc disease with multiple back surgeries most recently on 07/12 at the [facility] with subsequent dural tear/leak, admitted here from 08/12 through 08/14/2016. DVT of the left lower extremity was negative. #3 History of DVT following back surgery approximately 3 years ago. Treated with 4 months of warfarin. #4 Gastroesophageal reflux disease. #5 Benign prostatic hypertrophy. #6 Family history of fatal pulmonary embolism in his father. #7 Chronic tobacco dependence for approximately 30 years however quit 3 years ago. #8 History of 6 mm right-sided pulmonary nodule which had been followed in the outpatient setting. Remains stable on computed tomography scan from yesterday. Recommendation: Clear for discharge by pulmonary, patient is to remain on Xarelto, most likely he will be on it lifetime. Time with Patient: Less than 30
[2016-08-20 15:27] VITALS: BP 110/71; PULSE 84; RESP 18
--- NOTE | 2016-09-13 22:50 | DS ---
DATE OF ADMISSION: 08/16/2016 DATE OF DISCHARGE: 08/20/2016 DISCHARGE DIAGNOSES: 1. Left-sided chest pain secondary to bilateral pulmonary embolism including small saddle embolus most likely secondary to her sedentary lifestyle from recent back surgery and pain and also history of recent dural leak and seroma. 2. History of deep venous thrombosis followed by back surgery about 3 years ago. 3. Degenerative disc disease and back surgery at [facility] on 07/12/2016 followed by a dural leak, and was admitted here in July 2016. 4. Gastroesophageal reflux disease. 5. Benign prostatic hypertrophy. 6. Family history of saddle embolus in his father. 7. Chronic tobacco abuse quit 3 years ago. 8. History of right sided pulmonary nodule. Follow-up as an outpatient with pulmonary clinic. HOSPITAL COURSE: Mr. Marin is a 60-year-old male with known history of recent back surgery admitted the hospital with worsening shortness of breath and was sent for ( ). Patient subsequently had CT angiogram of the chest showed bilateral pulmonary embolism and saddle embolus. The patient was continued on IV heparin and the patient did improve symptomatically. Anticoagulant has been changed to Xarelto due to history of previous deep venous thrombosis and also family history of pulmonary embolism. Patient will need lifelong anticoagulation. The patient was improved with Xarelto and patient was advised to follow with the primary care physician and continue with the Xarelto, possibly lifelong. The patient symptomatically much improved now. Saturating well and ( ). The patient will be discharged home in stable condition. DISCHARGE PHYSICAL EXAMINATION: A 60-year-old male lying in the bed comfortably. Awake, alert, oriented, x3. Appears to be in no apparent distress. VITALS: Blood pressure is 110/71, pulse is 84, respiration 16, temperature afebrile, pulse ox 94% on room air. LABORATORY DATA: Reviewed. Discharge physical examination done. Discharge medications include: 1. Diazepam 5 mg p.o. at bedtime p.r.n. for anxiety. 2. [place] 10, 1 tablet p.o. q.6 hourly p.r.n. for pain. 3. Methocarbamol 750 mg p.o. daily. 4. Tamsulosin 0.4 mg p.o. at bedtime. 5. Docusate 100 milligrams p.o. b.i.d. p.r.n. for constipation. 6. Gabapentin 600 mg p.o. t.i.d. 7. Omeprazole 40 mg p.o. daily. 8. Flonase nasal spray, 2 sprays each nostril daily p.r.n. for nasal blockage. 9. Xarelto 15 mg p.o. b.i.d. for 21 days followed by 20 mg daily. 10. Fiorinal one to two capsules p.o. q.4 hourly p.r.n. for headache. 11. Tylenol 500 mg p.o. q.6 hourly p.r.n. for pain. Patient will be discharged to home in stable condition. DISCHARGE PHYSICAL EXAMINATION: Examination done. Follow up with Dr. Mccarty in one to two days. Home with home health care services. Follow with pulmonary clinic with Dr. Parker.
--- NOTE | 2016-09-13 23:17 | PN ---
DATE OF SERVICE: 08/19/2016 INTERVAL HISTORY: Mr. Marin is a 60-year-old male with a known history of DJD, GERD degenerative disc disease, BPH, neuropathy, history of DVT about 3 years back after back surgery, who also had recent back surgery at [facility] in June 2016. Patient was admitted to the hospital from the PCP's office with complaints of left-sided chest pain and was found to have CT angiogram evidence of pulmonary embolism and small saddle embolus, greater on the right than on the left. Currently patient is on anticoagulation in the form of Xarelto, changed from IV warfarin. Patient is symptomatically improved now. Breathing status much improved. Denied any dizziness or lightheadedness at this time. No complaints of shortness of breath. No headache, dizziness or lightheadedness. No acute overnight issues. Saturating well on nasal cannula. REVIEW OF SYSTEMS: CONSTITUTIONAL: No fever. No chills. RESPIRATORY: No cough or sputum production. CARDIOVASCULAR: No chest pain or shortness of breath. ABDOMEN: No nausea, vomiting, abdominal pain. GENITOURINARY: Negative. ENDOCRINE: Negative. PSYCHIATRIC: Negative. MUSCULOSKELETAL: Negative. All other 14-point review of systems negative except as above. CURRENT MEDICATIONS: Reviewed. PHYSICAL EXAMINATION: [id number]-old male lying in bed comfortably. Awake, alert, oriented x3. Appears to be in no distress. VITALS: Blood pressure is 117/75. Pulse is 73, respiration 16, temperature afebrile, pulse ox 98% on nasal cannula. HEENT: Atraumatic, normocephalic. Neck is supple. No JVD. CVS EXAM: S1, S2 heard. No murmurs. No gallop. LUNGS: Bilateral air entry is present. No wheezing. No crackles. Non-labored breathing. ABDOMEN: Soft, nontender. Bowel sounds are present. LINING LAYER: Awake, alert, oriented x3. No focal neurologic deficit. EXTREMITIES: No edema. Pulses palpable bilaterally. No clubbing or cyanosis. PSYCHIATRIC: Cooperative. LABORATORY DATA: WBC 7.0, hemoglobin 14.0, platelets 384. Sodium 142, potassium 4.7, chloride 106. Bicarb is 27. BUN 15, creatinine 0.79. IMPRESSION: 1. Left-sided chest pain secondary to bilateral pulmonary embolism, including small saddle embolus most likely secondary to sedentary lifestyle from recent back surgery. 2. History of deep venous thrombosis following back surgery about 3 years back. 3. Degenerative disc disease and back surgery at [facility] on 07/12/2016 with subsequent dural leak, admitted here between 08/12/2016 and 08/14/2016, improved now. 4. Gastroesophageal reflux disease. 5. Benign prostatic hypertrophy. 6. Family history of saddle pulmonary embolus in his father. 7. Chronic tobacco abuse approximately 30 years ( ) however, quit 3 years ago. 8. History of right-sided pulmonary nodule followed up as an outpatient. DISCUSSION AND PLAN: Patient will be started on Xarelto. Will discontinue IV heparin. Patient is symptomatically improved. Patient does require lifelong anticoagulation. Will send a prescription to Pharmacy for ( ) for Xarelto. Anticipate discharge in the next 24 hours with more clinical improvement.
== END 2016-08-20 18:27 | disposition home health service (06) | DRG 176 ==
LOC: EC 12:13 → 6SEL 15:06
PROVIDERS: ADMIT Family Medicine; ATTEND Family Medicine
DX: I26.92 Saddle embolus of pulmonary artery without acute cor pulmonale (principal); G62.9 Polyneuropathy, unspecified; R91.1 Solitary pulmonary nodule; R50.9 Fever, unspecified; K21.9 Gastro-esophageal reflux disease without esophagitis; M19.90 Unspecified osteoarthritis, unspecified site; R51 Headache; M51.36 Other intervertebral disc degeneration, lumbar region; R05 Cough; R33.8 Other retention of urine; N40.1 Benign prostatic hyperplasia with lower urinary tract symptoms; R09.81 Nasal congestion; J02.9 Acute pharyngitis, unspecified; R53.1 Weakness; Z88.5 Allergy status to narcotic agent; Z87.440 Personal history of urinary (tract) infections; Z79.891 Long term (current) use of opiate analgesic; Z79.51 Long term (current) use of inhaled steroids; Z79.899 Other long term (current) drug therapy; Z87.891 Personal history of nicotine dependence; Z80.8 Family history of malignant neoplasm of other organs or systems; Z86.718 Personal history of other venous thrombosis and embolism; Z86.711 Personal history of pulmonary embolism; Z98.890 Other specified postprocedural states; Z90.79 Acquired absence of other genital organ(s); Z83.2 Family history of diseases of the blood and blood-forming organs and certain disorders involving the immune mechanism
CPT/HCPCS: 36415; 71020; 71275; 80048; 80053; 81003; 82550; 82553; 83605; 83735; 83880; 84484; 85025; 85379; 85610; 85730; 87040; 93005; 93306; 93970; 96361; 96365; 96366; 96375; 96376; 99291

== ENCOUNTER 2016-08-31 11:40 | Emergency (ER) | payer BC, MEDICARE ==
[2016-08-31] MEDS ORDERED: SODIUM CHLORIDE 0.9% 500 ML IV STA (12:07)
[2016-08-31] MEDS ORDERED: SODIUM CHLORIDE 0.9% 1,000 ML IV STA ×2 (12:07)
[2016-08-31] MEDS ORDERED: MORPHINE SULFATE 4 MG/ML SYRINGE IV STA (12:07)
[2016-08-31] MEDS ORDERED: KETOROLAC 30 MG/ML 1 ML VIAL IVP STA (12:08)
[2016-08-31] MEDS ORDERED: ACETAMINOPHEN IV (For NPO) 1,000 MG in EMPTY BAG 1 BAG IVPB STA (12:08)
--- NOTE | 2016-08-31 12:53 | ED ---
General Adult HPI - General Chief complaint: Extremity Problem,Nontraumatic Stated complaint: blood clot Time Seen by Provider: 08/31/16 11:50 Source: patient, RN notes reviewed, old records reviewed Mode of arrival: wheelchair Limitations: no limitations - History of Present Illness Initial comments: This is a 52-year-old male the ER for evaluation of multiple complaints. Patient's cool complaints are round centered around pain. She has significant and lengthy recent medical history, patient is a postop patient back surgery, and splitting of dura. Patient also had episodic fevers, was diagnosed with DVTs and PEs. Patient is complaining of severe pain severe weakness and not feeling well. Pain in his legs bilaterally and right arm. Patient is taking anticoagulation as directed - Related Data Home Medications Medication Instructions Recorded Confirmed Diazepam 5 mg PO HS PRN 01/22/15 08/31/16 HYDROcodone/APAP 10-325MG [[place] 1 tab PO DAILY PRN 01/22/15 08/31/16 10-325] Methocarbamol 750 mg PO DAILY PRN 01/22/15 08/31/16 Tamsulosin HCl 0.4 mg PO HS 01/22/15 08/31/16 Docusate [Colace] 100 mg PO BID 08/10/16 08/31/16 Gabapentin 600 mg PO TID 08/10/16 08/31/16 Omeprazole 40 mg PO DAILY 08/10/16 08/31/16 Acetaminophen Tab [Tylenol Tab] 325 mg PO Q4H PRN 08/16/16 08/31/16 Butalb/Asprin/Caff 50-325-40Mg 1 - 2 cap PO Q4HR PRN 08/31/16 08/31/16 [Fiorinal 50-325-40 MG] Previous Rx's Medication Instructions Recorded Fluticasone Nasal [place] [Flonase 2 spray EA NOSTRIL DAILY PRN #1 08/14/16 Nasal [place]] each Rivaroxaban [Xarelto] 15 mg PO BID 21 Days 08/19/16 Allergies Allergy/AdvReac Type Severity Reaction Status Date / Time codeine Allergy Rash/Hives Verified 08/31/16 12:26 Review of Systems ROS Statement: Those systems with pertinent positive or pertinent negative responses have been documented in the HPI. ROS Other: All systems not noted in ROS Statement are negative. Past Medical History Past Medical History: Deep Vein Thrombosis (DVT), GERD/Reflux, Musculoskeletal Disorder, Neurologic Disorder, Prostate Disorder, Pulmonary Embolus (PE) Additional Past Medical History / Comment(s): Neuropathy; Degenerative disc disease; Back pain, benign prostatic hypertrophy History of Any Multi-Drug Resistant Organisms: None Reported Past Surgical History: Back Surgery, Tonsillectomy Additional Past Surgical History / Comment(s): Back surgery x4; Cervical surgery ; arthroscopic right knee, TURP Past Anesthesia/Blood Transfusion Reactions: No Reported Reaction Past Psychological History: No Psychological Hx Reported Smoking Status: Former smoker Past Alcohol Use History: None Reported Additional Past Alcohol Use History / Comment(s): He was a smoker of a half a pack per day for 25-30 years. He currently lives at home with his . There are no pets in the home. They did travel last year to [place] but otherwise no extensive traveling. 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 He is currently on disability. Past Drug Use History: None Reported - Past Family History Mother Family Medical History: Pulmonary Embolus Sister(s) Family Medical History: Cancer Additional Family Medical History / Comment(s): MELANOMA Father Family Medical History: Pulmonary Embolus General Exam Limitations: no limitations General appearance: alert, in no apparent distress Head exam: Present: atraumatic, normocephalic, normal inspection Eye exam: Present: normal appearance, PERRL, EOMI. Absent: scleral icterus, conjunctival injection, periorbital swelling ENT exam: Present: normal exam, mucous membranes moist Neck exam: Present: normal inspection. Absent: tenderness, meningismus, lymphadenopathy Respiratory exam: Present: normal lung sounds bilaterally. Absent: respiratory distress, wheezes, rales, rhonchi, stridor Cardiovascular Exam: Present: regular rate, normal rhythm, normal heart sounds. Absent: systolic murmur, diastolic murmur, rubs, gallop, clicks GI/Abdominal exam: Present: soft, normal bowel sounds. Absent: distended, tenderness, guarding, rebound, rigid Extremities exam: Present: normal inspection, full ROM, normal capillary refill. Absent: tenderness, pedal edema, joint swelling, calf tenderness Back exam: Present: normal inspection Neurological exam: Present: alert, oriented X3, CN II-XII intact Psychiatric exam: Present: normal affect, normal mood Skin exam: Present: warm, dry, intact, normal color. Absent: rash Course Vital Signs 08/31/16 08/31/16 08/31/16 11:43 12:50 13:00 Temperature 99.7 F H 97.8 F Pulse Rate 86 77 70 Respiratory 16 16 18 Rate Blood Pressure 131/85 115/58 O2 Sat by Pulse 97 94 L 98 Oximetry 08/31/16 08/31/16 08/31/16 14:00 15:13 15:39 Temperature 97.4 F L Pulse Rate 68 61 59 L Respiratory 20 18 16 Rate Blood Pressure 100/64 118/66 102/68 O2 Sat by Pulse 96 96 96 Oximetry - Reevaluation(s) Reevaluation #1: 08/31/16 13:01 At this time patient's pain is improved EKG Findings - EKG Comments: EKG Findings:: EKG shows normal sinus rhythm rate of 79, AL 160, QRS 90, QTC 421 Medical Decision Making - Medical Decision Making 60 male ER for evaluation. This patient presents ER for evaluation of pain, leg pain and arm pain, ultrasound is negative for new DVT, superficial phlebitis right arm, pain is controlled, no pneumonia, patient's Adela able to be discharged home - Lab Data Result diagrams: 08/31/16 12:35 08/31/16 12:35 Lab Results 08/31/16 08/31/16 08/31/16 Range/Units 12:35 12:35 12:35 WBC 8.5 (3.8-10.6) k/uL RBC 4.83 (4.30-5.90) m/uL Hgb 14.0 (13.0-17.5) gm/dL Hct 42.6 (39.0-53.0) % MCV 88.1 (80.0-100.0) fL MCH 29.0 (25.0-35.0) pg MCHC 32.9 (31.0-37.0) g/dL RDW 12.6 (11.5-15.5) % Plt Count 378 (150-450) k/uL Neutrophils % 63 % Lymphocytes % 25 % Monocytes % 7 % Eosinophils % 2 % Basophils % 1 % Neutrophils # 5.4 (1.3-7.7) k/uL Lymphocytes # 2.1 (1.0-4.8) k/uL Monocytes # 0.6 (0-1.0) k/uL Eosinophils # 0.1 (0-0.7) k/uL Basophils # 0.1 (0-0.2) k/uL PT (9.0-12.0) sec INR (<1.1) APTT (22.0-30.0) sec Sodium 139 (137-145) mmol/L Potassium 4.2 (3.5-5.1) mmol/L Chloride 103 (98-107) mmol/L Carbon Dioxide 25 (22-30) mmol/L Anion Gap 11 mmol/L BUN 12 (9-20) mg/dL Creatinine 0.80 (0.66-1.25) mg/dL Est GFR (MDRD) Af Amer >60 (>60 ml/min/1.73 sqM) Est GFR (MDRD) Non-Af >60 (>60 ml/min/1.73 sqM) Glucose 117 H (74-99) mg/dL Plasma Lactic Acid Andrey (0.7-2.0) mmol/L Calcium 9.1 (8.4-10.2) mg/dL Phosphorus 4.2 (2.5-4.5) mg/dL Total Bilirubin 0.4 (0.2-1.3) mg/dL AST 11 L (17-59) U/L ALT 25 (21-72) U/L Alkaline Phosphatase 45 (38-126) U/L Total Creatine Kinase 31 L (55-170) U/L CK-MB (CK-2) <0.2 (0.0-2.4) ng/mL CK-MB (CK-2) Rel Index Troponin I <0.012 (0.000-0.034) ng/mL Total Protein 6.2 L (6.3-8.2) g/dL Albumin 3.8 (3.5-5.0) g/dL Urine Color Urine Appearance (Clear) Urine pH (5.0-8.0) Ur Specific [place] (1.001-1.035) Urine Protein (Negative) Urine Glucose (UA) (Negative) Urine Ketones (Negative) Urine Blood (Negative) Urine Nitrate (Negative) Urine Bilirubin (Negative) Urine Urobilinogen (<2.0) mg/dL Ur Leukocyte Esterase (Negative) Urine RBC (0-5) /hpf Urine WBC (0-5) /hpf Ur Squamous Epith Cells (0-4) /hpf Urine Bacteria (None) /hpf Urine Mucus (None) /hpf 08/31/16 08/31/16 08/31/16 Range/Units 12:35 12:35 15:55 WBC (3.8-10.6) k/uL RBC (4.30-5.90) m/uL Hgb (13.0-17.5) gm/dL Hct (39.0-53.0) % MCV (80.0-100.0) fL MCH (25.0-35.0) pg MCHC (31.0-37.0) g/dL RDW (11.5-15.5) % Plt Count (150-450) k/uL Neutrophils % % Lymphocytes % % Monocytes % % Eosinophils % % Basophils % % Neutrophils # (1.3-7.7) k/uL Lymphocytes # (1.0-4.8) k/uL Monocytes # (0-1.0) k/uL Eosinophils # (0-0.7) k/uL Basophils # (0-0.2) k/uL PT 13.2 H (9.0-12.0) sec INR 1.3 (<1.1) APTT 26.4 (22.0-30.0) sec Sodium (137-145) mmol/L Potassium (3.5-5.1) mmol/L Chloride (98-107) mmol/L Carbon Dioxide (22-30) mmol/L Anion Gap mmol/L BUN (9-20) mg/dL Creatinine (0.66-1.25) mg/dL Est GFR (MDRD) Af Amer (>60 ml/min/1.73 sqM) Est GFR (MDRD) Non-Af (>60 ml/min/1.73 sqM) Glucose (74-99) mg/dL Plasma Lactic Acid Andrey 1.6 (0.7-2.0) mmol/L Calcium (8.4-10.2) mg/dL Phosphorus (2.5-4.5) mg/dL Total Bilirubin (0.2-1.3) mg/dL AST (17-59) U/L ALT (21-72) U/L Alkaline Phosphatase (38-126) U/L Total Creatine Kinase (55-170) U/L CK-MB (CK-2) (0.0-2.4) ng/mL CK-MB (CK-2) Rel Index Troponin I (0.000-0.034) ng/mL Total Protein (6.3-8.2) g/dL Albumin (3.5-5.0) g/dL Urine Color Yellow Urine Appearance Clear (Clear) Urine pH 5.0 (5.0-8.0) Ur Specific [place] 1.006 (1.001-1.035) Urine Protein Negative (Negative) Urine Glucose (UA) Negative (Negative) Urine Ketones Negative (Negative) Urine Blood Negative (Negative) Urine Nitrate Negative (Negative) Urine Bilirubin Negative (Negative) Urine Urobilinogen <2.0 (<2.0) mg/dL Ur Leukocyte Esterase Trace H (Negative) Urine RBC 1 (0-5) /hpf Urine WBC 8 H (0-5) /hpf Ur Squamous Epith Cells <1 (0-4) /hpf Urine Bacteria Rare H (None) /hpf Urine Mucus Rare H (None) /hpf - Radiology Data Radiology results: report reviewed (Chest x-ray negative for acute disease, ultrasound bilateral lower extremity right upper extremity negative for new DVT) , image reviewed Disposition Clinical Impression: Lumbar surgical wound fluid collection, Fever, Fever of unknown origin (FUO), Dural tear, Status post lumbar surgery, Saddle pulmonary embolus, Frequent headaches, Chest pain Disposition: HOME SELF-CARE Condition: Good Instructions: Deep Venous Thrombosis (ED) Referrals: Gregg Mccarty MD [Primary Care Provider] - 1-2 days
[2016-08-31 12:59] LABS: Basophils # (A) 0.1 k/uL (0-0.2); Basophils % (A) 1 %; CH 29.8; CHCM 33.9; Eosinophils # (A) 0.1 k/uL (0-0.7); Eosinophils % (A) 2 %; HCT 42.6 % (39.0-53.0); Luc # (Auto) 0.25; Luc % (Auto) 3; Lymphocytes # (A) 2.1 k/uL (1.0-4.8); Lymphocytes % (A) 25 %; MCHC 32.9 g/dL (31.0-37.0); MCV 88.1 fL (80.0-100.0); Mean Platelet Volume 6.2; Monocytes # (A) 0.6 k/uL (0-1.0); Monocytes % (A) 7 %; Neutrophils # (A) 5.4 k/uL (1.3-7.7); Neutrophils % (A) 63 %; RBC 4.83 m/uL (4.30-5.90); RDW 12.6 % (11.5-15.5); WBC 8.5 k/uL (3.8-10.6); WBC (Perox) 8.61
[2016-08-31 13:12] LABS: ALT 25 U/L (21-72); AST 11 U/L (17-59); Alkaline Phosphatase 45 U/L (38-126); Anion Gap 11 mmol/L; Blood Urea Nitrogen 12 mg/dL (9-20); Calcium 9.1 mg/dL (8.4-10.2); Carbon Dioxide 25 mmol/L (22-30); Chloride 103 mmol/L (98-107); Glucose 117 mg/dL (74-99); Non-African American GFR(MDRD) >60 (>60 ml/min/1.73 sqM); Phosphorous 4.2 mg/dL (2.5-4.5); Potassium 4.2 mmol/L (3.5-5.1); Sodium 139 mmol/L (137-145); Total Bilirubin 0.4 mg/dL (0.2-1.3); Total Protein 6.2 g/dL (6.3-8.2)
--- NOTE | 2016-08-31 13:14 | XR ---
EXAMINATION TYPE: XR chest 2V DATE OF EXAM: 08/31/2016 1:07 PM COMPARISON: 08/16/2016 HISTORY: 60-year-old male with pain and weakness TECHNIQUE: Frontal and lateral views FINDINGS: Heart is normal size. Aortopulmonary vasculature within normal limits. I see bibasilar opacities have a somewhat linear configuration suggesting prominent bands of atelectasis. No pleural effusion. Slig htly low lung volumes. IMPRESSION: Hypoventilatory changes with bibasilar patchy opacities. The opacities have a somewhat linear configu ration suggesting prominent bands of atelectasis.
[2016-08-31 13:21] LABS: INR 1.3 (<1.1); Partial Thromboplastin Time 26.4 sec (22.0-30.0); Prothrombin Time 13.2 sec (9.0-12.0)
[2016-08-31 13:23] LABS: Creatine Kinase 31 U/L (55-170)
[2016-08-31 13:37] LABS: Creatine Kinase MB <0.2 ng/mL (0.0-2.4); Troponin I <0.012 ng/mL (0.000-0.034)
--- NOTE | 2016-08-31 15:14 | US ---
EXAMINATION TYPE: US venous doppler duplex UE RT DATE OF EXAM: 08/31/2016 2:31 PM COMPARISON: NONE CLINICAL HISTORY: 60-year-old male with Pain. Tingling sensation in right upper arm, recent IV site during hospital stay in right arm TECHNIQUE: Duplex Doppler ultrasound examination of right upper extremity was performed. COMPARISON: [<None>] FINDINGS: Superficial and deep veins of the right upper extremity were evaluated utilizing color doppler flow a nalysis along with assessment of phasicity and compressibility. The following vessels were imaged: IJV Subclavian Vein Axilla Vein Brachial Vein(s) Radial Paired Veins Ulnar Paired Veins Cephalic Vein * Basilic Vein * (* superficial vessels) Right Arm: Appears to have thrombus within his superficial cephalic vein in upper arm, internal echoe s, noncompressible, no color flow detected. No DVT seen. IMPRESSION: 1. SVT involving the cephalic vein in the upper arm. 2. No evidence for DVT within the right lower extremity.
--- NOTE | 2016-08-31 15:17 | US ---
EXAMINATION TYPE: US venous doppler duplex LE BI DATE OF EXAM: 08/31/2016 2:59 PM COMPARISON: 08/17/16 CLINICAL HISTORY: 60-year-old male with Pain in calf and hamstrings . Technique: Duplex Doppler ultrasound examination of the bilateral lower extremities. FINDINGS: SIDE PERFORMED: Bilateral VESSELS IMAGED: External Iliac Vein (EIV) Common Femoral Vein Deep Femoral Vein Greater Saphenous Vein * Femoral Vein Popliteal Vein Small Saphenous Vein * Proximal Calf Veins Posterior tibial veins (* superficial vessels) Right Leg: Appears negative for DVT Left Leg: Appears negative for DVT IMPRESSION: 1. No evidence for DVT within the bilateral lower extremities. 2. Previously seen nonocclusive mural based chronic DVT in the lower left common femoral vein is no l onger seen.
[2016-08-31 15:41] VITALS: BP 102/68; PULSE 59; RESP 16; TEMP 97.4
[2016-08-31 16:16] LABS: Appearance,Urine Clear (Clear); Bacteria,Urine Rare /hpf; Bilirubin,Urine Negative (Negative); Glucose,Urine (UA) Negative (Negative); Ketones,Urine Negative (Negative); Leukocyte Esterase,Urine Trace (Negative); Mucus,Urine Rare /hpf; Nitrite,Urine Negative (Negative); Particle Count 930; Protein,Urine Negative (Negative); RBC,Urine 1 /hpf (0-5); Specific Gravity,Urine 1.006 (1.001-1.035); Squamous Epithelial Cell,Urine <1 /hpf (0-4); UA Billing (MACRO vs. MICRO) MICRO; Urobilinogen,Urine <2.0 mg/dL (<2.0); WBC,Urine 8 /hpf (0-5)
--- NOTE | 2016-09-07 14:09 | CDI ---
Dr. Magallanes, Please specify/confirm whether the patient had a: 1. Superficial Phlebitis, as stated in Ultrasound from the Medical Decision Making. yes 2. On the Venous Doppler Ultrasound of the Right Arm report, the Impression states "SVT of the Cephalic Vein of Right arm." Please confirm whether the patient has the Superficial Phlebitis or SVT of the Cephalic Vein of the Right arm. what is the difference between svt or superficial venous thrombosis and superficial phlebitis 3. Clinical Impression also states "Saddle PE, could you please confirm this as well. this is an old diagnosis that he is currently carrying If you could please confirm the above so that the account can be coded accurately. I would be happy to answer any questions, should you have any. Thank you, Linh Segura, VIKA you may also reach my grocery store manager Kirsten Diop [phone] [facility]
== END 2016-08-31 16:05 | disposition home or self-care (01) ==
LOC: EC 11:40
DX: I82.611 Acute embolism and thrombosis of superficial veins of right upper extremity (principal); I26.92 Saddle embolus of pulmonary artery without acute cor pulmonale; R50.9 Fever, unspecified; R07.9 Chest pain, unspecified; R51 Headache; R91.8 Other nonspecific abnormal finding of lung field; N40.0 Benign prostatic hyperplasia without lower urinary tract symptoms; K21.9 Gastro-esophageal reflux disease without esophagitis; G62.9 Polyneuropathy, unspecified; Z88.5 Allergy status to narcotic agent; Z79.01 Long term (current) use of anticoagulants; Z86.711 Personal history of pulmonary embolism; Z87.891 Personal history of nicotine dependence; Z86.718 Personal history of other venous thrombosis and embolism; Z98.890 Other specified postprocedural states; Z79.899 Other long term (current) drug therapy
CPT/HCPCS: 99284; 96374; 96375 ×2; 96361; 36415; 93005; 80053; 82550; 82553; 83605; 84100; 84484; 85025; 85610; 85730; 81001; 87040; 87086; 71020; 93971; 93970; J2270; J1885; J0131

== ENCOUNTER 2016-09-01 10:59 | Emergency (ER) | payer MEDICARE ==
[2016-09-01] MEDS ORDERED: MORPHINE SULFATE 4 MG/ML SYRINGE IVP STA (11:05)
[2016-09-01] MEDS ORDERED: ACETAMINOPHEN IV (For NPO) 1,000 MG in EMPTY BAG 1 BAG IVPB STA (11:11)
[2016-09-01] MEDS ORDERED: KETOROLAC 30 MG/ML 1 ML VIAL IVP STA (11:11)
--- NOTE | 2016-09-01 11:11 | ED ---
General Adult HPI - General Chief complaint: Recheck/Abnormal Lab/Rx Stated complaint: popss sepsis Time Seen by Provider: 09/01/16 11:05 Source: patient, family, RN notes reviewed, old records reviewed Mode of arrival: wheelchair Limitations: no limitations - History of Present Illness Initial comments: This is a 52-year-old male well-known to this emergency room for evaluation of sepsis, possible causes sepsis. Patient is brought into ER today by family for increasing pain and increasing back pain is increasing leg pain and increasing pain all symptoms he was seen in the emergency department for yesterday. Episodic fevers, fever 2 days ago and persists now home. Mild nausea and decreased appetite no vomiting or diarrhea patient has not been on any new medications - Related Data Home Medications Medication Instructions Recorded Confirmed Diazepam 5 mg PO HS PRN 01/22/15 09/01/16 HYDROcodone/APAP 10-325MG [[place] 1 tab PO DAILY PRN 01/22/15 09/01/16 10-325] Methocarbamol 750 mg PO DAILY PRN 01/22/15 09/01/16 Tamsulosin HCl 0.4 mg PO HS 01/22/15 09/01/16 Docusate [Colace] 100 mg PO BID PRN 08/10/16 09/01/16 Gabapentin 600 mg PO TID 08/10/16 09/01/16 Omeprazole 40 mg PO DAILY 08/10/16 09/01/16 Butalb/Asprin/Caff 50-325-40Mg 1 - 2 cap PO Q4HR PRN 08/31/16 09/01/16 [Fiorinal 50-325-40 MG] Acetaminophen Tab [Tylenol Tab] 1,000 mg PO Q6HR PRN 09/01/16 09/01/16 Previous Rx's Medication Instructions Recorded Fluticasone Nasal [place] [Flonase 2 spray EA NOSTRIL DAILY PRN #1 08/14/16 Nasal [place]] each Rivaroxaban [Xarelto] 15 mg PO BID 21 Days 08/19/16 Allergies Allergy/AdvReac Type Severity Reaction Status Date / Time codeine Allergy Rash/Hives Verified 09/01/16 12:00 Review of Systems ROS Statement: Those systems with pertinent positive or pertinent negative responses have been documented in the HPI. ROS Other: All systems not noted in ROS Statement are negative. Past Medical History Past Medical History: Deep Vein Thrombosis (DVT), GERD/Reflux, Musculoskeletal Disorder, Neurologic Disorder, Prostate Disorder, Pulmonary Embolus (PE) Additional Past Medical History / Comment(s): Neuropathy; Degenerative disc disease; Back pain, benign prostatic hypertrophy History of Any Multi-Drug Resistant Organisms: None Reported Past Surgical History: Back Surgery, Tonsillectomy Additional Past Surgical History / Comment(s): Back surgery x4; Cervical surgery ; arthroscopic right knee, TURP Past Anesthesia/Blood Transfusion Reactions: No Reported Reaction Past Psychological History: No Psychological Hx Reported Smoking Status: Former smoker Past Alcohol Use History: None Reported Additional Past Alcohol Use History / Comment(s): He was a smoker of a half a pack per day for 25-30 years. He currently lives at home with his . There are no pets in the home. They did travel last year to [place] but otherwise no extensive traveling. 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 He is currently on disability. Past Drug Use History: None Reported - Past Family History Mother Family Medical History: Pulmonary Embolus Sister(s) Family Medical History: Cancer Additional Family Medical History / Comment(s): MELANOMA Father Family Medical History: Pulmonary Embolus General Exam Limitations: no limitations General appearance: alert, in no apparent distress Head exam: Present: atraumatic, normocephalic, normal inspection Eye exam: Present: normal appearance, PERRL, EOMI. Absent: scleral icterus, conjunctival injection, periorbital swelling ENT exam: Present: normal exam, mucous membranes moist Neck exam: Present: normal inspection. Absent: tenderness, meningismus, lymphadenopathy Respiratory exam: Present: normal lung sounds bilaterally. Absent: respiratory distress, wheezes, rales, rhonchi, stridor Cardiovascular Exam: Present: regular rate, normal rhythm, normal heart sounds. Absent: systolic murmur, diastolic murmur, rubs, gallop, clicks GI/Abdominal exam: Present: soft, normal bowel sounds. Absent: distended, tenderness, guarding, rebound, rigid Extremities exam: Present: normal inspection, full ROM, normal capillary refill. Absent: tenderness, pedal edema, joint swelling, calf tenderness Back exam: Present: normal inspection Neurological exam: Present: alert, oriented X3, CN II-XII intact Psychiatric exam: Present: normal affect, normal mood Skin exam: Present: warm, dry, intact, normal color. Absent: rash Course Vital Signs 09/01/16 09/01/16 11:01 11:32 Temperature 100.6 F H 100.9 F H Pulse Rate 88 Pulse Rate [ 81 Senior Support Analyst ] Respiratory 18 16 Rate Blood Pressure 105/65 Blood Pressure 110/69 [Right Arm Supine] O2 Sat by Pulse 93 L 92 L Oximetry - Reevaluation(s) Reevaluation #1: 09/01/16 12:45 At this time patient is in no cardiopulmonary distress, hemodynamically stable and okay for transfer Reevaluation #2: 09/01/16 12:45 Spoke with patient's transferring physician, patient is accepted at [facility] EKG Findings - EKG Comments: EKG Findings:: EKG shows normal sinus rhythm rate of 84, ME 150 QRS 8 6, QTC 439 Medical Decision Making - Medical Decision Making 60 male EL with postop problem, postoperative fever, fever of unknown origin or source of sepsis. Patient will be transferred for pain control fever control and further evaluation and treatment - Lab Data Result diagrams: 09/01/16 11:22 09/01/16 11:22 Lab Results 09/01/16 09/01/16 09/01/16 Range/Units 11:22 11:22 11:22 WBC 11.7 H (3.8-10.6) k/uL RBC 4.90 (4.30-5.90) m/uL Hgb 14.2 (13.0-17.5) gm/dL Hct 42.8 (39.0-53.0) % MCV 87.3 (80.0-100.0) fL MCH 28.9 (25.0-35.0) pg MCHC 33.1 (31.0-37.0) g/dL RDW 12.4 (11.5-15.5) % Plt Count 365 (150-450) k/uL Neutrophils % 84 % Lymphocytes % 10 % Monocytes % 4 % Eosinophils % 1 % Basophils % 0 % Neutrophils # 9.8 H (1.3-7.7) k/uL Lymphocytes # 1.2 (1.0-4.8) k/uL Monocytes # 0.5 (0-1.0) k/uL Eosinophils # 0.1 (0-0.7) k/uL Basophils # 0.0 (0-0.2) k/uL PT (9.0-12.0) sec INR (<1.1) APTT (22.0-30.0) sec Sodium 139 (137-145) mmol/L Potassium 4.4 (3.5-5.1) mmol/L Chloride 104 (98-107) mmol/L Carbon Dioxide 24 (22-30) mmol/L Anion Gap 11 mmol/L BUN 14 (9-20) mg/dL Creatinine 0.80 (0.66-1.25) mg/dL Est GFR (MDRD) Af Amer >60 (>60 ml/min/1.73 sqM) Est GFR (MDRD) Non-Af >60 (>60 ml/min/1.73 sqM) Glucose 124 H (74-99) mg/dL Plasma Lactic Acid Andrey 1.2 (0.7-2.0) mmol/L Calcium 9.4 (8.4-10.2) mg/dL Total Bilirubin 0.7 (0.2-1.3) mg/dL AST 12 L (17-59) U/L ALT 31 (21-72) U/L Alkaline Phosphatase 53 (38-126) U/L Total Protein 6.5 (6.3-8.2) g/dL Albumin 3.9 (3.5-5.0) g/dL 09/01/16 Range/Units 11:22 WBC (3.8-10.6) k/uL RBC (4.30-5.90) m/uL Hgb (13.0-17.5) gm/dL Hct (39.0-53.0) % MCV (80.0-100.0) fL MCH (25.0-35.0) pg MCHC (31.0-37.0) g/dL RDW (11.5-15.5) % Plt Count (150-450) k/uL Neutrophils % % Lymphocytes % % Monocytes % % Eosinophils % % Basophils % % Neutrophils # (1.3-7.7) k/uL Lymphocytes # (1.0-4.8) k/uL Monocytes # (0-1.0) k/uL Eosinophils # (0-0.7) k/uL Basophils # (0-0.2) k/uL PT 13.0 H (9.0-12.0) sec INR 1.3 (<1.1) APTT 25.9 (22.0-30.0) sec Sodium (137-145) mmol/L Potassium (3.5-5.1) mmol/L Chloride (98-107) mmol/L Carbon Dioxide (22-30) mmol/L Anion Gap mmol/L BUN (9-20) mg/dL Creatinine (0.66-1.25) mg/dL Est GFR (MDRD) Af Amer (>60 ml/min/1.73 sqM) Est GFR (MDRD) Non-Af (>60 ml/min/1.73 sqM) Glucose (74-99) mg/dL Plasma Lactic Acid Andrey (0.7-2.0) mmol/L Calcium (8.4-10.2) mg/dL Total Bilirubin (0.2-1.3) mg/dL AST (17-59) U/L ALT (21-72) U/L Alkaline Phosphatase (38-126) U/L Total Protein (6.3-8.2) g/dL Albumin (3.5-5.0) g/dL Disposition Clinical Impression: Sepsis, Fever, Dural tear, Status post lumbar surgery, Fever of unknown origin (FUO) Disposition: OTHER INSTITUTION NOT DEFINED Condition: Good Referrals: Gregg Mccarty MD [Primary Care Provider] - 1-2 days - Out of Hospital Transfer - Req. Specs Out of Hospital Transfer - Requested Specifics: Other Emergency Center ( [facility])
[2016-09-01 11:44] LABS: Basophils % (A) 0 %; CH 29.9; CHCM 34.3; Eosinophils # (A) 0.1 k/uL (0-0.7); Eosinophils % (A) 1 %; HCT 42.8 % (39.0-53.0); HDW 2.38; HGB 14.2 gm/dL (13.0-17.5); Luc # (Auto) 0.17; Luc % (Auto) 2; Lymphocytes # (A) 1.2 k/uL (1.0-4.8); Lymphocytes % (A) 10 %; MCH 28.9 pg (25.0-35.0); MCHC 33.1 g/dL (31.0-37.0); MCV 87.3 fL (80.0-100.0); Mean Platelet Volume 6.1; Monocytes # (A) 0.5 k/uL (0-1.0); Monocytes % (A) 4 %; Neutrophils # (A) 9.8 k/uL (1.3-7.7); Neutrophils % (A) 84 %; RDW 12.4 % (11.5-15.5); WBC 11.7 k/uL (3.8-10.6); WBC (Perox) 12.06
[2016-09-01] MEDS ORDERED: SODIUM CHLORIDE 0.9% 1,000 ML IV STA ×2 (11:49)
[2016-09-01 11:56] LABS: ALT 31 U/L (21-72); AST 12 U/L (17-59); Alkaline Phosphatase 53 U/L (38-126); Anion Gap 11 mmol/L; Blood Urea Nitrogen 14 mg/dL (9-20); Calcium 9.4 mg/dL (8.4-10.2); Carbon Dioxide 24 mmol/L (22-30); Chloride 104 mmol/L (98-107); Glucose 124 mg/dL (74-99); Non-African American GFR(MDRD) >60 (>60 ml/min/1.73 sqM); Sodium 139 mmol/L (137-145); Total Bilirubin 0.7 mg/dL (0.2-1.3); Total Protein 6.5 g/dL (6.3-8.2)
[2016-09-01 11:59] LABS: INR 1.3 (<1.1); Partial Thromboplastin Time 25.9 sec (22.0-30.0)
[2016-09-01 12:08] LABS: Potassium 4.4 mmol/L (3.5-5.1)
[2016-09-01 12:48] VITALS: RESP 18
--- NOTE | 2016-09-01 15:40 | ED ---
Medical Decision Making - Medical Decision Making 60 male the ER be transferred to the [facility] for evaluation and reevaluation by neurosurgery, at this time transfer process taking longer to find him a bed frame patient admission, patient will be put in observation until inpatient bed opens up - Lab Data Result diagrams: 09/01/16 11:22 09/01/16 11:22 Lab Results 09/01/16 09/01/16 09/01/16 Range/Units 11:22 11:22 11:22 WBC 11.7 H (3.8-10.6) k/uL RBC 4.90 (4.30-5.90) m/uL Hgb 14.2 (13.0-17.5) gm/dL Hct 42.8 (39.0-53.0) % MCV 87.3 (80.0-100.0) fL MCH 28.9 (25.0-35.0) pg MCHC 33.1 (31.0-37.0) g/dL RDW 12.4 (11.5-15.5) % Plt Count 365 (150-450) k/uL Neutrophils % 84 % Lymphocytes % 10 % Monocytes % 4 % Eosinophils % 1 % Basophils % 0 % Neutrophils # 9.8 H (1.3-7.7) k/uL Lymphocytes # 1.2 (1.0-4.8) k/uL Monocytes # 0.5 (0-1.0) k/uL Eosinophils # 0.1 (0-0.7) k/uL Basophils # 0.0 (0-0.2) k/uL PT (9.0-12.0) sec INR (<1.1) APTT (22.0-30.0) sec Sodium 139 (137-145) mmol/L Potassium 4.4 (3.5-5.1) mmol/L Chloride 104 (98-107) mmol/L Carbon Dioxide 24 (22-30) mmol/L Anion Gap 11 mmol/L BUN 14 (9-20) mg/dL Creatinine 0.80 (0.66-1.25) mg/dL Est GFR (MDRD) Af Amer >60 (>60 ml/min/1.73 sqM) Est GFR (MDRD) Non-Af >60 (>60 ml/min/1.73 sqM) Glucose 124 H (74-99) mg/dL Plasma Lactic Acid Andrey 1.2 (0.7-2.0) mmol/L Calcium 9.4 (8.4-10.2) mg/dL Total Bilirubin 0.7 (0.2-1.3) mg/dL AST 12 L (17-59) U/L ALT 31 (21-72) U/L Alkaline Phosphatase 53 (38-126) U/L C-Reactive Protein (<10.0) mg/L Total Protein 6.5 (6.3-8.2) g/dL Albumin 3.9 (3.5-5.0) g/dL 09/01/16 09/01/16 Range/Units 11:22 11:22 WBC (3.8-10.6) k/uL RBC (4.30-5.90) m/uL Hgb (13.0-17.5) gm/dL Hct (39.0-53.0) % MCV (80.0-100.0) fL MCH (25.0-35.0) pg MCHC (31.0-37.0) g/dL RDW (11.5-15.5) % Plt Count (150-450) k/uL Neutrophils % % Lymphocytes % % Monocytes % % Eosinophils % % Basophils % % Neutrophils # (1.3-7.7) k/uL Lymphocytes # (1.0-4.8) k/uL Monocytes # (0-1.0) k/uL Eosinophils # (0-0.7) k/uL Basophils # (0-0.2) k/uL PT 13.0 H (9.0-12.0) sec INR 1.3 (<1.1) APTT 25.9 (22.0-30.0) sec Sodium (137-145) mmol/L Potassium (3.5-5.1) mmol/L Chloride (98-107) mmol/L Carbon Dioxide (22-30) mmol/L Anion Gap mmol/L BUN (9-20) mg/dL Creatinine (0.66-1.25) mg/dL Est GFR (MDRD) Af Amer (>60 ml/min/1.73 sqM) Est GFR (MDRD) Non-Af (>60 ml/min/1.73 sqM) Glucose (74-99) mg/dL Plasma Lactic Acid Andrey (0.7-2.0) mmol/L Calcium (8.4-10.2) mg/dL Total Bilirubin (0.2-1.3) mg/dL AST (17-59) U/L ALT (21-72) U/L Alkaline Phosphatase (38-126) U/L C-Reactive Protein 6.4 (<10.0) mg/L Total Protein (6.3-8.2) g/dL Albumin (3.5-5.0) g/dL Disposition Clinical Impression: Sepsis, Fever, Dural tear, Status post lumbar surgery, Fever of unknown origin (FUO) Disposition: ADMITTED IP TO THIS [facility] Condition: Good Referrals: Gregg Mccarty MD [Primary Care Provider] - 1-2 days
[2016-09-01] MEDS ORDERED: MORPHINE SULFATE 10 MG/ML SYRINGE IVP STA (16:02)
[2016-09-01 16:07] VITALS: TEMP 97.9
[2016-09-01 16:22] LABS: Appearance,Urine Clear (Clear); Bilirubin,Urine Negative (Negative); Glucose,Urine (UA) Negative (Negative); Ketones,Urine Negative (Negative); Leukocyte Esterase,Urine Negative (Negative); Nitrite,Urine Negative (Negative); PH, Urine 5.5 (5.0-8.0); Protein,Urine Negative (Negative); Specific Gravity,Urine 1.014 (1.001-1.035); UA Billing (MACRO vs. MICRO) CHEM; Urobilinogen,Urine <2.0 mg/dL (<2.0)
[2016-09-01 17:19] VITALS: BP 112/68; PULSE 70
--- NOTE | 2016-09-01 18:16 | ED ---
Medical Decision Making - Lab Data Result diagrams: 09/01/16 11:22 09/01/16 11:22 Lab Results 09/01/16 09/01/16 09/01/16 Range/Units 11:22 11:22 11:22 WBC 11.7 H (3.8-10.6) k/uL RBC 4.90 (4.30-5.90) m/uL Hgb 14.2 (13.0-17.5) gm/dL Hct 42.8 (39.0-53.0) % MCV 87.3 (80.0-100.0) fL MCH 28.9 (25.0-35.0) pg MCHC 33.1 (31.0-37.0) g/dL RDW 12.4 (11.5-15.5) % Plt Count 365 (150-450) k/uL Neutrophils % 84 % Lymphocytes % 10 % Monocytes % 4 % Eosinophils % 1 % Basophils % 0 % Neutrophils # 9.8 H (1.3-7.7) k/uL Lymphocytes # 1.2 (1.0-4.8) k/uL Monocytes # 0.5 (0-1.0) k/uL Eosinophils # 0.1 (0-0.7) k/uL Basophils # 0.0 (0-0.2) k/uL PT (9.0-12.0) sec INR (<1.1) APTT (22.0-30.0) sec Sodium 139 (137-145) mmol/L Potassium 4.4 (3.5-5.1) mmol/L Chloride 104 (98-107) mmol/L Carbon Dioxide 24 (22-30) mmol/L Anion Gap 11 mmol/L BUN 14 (9-20) mg/dL Creatinine 0.80 (0.66-1.25) mg/dL Est GFR (MDRD) Af Amer >60 (>60 ml/min/1.73 sqM) Est GFR (MDRD) Non-Af >60 (>60 ml/min/1.73 sqM) Glucose 124 H (74-99) mg/dL Plasma Lactic Acid Andrey 1.2 (0.7-2.0) mmol/L Calcium 9.4 (8.4-10.2) mg/dL Total Bilirubin 0.7 (0.2-1.3) mg/dL AST 12 L (17-59) U/L ALT 31 (21-72) U/L Alkaline Phosphatase 53 (38-126) U/L C-Reactive Protein (<10.0) mg/L Total Protein 6.5 (6.3-8.2) g/dL Albumin 3.9 (3.5-5.0) g/dL Urine Color Urine Appearance (Clear) Urine pH (5.0-8.0) Ur Specific [place] (1.001-1.035) Urine Protein (Negative) Urine Glucose (UA) (Negative) Urine Ketones (Negative) Urine Blood (Negative) Urine Nitrate (Negative) Urine Bilirubin (Negative) Urine Urobilinogen (<2.0) mg/dL Ur Leukocyte Esterase (Negative) 09/01/16 09/01/16 09/01/16 Range/Units 11:22 11:22 15:58 WBC (3.8-10.6) k/uL RBC (4.30-5.90) m/uL Hgb (13.0-17.5) gm/dL Hct (39.0-53.0) % MCV (80.0-100.0) fL MCH (25.0-35.0) pg MCHC (31.0-37.0) g/dL RDW (11.5-15.5) % Plt Count (150-450) k/uL Neutrophils % % Lymphocytes % % Monocytes % % Eosinophils % % Basophils % % Neutrophils # (1.3-7.7) k/uL Lymphocytes # (1.0-4.8) k/uL Monocytes # (0-1.0) k/uL Eosinophils # (0-0.7) k/uL Basophils # (0-0.2) k/uL PT 13.0 H (9.0-12.0) sec INR 1.3 (<1.1) APTT 25.9 (22.0-30.0) sec Sodium (137-145) mmol/L Potassium (3.5-5.1) mmol/L Chloride (98-107) mmol/L Carbon Dioxide (22-30) mmol/L Anion Gap mmol/L BUN (9-20) mg/dL Creatinine (0.66-1.25) mg/dL Est GFR (MDRD) Af Amer (>60 ml/min/1.73 sqM) Est GFR (MDRD) Non-Af (>60 ml/min/1.73 sqM) Glucose (74-99) mg/dL Plasma Lactic Acid Andrey (0.7-2.0) mmol/L Calcium (8.4-10.2) mg/dL Total Bilirubin (0.2-1.3) mg/dL AST (17-59) U/L ALT (21-72) U/L Alkaline Phosphatase (38-126) U/L C-Reactive Protein 6.4 (<10.0) mg/L Total Protein (6.3-8.2) g/dL Albumin (3.5-5.0) g/dL Urine Color Yellow Urine Appearance Clear (Clear) Urine pH 5.5 (5.0-8.0) Ur Specific [place] 1.014 (1.001-1.035) Urine Protein Negative (Negative) Urine Glucose (UA) Negative (Negative) Urine Ketones Negative (Negative) Urine Blood Negative (Negative) Urine Nitrate Negative (Negative) Urine Bilirubin Negative (Negative) Urine Urobilinogen <2.0 (<2.0) mg/dL Ur Leukocyte Esterase Negative (Negative) Disposition Clinical Impression: Sepsis, Fever, Dural tear, Status post lumbar surgery, Fever of unknown origin (FUO) Disposition: OTHER INSTITUTION NOT DEFINED Condition: Good Referrals: Gregg Mccarty MD [Primary Care Provider] - 1-2 days - Out of Hospital Transfer - Req. Specs Out of Hospital Transfer - Requested Specifics: Medical ICU ([facility])
== END 2016-09-01 17:25 | disposition other institution (70) ==
LOC: EC 10:59
DX: A41.9 Sepsis, unspecified organism (principal); G97.41 Accidental puncture or laceration of dura during a procedure; N40.0 Benign prostatic hyperplasia without lower urinary tract symptoms; K21.9 Gastro-esophageal reflux disease without esophagitis; G62.9 Polyneuropathy, unspecified; Z98.890 Other specified postprocedural states; Z87.891 Personal history of nicotine dependence; Z88.5 Allergy status to narcotic agent; Z79.01 Long term (current) use of anticoagulants; Z86.718 Personal history of other venous thrombosis and embolism; Z79.899 Other long term (current) drug therapy
CPT/HCPCS: 99284; 96374; 96375; 96361 ×5; 36415; 93005; 80053; 83605; 85025; 85610; 85730; 86140; 81003; 87040; 87086; J2270 ×2

== ENCOUNTER → 2017-07-31 | Outpatient (CLI) | payer OTHER ==
--- NOTE | 2017-07-31 16:33 | CT ---
EXAMINATION TYPE: CT ChestAbdPelvis w con DATE OF EXAM: 07/31/2017 COMPARISON: Bone scan dated 07/05/[address] chest 08/16/2016 HISTORY: Bone lesion. CT DLP: 1701.8 mGycm CONTRAST: CT scan of the chest, abdomen and pelvis is performed with Oral Contrast and with IV Contrast, patien t injected with 100 mL of Omnipaque 300. CT Chest: LUNGS: The lungs are clear and free of infiltrate or atelectasis. Stable 6 mm pulmonary nodule right lower lobe pleural base. No concerning pulmonary nodules are identified at this time. Chronic elevati on right hemidiaphragm. No pleural effusion or CT evidence of interstitial lung disease. MEDIASTINUM: Thoracic aorta is of normal caliber. The heart is not enlarged. No evidence for media stinal mass or adenopathy. HILAR STRUCTURES: No evidence for mass. No hilar adenopathy is appreciated. OTHER: No significant abnormality. CONTRAST CT ABDOMEN AND PELVIS FINDINGS: LIVER/GB: No calcified gallstones. No space occupying hepatic lesion. Biliary tree is of normal ca liber. PANCREAS: No inflammation. No distinct mass. SPLEEN: No splenic enlargement. No lesion seen. ADRENALS: No nodule. No thickening. KIDNEYS/BLADDER: No hydronephrosis. No nephrolithiasis. Bilateral simple renal cysts. BOWEL: Normal appendix. Normal bowel caliber. No inflammation. GENITAL ORGANS: No gross abnormality. LYMPH NODES: No greater than 1cm abdominal or pelvic lymph nodes are appreciated. AORTA: No significant abnormality. OSSEOUS STRUCTURES: Degenerative changes lumbar spine. Scapular uptake seen on recent bone scan on th e left does reveal distinct lesion at this time. Correlate clinically. OTHER: Multiple lymph nodes within the small bowel mesentery with the largest lymph node measuring 1. 1 cm. There are also left para-aortic lymph nodes identified with the largest measuring 1.5 cm. Hazy density within the small bowel mesentery is nonspecific and can be seen in patients with mesenteric p anniculitis and/or lymphoma. Fat-containing right inguinal hernia. Suspect varicoceles. IVC filter is in place. IMPRESSION: 1. Multiple small lymph nodes within the small bowel mesentery as well as left periaortic region as d iscussed above. Lymphoma not excluded. 2. Correlate for mesenteric radiculitis. 3. Renal cysts. 4. Stable 6 mm pulmonary nodule. 5. No obvious lesion of the left scapula. Correlate with the MRI.
== END | disposition home or self-care (01) ==
LOC: RADCTMAIN 15:56
PROVIDERS: ATTEND Orthopaedic Surgery
DX: N28.1 Cyst of kidney, acquired (principal); R91.1 Solitary pulmonary nodule; M89.9 Disorder of bone, unspecified
CPT/HCPCS: 71260; 74177; Q9967

== ENCOUNTER → 2017-08-25 | Outpatient (CLI) | payer OTHER ==
--- NOTE | 2017-08-25 16:54 | PE ---
EXAMINATION TYPE: PET CT fusion skull to thigh DATE OF EXAM: 08/25/2017 COMPARISON: CT chest abdomen and pelvis July 31, 2017. Nuclear medicine whole body bone scan [facility] er 7, 2017 HISTORY: Lymphoma diagnosed on biopsy left shoulder August 16, 2017 . MRI left shoulder June 28, 2017 TECHNIQUE: Following the intravenous administration of 14.945 mCi of F-18 FDG, whole body images are performed from the top of skull to the midthigh. Images are reviewed on the computer in the coronal , axial, and sagittal planes. Reconstructed rotating images are created on independent workstation a nd reviewed on the computer. A noncontrast CT is performed in conjunction with the PET scan. SCAN: Initial Scan FINDINGS: MEAN SUV MEDIASTINUM: 0.95 MEAN SUV LIVER: 2.43s HEAD AND NECK: No suspicious hypermetabolic uptake is present with particular attention to the susan rium at area of concern on recent bone scan. CHEST, MEDIASTINUM, AND HILAR REGION: No suspicious hypermetabolic uptake is identified. ABDOMEN AND PELVIS: No suspicious hypermetabolic uptake is seen. OSSEOUS STRUCTURES: There is hypermetabolic uptake in the posterior left scapula at area of recent bi opsy proven lymphoma lateral aspect, max SUV is 5.54. There is hypermetabolic focus right iliac bone axial image 220 with vague hypoechoic lesion on CT, ma x SUV is 6.13. There is hypermetabolic focus some trochanteric region left proximal femur axial image 280 with subtl e sclerosis max SUV is 4.96. There is subtle hypermetabolic focus inferior L3 vertebra axial image 211 with max SUV of 5.02 with s ubtle sclerosis at this level on CT. OTHER CT: There is reversal of normal cervical curvature with moderate to severe multilevel spurring and disc space narrowing throughout the cervical spine. There is marked straightening of the thoracol umbar spine with S-shaped scoliosis. There are surgical changes lower lumbar spine with posterior dec ompression. There is moderate multilevel spurring and disc space narrowing in the lumbar spine. There is dependent atelectasis in both lungs. There is motion artifact degradation limiting evaluatio n for subcentimeter nodularity. There is redemonstration of mild haziness in the mesentery. Small subcentimeter lymph nodes are seen. No suspicious hypermetabolic uptake is present. There are scattered diverticula in the colon most prominent in the left and sigmoid colon. Infrarenal IVC filter is again seen. Simple appearing renal cysts bilaterally are redemonstrated. IMPRESSION: Suspicious hypermetabolic uptake noted posterior lateral scapula at area of biopsy-proven lymphoma. Additional areas of osseous lymphoma involvement in the lumbar spine and pelvis are felt p resent as detailed above. Ana mesentery involvement remain suspicious despite lack of hypermetaboli c uptake.
== END | disposition home or self-care (01) ==
LOC: RADPETMAIN 11:50
PROVIDERS: ATTEND Internal Medicine Hematology & Oncology
DX: C85.98 Non-Hodgkin lymphoma, unspecified, lymph nodes of multiple sites (principal)
CPT/HCPCS: 78815; A9552

== ENCOUNTER 2017-08-30 06:09 | Day surgery (SDC) | payer OTHER ==
[2017-08-28 14:13] VITALS: BMI 29.0
[~2017-08-30 06:09] MED LIST: LACTATED RINGERS 1,000 ML IV SCH; LIDOCAINE 1% 20 ML VIAL (10MG/ML) FOR IV START INTRADERMA PRN; Pre Op ABX Message 1 EACH MISC MISCELLANE ONE
[2017-08-30 06:37] VITALS: TEMP 97
[2017-08-30] MEDS ORDERED: PROPOFOL 10 MG/ML 20 ML VIAL IV ONE (07:00)
[2017-08-30 07:50] VITALS: BP 107/76; PULSE 70; RESP 16
--- NOTE | 2017-08-30 07:50 | PCN ---
PROCEDURE NOTE DATE OF PROCEDURE: 08/30/2017 PROCEDURE: Bone marrow aspirate and biopsy. PREOPERATIVE DIAGNOSIS: Lymphoma. POSTOPERATIVE DIAGNOSES: Lymphoma. ANESTHESIA: Local with IV systemic sedation. DETAILS: Utilizing sterile technique, the skin overlying the right iliac crest was prepared with Betadine and alcohol. After adequate sterile draping, systemic sedation and local anesthesia with 1% lidocaine, a size 11, 4-inch DAQRIshidi needle was utilized to access the periosteum with ease. A total of 15 mL of aspirate as well as 3 cm bone core biopsies were obtained. The patient tolerated the procedure very well. There was no immediate procedure related complications. TOTAL BLOOD LOSS: 1 mL RESULTS: Pending. MMODL / IJN: [id number] /
[2017-08-30 10:31] LABS: Basophils % (A) 1 %; Eosinophils # (A) 0.1 k/uL (0-0.7); Eosinophils % (A) 2 %; HCT 43.6 % (39.0-53.0); HGB 14.5 gm/dL (13.0-17.5); Lymphocytes # (A) 2.1 k/uL (1.0-4.8); Lymphocytes % (A) 33 %; MCH 29.8 pg (25.0-35.0); MCHC 33.3 g/dL (31.0-37.0); MCV 89.6 fL (80.0-100.0); Mean Platelet Volume 7.3; Monocytes # (A) 0.5 k/uL (0-1.0); Monocytes % (A) 8 %; Neutrophils # (A) 3.4 k/uL (1.3-7.7); Neutrophils % (A) 54 %; Platelet Count 315 k/uL (150-450); RBC 4.87 m/uL (4.30-5.90); RDW 13.1 % (11.5-15.5); WBC 6.3 k/uL (3.8-10.6)
== END 2017-08-30 08:02 | disposition home or self-care (01) ==
LOC: OR 06:09
PROVIDERS: ATTEND Internal Medicine Hematology & Oncology
DX: C85.90 Non-Hodgkin lymphoma, unspecified, unspecified site (principal); R59.0 Localized enlarged lymph nodes; K21.9 Gastro-esophageal reflux disease without esophagitis; N42.89 Other specified disorders of prostate; Z88.5 Allergy status to narcotic agent; Z88.8 Allergy status to other drugs, medicaments and biological substances; Z79.01 Long term (current) use of anticoagulants; Z79.899 Other long term (current) drug therapy; Z87.891 Personal history of nicotine dependence; Z86.718 Personal history of other venous thrombosis and embolism; Z86.711 Personal history of pulmonary embolism; Z80.1 Family history of malignant neoplasm of trachea, bronchus and lung; Z80.8 Family history of malignant neoplasm of other organs or systems
CPT/HCPCS: 38222; 85025; J2704

== ENCOUNTER → 2017-10-26 | Outpatient (CLI) | payer OTHER ==
--- NOTE | 2017-10-27 14:44 | ECHOF ---
Referral Reason:Lymphoma,pre chemo MEASUREMENTS -------- HEIGHT: 165.1 cm WEIGHT: 81.7 kg BP: RVIDd: 3.3 cm (< 3.3) IVSd: 0.9 cm (0.6 - 1.1) LVIDd: 4.5 cm (3.9 - 5.3) LVPWd: 0.9 cm (0.6 - 1.1) IVSs: 1.4 cm LVIDs: 3.8 cm LVPWs: 1.3 cm LA Diam: 3.5 cm (2.7 - 3.8) LAESV Index (A-L): 18.48 ml/m Ao Diam: 3.7 cm (2.0 - 3.7) AV Cusp: 2.4 cm (1.5 - 2.6) LA Diam: 4.4 cm (2.7 - 3.8) MV EXCURSION: 22.907 mm (> 18.000) MV EF SLOPE: 91 mm/s (70 - 150) EPSS: 0.8 cm MV E Mick: 0.42 m/s MV DecT: 250 ms MV A Mick: 0.65 m/s MV E/A Ratio: 0.65 RAP: 5.00 mmHg RVSP: 22.70 mmHg FINDINGS -------- Sinus rhythm. This was a technically good study. LV size, wall thickness and systolic function are normal, with an EF greater than 55%. The left lyubov tricular size is normal. The right ventricle is normal in size. The left atrial size is normal. The right atrial size is normal. The aortic valve is trileaflet, and appears structurally normal. No aortic stenosis or regurgitation. Mild mitral annular calcification present. Mild mitral regurgitation is present. Mild tricuspid regurgitation present. There is no evidence of pulmonary hypertension. The right v entricular systolic pressure, as measured by Doppler, is 22.70mmHg. There is no pulmonic regurgitation present. The aortic root size is normal. There is no pericardial effusion. CONCLUSIONS -------- 1. LV size, wall thickness and systolic function are normal, with an EF greater than 55%. 2. The left ventricular size is normal. 3. The aortic valve is trileaflet, and appears structurally normal. No aortic stenosis or regurgitati on. 4. Mild mitral annular calcification present. 5. Mild mitral regurgitation is present. 6. Mild tricuspid regurgitation present. 7. There is no evidence of pulmonary hypertension. 8. The right ventricular systolic pressure, as measured by Doppler, is 22.70mmHg. 9. There is no pulmonic regurgitation present. 10. The aortic root size is normal. 11. There is no pericardial effusion. TOWN PLANNER: Felicity Love RDCS
== END | disposition home or self-care (01) ==
LOC: RADECHMAIN 11:40
PROVIDERS: ATTEND Internal Medicine Hematology & Oncology
DX: I08.1 Rheumatic disorders of both mitral and tricuspid valves (principal); C96.Z Other specified malignant neoplasms of lymphoid, hematopoietic and related tissue
CPT/HCPCS: 93306

== ENCOUNTER 2017-11-17 13:41 | Inpatient (IN) | payer OTHER, MEDICARE ==
[2017-11-17] MEDS ORDERED: SODIUM CHLORIDE 0.9% 1,000 ML IV STA (13:58)
[2017-11-17] MEDS ORDERED: ACETAMINOPHEN IV (For NPO) 1,000 MG in EMPTY BAG 1 BAG IVPB STA (13:59)
--- NOTE | 2017-11-17 14:00 | ED ---
General Adult HPI - General Chief complaint: Abdominal Pain Stated complaint: Abd pain Time Seen by Provider: 11/17/17 13:49 Source: patient, RN notes reviewed Mode of arrival: ambulatory Limitations: no limitations - History of Present Illness Initial comments: Patient 61-year-old male who presents medical history for lymphoma, presents to the emergency room today with a chief complaint of left lower quadrant pain that began earlier this morning. Patient states he woke up around 3 or 4 the morning feeling some discomfort in the left lower quadrant. He describes it as sharp pain. Currently rates a 11/06. Denies any radiation. Patient does admit that currently being treated for lymphoma is on chemotherapy last chemo was approximately 11 days ago. Patient admits to low-grade fever. He denies any other complaints or symptoms. Patient denies any recent shortness of breath, chest pain, back pain, nausea or vomiting, numbness or tingling, dysuria or hematuria, constipation or diarrhea, headaches or visual changes, or any other complaints. - Related Data Home Medications Medication Instructions Recorded Confirmed Diazepam 5 mg PO HS PRN 01/22/15 08/30/17 HYDROcodone/APAP 10-325MG [[place] 1 tab PO DAILY PRN 01/22/15 08/30/17 10-325] Methocarbamol 750 mg PO DAILY PRN 01/22/15 08/30/17 Tamsulosin HCl 0.4 mg PO HS 01/22/15 08/30/17 Docusate [Colace] 100 mg PO BID PRN 08/10/16 08/30/17 Gabapentin 600 mg PO TID 08/10/16 08/30/17 Omeprazole 40 mg PO DAILY PRN 08/10/16 08/30/17 Butalb/Asprin/Caff 50-325-40Mg 1 - 2 cap PO Q4HR PRN 08/31/16 08/30/17 [Fiorinal 50-325-40 MG] Acetaminophen Tab [Tylenol Tab] 1,000 mg PO Q6HR PRN 09/01/16 08/30/17 Montelukast Sodium [Singulair] 10 mg PO HS PRN 08/28/17 08/30/17 Warfarin Sodium [Coumadin] 15 mg PO MOTH 08/28/17 08/30/17 Warfarin [Coumadin] 10 mg PO SUTUWEFRSA 08/28/17 08/30/17 Previous Rx's Medication Instructions Recorded Fluticasone Nasal [place] [Flonase 2 spray EA NOSTRIL DAILY PRN #1 08/14/16 Nasal [place]] each Allergies Allergy/AdvReac Type Severity Reaction Status Date / Time codeine Allergy Rash/Hives Verified 11/17/17 13:46 enoxaparin [From Lovenox] Allergy HITs Verified 11/17/17 13:46 heparin Allergy HITs Verified 11/17/17 13:46 Review of Systems ROS Statement: Those systems with pertinent positive or pertinent negative responses have been documented in the HPI. ROS Other: All systems not noted in ROS Statement are negative. Past Medical History Past Medical History: Cancer, Deep Vein Thrombosis (DVT), GERD/Reflux, Musculoskeletal Disorder, Neurologic Disorder, Prostate Disorder, Pulmonary Embolus (PE) Additional Past Medical History / Comment(s): Lymphoma,Neuropathy; Degenerative disc disease; Back pain, benign prostatic hypertrophy History of Any Multi-Drug Resistant Organisms: None Reported Past Surgical History: Back Surgery, Tonsillectomy Additional Past Surgical History / Comment(s): Back surgery x4; Cervical surgery ; arthroscopic right knee, TURP Past Anesthesia/Blood Transfusion Reactions: No Reported Reaction Past Psychological History: No Psychological Hx Reported Smoking Status: Former smoker Past Alcohol Use History: None Reported Past Drug Use History: None Reported - Past Family History Mother Family Medical History: Pulmonary Embolus Sister(s) Family Medical History: Cancer Additional Family Medical History / Comment(s): MELANOMA Father Family Medical History: Pulmonary Embolus General Exam - General Exam Comments Initial Comments: General: The patient is awake and alert, in no distress, and does not appear acutely ill. Eye: Pupils are equal, round and reactive to light, extra-ocular movements are intact. No nystagmus. There is normal conjunctiva bilaterally. No signs of icterus. Ears, nose, mouth and throat: There are moist mucous membranes and no oral lesions. Neck: The neck is supple, there is no tenderness or JVD. Cardiovascular: There is a regular rate and rhythm. No murmur, rub or gallop is appreciated. Respiratory: Lungs are clear to auscultation, respirations are non-labored, breath sounds are equal. No wheezes, stridor, rales, or rhonchi. Gastrointestinal: Abdomen soft on palpation. Patient does have tenderness left lower quadrant. No rebound tenderness. No guarding. No CVA tenderness. Musculoskeletal: Normal ROM, no tenderness. Strength 5/5. Sensation intact. Pulses equal bilaterally 2+. Neurological: A&O x 3. CN II-XII intact, There are no obvious motor or sensory deficits. Coordination appears grossly intact. Speech is normal. Skin: Skin is warm and dry and no rashes or lesions are noted. Psychiatric: Cooperative, appropriate mood & affect, normal judgment. Limitations: no limitations Course Vital Signs 11/17/17 11/17/17 13:42 15:59 Temperature 100.8 F H 100.4 F H Pulse Rate 90 76 Respiratory 18 16 Rate Blood Pressure 141/86 119/71 O2 Sat by Pulse 98 95 Oximetry Medical Decision Making - Medical Decision Making Patient's CT abdomen and pelvis reviewed and shows findings consistent with a fatty moderate acute diverticulitis center in the left lower quadrant with level of the distal left colon. There is a ariel mesentery appearance reduction without significant interval change. Could be a product of patient's underlying known lymphoma diagnosed in the left shoulder. Patient's white count. Negative lactic acid. Patient will be started on antibiotics of Levaquin and Flagyl in the emergency room be admitted to the hospital. - Lab Data Result diagrams: 11/17/17 14:05 11/17/17 14:05 Lab Results 11/17/17 11/17/17 11/17/17 Range/Units 14:05 14:05 14:05 WBC 8.4 (3.8-10.6) k/uL RBC 5.04 (4.30-5.90) m/uL Hgb 14.5 (13.0-17.5) gm/dL Hct 44.1 (39.0-53.0) % MCV 87.4 (80.0-100.0) fL MCH 28.8 (25.0-35.0) pg MCHC 33.0 (31.0-37.0) g/dL RDW 12.5 (11.5-15.5) % Plt Count 251 (150-450) k/uL Neutrophils % 80 % Lymphocytes % 13 % Monocytes % 5 % Eosinophils % 0 % Basophils % 1 % Neutrophils # 6.7 (1.3-7.7) k/uL Lymphocytes # 1.1 (1.0-4.8) k/uL Monocytes # 0.4 (0-1.0) k/uL Eosinophils # 0.0 (0-0.7) k/uL Basophils # 0.0 (0-0.2) k/uL PT 20.7 H (9.0-12.0) sec INR 2.3 H (<1.2) APTT 29.0 (22.0-30.0) sec Sodium 142 (137-145) mmol/L Potassium 4.2 (3.5-5.1) mmol/L Chloride 103 (98-107) mmol/L Carbon Dioxide 26 (22-30) mmol/L Anion Gap 13 mmol/L BUN 16 (9-20) mg/dL Creatinine 0.80 (0.66-1.25) mg/dL Est GFR (CKD-EPI)AfAm >90 (>60 ml/min/1.73 sqM) Est GFR (CKD-EPI)NonAf >90 (>60 ml/min/1.73 sqM) Glucose 109 H (74-99) mg/dL Plasma Lactic Acid Andrey (0.7-2.0) mmol/L Calcium 9.4 (8.4-10.2) mg/dL Total Bilirubin 0.3 (0.2-1.3) mg/dL AST 13 L (17-59) U/L ALT 15 L (21-72) U/L Alkaline Phosphatase 77 (38-126) U/L Total Protein 6.9 (6.3-8.2) g/dL Albumin 4.2 (3.5-5.0) g/dL Urine Color Urine Appearance (Clear) Urine pH (5.0-8.0) Ur Specific [place] (1.001-1.035) Urine Protein (Negative) Urine Glucose (UA) (Negative) Urine Ketones (Negative) Urine Blood (Negative) Urine Nitrite (Negative) Urine Bilirubin (Negative) Urine Urobilinogen (<2.0) mg/dL Ur Leukocyte Esterase (Negative) 11/17/17 11/17/17 Range/Units 14:05 15:24 WBC (3.8-10.6) k/uL RBC (4.30-5.90) m/uL Hgb (13.0-17.5) gm/dL Hct (39.0-53.0) % MCV (80.0-100.0) fL MCH (25.0-35.0) pg MCHC (31.0-37.0) g/dL RDW (11.5-15.5) % Plt Count (150-450) k/uL Neutrophils % % Lymphocytes % % Monocytes % % Eosinophils % % Basophils % % Neutrophils # (1.3-7.7) k/uL Lymphocytes # (1.0-4.8) k/uL Monocytes # (0-1.0) k/uL Eosinophils # (0-0.7) k/uL Basophils # (0-0.2) k/uL PT (9.0-12.0) sec INR (<1.2) APTT (22.0-30.0) sec Sodium (137-145) mmol/L Potassium (3.5-5.1) mmol/L Chloride (98-107) mmol/L Carbon Dioxide (22-30) mmol/L Anion Gap mmol/L BUN (9-20) mg/dL Creatinine (0.66-1.25) mg/dL Est GFR (CKD-EPI)AfAm (>60 ml/min/1.73 sqM) Est GFR (CKD-EPI)NonAf (>60 ml/min/1.73 sqM) Glucose (74-99) mg/dL Plasma Lactic Acid Andrey 1.3 (0.7-2.0) mmol/L Calcium (8.4-10.2) mg/dL Total Bilirubin (0.2-1.3) mg/dL AST (17-59) U/L ALT (21-72) U/L Alkaline Phosphatase (38-126) U/L Total Protein (6.3-8.2) g/dL Albumin (3.5-5.0) g/dL Urine Color Yellow Urine Appearance Clear (Clear) Urine pH 8.0 (5.0-8.0) Ur Specific [place] 1.016 (1.001-1.035) Urine Protein Negative (Negative) Urine Glucose (UA) Negative (Negative) Urine Ketones Negative (Negative) Urine Blood Negative (Negative) Urine Nitrite Negative (Negative) Urine Bilirubin Negative (Negative) Urine Urobilinogen <2.0 (<2.0) mg/dL Ur Leukocyte Esterase Negative (Negative) Disposition Clinical Impression: Acute diverticulitis, History of lymphoma Disposition: ADMITTED IP TO THIS [facility] Condition: Stable Is patient prescribed a controlled substance at d/c from ED?: No Referrals: Gregg Mccarty MD [Primary Care Provider] - 1-2 days Time of Disposition: 16:38
[2017-11-17 14:24] LABS: Basophils % (A) 1 %; Eosinophils % (A) 0 %; HCT 44.1 % (39.0-53.0); HGB 14.5 gm/dL (13.0-17.5); Lymphocytes # (A) 1.1 k/uL (1.0-4.8); Lymphocytes % (A) 13 %; MCH 28.8 pg (25.0-35.0); MCV 87.4 fL (80.0-100.0); Mean Platelet Volume 7.1; Monocytes # (A) 0.4 k/uL (0-1.0); Monocytes % (A) 5 %; Neutrophils # (A) 6.7 k/uL (1.3-7.7); Neutrophils % (A) 80 %; Platelet Count 251 k/uL (150-450); RBC 5.04 m/uL (4.30-5.90); RDW 12.5 % (11.5-15.5); WBC 8.4 k/uL (3.8-10.6)
[2017-11-17 14:32] LABS: INR 2.3 (<1.2); Prothrombin Time 20.7 sec (9.0-12.0)
[2017-11-17 14:33] LABS: ALT 15 U/L (21-72); AST 13 U/L (17-59); Albumin 4.2 g/dL (3.5-5.0); Alkaline Phosphatase 77 U/L (38-126); Anion Gap 13 mmol/L; Blood Urea Nitrogen 16 mg/dL (9-20); Calcium 9.4 mg/dL (8.4-10.2); Carbon Dioxide 26 mmol/L (22-30); Chloride 103 mmol/L (98-107); Glucose 109 mg/dL (74-99); Potassium 4.2 mmol/L (3.5-5.1); Sodium 142 mmol/L (137-145); Total Bilirubin 0.3 mg/dL (0.2-1.3); Total Protein 6.9 g/dL (6.3-8.2)
[2017-11-17] MEDS ORDERED: RX INFO: IV CONTRAST WAS GIVEN 1 EACH MISC MISCELLANE PRN (14:45)
--- NOTE | 2017-11-17 14:45 | XR ---
EXAMINATION TYPE: XR chest 2V DATE OF EXAM: 11/17/2017 COMPARISON: Chest x-ray August 31, 2016. CT chest abdomen and pelvis July 31, 2017. PET CT August 25, 2017 HISTORY: Fever. History of lymphoma undergoing chemotherapy. TECHNIQUE: Frontal and lateral views of the chest are obtained. FINDINGS: There is new left internal jugular Mediport catheter with tip in SVC. There is persistent b ibasilar horizontal opacity favoring scarring and/or atelectasis. No pleural effusion or pneumothorax is seen bilaterally.. The cardiac silhouette size is within normal limits. Anterior fusion plate lo wer cervical spine is redemonstrated. IMPRESSION: Persistent bibasilar horizontal opacity favors atelectasis and/or scarring, areas of acu te infiltrate are felt less likely but not excluded.
[2017-11-17 15:43] LABS: Appearance,Urine Clear (Clear); Bilirubin,Urine Negative (Negative); Blood,Urine Negative (Negative); Color,Urine Yellow; Glucose,Urine (UA) Negative (Negative); Ketones,Urine Negative (Negative); Leukocyte Esterase,Urine Negative (Negative); Nitrite,Urine Negative (Negative); Protein,Urine Negative (Negative); Specific Gravity,Urine 1.016 (1.001-1.035); Urobilinogen,Urine <2.0 mg/dL (<2.0)
--- NOTE | 2017-11-17 16:13 | CT ---
EXAMINATION TYPE: CT abdomen pelvis w con DATE OF EXAM: 11/17/2017 COMPARISON: CT chest abdomen and pelvis July 31, 2017 HISTORY: Left sided abdominal pain CT DLP: 1749.50 mGycm, Automated Exposure Control for Dose Reduction was Utilized. CONTRAST: CT scan of the abdomen and pelvis is performed without oral but with IV Contrast, patient injected wi th 100 mL of Isovue 300. FINDINGS: LUNG BASES: There is persistent elevated right hemidiaphragm with new right basilar atelectasis and/o r consolidation and new posterior left basilar consolidation and/or atelectatic change. LIVER/GB: No significant abnormality is appreciated. PANCREAS: No significant abnormality is seen. SPLEEN: No significant abnormality is seen. ADRENALS: No significant abnormality is seen. KIDNEYS: There is symmetric cortical medullary uptake and excretion from both kidneys without evidenc e of hydronephrosis bilaterally. There is extrarenal pelvis on the left redemonstrated. There are few scattered simple appearing cysts throughout both kidneys again seen. BOWEL: There are scattered colonic diverticula most prominent in the left and sigmoid colon. There is gas-filled appendix ascending from cecum. There is no suspicious small or large bowel dilatation. Th ere is fairly severe wall thickening with moderate surrounding fat stranding and ill-defined fluid in the left lower quadrant level of distal left colon consistent with acute diverticulitis. No well-for med fluid collection or abscess is seen. No pneumoperitoneum is noted. PROSTATE/SEMINAL VESICLES: Central prominence of urethra and prostate gland could reflect TURP defect or urethral cyst coronal image 56. LYMPH NODES: No definitive new greater than 1cm abdominal or pelvic lymph nodes are appreciated. The re is persistent background mild haziness of the mesentery with scattered subcentimeter lymph node. P rominent but subcentimeter retroperitoneal lymph nodes remain present most prominent left periaortic region. This is not significantly changed from prior. OSSEOUS STRUCTURES: Straightening of spine is redemonstrated. There is underlying dextroconvex scolio sis again seen. Moderate to severe multilevel spurring and disc space narrowing as well as vacuum dis c phenomenon. OTHER: Infrarenal IVC filter is redemonstrated felt stable. IMPRESSION: 1. CT findings consistent with a fairly moderate acute diverticulitis centered in the left lower quad rant at the level of the distal left colon. 2. Ana mesentery appearance redemonstrated without significant interval change. This could be produ ct of patient's underlying known lymphoma diagnosed in left shoulder. 3. New bibasilar atelectasis and/or consolidation noted.
[2017-11-17] MEDS ORDERED: LEVOFLOXACIN 500MG-D5W PMX 500 MG in DEXTROSE/WATER 1 100ML.BAG IVPB STA (16:36)
[2017-11-17] MEDS ORDERED: metroNIDAZOLE-NS PMX 500 MG in SALINE 1 100ML.BAG IVPB STA (16:38)
[2017-11-17] MEDS ORDERED: NALOXONE 0.4 MG/ML 1 ML VIAL IV PRN (16:39)
[2017-11-17] MEDS ORDERED: MORPHINE ORAL SOLN 10 MG/5 ML CUP PO PRN (16:39)
[2017-11-17] MEDS ORDERED: ONDANSETRON 4 MG/2 ML VIAL IVP PRN (16:39)
[2017-11-17] MEDS ORDERED: SODIUM CHLORIDE 0.9% 1,000 ML IV ONE (16:39)
[2017-11-17] MEDS ORDERED: HYDROcodone/APAP 5-325MG 1 EACH TAB PO PRN (16:39)
[2017-11-17] MEDS ORDERED: METHOCARBAMOL 750 MG TAB PO PRN (17:22)
[2017-11-17] MEDS ORDERED: HYDROcodone/APAP 10-325MG 1 EACH TAB PO PRN (17:22)
[2017-11-17] MEDS ORDERED: DIAZEPAM 5 MG TAB PO PRN (17:22)
[2017-11-17] MEDS ORDERED: PANTOPRAZOLE 40 MG TABLET PO PRN (17:22)
[2017-11-17] MEDS ORDERED: MONTELUKAST 10 MG TAB PO PRN (17:22)
--- NOTE | 2017-11-17 18:48 | HP ---
HISTORY AND PHYSICAL DATE OF ADMISSION: 11/17/2017. CHIEF COMPLAINT: Abdominal pain. HISTORY OF PRESENT ILLNESS: This 61-year-old gentleman with a past history of DVT, GERD, history of pulmonary embolus, peripheral neuropathy, being followed by Dr. Gregg Mccarty in the outpatient setting, was complaining of abdominal pain for the last couple of days. The pain is mostly around the left lower part. Patient had a previous history of diverticulitis. The pain is mostly in the lower part of the abdomen. The patient also has a history of back surgery done at [facility]. Because of increasing difficulty, the patient came to [facility] and was admitted for further evaluation and treatment. A CT scan of the abdomen and pelvis showed significant diverticulitis in the left lower quadrant. The patient was admitted for further evaluation and treatment. There is no history of fever, rigors or chills. No history of headache, loss of consciousness, seizures. PAST MEDICAL HISTORY: History of DVT, history of GERD, lymphoma, prostate disease, history of pulmonary embolism, history of neuropathy, history of DJD, history of nicotine dependence. MEDICATIONS: Prior to admission include home medications which are: 1. Coumadin 10 mg Sunday, Sunday, and Sunday and 15 mg Sunday, Sunday and Sunday. 2. Flomax 0.4 mg daily. 3. Omeprazole 40 mg p.o. daily p.r.n. 4. Singular 10 mg at bedtime. 5. Methocarbamol 750 mg daily p.r.n. 6. [place] 10 mg daily p.r.n. 7. Gabapentin 600 mg p.o. t.i.d. 8. Colace 100 mg p.o. b.i.d. p.r.n. 9. Diazepam 5 mg p.o. at bedtime p.r.n. 10.Calcium 600 mg p.o. b.i.d. 11.Tylenol 1000 mg every 6 hours p.r.n. ALLERGIES: CODEINE, ENOXAPARIN, HEPARIN. FAMILY HISTORY: History of pulmonary embolism, melanoma in the family. SOCIAL HISTORY: Previous history of smoking. Occasional alcohol intake. REVIEW OF SYSTEMS: ENT: No diminished hearing or vision. CARDIOVASCULAR: No angina or palpitations. RESPIRATORY: No cough or hemoptysis. GI: As mentioned. : No dysuria. NERVOUS SYSTEM: No numbness or weakness. ALLERGY: None. MUSCULOSKELETAL: As mentioned. RHEUMATOLOGY: As mentioned. ENDOCRINE: No diabetes or hypothyroidism. CONSTITUTIONAL: As mentioned. DERMATOLOGY: Negative. PSYCHIATRY: As mentioned. PHYSICAL EXAMINATION: Pulse is 75, blood pressure 128/80, respirations 18, temperature 100.8, pulse ox 94% on room air. HEENT: Conjunctivae normal. Oral mucosa moist NECK: No jugular venous distention. No lymph node enlargement. CARDIOVASCULAR: S1 and S2 muffled. LUNGS: Breath sounds diminished at the bases. Few scattered rhonchi. No crackles. ABDOMEN: Soft, mild diffuse tenderness especially in the left lower quadrant. Mild diffuse distention. No ascites. EXTREMITIES: Legs no edema, no swelling. NERVOUS SYSTEM: Higher functions as mentioned. Moves all 4 limbs. No focal motor or sensory deficits. LYMPH: No lymph nodes palpable in the neck or axilla. SKIN: No ulcer or rashes or bleeding. LAB STUDIES: CBC within normal limits. INR 2.3. Glucose 109. AST and ALT noted. ASSESSMENT: 1. Acute diverticulitis of the sigmoid with fever. 2. History of lymphoma, on treatment. 3. Deep venous thrombosis. 4. Gastroesophageal reflux disease. 5. Degenerative joint disease. 6. Prostate disorder. 7. Pulmonary embolism. 8. History of peripheral neuropathy. 9. History degenerative joint disease and back surgery. 10.Remote history of nicotine dependence. 11.FULL CODE. RECOMMENDATIONS: This 61-year-old gentleman who presented with multiple complex medical issues, will monitor the patient closely, continue the current management and symptomatic treatment. Recommend broad-spectrum IV antibiotics and surgical consultation. Dr. Harris also will be consulted. Otherwise resume the home medications. DVT prophylaxis. Guarded prognosis because of multiple complex medical conditions. Further recommendations to follow. MMODL / IJN: [id number] / [facility]
[2017-11-17] MEDS ORDERED: WARFARIN 5 MG TAB PO SCH (19:45)
[2017-11-17] MEDS: CALCIUM CARBONATE 500 MG CHEWABLE PO SCH (20:24)
[2017-11-17] MEDS: TAMSULOSIN 0.4 MG CAP.ER.24H PO SCH (20:24)
[2017-11-17] MEDS: PIPERACILLIN-TAZOBACTAM 3.375 GM in DEXTROSE/WATER 1 50ML.BAG IVPB SCH (20:24)
[2017-11-17] MEDS: GABAPENTIN 300 MG CAP PO SCH (20:24)
[2017-11-17] MEDS: WARFARIN 10 MG TAB PO SCH (20:25)
[2017-11-18] MEDS: metroNIDAZOLE-NS PMX 500 MG in SALINE 1 100ML.BAG IVPB SCH ×2 (00:48→07:20)
[2017-11-18] MEDS: PIPERACILLIN-TAZOBACTAM 3.375 GM in DEXTROSE/WATER 1 50ML.BAG IVPB SCH ×3 (04:27→20:31)
[2017-11-18] MEDS: ACETAMINOPHEN TAB 325 MG TAB PO PRN (07:19)
[2017-11-18] MEDS: CALCIUM CARBONATE 500 MG CHEWABLE PO SCH ×2 (07:21→20:34)
[2017-11-18] MEDS: GABAPENTIN 300 MG CAP PO SCH ×3 (07:22→22:18)
[2017-11-18 07:25] LABS: Basophils % (A) 0 %; Eosinophils % (A) 0 %; HCT 38.1 % (39.0-53.0); HGB 12.7 gm/dL (13.0-17.5); Lymphocytes # (A) 0.8 k/uL (1.0-4.8); Lymphocytes % (A) 13 %; MCH 29.3 pg (25.0-35.0); MCHC 33.5 g/dL (31.0-37.0); MCV 87.7 fL (80.0-100.0); Mean Platelet Volume 6.9; Monocytes # (A) 0.4 k/uL (0-1.0); Monocytes % (A) 7 %; Neutrophils # (A) 4.9 k/uL (1.3-7.7); Neutrophils % (A) 78 %; Platelet Count 240 k/uL (150-450); RBC 4.34 m/uL (4.30-5.90); RDW 12.6 % (11.5-15.5); WBC 6.4 k/uL (3.8-10.6)
[2017-11-18 07:28] LABS: INR 2.7 (<1.2); Prothrombin Time 23.8 sec (9.0-12.0)
[2017-11-18 08:14] LABS: ALT 17 U/L (21-72); AST 10 U/L (17-59); Albumin 3.1 g/dL (3.5-5.0); Alkaline Phosphatase 66 U/L (38-126); Anion Gap 9 mmol/L; Blood Urea Nitrogen 11 mg/dL (9-20); Calcium 8.3 mg/dL (8.4-10.2); Carbon Dioxide 25 mmol/L (22-30); Chloride 106 mmol/L (98-107); Glucose 101 mg/dL (74-99); Potassium 4.2 mmol/L (3.5-5.1); Sodium 140 mmol/L (137-145); Total Bilirubin 0.3 mg/dL (0.2-1.3); Total Protein 5.5 g/dL (6.3-8.2)
--- NOTE | 2017-11-18 11:18 | P.GSCN ---
History of Present Illness Consult date: 11/18/17 History of present illness: The patient is a 61-year-old white male who presents with a temperature to 100.8. He also complains of left-sided abdominal pain. Of significance is the fact that he has started a course of chemotherapy for a large B cell lymphoma. He was told if he had any temperature above 100.5 to come to the hospital. The patient states that he has minimal abdominal discomfort at this time. He did have have a computed tomography scan performed which reveals fairly moderate acute diverticulitis in the left lower quadrant. He also was noted to have some mesenteric changes was felt may be related to the lymphoma. Patient's white blood cell count is 6.4, hemoglobin 12.7 Patient's PTT 23.8 patient's INR 2.7 Past surgical history 1. 6 back surgeries 2. Cervical disc surgery 3. IV every 4 filter secondary to DVTs 4. Bone biopsies to diagnose lymphoma Past medical history 1. Large cell B lymphoma 2. History of pulmonary embolism Review of systems: HEENT: Tinnitus Lungs: Pulmonary embolism Heart: Negative GI: Diverticuli with multiple admissions : Negative Musculoskeletal: Multiple back surgeries ALLERGIES: Seasonal ALLERGIES Skin: No rashes Social history: Alcohol: 2 times a week Smoking: Stopped 40 years ago did smoke half a pack per day since age 19 Marijuana: Occasionally Recreational drugs: Negative Review of Systems - Constitutional Reports as per HPI - Cardiovascular Reports as per HPI - Respiratory Reports as per HPI - Gastrointestinal Reports as per HPI - Genitourinary Reports as per HPI - Musculoskeletal Musculoskeleta Comment(s): Multiple back surgeries Reports as per HPI - Integumentary Reports as per HPI - Neurological Neurologic Comment(s): Patient has had some numbness and tingling in his left upper extremity - Hematologic/Lymphatic Reports as per HPI Hematologic/Lymphatic Comment(s): Large cell B lymphoma - Allergic/Immunologic Reports allergic rhinitis Past Medical History Past Medical History: Cancer, Deep Vein Thrombosis (DVT), GERD/Reflux, Musculoskeletal Disorder, Neurologic Disorder, Prostate Disorder, Pulmonary Embolus (PE) Additional Past Medical History / Comment(s): Lymphoma, Neuropathy; Degenerative disc disease; Back pain, benign prostatic hypertrophy. multiple Blood Clots. knicked dura from last back surgery. History of Any Multi-Drug Resistant Organisms: None Reported Past Surgical History: Back Surgery, Tonsillectomy Additional Past Surgical History / Comment(s): Back surgery x6; Cervical surgery ; arthroscopic right knee, TURP. Past Anesthesia/Blood Transfusion Reactions: No Reported Reaction Past Psychological History: No Psychological Hx Reported Smoking Status: Former smoker Past Alcohol Use History: None Reported Additional Past Alcohol Use History / Comment(s): He was a smoker of a half a pack per day for 25-30 years. He currently lives at home with his . There are no pets in the home. 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 He is currently on disability. Past Drug Use History: None Reported - Past Family History Mother Family Medical History: Pulmonary Embolus Sister(s) Family Medical History: Cancer Additional Family Medical History / Comment(s): MELANOMA Father Family Medical History: Pulmonary Embolus Medications and Allergies Home Medications Medication Instructions Recorded Confirmed Type Diazepam 5 mg PO HS PRN 01/22/15 11/17/17 History HYDROcodone/APAP 10-325MG [[place] 1 tab PO DAILY PRN 01/22/15 11/17/17 History 10-325] Methocarbamol 750 mg PO DAILY PRN 01/22/15 11/17/17 History Tamsulosin HCl 0.4 mg PO HS 01/22/15 11/17/17 History Docusate [Colace] 100 mg PO BID PRN 08/10/16 11/17/17 History Gabapentin 600 mg PO TID 08/10/16 11/17/17 History Omeprazole 40 mg PO DAILY PRN 08/10/16 11/17/17 History Acetaminophen Tab [Tylenol Tab] 1,000 mg PO Q6HR PRN 09/01/16 11/17/17 History Montelukast Sodium [Singulair] 10 mg PO HS PRN 08/28/17 11/17/17 History Calcium Carbonate [Calcium] 600 mg PO BID 11/17/17 11/17/17 History Warfarin [Coumadin] 10 mg PO SUTUTHSA 11/17/17 11/17/17 History Warfarin [Coumadin] 15 mg PO MOWEFR 11/17/17 11/17/17 History Allergies Allergy/AdvReac Type Severity Reaction Status Date / Time codeine Allergy Rash/Hives Verified 11/17/17 17:06 enoxaparin [From Lovenox] Allergy HITs Verified 11/17/17 17:06 heparin Allergy HITs Verified 11/17/17 17:06 Surgical - Exam Vital Signs Temp Pulse Resp BP Pulse Ox 100.8 F H 90 18 141/86 98 11/17/17 13:42 11/17/17 13:42 11/17/17 13:42 11/17/17 13:42 11/17/17 13:42 - General well developed, no distress - Eyes normal ocular movement - ENT normal pinna, normal nares, no hearing loss - Neck no masses, trachea midline, no lymphadectomy, no venous distension - Respiratory normal expansion, normal respiratory effort, clear to auscultation - Cardiovascular Rhythm: regular Heart Sounds: normal: S1, S2 - Abdomen Mild tender left lower quadrant area No guarding or rebound Abdomen: soft, bowel sounds - Integumentary no rash - Psychiatric oriented to time, oriented to person, oriented to place, speech is normal Results - Labs 11/18/17 06:55 11/18/17 06:55 Abnormal Lab Results - Last 24 Hours (Table) 11/17/17 11/17/17 11/18/17 Range/Units 14:05 14:05 06:55 Hgb (13.0-17.5) gm/dL Hct (39.0-53.0) % Lymphocytes # (1.0-4.8) k/uL PT 20.7 H (9.0-12.0) sec INR 2.3 H (<1.2) Glucose 109 H 101 H (74-99) mg/dL Calcium 8.3 L (8.4-10.2) mg/dL AST 13 L 10 L (17-59) U/L ALT 15 L 17 L (21-72) U/L Total Protein 5.5 L (6.3-8.2) g/dL Albumin 3.1 L (3.5-5.0) g/dL 11/18/17 11/18/17 Range/Units 06:55 06:55 Hgb 12.7 L (13.0-17.5) gm/dL Hct 38.1 L (39.0-53.0) % Lymphocytes # 0.8 L (1.0-4.8) k/uL PT 23.8 H (9.0-12.0) sec INR 2.7 H (<1.2) Glucose (74-99) mg/dL Calcium (8.4-10.2) mg/dL AST (17-59) U/L ALT (21-72) U/L Total Protein (6.3-8.2) g/dL Albumin (3.5-5.0) g/dL Microbiology - Last 24 Hours (Table) 11/17/17 15:24 Urine Culture - Preliminary Urine,Voided Diabetes panel 11/17/17 11/18/17 Range/Units 14:05 06:55 Sodium 142 140 (137-145) mmol/L Potassium 4.2 4.2 (3.5-5.1) mmol/L Chloride 103 106 (98-107) mmol/L Carbon Dioxide 26 25 (22-30) mmol/L BUN 16 11 (9-20) mg/dL Creatinine 0.80 0.79 (0.66-1.25) mg/dL Glucose 109 H 101 H (74-99) mg/dL Calcium 9.4 8.3 L (8.4-10.2) mg/dL AST 13 L 10 L (17-59) U/L ALT 15 L 17 L (21-72) U/L Alkaline Phosphatase 77 66 (38-126) U/L Total Protein 6.9 5.5 L (6.3-8.2) g/dL Albumin 4.2 3.1 L (3.5-5.0) g/dL Calcium panel 11/17/17 11/18/17 Range/Units 14:05 06:55 Calcium 9.4 8.3 L (8.4-10.2) mg/dL Albumin 4.2 3.1 L (3.5-5.0) g/dL Pituitary panel 11/17/17 11/18/17 Range/Units 14:05 06:55 Sodium 142 140 (137-145) mmol/L Potassium 4.2 4.2 (3.5-5.1) mmol/L Chloride 103 106 (98-107) mmol/L Carbon Dioxide 26 25 (22-30) mmol/L BUN 16 11 (9-20) mg/dL Creatinine 0.80 0.79 (0.66-1.25) mg/dL Glucose 109 H 101 H (74-99) mg/dL Calcium 9.4 8.3 L (8.4-10.2) mg/dL Adrenal panel 11/17/17 11/18/17 Range/Units 14:05 06:55 Sodium 142 140 (137-145) mmol/L Potassium 4.2 4.2 (3.5-5.1) mmol/L Chloride 103 106 (98-107) mmol/L Carbon Dioxide 26 25 (22-30) mmol/L BUN 16 11 (9-20) mg/dL Creatinine 0.80 0.79 (0.66-1.25) mg/dL Glucose 109 H 101 H (74-99) mg/dL Calcium 9.4 8.3 L (8.4-10.2) mg/dL Total Bilirubin 0.3 0.3 (0.2-1.3) mg/dL AST 13 L 10 L (17-59) U/L ALT 15 L 17 L (21-72) U/L Alkaline Phosphatase 77 66 (38-126) U/L Total Protein 6.9 5.5 L (6.3-8.2) g/dL Albumin 4.2 3.1 L (3.5-5.0) g/dL - Imaging CT scan - abdomen: report reviewed, image reviewed Assessment and Plan Assessment: Impression/plan: 1. 61-year-old patient recently diagnosed with lymphoma status post chemotherapy presents with low-grade fever 2. Diverticulitis 3. History of pulmonary embolism 4. History of DVT Plan: 1. IV antibiotics 2. Medical management of medical problems 3. Repeat CBC in a.m. 4. Patient does not have an acute surgical abdomen at this time
[2017-11-18] MEDS: TOBRAMYCIN 0.3% OPHTH DROPS 5 ML BTL BOTH EYES SCH ×2 (11:42→20:34)
--- NOTE | 2017-11-18 16:22 | PN ---
PROGRESS NOTE DATE OF SERVICE: 11/18/2017 INTERVAL HISTORY: This 61-year-old gentleman was admitted with acute diverticulitis of the sigmoid colon, also had a fever. The patient is on broad-spectrum IV antibiotics. No chest pain. No palpitations. No fever. Dr. Figueroa has seen the patient and recommended continued IV antibiotics. No chest pain. No palpitations. No fever. EXAM: Alert and oriented x3. Pulse is 75, blood pressure 97/52, respirations 16, temperature 97.7, pulse ox 98% on room air. HEENT: Conjunctivae normal. Neck: No jugular venous distention. No carotid bruit. Cardiovascular: S1, S2. No S3, no S4. Respiratory: Breath sounds diminished n the bases. No rhonchi. No crackles. Abdomen soft, mild diffuse tenderness. Legs are no edema. No swelling. Central nervous system: No focal deficits. LABS: WBC 6.2, hemoglobin 12.7. INR is 2.7. ASSESSMENT: 1. Abdominal pain with acute diverticulosis sigmoid with fever. 2. History of lymphoma on treatment. 3. History of deep vein thrombosis. 4. Gastroesophageal reflux disease. 5. History degenerative joint disease. 6. History of prostate disorder. 7. History of pulmonary embolism. 8. History of peripheral neuropathy. 9. History of degenerative joint disease and back surgery. 10.Remote history of nicotine dependence. 11.FULL CODE. RECOMMENDATIONS AND DISCUSSION: Recommend to continue current management and symptomatic treatment. Otherwise, at this time, I recommend continue with broad-spectrum IV antibiotics and repeat labs. Guarded prognosis because of the multiple complex medical issues. Further recommendations to follow. MMODL / IJN: [id number] /
[2017-11-18] MEDS: WARFARIN 10 MG TAB PO SCH (17:55)
[2017-11-18] MEDS ORDERED: LEVOFLOXACIN 500MG-D5W PMX 500 MG in DEXTROSE/WATER 1 100ML.BAG IVPB SCH (19:00)
[2017-11-18] MEDS: TAMSULOSIN 0.4 MG CAP.ER.24H PO SCH (20:34)
--- NOTE | 2017-11-18 20:43 | CONS ---
CONSULTATION DATE OF CONSULTATION: November 18, 2017. REASON FOR CONSULTATION: Lymphoma. CHIEF COMPLAINT: Abdominal pain. HISTORY OF PRESENT ILLNESS: Job is a very pleasant, 61 years old gentleman very well known to our practice and he has been under the care of Dr. Rivera for followup. He initially presented with his left shoulder pain of 6 months duration and he had orthopedic evaluation locally and then subsequently ended up having an MRI which revealed replacing bone marrow process involving his left shoulder. He was referred to orthopedic oncologist, Dr. Murphy at [facility]. He initially had a CT- guided biopsy on 08/15/2017, which revealed a totally crushed specimen that is suspicious but not diagnostic of B-cell lymphoma. He had a CT scan of a chest, abdomen and pelvis which revealed mildly enlarged mesenteric periaortic lymphadenopathy. Subsequently, the patient was referred back to Dr. Murphy and ended up having an open biopsy of the left shoulder lesion, which was performed on 10/12/2017 and pathology revealed B-cell lymphoma could not be otherwise classified. However, it was felt to represent large B-cell lymphoma. The patient did have a PET scan done as well before his biopsy, which revealed suspicious hypermetabolic uptake in the posterior lateral scapula with additional area of osseous lymphoma involvement in the lumbar spine and pelvis are felt to be present. The subsequently the patient was started on systemic chemotherapy with R-CHOP regimen. He had the 1st cycle on 11/06/2017, which he tolerated reasonably well. The patient, however, came into the emergency department yesterday, complaining of worsening left lower quadrant abdominal pain along with fever. His symptoms started about a few days ago was initially was gas feeling of some discomfort and then subsequently evolved to significant abdominal pain and he started to develop fever, which prompted his visit to the emergency department. He did have a CT scan of the abdomen and pelvis yesterday which was positive for fairly moderate acute diverticulitis in the left lower quadrant with some mildly large mesenteric lymphadenopathies. So the patient was admitted to the hospital and was started on broad-spectrum IV antibiotics. Of note, the patient has had episodes of recurrent diverticulitis in the past. Currently the patient feels better. His pain has significantly improved. He denies any nausea or vomiting or diarrhea. His fever is subsiding. No melena, hematochezia, hematuria, hemoptysis, hematemesis or epistaxis. Appetite is fair and there is no recent weight loss. PAST MEDICAL HISTORY: In addition to what is stated above in regard to his lymphoma, he has a history of deep venous thrombosis, gastroesophageal reflux disease, history of pulmonary embolus and degenerative joint disease and degenerative disc disease, history of nicotine dependence. FAMILY HISTORY: His mother had lung cancer. His sister has skin cancer. PAST SURGICAL HISTORY: He has IVC filter placement in the past, tonsillectomy, colonoscopy, lumbar spine surgery, prostate biopsy, cervical spine surgery, right meniscus repair. HOME MEDICATIONS: Include diazepam 5 mg as needed, Flonase, Neurontin 600 mg t.i.d., cool solution as needed, [place] 10/325 as needed, omeprazole 20 mg daily, Compazine 10 mg every 6 hours as needed, Tamsulosin 0.4 mg daily, and he is on warfarin. He is currently now in the hospital on IV antibiotics in the form of Zosyn 3.375 mg IV piggyback every 8 hours. Also he is on Levaquin 500 mg IV every 24 hours. REVIEW OF SYSTEMS: As stated above in the history of present illness, otherwise negative. ALLERGIES: HE IS ALLERGIC TO CODEINE, LOVENOX, AND HEPARIN. PHYSICAL EXAMINATION: He is alert, oriented x3. Does not appear to be in distress. His temperature is 97.7 afebrile, pulse 75 regular, respirations 16, blood pressure 97/54. HEENT: Normocephalic, atraumatic. No obvious scleral icterus. NECK: Supple. No jugular venous distention. Chest equal expansion bilaterally. LUNGS: Clear to auscultation and percussion. Heart is regular rate and rhythm. ABDOMEN: Soft. There is no obvious or organomegaly or masses. He has a tenderness in the left lower quadrant. Extremities reveal no edema. Skin no significant bruise, ecchymosis or petechia. Lymphatics: No peripherally enlarged cervical or supraclavicular lymph node. Musculoskeletal: Moving all extremities appropriately. No percussion tenderness detected over spine, sternum. LABORATORY DATA: WBC are 6.4, hemoglobin 12.7, hematocrit 38.1, platelets are 240. Sodium 140, potassium 4.2, chloride 102, CO2 is 25, BUN is 11, creatinine 0.79, total bilirubin 0.3, AST is 10, ALT is 17. IMPRESSION: 1. Large B-cell lymphoma with diagnostic and therapeutic circumstances stated above. 2. Episode of acute diverticulitis. RECOMMENDATION: 1. The patient is currently not neutropenic and he did receive Neulasta in the outpatient setting. 2. Continue with his current antibiotics. 3. He is due for cycle #2 of R-CHOP in about 9 days. If he completely recovers from this acute episode of diverticulitis, then the treatment will be kept on schedule. The above was discussed in detail with the patient. I have answered all his questions. Thank you very much for asking me to participate in the care of this nice gentleman. MMODL / IJN: [id number] /
[2017-11-19] MEDS: PIPERACILLIN-TAZOBACTAM 3.375 GM in DEXTROSE/WATER 1 50ML.BAG IVPB SCH ×3 (03:34→20:30)
[2017-11-19 07:20] LABS: Basophils % (A) 1 %; Eosinophils % (A) 1 %; HCT 42.8 % (39.0-53.0); HGB 13.4 gm/dL (13.0-17.5); Hypochromasia Slight; Lymphocytes # (A) 0.9 k/uL (1.0-4.8); Lymphocytes % (A) 16 %; MCH 29.3 pg (25.0-35.0); MCHC 31.3 g/dL (31.0-37.0); Mean Platelet Volume 7.1; Monocytes # (A) 0.5 k/uL (0-1.0); Monocytes % (A) 9 %; Neutrophils # (A) 4.2 k/uL (1.3-7.7); Neutrophils % (A) 71 %; Platelet Count 302 k/uL (150-450); RBC 4.58 m/uL (4.30-5.90); RDW 12.7 % (11.5-15.5); WBC 5.9 k/uL (3.8-10.6)
[2017-11-19 07:24] LABS: INR 2.7 (<1.2)
[2017-11-19 07:37] LABS: MCV 93.4 fL (80.0-100.0)
[2017-11-19 07:44] LABS: Anion Gap 11 mmol/L; Blood Urea Nitrogen 10 mg/dL (9-20); Calcium 8.2 mg/dL (8.4-10.2); Carbon Dioxide 24 mmol/L (22-30); Chloride 108 mmol/L (98-107); Glucose 92 mg/dL (74-99); Potassium 4.5 mmol/L (3.5-5.1); Sodium 143 mmol/L (137-145)
[2017-11-19] MEDS: GABAPENTIN 300 MG CAP PO SCH ×3 (09:18→22:04)
[2017-11-19] MEDS: CALCIUM CARBONATE 500 MG CHEWABLE PO SCH ×2 (09:19→20:30)
[2017-11-19] MEDS: ACETAMINOPHEN TAB 325 MG TAB PO PRN (09:19)
[2017-11-19] MEDS: TOBRAMYCIN 0.3% OPHTH DROPS 5 ML BTL BOTH EYES SCH ×2 (09:20→20:30)
[2017-11-19] MEDS ORDERED: FLUTICASONE 50MCG/SPRAY NASAL 16GM EA NOSTRIL PRN (10:34)
--- NOTE | 2017-11-19 10:42 | P.PN ---
Subjective Progress Note Date: 11/19/17 Principal diagnosis: diverticulitis Pt seen in follow up. He has less LLQ pain, mild at this time. He had 3 BMs yesterday, loose but formed, no bloody or black stool, he has hemorrhoids but not flared at this time. No fever, nausea, diet is advancing today. No other physical c/o at this time, he is fully ambulatory Objective - Vital Signs Vital signs: Vital Signs Temp 97.4 F L 11/19/17 07:45 Pulse 66 11/19/17 07:45 Resp 18 11/19/17 07:45 BP 94/52 11/19/17 07:45 Pulse Ox 94 L 11/19/17 07:45 Intake & Output 11/18/17 11/19/17 11/19/17 18:59 06:59 18:59 Intake Total 1400 Balance 1400 Weight 97.522 kg Intake: Intake, IV Titration 150 Amount Piperacillin-Tazobactam 3 50 .375 gm In Dextrose/Water 1 50ml.bag @ 12.5 mls/hr IVPB Q8H [facility] Rx#: [id number] metroNIDAZOLE-NS PMX 500 100 mg In Saline 1 100ml.bag @ 100 mls/hr IVPB Q8HR [facility] Rx#:[id number] Oral 1250 Other: Voiding Method Toilet Toilet # Voids 2 1 - Constitutional General appearance: Present: average body habitus, cooperative, no acute distress - Respiratory Respiratory: bilateral: CTA - Cardiovascular Heart sounds: normal: S1, S2 - Peripheral edema leg Peripheral Edema: bilateral: None - Gastrointestinal Localized gastrointestinal: tender: LLQ (with deep palpation, no rebound), epigastric periumbilical - Integumentary Integumentary: Present: normal - Neurologic Neurologic: Present: CNII-XII intact - Musculoskeletal Musculoskeletal: Present: strength equal bilaterally - Psychiatric Psychiatric: Present: A&O x's 3, appropriate affect, intact judgment & insight - Labs CBC & Chem 7: 11/19/17 06:59 11/19/17 06:59 Labs: Abnormal Lab Results - Last 24 Hours (Table) 11/19/17 11/19/17 11/19/17 Range/Units 06:59 06:59 06:59 Lymphocytes # 0.9 L (1.0-4.8) k/uL PT 24.0 H (9.0-12.0) sec INR 2.7 H (<1.2) Chloride 108 H (98-107) mmol/L Calcium 8.2 L (8.4-10.2) mg/dL Microbiology - Last 24 Hours (Table) 11/17/17 15:24 Urine Culture - Final Urine,Voided 11/17/17 14:05 Blood Culture - Preliminary Blood No Growth after 24 hours Assessment and Plan (1) Diffuse large B-cell lymphoma of extranodal site Narrative/Plan: Pt currently in treatment for the same. Plan is to continue therapy on schedule. Pt has appts already Current Visit: Yes Status: Acute Priority: Medium Code(s): C83.39 - DIFFUSE LARGE B-CELL LYMPHOMA, EXTRNOD AND SOLID ORGAN SITES SNOMED Code(s): 904276392 (2) Pulmonary embolism Narrative/Plan: Pt continues on coumadin, INR threapeutic at 2.7 today, no s/s of bleeding Current Visit: No Status: Chronic Priority: Medium Code(s): I26.99 - OTHER PULMONARY EMBOLISM WITHOUT ACUTE COR PULMONALE SNOMED Code(s): 68075135 Plan: Discussed with pt need to strictly follow diverticulosis diet while going through chemotherapy. He will be more susceptible to diverticulitis flares when his WBCs are low from chemo. Dietitian consulted to review appropriate diet with pt. He continues on abx Rx from IM and has been evaluated by Surgery
--- NOTE | 2017-11-19 10:44 | P.PN ---
Subjective Progress Note Date: 11/19/17 Patient is a 61-year-old gentleman who presented to the emergency room with left -sided abdominal discomfort and a temperature to 100.8. He was recently treated for large B-cell lymphoma and was told to present to the hospital for any fever over 100.5. CAT scan was performed which revealed some diverticulitis. At this time he is feeling better and tolerating a full liquid diet. His white count is 5.9 and hemoglobin is 13.4. Objective - Vital Signs Vital signs: Vital Signs Temp 97.4 F L 11/19/17 07:45 Pulse 66 11/19/17 07:45 Resp 18 11/19/17 07:45 BP 94/52 11/19/17 07:45 Pulse Ox 94 L 11/19/17 07:45 Intake & Output 11/18/17 11/19/17 11/19/17 18:59 06:59 18:59 Intake Total 1400 Balance 1400 Weight 97.522 kg Intake: Intake, IV Titration 150 Amount Piperacillin-Tazobactam 3 50 .375 gm In Dextrose/Water 1 50ml.bag @ 12.5 mls/hr IVPB Q8H [facility] Rx#: [id number] metroNIDAZOLE-NS PMX 500 100 mg In Saline 1 100ml.bag @ 100 mls/hr IVPB Q8HR [facility] Rx#:[id number] Oral 1250 Other: Voiding Method Toilet Toilet # Voids 2 1 - Constitutional General appearance: Present: obese - Respiratory Respiratory: bilateral: CTA - Cardiovascular Rhythm: regular - Gastrointestinal Gastrointestinal Comment(s): No guarding or rebound Mild tenderness left lower quadrant General gastrointestinal: Present: soft - Psychiatric Psychiatric: Present: A&O x's 3, appropriate affect, intact judgment & insight - Labs CBC & Chem 7: 11/19/17 06:59 11/19/17 06:59 Labs: Abnormal Lab Results - Last 24 Hours (Table) 11/19/17 11/19/17 11/19/17 Range/Units 06:59 06:59 06:59 Lymphocytes # 0.9 L (1.0-4.8) k/uL PT 24.0 H (9.0-12.0) sec INR 2.7 H (<1.2) Chloride 108 H (98-107) mmol/L Calcium 8.2 L (8.4-10.2) mg/dL Microbiology - Last 24 Hours (Table) 11/17/17 15:24 Urine Culture - Final Urine,Voided 11/17/17 14:05 Blood Culture - Preliminary Blood No Growth after 24 hours Assessment and Plan Assessment: Impression/plan: 1. 61-year-old patient recently diagnosed with lymphoma status post chemotherapy presents with low-grade fever/improved 2. Diverticulitis 3. History of pulmonary embolism 4. History of DVT Plan: 1. IV antibiotics 2. Medical management of medical problems 3. Advance diet 4. Patient does not have an acute surgical abdomen at this time
[2017-11-19 11:25] VITALS: BMI 29.1
[2017-11-19] MEDS ORDERED: WARFARIN 5 MG TAB PO SCH (18:00)
[2017-11-19] MEDS ORDERED: LEVOFLOXACIN 500 MG TAB PO SCH (18:00)
--- NOTE | 2017-11-19 18:50 | PN ---
PROGRESS NOTE DATE OF SERVICE: 11/19/2017 INTERVAL HISTORY: This 61-year-old gentleman who was admitted with abdominal pain, acute diverticulosis is being closely monitored. No chest pain. No palpitations. No fever. Surgery is gradually increasing the diet. EXAM: Alert and oriented times three. Pulse 63. Blood pressure 140/77. Respiration 18, temperature 98 degrees, pulse ox 97% on room air. HEENT: Conjunctivae normal. Neck: No jugular venous distention. No carotid bruit. CARDIOVASCULAR: S1, S2. Respirations: Breath sounds diminished in the bases. A few scattered rhonchi and crackles. Abdomen is soft. Mild diffuse tenderness in the left lower quadrant. Central nervous system: No focal deficits. LABS: INR 2.7. Other labs are noted. ASSESSMENT: 1. Abdominal pain with acute diverticulitis with sigmoid diverticulitis with fever. 2. History of lymphoma, on treatment. 3. History of deep vein thrombosis. 4. Gastroesophageal reflux disease. 5. History of degenerative joint disease. 6. History of prostate disease. 7. History of pulmonary embolism. 8. History of peripheral neuropathy. RECOMMENDATIONS AND DISCUSSION: Recommend to continue current medications, symptomatic treatment, management. Continue with IV antibiotics. Slowly advance diet per surgery. Guarded prognosis because of multiple complex medical issues. Further recommendations to follow. MMODL / IJN: [id number] /
[2017-11-19] MEDS: TAMSULOSIN 0.4 MG CAP.ER.24H PO SCH (20:30)
[2017-11-20] MEDS: PIPERACILLIN-TAZOBACTAM 3.375 GM in DEXTROSE/WATER 1 50ML.BAG IVPB SCH ×2 (05:41→13:13)
[2017-11-20 07:02] LABS: Basophils % (A) 0 %; Eosinophils % (A) 1 %; HCT 38.6 % (39.0-53.0); HGB 12.8 gm/dL (13.0-17.5); Lymphocytes # (A) 0.9 k/uL (1.0-4.8); Lymphocytes % (A) 18 %; MCH 29.2 pg (25.0-35.0); MCHC 33.2 g/dL (31.0-37.0); Mean Platelet Volume 6.5; Monocytes # (A) 0.3 k/uL (0-1.0); Monocytes % (A) 7 %; Neutrophils # (A) 3.4 k/uL (1.3-7.7); Neutrophils % (A) 71 %; Platelet Count 430 k/uL (150-450); RBC 4.39 m/uL (4.30-5.90); RDW 12.7 % (11.5-15.5); WBC 4.8 k/uL (3.8-10.6)
[2017-11-20 07:06] LABS: INR 3.3 (<1.2); Prothrombin Time 29.6 sec (9.0-12.0)
[2017-11-20 07:09] LABS: MCV 87.8 fL (80.0-100.0)
[2017-11-20 07:49] LABS: Anion Gap 10 mmol/L; Blood Urea Nitrogen 11 mg/dL (9-20); Calcium 8.2 mg/dL (8.4-10.2); Carbon Dioxide 23 mmol/L (22-30); Chloride 110 mmol/L (98-107); Glucose 88 mg/dL (74-99); Potassium 4.5 mmol/L (3.5-5.1); Sodium 143 mmol/L (137-145)
[2017-11-20 09:33] VITALS: BP 114/75; PULSE 60; RESP 18; TEMP 97.6
[2017-11-20] MEDS: CALCIUM CARBONATE 500 MG CHEWABLE PO SCH (10:03)
[2017-11-20] MEDS: TOBRAMYCIN 0.3% OPHTH DROPS 5 ML BTL BOTH EYES SCH (10:03)
[2017-11-20] MEDS: GABAPENTIN 300 MG CAP PO SCH (10:03)
--- NOTE | 2017-11-20 13:21 | P.PN ---
Subjective Progress Note Date: 11/20/17 Principal diagnosis: diverticulitis Pt seen today in follow up. He ate most of his breakfast, he is following diverticulosis diet and has met with Dietitian. Denies nausea, his LLQ abd discomfort is less then yesterday, he did have 2 episodes of diarrhea, small amount, no rectal pain, abd bloasting, cramping, no blood or mucus in the stool. He is fully ambulatory Objective - Vital Signs Vital signs: Vital Signs Temp 97.6 F 11/20/17 08:10 Pulse 60 11/20/17 08:10 Resp 18 11/20/17 08:10 BP 114/75 11/20/17 08:10 Pulse Ox 93 L 11/20/17 08:10 Intake & Output 11/19/17 11/20/17 11/20/17 18:59 06:59 18:59 Intake Total 650 1400 Balance 650 1400 Weight 97.522 kg Intake: IV 600 ns@ 100 600 Intake, IV Titration 50 100 Amount Piperacillin-Tazobactam 3 50 100 .375 gm In Dextrose/Water 1 50ml.bag @ 12.5 mls/hr IVPB Q8H [facility] Rx#: [id number] Oral 1300 Other: Voiding Method Toilet Toilet # Voids 2 - Constitutional General appearance: Present: average body habitus, cooperative, no acute distress - EENT Eyes: Present: anicteric sclerae - Respiratory Details: respirations even and unlabored - Cardiovascular Details: skin dry, warm to touch, no diaphoresis - Peripheral edema leg Peripheral Edema: bilateral: None - Gastrointestinal Localized gastrointestinal: tender: LLQ (area of tenderness is less then yesterday, able to palpate deeper before eliciting discomfort, no rebound) - Integumentary Integumentary: Present: normal - Neurologic Neurologic: Present: CNII-XII intact - Musculoskeletal Musculoskeletal: Present: strength equal bilaterally - Psychiatric Psychiatric: Present: A&O x's 3, appropriate affect, intact judgment & insight - Labs CBC & Chem 7: 11/20/17 06:48 11/20/17 06:48 Labs: Abnormal Lab Results - Last 24 Hours (Table) 11/20/17 11/20/17 11/20/17 Range/Units 06:48 06:48 06:48 Hgb 12.8 L (13.0-17.5) gm/dL Hct 38.6 L (39.0-53.0) % Lymphocytes # 0.9 L (1.0-4.8) k/uL PT 29.6 H (9.0-12.0) sec INR 3.3 H (<1.2) Chloride 110 H (98-107) mmol/L Calcium 8.2 L (8.4-10.2) mg/dL Microbiology - Last 24 Hours (Table) 11/17/17 14:05 Blood Culture - Preliminary Blood No Growth after 48 hours Assessment and Plan (1) Diffuse large B-cell lymphoma of extranodal site Narrative/Plan: Pt will continue treatment on schedule, due for chemo next week Dietitian educated pt on appropriate diet to avoid diverticulitis, especially since pt will be at a higher risk for incidents while on chemo. Pt verbally was able to recite dietary restrictions Current Visit: Yes Status: Acute Priority: Medium Code(s): C83.39 - DIFFUSE LARGE B-CELL LYMPHOMA, EXTRNOD AND SOLID ORGAN SITES SNOMED Code(s): 831057941 (2) Pulmonary embolism Narrative/Plan: Pt is on coumadin for anticoagulation. INR today was 3.3. Recommend decreasing weekly dose of coumadin by 5mg and not skipping any doses as holding doses tends to cause more variation in INR then just adjusting dose. Pt has no s/s of bleeding, Hgb is stable. Pt verbalized understanding rational for lowering dose vs holding. Pt has been educated to monitor for bleeding, understands bleeding precautions. Current Visit: No Status: Chronic Priority: Medium Code(s): I26.99 - OTHER PULMONARY EMBOLISM WITHOUT ACUTE COR PULMONALE SNOMED Code(s): 58516810 Plan: Pt ok from Hem/Onc standpoint to be discharged only after he has been cleared by Surgery and IM.
--- NOTE | 2017-11-21 07:44 | DS ---
DISCHARGE SUMMARY FINAL DIAGNOSES: 1. Abdominal pain with acute diverticulitis with sigmoid diverticulitis with fever, improved. 2. History of lymphoma, on treatment. 3. History of deep venous thrombosis. 4. History of gastroesophageal reflux disease. 5. History of degenerative joint disease. 6. History of prostate disease. DISCHARGE DISPOSITION: The patient will be discharged in stable condition with guarded prognosis. HISTORY OF PRESENT ILLNESS: This 61-year-old gentleman with a past medical history of multiple medical problems admitted with abdominal pain, features of sigmoid diverticulitis, treated with IV antibiotics. Surgery saw the patient. Improved significantly. On exam, vitals are stable. CARDIOVASCULAR: S1 and S2, muffled. ABDOMEN: Soft, nontender. NERVOUS SYSTEM: No focal deficits. DISCHARGE ADVICE: 1. Diet is cardiac. 2. Activity limited until followup. 3. Follow up with Dr. Mccarty in 2 to 3 days. 4. Follow up with Dr. Dyson as well as Dr. Harris as advised. Medications are: 1. Tylenol 1000 mg q.6 p.r.n. 2. Augmentin 1 p.o. b.i.d. for 1 week. 3. Calcium 600 mg p.o. b.i.d. 4. Diazepam 5 mg at bedtime p.r.n. 5. Colace 100 mg p.o. b.i.d. 6. Flonase 2 sprays daily. 7. Gabapentin 600 mg t.i.d. 8. [place] 10 mg daily p.r.n. 9. Methocarbamol 750 mg p.o. daily. 10.Singulair 10 mg at bedtime p.r.n. 11.Omeprazole 40 mg p.o. daily. 12.Flomax 0.4 at bedtime. 13.Tobrex 1 drop both eyes. Once again, the patient will be discharged in stable condition with guarded prognosis. MMODL / IJN: [id number] /
== END 2017-11-20 16:57 | disposition home or self-care (01) | DRG 392 ==
LOC: EC 13:41 → 5ONC 16:39
PROVIDERS: ADMIT Hospitalist; ATTEND Hospitalist
DX: K57.32 Diverticulitis of large intestine without perforation or abscess without bleeding (principal); C83.39 Diffuse large B-cell lymphoma, extranodal and solid organ sites; G62.9 Polyneuropathy, unspecified; M47.9 Spondylosis, unspecified; J30.9 Allergic rhinitis, unspecified; N40.0 Benign prostatic hyperplasia without lower urinary tract symptoms; M19.91 Primary osteoarthritis, unspecified site; M25.512 Pain in left shoulder; K21.9 Gastro-esophageal reflux disease without esophagitis; Z79.899 Other long term (current) drug therapy; Z79.01 Long term (current) use of anticoagulants; Z86.711 Personal history of pulmonary embolism; Z86.718 Personal history of other venous thrombosis and embolism; Z92.21 Personal history of antineoplastic chemotherapy; Z87.891 Personal history of nicotine dependence; Z95.828 Presence of other vascular implants and grafts; Z88.5 Allergy status to narcotic agent; Z88.8 Allergy status to other drugs, medicaments and biological substances; Z80.8 Family history of malignant neoplasm of other organs or systems; Z80.1 Family history of malignant neoplasm of trachea, bronchus and lung
CPT/HCPCS: 36415; 71046; 74177; 80048; 80053; 81003; 83605; 85025; 85610; 85730; 87040; 87086; 87324; 96361; 96365; 96366; 96368; 96375; 99285

== ENCOUNTER → 2017-12-25 | Outpatient (CLI) | payer OTHER ==
--- NOTE | 2017-12-25 16:32 | ECHOF ---
Referral Reason:C96.7 Lymphoma,Z01.818 Chemo exposure MEASUREMENTS -------- HEIGHT: 182.9 cm WEIGHT: 99.8 kg BP: RVIDd: 2.9 cm (< 3.3) IVSd: 1.2 cm (0.6 - 1.1) LVIDd: 4.1 cm (3.9 - 5.3) LVPWd: 1.5 cm (0.6 - 1.1) IVSs: 1.6 cm LVIDs: 2.6 cm LVPWs: 1.8 cm LAESV Index (A-L): 22.36 ml/m Ao Diam: 3.3 cm (2.0 - 3.7) AV Cusp: 2.5 cm (1.5 - 2.6) LA Diam: 4.0 cm (2.7 - 3.8) MV EXCURSION: 18.048 mm (> 18.000) MV EF SLOPE: 80 mm/s (70 - 150) EPSS: 1.3 cm MV E Mick: 0.41 m/s MV DecT: 178 ms MV A Mick: 0.66 m/s MV E/A Ratio: 0.61 AR PHT: 548 ms FINDINGS -------- Sinus rhythm. This was a technically good study. The left ventricular size is normal. There is mild concentric left ventricular hypertrophy. Overa ll left ventricular systolic function is normal with, an EF between 55 - 60 %. The right ventricle is normal in size and function. The left atrium is normal in size. The right atrium is normal in size. Aneurysmal Interatrial septum. Trace amount of aortic regurgitation. The mitral valve leaflets are mildly thickened. Mild mitral regurgitation is present. Mild tricuspid regurgitation present. Pulmonic valve appears structurally normal. The aortic root size is normal. Normal inferior vena cava with normal inspiratory collapse consistent with estimated right atrial pre ssure of 5 mmHg. The pericardium is normal. CONCLUSIONS -------- 1. Sinus rhythm. 2. This was a technically good study. 3. The left ventricular size is normal. 4. There is mild concentric left ventricular hypertrophy. 5. Overall left ventricular systolic function is normal with, an EF between 55 - 60 %. 6. The right ventricle is normal in size and function. 7. The left atrium is normal in size. 8. The right atrium is normal in size. 9. Aneurysmal Interatrial septum. 10. Trace amount of aortic regurgitation. 11. The mitral valve leaflets are mildly thickened. 12. Mild mitral regurgitation is present. 13. Mild tricuspid regurgitation present. 14. Pulmonic valve appears structurally normal. 15. The aortic root size is normal. 16. Normal inferior vena cava with normal inspiratory collapse consistent with estimated right atrial pressure of 5 mmHg. 17. The pericardium is normal. INSEAM LEVELER: Dominique Cerda RDCS
== END | disposition home or self-care (01) ==
LOC: RADECHMAIN 13:28
PROVIDERS: ATTEND Internal Medicine Hematology & Oncology
DX: Z01.810 Encounter for preprocedural cardiovascular examination (principal); C96.Z Other specified malignant neoplasms of lymphoid, hematopoietic and related tissue; I08.3 Combined rheumatic disorders of mitral, aortic and tricuspid valves; I25.3 Aneurysm of heart
CPT/HCPCS: 93306

== ENCOUNTER → 2017-12-29 | Outpatient (CLI) | payer OTHER ==
--- NOTE | 2017-12-30 11:53 | PE ---
EXAMINATION TYPE: PET CT fusion skull to thigh DATE OF EXAM: 12/29/2017 COMPARISON: CT abdomen and pelvis November 17, 2017. Prior PET/CT August 25, 2017. Prior CT chest abdom en pelvis July 31, 2017 HISTORY: Lymphoma originally diagnosed right shoulder on biopsy completed chemotherapy and radiation treatment December 18, 2017. TECHNIQUE: Following the intravenous administration of 14.818 mCi of F-18 FDG, whole body images are performed from the skull base to the midthigh. Images are reviewed on the computer in the coronal, axial, and sagittal planes. Reconstructed rotating images are created on independent workstation and reviewed on the computer. A noncontrast CT is performed in conjunction with the PET scan. SCAN: Subsequent Scan FINDINGS: MEAN SUV MEDIASTINUM: 1.29 MEAN SUV LIVER: 2.04 with mild increased uptake posterior right lobe without discrete mass SKULL BASE AND NECK: No suspicious hypermetabolic uptake is seen. CHEST, MEDIASTINUM, AND HILAR REGION: No suspicious hypermetabolic uptake is present. ABDOMEN AND PELVIS: There is persistent mild ariel mesentery with subcentimeter lymph nodes that emilia rity do not show abnormal hypermetabolic uptake however there is new mild hypermetabolic uptake in servin bcentimeter lymph node axial image 161 on PACS correlates with lymph node 163, max SUV is 2.54 barely above the threshold. No suspicious hypermetabolic uptake is otherwise seen. Normal excretion is redemonstrated. OSSEOUS STRUCTURES: There is mild abnormal hypermetabolic uptake posterior left scapula near axial im age 58 at site of biopsy-proven malignancy, max SUV is 2.7 at this level on current study. There is h owever new healing fracture at this level noted which may be accounting for the abnormal uptake. There is mild diffuse uptake particularly throughout the lumbar spine favoring posttreatment change, max SUV is 3.72 for reference in the L5 vertebra. No convincing evidence for new hypermetabolic lytic or sclerotic lesion. No suspicious hypermetabolic uptake on current study in the right iliac bone, l eft proximal femur, or L3 vertebra on current study. OTHER CT: Straightening of spine is redemonstrated. Slight underlying scoliotic curvature is again se en. Surgical changes lower lumbar spine are redemonstrated. There is multilevel facet arthropathy randal ng with spurring and disc space narrowing in the lumbar spine redemonstrated. There is new left internal jugular Mediport catheter terminating in SVC. Dependent atelectasis in both lower lobes is present. A few simple appearing cysts are redemonstrated throughout both kidneys. There is infrarenal IVC filter again seen. Diverticula throughout the colon most prominent in the left and sigmoid colon is redemonstrated. Inte rval resolution of left-sided diverticulitis from most recent CT noted. Suspect TURP type defect in prostate. IMPRESSION: New but suspected healing fracture at site of biopsy-proven malignancy left scapula. Rakesh tional areas of possible osseous involvement are improved from prior. Ariel mesentery appearance rede monstrated with single borderline area of abnormal hypermetabolic uptake noted on current study likel y reflecting lymphoma involvement. No obvious new lesions otherwise seen.
== END | disposition home or self-care (01) ==
LOC: RADPETMAIN 11:58
PROVIDERS: ATTEND Internal Medicine Hematology & Oncology
DX: C96.Z Other specified malignant neoplasms of lymphoid, hematopoietic and related tissue (principal); C85.90 Non-Hodgkin lymphoma, unspecified, unspecified site; Z92.21 Personal history of antineoplastic chemotherapy
CPT/HCPCS: 78815; A9552

== ENCOUNTER → 2018-03-02 | Outpatient (CLI) | payer OTHER ==
--- NOTE | 2018-03-03 12:07 | PE ---
EXAMINATION TYPE: PET CT fusion skull to thigh DATE OF EXAM: 03/02/2018 COMPARISON: Most recent 11/17/2017 CT abdomen pelvis Prior PET/CT: Most recent 12/29/2017 PET/CT HISTORY: Lymphoma TECHNIQUE: Following the intravenous administration of mCi of F-18 FDG, whole body images are perfor med from the skull base to the midthigh. Extension of imaging through the head were obtained. Images are reviewed on the computer in the coronal, axial, and sagittal planes. Reconstructed rotating imag es are created on independent workstation and reviewed on the computer. A localization and attenuat ion correction CT is performed in conjunction with the PET scan. DLP: 593.66 mGycm SCAN: Subsequent Scan Blood glucose: 91 mg/dL Average Mediastinum SUV: 1.21 Average Liver SUV: 2.66 FINDINGS: HEAD: No suspicious asymmetric or focal uptake identified. NECK: No abnormal uptake THORAX: No abnormal uptake ABDOMEN: There is a new ill-defined area of increased density on the localization CT which has increa sed uptake on the PET scan measuring 3.2 SUV. Image 192. This is in the anterior left abdomen and may be a small mesenteric lymph node. There is some ill-defined increased uptake in the left mesentery, PET image 203. This has an SUV value of 4.02, , previous SUV 2.54. This appears to been present previ ously has increased in radiotracer uptake from previous. An additional midline focus measuring 2.92 H [place] units is present, image 207. This may be a new focus. PELVIS: No abnormal uptake OSSEOUS STRUCTURES: Suspicious uptake not identified. There is some mild uptake within the lumbar spi ne and the upper thoracic spine. Suspicious uptake within the scapula is not evident at this time. LOCALIZATION CT: The ascending thoracic aorta at the level the main pulmonary artery is 3.8 cm. The m ain pulmonary artery the bifurcation is 3.0 cm. No suspicious adenopathy within the neck and mediasti num axillary regions are evident. Periportal and celiac axis lymphadenopathy is not identified. No servin spicious periaortic or retrocaval adenopathy is evident. There is vague increased density within the mesentery an ill-defined area of increased density within the mesentery, image 192. This area measure s 1.[address] examination. No suspicious pelvic adenopathy is evident COMPARISON: Mesenteric stranding and nodularity appears diminished from comparison. IMPRESSION: 1. 3 ill-defined focal areas of increased radiotracer accumulation within the mid and left middle abd omen mesentery. This is in the area of increased mesenteric density could be small intermesenteric ly mph nodes and inflammatory changes. 2. These areas appear new and more focal on CT than previous although the mesenteric inflammatory inocente nge from previous examination and the nodularity within the mesentery into this region appears dimini shed from comparison.
== END ==
LOC: RADPETMAIN 10:29
PROVIDERS: ATTEND Internal Medicine Hematology & Oncology
DX: C96.Z Other specified malignant neoplasms of lymphoid, hematopoietic and related tissue (principal)
CPT/HCPCS: 78815; A9552

== ENCOUNTER 2018-05-14 06:09 | Day surgery (SDC) | payer OTHER ==
[2018-05-08 10:09] VITALS: BMI 29.2
[~2018-05-14 06:09] MED LIST changes: +HYDROmorphone 1 MG/ML 1 ML SYRINGE IVP PRN; -LIDOCAINE 1% 20 ML VIAL (10MG/ML) FOR IV START INTRADERMA PRN; +ONDANSETRON 4 MG/2 ML VIAL IVP ONE; -Pre Op ABX Message 1 EACH MISC MISCELLANE ONE; +ceFAZolin IN SWFI 2 GM/20 ML SYRINGE IVP ONE; +fentaNYL (PF) 50 MCG/ML 2 ML AMP IV PRN
[2018-05-14 07:00] VITALS: RESP 16; TEMP 97.6
[2018-05-14] MEDS ORDERED: LIDOCAINE 1% 20 ML VIAL (10MG/ML) FOR IV START INTRADERMA ONE (07:16)
[2018-05-14] MEDS ORDERED: PROPOFOL 10 MG/ML 20 ML VIAL IV ONE (07:49)
[2018-05-14] MEDS ORDERED: fentaNYL (PF) 50 MCG/ML 2 ML AMP ONE (07:49)
[2018-05-14] MEDS ORDERED: MIDAZOLAM 2 MG/2 ML VIAL ONE (07:49)
[2018-05-14] MEDS ORDERED: LIDOCAINE 1%-EPI 1:100,000 30 ML VIAL SQ ONE (07:59)
[2018-05-14 08:44] VITALS: BP 125/83; PULSE 56
--- NOTE | 2018-05-14 08:58 | OP ---
OPERATIVE REPORT DATE OF SURGERY: May 14, 2018. SURGEON: Anthony Malone MD PREOPERATIVE DIAGNOSIS: Right rastafarian skin lesion. POSTOPERATIVE DIAGNOSIS: Right rastafarian skin lesion. OPERATIVE PROCEDURE: Excision 1.5 cm right rastafarian skin lesion. OPERATIVE INDICATIONS: The patient is a 62-year-old male with a past medical history of lymphoma and enlarging right-sided rastafarian skin lesion. At the initial evaluation in the office a few months back, the patient had also a lesion involving his central forehead that was suspicious for skin cancer. Since that time, this lesion in the forehead has resolved. The patient will proceed with excision of his right-sided rastafarian lesion which although enlarging presents as benign in character. The patient understands there is some risk with surgery and accepts this. OPERATIVE PROCEDURE SUMMARY: The patient was seen presurgical area, markings made, procedure reviewed. All questions answered. He was transported to the operating room. He was placed in supine position. Following the induction of IV sedation, the patient was prepped with Betadine in the right-sided rastafarian lesion localized using 1% lidocaine with epinephrine 1:100,000 using 4 mL. The patient was then draped in sterile fashion. After waiting 7 minutes for the effect of epinephrine, the lesion was measured as 1.5 cm in diameter. An incision was made over the surface of the lesion. The lesion was then excised by scissor dissection and use of cauterization to maintain hemostasis. The lesion was sent to pathology. The wound bed was irrigated. Hemostasis was excellent. The site was repaired in simple fashion using interrupted 6-0 Prolene sutures. The site was cleansed with saline. A postoperative bandage placed with no complications. Estimated blood loss was minimal. MMODL / IJN: [id number] /
== END 2018-05-14 09:02 | disposition home or self-care (01) ==
LOC: OR 06:09
PROVIDERS: ATTEND Plastic Surgery
DX: L72.0 Epidermal cyst (principal); Z85.72 Personal history of non-Hodgkin lymphomas; N40.0 Benign prostatic hyperplasia without lower urinary tract symptoms; Z86.2 Personal history of diseases of the blood and blood-forming organs and certain disorders involving the immune mechanism; G62.9 Polyneuropathy, unspecified; K21.9 Gastro-esophageal reflux disease without esophagitis; Z79.01 Long term (current) use of anticoagulants; Z79.899 Other long term (current) drug therapy; Z88.5 Allergy status to narcotic agent; Z88.8 Allergy status to other drugs, medicaments and biological substances
CPT/HCPCS: 88304; 11442; J2250; J2405; J3010; J2704; J0690

== ENCOUNTER → 2020-01-07 | Outpatient (CLI) | payer OTHER ==
--- NOTE | 2020-01-07 12:49 | XR ---
EXAMINATION TYPE: XR chest 2V DATE OF EXAM: 01/07/2020 COMPARISON: 11/16/2017 TECHNIQUE: PA and lateral views submitted. HISTORY: COPD FINDINGS: Mediport catheter seen. Surgical change overlying cervical spine. No pneumothorax or overt failure. N o pleural effusion. Heart size normal. Right basilar subsegmental consolidation. IMPRESSION: 1. Right basilar atelectasis favored over pneumonia correlate clinically. 2. Hyperinflation correlate for mild COPD.
--- NOTE | 2020-01-07 12:50 | XR ---
EXAMINATION TYPE: XR shoulder complete RT DATE OF EXAM: 01/07/2020 COMPARISON: NONE HISTORY: Pain TECHNIQUE: Three views are submitted. FINDINGS: The osseous structures are intact. There is no acute fracture or dislocation. Mild hypertrophic ruffin ge of the AC joint. Diffuse osteopenia. IMPRESSION: 1. No acute process.
== END | disposition home or self-care (01) ==
LOC: RADXRMAIN 12:24
PROVIDERS: ATTEND Family Medicine
DX: J44.9 Chronic obstructive pulmonary disease, unspecified (principal); J98.11 Atelectasis; M24.819 Other specific joint derangements of unspecified shoulder, not elsewhere classified
CPT/HCPCS: 71046

== ENCOUNTER → 2020-04-16 | Outpatient (CLI) | payer OTHER ==
--- NOTE | 2020-04-17 13:46 | MR ---
EXAMINATION TYPE: MR shoulder RT wo con DATE OF EXAM: 04/16/2020 COMPARISON: Plain film dated 04/06/2020 HISTORY: Rt Shoulder pain, C 96.2, M 25.519, lymphoma TECHNIQUE: Multiplanar, multisequence imaging of the right shoulder is performed without contrast. FINDINGS: Rotator Cuff: There is abnormal thickening of the rotator cuff. Some increased signal is present intr insically. At the posterior margin partial tear would be difficult to exclude at the insertion level. Acromioclavicular Joint: Arthropathy is present. There is some mild mass effect on the musculotendino us junction of supraspinatus with some local fluid signal present Glenohumeral Joint: Intact Labrum: Superior labrum appears somewhat frayed towards posterior margin, there is abnormal increased signal within the glenoid labrum at this level Biceps Tendon: There is fluid signal along the long head of biceps tendon which shows a normal positi on Bone marrow signal: There is abnormal intermediate signal on T1, increased signal on T2 weighted sequ ences along the scapular spine, coronal images #22, sagittal image #7 and axial image #18 pseudocysts are present within the humeral head.. Other: Fluid signal is also present within the subscapularis musculotendinous junction distribution IMPRESSION: Indeterminate marrow signal could be related to patient's history of lymphoma. Rotator cuff tendinosi s as described with possible partial tear, suspect fraying of the glenoid labrum, correlate for possi ble impingement.
== END | disposition home or self-care (01) ==
LOC: RADMRIMAIN 17:48
PROVIDERS: ATTEND Internal Medicine Hematology & Oncology
DX: M67.813 Other specified disorders of tendon, right shoulder (principal)

== ENCOUNTER 2020-05-03 07:09 | Day surgery (SDC) | payer OTHER ==
[2020-04-29 15:39] VITALS: BMI 27.1
[~2020-05-03 07:09] MED LIST changes: +ACETAMINOPHEN TAB 500 MG TAB PO ONE; +DEXAMETHASONE SOD PHOSPHATE 10 MG/ML 1 ML VIAL IV ONE; +HYDROmorphone 0.5 MG/0.5 ML SYRINGE IVP PRN; -HYDROmorphone 1 MG/ML 1 ML SYRINGE IVP PRN; +LIDOCAINE 1% (10MG/ML) FOR IV START INTRADERMA PRN; +MIDAZOLAM 2 MG/2 ML VIAL IV PRN; +Pre Op ABX Message 1 EACH MISC MISCELLANE ONE; -ceFAZolin IN SWFI 2 GM/20 ML SYRINGE IVP ONE; -fentaNYL (PF) 50 MCG/ML 2 ML AMP IV PRN
[2020-05-03 07:26] VITALS: RESP 16; TEMP 97
--- NOTE | 2020-05-03 07:57 | P.GSHP ---
History of Present Illness H&P Date: 05/03/20 Chief Complaint: Lymphoma 64-year-old male recently completed therapy for B-cell lymphoma. Recent PET scan negative. Had Port-A-Cath placed for chemotherapy. Requesting it be removed at this time. Previously port placed October [address] munguia left internal jugular. Past Medical History Past Medical History: Cancer, Deep Vein Thrombosis (DVT), GERD/Reflux, Musculoskeletal Disorder, Neurologic Disorder, Prostate Disorder, Pulmonary Embolus (PE) Additional Past Medical History / Comment(s): Lymphoma, Neuropathy; Degenerative disc disease; Back pain, benign prostatic hypertrophy. multiple Blood Clots. 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 last chemo "couple years ago" History of Any Multi-Drug Resistant Organisms: None Reported Past Surgical History: Back Surgery, Orthopedic Surgery, Tonsillectomy Additional Past Surgical History / Comment(s): Back surgery x6; Cervical surgery; arthroscopic right knee, TURP. Port a cath Past Anesthesia/Blood Transfusion Reactions: No Reported Reaction Smoking Status: Current some day smoker - Past Family History Mother Family Medical History: Pulmonary Embolus Sister(s) Family Medical History: Cancer Additional Family Medical History / Comment(s): MELANOMA Father Family Medical History: Pulmonary Embolus Medications and Allergies Home Medications Medication Instructions Recorded Confirmed Type HYDROcodone/APAP 10-325MG [[place] 1 tab PO DAILY PRN 01/22/15 04/29/20 History 10-325] Tamsulosin HCl 0.4 mg PO HS 01/22/15 04/29/20 History diazePAM [Diazepam] 5 mg PO HS PRN 01/22/15 04/29/20 History Docusate [Colace] 100 mg PO BID PRN 08/10/16 04/29/20 History Omeprazole 40 mg PO DAILY PRN 08/10/16 04/29/20 History Acetaminophen Tab [Tylenol] 1,000 mg PO Q6HR PRN 09/01/16 04/29/20 History Montelukast Sodium [Singulair] 10 mg PO HS PRN 08/28/17 04/29/20 History Calcium Carbonate [Calcium] 600 mg PO BID 11/17/17 04/29/20 History Fluticasone Nasal [place] [Flonase 2 spray EA NOSTRIL DAILY PRN spr 11/20/17 04/29/20 Rx Nasal Dennis] Rivaroxaban [Xarelto] 20 mg PO PC-SUPPER 05/08/18 04/29/20 History Magnesium 200 mg PO DIRECTED PRN 04/29/20 04/29/20 History Allergies Allergy/AdvReac Type Severity Reaction Status Date / Time codeine Allergy Rash/Hives Verified 05/03/20 07:27 enoxaparin [From Lovenox] Allergy HEPARIN Verified 05/03/20 07:27 ALLERGY-CAN NOT TAKE" heparin Allergy HEPARIN Verified 05/03/20 07:27 INDUCED THROMBOCYTOPENIA (HIT) Surgical - Exam Vital Signs Temp Pulse Resp BP Pulse Ox 97 F L 60 16 126/83 98 05/03/20 07:25 05/03/20 07:25 05/03/20 07:25 05/03/20 07:25 05/03/20 07:25 Physical exam: General: Well-developed, well-nourished HEENT: Normocephalic, sclerae nonicteric Abdomen: Nontender, nondistended Extremities: No edema Neuro: Alert and oriented Assessment and Plan (1) Diffuse large B-cell lymphoma of extranodal site Narrative/Plan: Will proceed with Port-A-Cath removal at this time. Current Visit: No Status: Acute Priority: Medium Code(s): C83.39 - DIFFUSE LARGE B-CELL LYMPHOMA, EXTRNOD AND SOLID ORGAN SITES SNOMED Code(s): 248175531
[2020-05-03] MEDS ORDERED: LIDOCAINE 1% INJ 10MG/ML (20 ML MDV) ONE (08:55)
[2020-05-03] MEDS ORDERED: PROPOFOL 10 MG/ML 20 ML VIAL IV ONE (08:55)
[2020-05-03] MEDS ORDERED: MIDAZOLAM 2 MG/2 ML VIAL ONE (08:55)
[2020-05-03] MEDS ORDERED: fentaNYL (PF) 50 MCG/ML 2 ML AMP ONE (08:55)
[2020-05-03] MEDS ORDERED: LIDOCAINE 1% INJ 10MG/ML (20 ML MDV) SQ ONE ×2 (09:17)
[2020-05-03] MEDS ORDERED: NALOXONE 0.4 MG/ML 1 ML VIAL IV PRN (09:35)
[2020-05-03] MEDS ORDERED: HYDROcodone/APAP 5-325MG 1 EACH TAB PO PRN (09:35)
--- NOTE | 2020-05-03 09:36 | P.OP ---
Date of Procedure: 05/03/20 Procedure(s) Performed: PREOPERATIVE DIAGNOSIS: Lymphoma POSTOPERATIVE DIAGNOSIS: Same PROCEDURE: Port-A-Cath removal SURGEON: Alyssia EBL: Minimal ANESTHESIA: Sedation COMPLICATIONS: None OPERATIVE PROCEDURE: Patient was placed in the supine position. The patient was sedated per anesthesia that time. The chest was prepped and draped in the usual sterile fashion. The skin was localized with Marcaine solution. The previous incision was re-incised using a scalpel. The port was easily excised using acco mmodation of blunt dissection sharp dissection and electrocautery. The subcutaneous tissues were reapproximated using 3-0 Vicryl sutures. The skin was reapproximated using 4-0 Monocryl sutures. Skin glue was then applied. DISPOSITION: Stable to recovery room
[2020-05-03 10:25] VITALS: BP 112/73; PULSE 52
== END 2020-05-03 10:34 | disposition home or self-care (01) ==
LOC: OR 07:09
PROVIDERS: ATTEND Surgery
DX: C83.39 Diffuse large B-cell lymphoma, extranodal and solid organ sites (principal); K21.9 Gastro-esophageal reflux disease without esophagitis; M51.9 Unspecified thoracic, thoracolumbar and lumbosacral intervertebral disc disorder; G62.9 Polyneuropathy, unspecified; N40.0 Benign prostatic hyperplasia without lower urinary tract symptoms; F17.200 Nicotine dependence, unspecified, uncomplicated; Z86.718 Personal history of other venous thrombosis and embolism; Z86.711 Personal history of pulmonary embolism; Z86.2 Personal history of diseases of the blood and blood-forming organs and certain disorders involving the immune mechanism; Z87.828 Personal history of other (healed) physical injury and trauma; Z92.21 Personal history of antineoplastic chemotherapy; Z98.890 Other specified postprocedural states; Z90.89 Acquired absence of other organs; Z90.79 Acquired absence of other genital organ(s); Z79.899 Other long term (current) drug therapy; Z79.01 Long term (current) use of anticoagulants; Z79.891 Long term (current) use of opiate analgesic; Z88.5 Allergy status to narcotic agent; Z88.8 Allergy status to other drugs, medicaments and biological substances; Z82.49 Family history of ischemic heart disease and other diseases of the circulatory system; Z80.8 Family history of malignant neoplasm of other organs or systems
CPT/HCPCS: 36590; J2250; J1100; J0690; J2405; J2001; J3010; J2704

== ENCOUNTER → 2020-05-12 | Outpatient (CLI) | payer OTHER ==
[2020-05-12 08:57] LABS: Basophils # (A) 0.1 k/uL (0-0.2); Basophils % (A) 1 %; Eosinophils # (A) 0.2 k/uL (0-0.7); Eosinophils % (A) 3 %; HGB 14.8 gm/dL (13.0-17.5); Lymphocytes # (A) 1.3 k/uL (1.0-4.8); Lymphocytes % (A) 22 %; MCH 31.2 pg (25.0-35.0); MCHC 32.8 g/dL (31.0-37.0); Mean Platelet Volume 6.8; Monocytes # (A) 0.4 k/uL (0-1.0); Monocytes % (A) 7 %; Neutrophils # (A) 3.6 k/uL (1.3-7.7); Neutrophils % (A) 64 %; Platelet Count 321 k/uL (150-450); RBC 4.74 m/uL (4.30-5.90); WBC 5.7 k/uL (3.8-10.6)
== END | disposition home or self-care (01) ==
LOC: LABWHC1 08:00
PROVIDERS: ATTEND Orthopaedic Surgery
DX: Z01.818 Encounter for other preprocedural examination (principal); M75.41 Impingement syndrome of right shoulder
CPT/HCPCS: 36415; 80051; 85025; 93005

== ENCOUNTER 2020-09-10 16:26 | Emergency (ER) | payer MEDICARE, OTHER ==
[2020-09-10] MEDS ORDERED: ASPIRIN 81 MG PO STA (16:50)
[2020-09-10 18:09] LABS: Basophils % (A) 1 %; Eosinophils # (A) 0.2 k/uL (0-0.7); Eosinophils % (A) 2 %; HCT 41.9 % (39.0-53.0); HGB 14.3 gm/dL (13.0-17.5); Lymphocytes # (A) 1.5 k/uL (1.0-4.8); Lymphocytes % (A) 24 %; MCH 31.1 pg (25.0-35.0); MCHC 34.1 g/dL (31.0-37.0); MCV 91.2 fL (80.0-100.0); Monocytes # (A) 0.5 k/uL (0-1.0); Monocytes % (A) 7 %; Neutrophils % (A) 64 %; Platelet Count 271 k/uL (150-450); RDW 12.8 % (11.5-15.5); WBC 6.3 k/uL (3.8-10.6)
[2020-09-10 18:17] LABS: ALT 20 U/L (4-49); AST 22 U/L (17-59); African American GFR (CKD) >90 (>60 ml/min/1.73 sqM); Albumin 4.2 g/dL (3.5-5.0); Alkaline Phosphatase 43 U/L (38-126); Anion Gap 9 mmol/L; Blood Urea Nitrogen 25 mg/dL (9-20); Calcium 9.3 mg/dL (8.4-10.2); Carbon Dioxide 21 mmol/L (22-30); Chloride 109 mmol/L (98-107); Glucose 97 mg/dL (74-99); Magnesium 2.1 mg/dL (1.6-2.3); Non-African American GFR(CKD) >90 (>60 ml/min/1.73 sqM); Potassium 4.3 mmol/L (3.5-5.1); Sodium 139 mmol/L (137-145); Total Bilirubin 0.4 mg/dL (0.2-1.3)
[2020-09-10 18:32] LABS: D-Dimer 0.25 mg/L FEU (<0.60); Prothrombin Time 10.4 sec (9.0-12.0)
[2020-09-10 18:46] LABS: Partial Thromboplastin Time 21.4 sec (22.0-30.0)
--- NOTE | 2020-09-10 18:53 | XR ---
EXAMINATION TYPE: XR chest 1V portable DATE OF EXAM: 09/10/2020 COMPARISON: 01/07/2020. HISTORY: Chest pain. TECHNIQUE: Single frontal view of the chest is obtained. FINDINGS: There is no focal air space opacity, pleural effusion, or pneumothorax seen. The cardiac silhouette size is within normal limits. The osseous structures are intact. IMPRESSION: No acute process.
--- NOTE | 2020-09-10 19:09 | ED ---
General Adult HPI - General Chief complaint: Chest Pain Stated complaint: Sent by PCP - Abn Lab Time Seen by Provider: 09/10/20 16:50 Source: patient Mode of arrival: ambulatory Limitations: no limitations - History of Present Illness Initial comments: Patient complains of malaise. He had chest pain earlier this week. He currently has no chest pain. He has no belly pain. He has no back pain. He has no nausea or vomiting or diaphoresis. He has no focal weakness. Nothing makes his symptoms better or worse. 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 He has been working this week. He feels like maybe he has been overexerting himself at work. He denies any palpitations. He denies any headache. He has no vision or hearing changes. - Related Data Home Medications Medication Instructions Recorded Confirmed Montelukast Sodium [Singulair] 10 mg PO HS 08/28/17 09/10/20 Rivaroxaban [Xarelto] 20 mg PO PC-SUPPER 05/08/18 09/10/20 Acetaminophen/Diphenhydramine 1 tab PO HS PRN 09/10/20 09/10/20 [Tylenol PM 500-25mg] Citalopram Hydrobromide [CeleXA] 20 mg PO DAILY 09/10/20 09/10/20 Fluticasone Nasal [place] [Flonase 2 spray EA NOSTRIL BID PRN 09/10/20 09/10/20 Nasal [place]] Homeopathic Nerve Pain Remedy 1 dose PO BID 09/10/20 09/10/20 (Unknown Strength) Melatonin 5 - 10 mg PO HS PRN 09/10/20 09/10/20 Multivit-Min/Folic/Vit K/Lycop 1 tab PO DAILY 09/10/20 09/10/20 [Men's Multivitamin Tablet] Allergies Allergy/AdvReac Type Severity Reaction Status Date / Time codeine Allergy Rash/Hives Verified 09/10/20 17:41 enoxaparin [From Lovenox] Allergy HEPARIN Verified 09/10/20 17:41 ALLERGY-CAN NOT TAKE" heparin Allergy HEPARIN Verified 09/10/20 17:41 INDUCED THROMBOCYTOPENIA (HIT) Review of Systems ROS Statement: Those systems with pertinent positive or pertinent negative responses have been documented in the HPI. ROS Other: All systems not noted in ROS Statement are negative. Past Medical History Past Medical History: Cancer, Deep Vein Thrombosis (DVT), GERD/Reflux, Musculoskeletal Disorder, Neurologic Disorder, Prostate Disorder, Pulmonary Embolus (PE) Additional Past Medical History / Comment(s): Lymphoma, Neuropathy; Degenerative disc disease; Back pain, benign prostatic hypertrophy. multiple Blood Clots. 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 last chemo "couple years ago" History of Any Multi-Drug Resistant Organisms: None Reported Past Surgical History: Back Surgery, Orthopedic Surgery, Tonsillectomy Additional Past Surgical History / Comment(s): Back surgery x6; Cervical surgery; arthroscopic right knee, TURP. Port a cath Past Anesthesia/Blood Transfusion Reactions: No Reported Reaction Past Psychological History: No Psychological Hx Reported Smoking Status: Current some day smoker Past Alcohol Use History: Rare Past Drug Use History: None Reported - Past Family History Mother Family Medical History: Cancer, Pulmonary Embolus Additional Family Medical History / Comment(s): Lung Cancer. Sister(s) Family Medical History: Cancer Additional Family Medical History / Comment(s): MELANOMA. Father Family Medical History: Pulmonary Embolus General Exam Limitations: no limitations General appearance: alert, in no apparent distress Head exam: Present: atraumatic, normocephalic, normal inspection Eye exam: Present: normal appearance, PERRL, EOMI. Absent: scleral icterus, conjunctival injection, periorbital swelling ENT exam: Present: normal exam, mucous membranes moist Neck exam: Present: normal inspection. Absent: tenderness, meningismus, lymphadenopathy Respiratory exam: Present: normal lung sounds bilaterally. Absent: respiratory distress, wheezes, rales, rhonchi, stridor Cardiovascular Exam: Present: regular rate, normal rhythm, normal heart sounds. Absent: systolic murmur, diastolic murmur, rubs, gallop, clicks GI/Abdominal exam: Present: soft, normal bowel sounds. Absent: distended, tenderness, guarding, rebound, rigid Extremities exam: Present: normal inspection, full ROM, normal capillary refill. Absent: tenderness, pedal edema, joint swelling, calf tenderness Back exam: Present: normal inspection Neurological exam: Present: alert, oriented X3, CN II-XII intact Psychiatric exam: Present: normal affect, normal mood Skin exam: Present: warm, dry, intact, normal color. Absent: rash Course Vital Signs 09/10/20 09/10/2021 16:44 18:01 18:38 Temperature 98.1 F Pulse Rate 62 61 55 L Respiratory 16 18 18 Rate Blood Pressure 111/76 113/80 128/80 O2 Sat by Pulse 99 98 98 Oximetry EKG Findings - EKG Comments: EKG Findings:: Twelve-lead EKG shows ventricular rate 56 bpm, normal VT interval and QRS complexes, no ST elevation or depression, interpreted by me as sinus bradycardia. Medical Decision Making - Medical Decision Making Patient's entire workup is unremarkable. I can find no evidence of any emergency. I offered the patient admission for further workup. The patient does not want to stay. He would prefer to follow-up with his physician. - Lab Data Result diagrams: 09/10/20 17:59 09/10/20 17:59 Lab Results 09/10/20 09/10/20 09/10/20 Range/Units 17:59 17:59 17:59 WBC 6.3 (3.8-10.6) k/uL RBC 4.60 (4.30-5.90) m/uL Hgb 14.3 (13.0-17.5) gm/dL Hct 41.9 (39.0-53.0) % MCV 91.2 (80.0-100.0) fL MCH 31.1 (25.0-35.0) pg MCHC 34.1 (31.0-37.0) g/dL RDW 12.8 (11.5-15.5) % Plt Count 271 (150-450) k/uL MPV 7.0 Neutrophils % 64 % Lymphocytes % 24 % Monocytes % 7 % Eosinophils % 2 % Basophils % 1 % Neutrophils # 4.0 (1.3-7.7) k/uL Lymphocytes # 1.5 (1.0-4.8) k/uL Monocytes # 0.5 (0-1.0) k/uL Eosinophils # 0.2 (0-0.7) k/uL Basophils # 0.0 (0-0.2) k/uL PT 10.4 (9.0-12.0) sec INR 1.0 (<1.2) APTT 21.4 L (22.0-30.0) sec D-Dimer 0.25 (<0.60) mg/L FEU Sodium 139 (137-145) mmol/L Potassium 4.3 (3.5-5.1) mmol/L Chloride 109 H (98-107) mmol/L Carbon Dioxide 21 L (22-30) mmol/L Anion Gap 9 mmol/L BUN 25 H (9-20) mg/dL Creatinine 0.79 (0.66-1.25) mg/dL Est GFR (CKD-EPI)AfAm >90 (>60 ml/min/1.73 sqM) Est GFR (CKD-EPI)NonAf >90 (>60 ml/min/1.73 sqM) Glucose 97 (74-99) mg/dL Calcium 9.3 (8.4-10.2) mg/dL Magnesium 2.1 (1.6-2.3) mg/dL Total Bilirubin 0.4 (0.2-1.3) mg/dL AST 22 (17-59) U/L ALT 20 (4-49) U/L Alkaline Phosphatase 43 (38-126) U/L Troponin I (0.000-0.034) ng/mL NT-Pro-B Natriuret Pep pg/mL Total Protein 7.0 (6.3-8.2) g/dL Albumin 4.2 (3.5-5.0) g/dL 09/10/20 09/10/20 Range/Units 17:59 17:59 WBC (3.8-10.6) k/uL RBC (4.30-5.90) m/uL Hgb (13.0-17.5) gm/dL Hct (39.0-53.0) % MCV (80.0-100.0) fL MCH (25.0-35.0) pg MCHC (31.0-37.0) g/dL RDW (11.5-15.5) % Plt Count (150-450) k/uL MPV Neutrophils % % Lymphocytes % % Monocytes % % Eosinophils % % Basophils % % Neutrophils # (1.3-7.7) k/uL Lymphocytes # (1.0-4.8) k/uL Monocytes # (0-1.0) k/uL Eosinophils # (0-0.7) k/uL Basophils # (0-0.2) k/uL PT (9.0-12.0) sec INR (<1.2) APTT (22.0-30.0) sec D-Dimer (<0.60) mg/L FEU Sodium (137-145) mmol/L Potassium (3.5-5.1) mmol/L Chloride (98-107) mmol/L Carbon Dioxide (22-30) mmol/L Anion Gap mmol/L BUN (9-20) mg/dL Creatinine (0.66-1.25) mg/dL Est GFR (CKD-EPI)AfAm (>60 ml/min/1.73 sqM) Est GFR (CKD-EPI)NonAf (>60 ml/min/1.73 sqM) Glucose (74-99) mg/dL Calcium (8.4-10.2) mg/dL Magnesium (1.6-2.3) mg/dL Total Bilirubin (0.2-1.3) mg/dL AST (17-59) U/L ALT (4-49) U/L Alkaline Phosphatase (38-126) U/L Troponin I <0.012 (0.000-0.034) ng/mL NT-Pro-B Natriuret Pep 88 pg/mL Total Protein (6.3-8.2) g/dL Albumin (3.5-5.0) g/dL Disposition Clinical Impression: Malaise Disposition: HOME SELF-CARE Condition: Good Instructions (If sedation given, give patient instructions): Chest Pain (ED) Is patient prescribed a controlled substance at d/c from ED?: No Referrals: Gregg Mccarty MD [Primary Care Provider] - 1-2 days
[2020-09-10 19:39] VITALS: BP 120/86; PULSE 56; RESP 16; TEMP 98.2
== END 2020-09-10 19:39 | disposition home or self-care (01) ==
LOC: EC 16:26
DX: R53.81 Other malaise (principal); M54.9 Dorsalgia, unspecified; F17.200 Nicotine dependence, unspecified, uncomplicated; Z79.01 Long term (current) use of anticoagulants; Z79.899 Other long term (current) drug therapy; Z88.5 Allergy status to narcotic agent; Z88.8 Allergy status to other drugs, medicaments and biological substances; Z86.718 Personal history of other venous thrombosis and embolism; Z86.711 Personal history of pulmonary embolism; Z85.72 Personal history of non-Hodgkin lymphomas
CPT/HCPCS: 36415; 71045; 80053; 83735; 83880; 84484; 85025; 85379; 85610; 85730; 93005; 99284

== ENCOUNTER → 2021-03-25 | Outpatient (CLI) | payer MEDICARE ==
--- NOTE | 2021-03-25 15:46 | US ---
EXAMINATION TYPE: US chest DATE OF EXAM: 03/25/2021 COMPARISON: NONE CLINICAL HISTORY: Supraclavicular mass, right; C96.Z Lymphoma. Hx LYMPHOMA. No palpable. Patient st ates having a PET at different facility. Right supraclavicular area scanned. In lateral region, two prominent lymph nodes seen: 1- 2.9 x 1.1 x 1.1 cm 2- 1.6 x 0.8 x 0.9 cm IMPRESSION: Ultrasound performed in the area of patient's clinical abnormality in the right supracla vicular region consistent with adenopathy.
== END | disposition home or self-care (01) ==
LOC: LABWHC1 13:28
PROVIDERS: ATTEND Internal Medicine Hematology & Oncology
DX: C96.Z Other specified malignant neoplasms of lymphoid, hematopoietic and related tissue (principal); R93.89 Abnormal findings on diagnostic imaging of other specified body structures; Z85.72 Personal history of non-Hodgkin lymphomas
CPT/HCPCS: 76604

== ENCOUNTER 2021-05-16 09:38 | Inpatient (IN) | payer MEDICARE ==
[~2021-05-16 09:38] MED LIST changes: -ACETAMINOPHEN TAB 500 MG TAB PO ONE; -DEXAMETHASONE SOD PHOSPHATE 10 MG/ML 1 ML VIAL IV ONE; -HYDROmorphone 0.5 MG/0.5 ML SYRINGE IVP PRN; -LACTATED RINGERS 1,000 ML IV SCH; -LIDOCAINE 1% (10MG/ML) FOR IV START INTRADERMA PRN; -MIDAZOLAM 2 MG/2 ML VIAL IV PRN; -ONDANSETRON 4 MG/2 ML VIAL IVP ONE; +ONDANSETRON 4 MG/2 ML VIAL IVP PRN; -Pre Op ABX Message 1 EACH MISC MISCELLANE ONE; +SODIUM CHLORIDE 0.9% 1,000 ML IV SCH
[2021-05-16] MEDS ORDERED: ONDANSETRON 16 MG in SODIUM CHLORIDE 0.9% 50 ML IVPB SCH (13:00)
[2021-05-16 17:22] LABS: HCT 48.1 % (39.0-53.0); HGB 14.9 gm/dL (13.0-17.5); MCH 30.4 pg (25.0-35.0); MCV 98.3 fL (80.0-100.0); Platelet Count 247 k/uL (150-450); RBC 4.89 m/uL (4.30-5.90); RDW 12.6 % (11.5-15.5); WBC 9.1 k/uL (3.8-10.6)
[2021-05-16] MEDS ORDERED: MONTELUKAST 10 MG TAB PO PRN (17:22)
[2021-05-16] MEDS ORDERED: NON FORMULARY DRUG (Acetaminophen/Diphenhydramine [Tylenol Pm 500-25mg] 1 EACH Tablet) PO PRN (17:22)
[2021-05-16] MEDS ORDERED: FLUTICASONE 50MCG/SPRAY NASAL 16GM EA NOSTRIL PRN (17:22)
[2021-05-16] MEDS ORDERED: PANTOPRAZOLE 40 MG TABLET PO PRN (17:22)
[2021-05-16] MEDS ORDERED: MAGNESIUM HYDROXIDE 2,400 MG/10 ML CUP PO PRN (17:26)
[2021-05-16] MEDS ORDERED: LOPERAMIDE 2 MG CAP PO PRN (17:26)
[2021-05-16 17:33] LABS: ALT 18 U/L (4-49); AST 35 U/L (17-59); African American GFR (CKD) >90 (>60 ml/min/1.73 sqM); Albumin 4.2 g/dL (3.5-5.0); Albumin/Globulin Ratio 1.4; Alkaline Phosphatase 36 U/L (38-126); Anion Gap 9 mmol/L; Blood Urea Nitrogen 20 mg/dL (9-20); Calcium 9.2 mg/dL (8.4-10.2); Carbon Dioxide 20 mmol/L (22-30); Chloride 109 mmol/L (98-107); Glucose 165 mg/dL (74-99); Non-African American GFR(CKD) 85 (>60 ml/min/1.73 sqM); Phosphorus 2.7 mg/dL (2.5-4.5); Sodium 138 mmol/L (137-145); Total Bilirubin 0.8 mg/dL (0.2-1.3); Total Protein 7.2 g/dL (6.3-8.2); Uric Acid 5.9 mg/dL (3.5-8.5)
[2021-05-16 17:36] LABS: Potassium 5.1 mmol/L (3.5-5.1)
--- NOTE | 2021-05-16 17:44 | P.HPIM ---
History of Present Illness H&P Date: 05/16/21 Chief Complaint: Admit for CIVI ICE for DLBCL Mr. Marin is a pleasant male pt of Dr. Harris who presented to his PCP Dr. Sameera Mccarty with c/o lt shoulder pain, X 6 months, X-Ray, then MRI revealed a marrow- replacing process confirmed by bone scan. He was referred to Dr. Murphy (Ortho- Onc) at [facility], CT-Guided biopsy on 08/15/17 revealed a totally crushed specimen that was suspicious, but not diagnostic of B-cell lymphoma. CT CAP revealed mildly enlarged mesenteric/para-aortic lymphadenopathy. He was on anticoagulation with Coumadin following massive lower ext DVTs/PEs developed after spinal surgery. He is followed by Vascular surgery at [facility]. Hx smoking, 1 PPD X 30 years, quit 2011, denied ETOH use. He is retired. PET showed moderate uptake in L scapula and few other bony sites that could represent neoplastic process, no visceral uptake. Bone marrow totally negative. Developed path Fx, had open Bx on 10/12/17 revealing B-Cell Lymphoma, couldn't be otherwise classified, suspected of having large cells. He was started on R- CHOP, completed 6 cycles. Treatment f/u PET review at [place], changes in mesentery/L femur of ? etiology, follow up advised. F/U PET no activity in L scapula, mesenteric LN (1-1.5cm) with increased size and FDG activity. He cont on f/u with scans, had persistent c/o low energy but no other B-Symptoms. 09/17 PET abdominal lesions remain with slight increased FDG, no new lesions. 03/19 he had c/o worsening fatigue & night sweats X 2-3 months, no fever or weight loss. 04/19 biopsy of rt supraclavicular LN was positive for recurrent DLBCL. He was seen by Dr. Hernandez at [facility] who recommended RICE chemotherapy and then stem cell transplant. Pt is admitted for 1st cycle. He denies fevers, oral irritation, N,V, he is tolerating oral intake, no acute wt loss, abd pain, chest pain, SOB, cough, acute changes in bowel or bladder habits. Review of Systems 10 point ROS is neg except as stated in HPI Past Medical History Past Medical History: Cancer, Deep Vein Thrombosis (DVT), GERD/Reflux, Musculoskeletal Disorder, Neurologic Disorder, Prostate Disorder, Pulmonary Embolus (PE) Additional Past Medical History / Comment(s): Lymphoma, Neuropathy; Degenerative disc disease; Back pain, benign prostatic hypertrophy. multiple Blood Clots. 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 last chemo "couple years ago" History of Any Multi-Drug Resistant Organisms: None Reported Past Surgical History: Back Surgery, Orthopedic Surgery, Tonsillectomy Additional Past Surgical History / Comment(s): Back surgery x6; Cervical surgery ; arthroscopic right knee, TURP. Port a cath Past Anesthesia/Blood Transfusion Reactions: No Reported Reaction Past Psychological History: No Psychological Hx Reported Smoking Status: Current some day smoker Past Alcohol Use History: Rare Additional Past Alcohol Use History / Comment(s): He was a smoker of a half a pack per day for 25-30 years. now occasionally smokes a few cigarettes daily Past Drug Use History: None Reported - Past Family History Mother Family Medical History: Cancer, Pulmonary Embolus Additional Family Medical History / Comment(s): Lung Cancer. Sister(s) Family Medical History: Cancer Additional Family Medical History / Comment(s): MELANOMA. Father Family Medical History: Pulmonary Embolus Medications and Allergies Home Medications Medication Instructions Recorded Confirmed Type Montelukast Sodium [Singulair] 10 mg PO HS PRN 08/28/17 05/16/21 History Rivaroxaban [Xarelto] 20 mg PO HS 05/08/18 05/16/21 History Acetaminophen/Diphenhydramine 1 tab PO HS PRN 09/10/20 05/16/21 History [Tylenol PM 500-25mg] Citalopram Hydrobromide [CeleXA] 20 mg PO HS 09/10/20 05/16/21 History Fluticasone Nasal [place] [Flonase 2 spray EA NOSTRIL BID PRN 09/10/20 05/16/21 History Nasal [place]] Melatonin 5 - 10 mg PO HS PRN 09/10/20 05/16/21 History Multivit-Min/Folic/Vit K/Lycop 1 tab PO HS 09/10/20 05/16/21 History [Men's Multivitamin Tablet] Omeprazole 20 mg PO HS PRN 05/16/21 05/16/21 History Allergies Allergy/AdvReac Type Severity Reaction Status Date / Time codeine Allergy Rash/Hives Verified 05/16/21 17:08 enoxaparin [From Lovenox] Allergy HEPARIN Verified 05/16/21 17:08 ALLERGY-CAN NOT TAKE" heparin Allergy HEPARIN Verified 05/16/21 17:08 INDUCED THROMBOCYTOPENIA (HIT) Physical Exam Vitals: Intake and Output 05/16/21 05/16/21 05/16/21 06:59 14:59 22:59 Other: Weight 95.254 kg - Constitutional General appearance: average body habitus, cooperative, no acute distress - EENT Eyes: anicteric sclerae, EOMI ENT: hearing grossly normal, normal oropharynx - Neck Neck: no lymphadenopathy - Respiratory Respiratory: bilateral: CTA - Cardiovascular Rhythm: regular Heart sounds: normal: S1, S2 Abnormal Heart Sounds: no systolic murmur, no diastolic murmur, no rub, no S3 Gallop, no S4 Gallop, no click, no other - Gastrointestinal General gastrointestinal: no absent bowel sounds, no decreased bowel sounds, no distended, no hepatomegaly, no hyperactive bowel sounds, normal bowel sounds, no organomegaly, no rigid, no scaphoid, soft, no splenomegaly, no tenderness, no umbilical hernia, no ventral hernia - Integumentary Integumentary: normal - Neurologic Neurologic: CNII-XII intact - Musculoskeletal Musculoskeletal: strength equal bilaterally - Psychiatric Psychiatric: A&O x's 3, appropriate affect, intact judgment & insight Results CBC & Chem 7: 05/16/21 17:08 Thrombosis Risk Factor Assmnt - DVT/VTE Prophylaxis DVT/VTE Prophylaxis: Pharmacologic Prophylaxis ordered (xarelto) - Choose All That Apply Any of the Below Risk Factors Present?: Yes Each Factor Represents 1 point: Age 41-60 years Other Risk Factors: Yes Each Risk Factor Represents 2 Points: Malignancy Thrombosis Risk Factor Assessment Total Risk Factor Score: 3 Thrombosis Risk Factor Assessment Level: Moderate Risk Assessment and Plan (1) HIT (heparin-induced thrombocytopenia) Narrative/Plan: Pt has history of HIT. NO heparin products, no heparin in port, will plan for t hree times a week NS flushes. Communication order sent for the same. Heparin is noted as an allergy Current Visit: Yes Status: Acute Priority: High Code(s): D75.82 - HEPARIN INDUCED THROMBOCYTOPENIA (HIT) SNOMED Code(s): 80276410 (2) Diffuse large B-cell lymphoma of extranodal site Narrative/Plan: Admit for CIVI ICE. Home meds reconciled Reg diet Encourage activity Oral care Pt on xarelto Supportive meds Telemetry while inpt Will ask Internal Medicine to follow with pt Current Visit: Yes Status: Chronic Priority: High Code(s): C83.39 - DIFFUSE LARGE B-CELL LYMPHOMA, EXTRNOD AND SOLID ORGAN SITES SNOMED Code(s): 761971835 Time with Patient: Greater than 30
[2021-05-16] MEDS ORDERED: FAMOTIDINE 20 MG/2 ML VIAL IV STA (17:49)
[2021-05-16] MEDS ORDERED: DEXAMETHASONE SOD PHOSPHATE 4 MG/ML 1 ML VIAL IV STA (17:49)
[2021-05-16] MEDS: ONDANSETRON 16 MG in SODIUM CHLORIDE 0.9% 50 ML IVPB SCH (18:12)
[2021-05-16] MEDS: SODIUM CHLORIDE 0.9% 1,000 ML IV SCH (18:13)
[2021-05-16] MEDS: ETOPOSIDE IV SCH ×3 (19:05)
[2021-05-16] MEDS: SODIUM CHLORIDE 0.9% IV SCH ×3 (19:05)
[2021-05-16] MEDS: MULTIVITAMINS, THERA 1 EACH TAB PO SCH (19:50)
[2021-05-16] MEDS: RIVAROXABAN 20 MG TAB PO SCH (20:12)
[2021-05-16] MEDS: CITALOPRAM HYDROBROMIDE 20 MG TAB PO SCH (20:12)
[2021-05-16] MEDS ORDERED: MELATONIN 5 MG TABLET PO PRN (21:00)
[2021-05-16] MEDS: SALT AND SODA MOUTHWASH 1,000 ML PO SCH (22:16)
[2021-05-17] MEDS ORDERED: ACETAMINOPHEN TAB 325 MG TAB PO PRN (00:12)
[2021-05-17] MEDS: SALT AND SODA MOUTHWASH 1,000 ML PO SCH ×6 (02:09→23:48)
[2021-05-17] MEDS: SODIUM CHLORIDE 0.9% 1,000 ML IV SCH ×4 (03:37→23:48)
[2021-05-17 05:59] LABS: Basophils % (A) 0 %; Eosinophils % (A) 0 %; HCT 41.3 % (39.0-53.0); HGB 13.4 gm/dL (13.0-17.5); Lymphocytes # (A) 0.3 k/uL (1.0-4.8); Lymphocytes % (A) 3 %; MCH 31.2 pg (25.0-35.0); MCHC 32.5 g/dL (31.0-37.0); MCV 96.1 fL (80.0-100.0); Mean Platelet Volume 7.1; Monocytes # (A) 0.4 k/uL (0-1.0); Monocytes % (A) 5 %; Neutrophils # (A) 8.4 k/uL (1.3-7.7); Neutrophils % (A) 91 %; Platelet Count 258 k/uL (150-450); RDW 12.6 % (11.5-15.5); WBC 9.2 k/uL (3.8-10.6)
[2021-05-17 06:20] LABS: ALT 14 U/L (4-49); AST 18 U/L (17-59); African American GFR (CKD) >90 (>60 ml/min/1.73 sqM); Albumin 3.5 g/dL (3.5-5.0); Albumin/Globulin Ratio 1.3; Alkaline Phosphatase 44 U/L (38-126); Anion Gap 6 mmol/L; Blood Urea Nitrogen 18 mg/dL (9-20); Calcium 8.8 mg/dL (8.4-10.2); Carbon Dioxide 24 mmol/L (22-30); Chloride 110 mmol/L (98-107); Globulin 2.7 g/dL; Glucose 117 mg/dL (74-99); Non-African American GFR(CKD) >90 (>60 ml/min/1.73 sqM); Phosphorus 3.5 mg/dL (2.5-4.5); Potassium 4.5 mmol/L (3.5-5.1); Sodium 140 mmol/L (137-145); Total Bilirubin 0.6 mg/dL (0.2-1.3); Total Protein 6.2 g/dL (6.3-8.2)
[2021-05-17] MEDS ORDERED: diphenhydrAMINE 25 MG CAP PO PRN (07:36)
--- NOTE | 2021-05-17 12:19 | P.PN ---
Subjective Progress Note Date: 05/17/21 The patient has tolerated day 1 of chemotherapy reasonably well. He denies any significant untoward events, other than some difficulty in sleeping through the night and intermittent mild headaches that responded to Tylenol. No history of any fevers/chills/nausea/vomiting/diarrhea. No unusual bleeding or bruising. Objective - Vital Signs Vital signs: Vital Signs Temp 99.2 F 05/17/21 08:00 Pulse 66 05/17/21 08:00 Resp 16 05/17/21 08:00 BP 118/75 05/17/21 08:00 Pulse Ox 93 L 05/17/21 08:00 Intake & Output 05/16/21 05/17/21 05/17/21 18:59 06:59 18:59 Intake Total 375 Balance 375 Weight 95.254 kg Intake: Intake, IV Titration 375 Amount Sodium Chloride 0.9% 1, 375 000 ml @ 125 mls/hr IV . Q8H [facility] Rx#:[id number] Other: Voiding Method Toilet Toilet # Voids 2 - Constitutional General appearance: Present: no acute distress - EENT Eyes: Present: EOMI ENT: Present: hearing grossly normal, normal oropharynx - Respiratory Respiratory: bilateral: CTA - Cardiovascular Rhythm: regular Heart sounds: normal: S1, S2 - Gastrointestinal General gastrointestinal: Present: normal bowel sounds, soft - Integumentary Integumentary: Present: normal - Neurologic Neurologic: Present: CNII-XII intact - Musculoskeletal Musculoskeletal: Present: strength equal bilaterally - Psychiatric Psychiatric: Present: A&O x's 3 - Labs CBC & Chem 7: 05/17/21 05:26 05/17/21 05:26 Labs: Abnormal Lab Results - Last 24 Hours (Table) 05/16/21 05/17/21 05/17/21 Range/Units 17:08 05:26 05:26 Neutrophils # 8.4 H (1.3-7.7) k/uL Lymphocytes # 0.3 L (1.0-4.8) k/uL Chloride 109 H 110 H (98-107) mmol/L Carbon Dioxide 20 L (22-30) mmol/L Glucose 165 H 117 H (74-99) mg/dL Alkaline Phosphatase 36 L (38-126) U/L Total Protein 6.2 L (6.3-8.2) g/dL Assessment and Plan (1) Diffuse large B cell lymphoma Narrative/Plan: The patient is currently undergoing [place] chemotherapy with the R-ICE regimen for relapsed diffuse large B cell lymphoma. He has completed day 1 with good tolerance. No untoward side effects. Labs were reviewed and did not show any evidence of tumor lysis or significant cytopenias. Continue chemotherapy per protocol. Continue to monitor with physical exam and labs. Supportive care medications have been ordered. Current Visit: Yes Status: Acute Code(s): C83.30 - DIFFUSE LARGE B-CELL LYMPHOMA, UNSPECIFIED SITE SNOMED Code(s): 670892402 (2) Diffuse large B-cell lymphoma of extranodal site Narrative/Plan: As above Current Visit: Yes Status: Chronic Priority: High Code(s): C83.39 - DIFFUSE LARGE B-CELL LYMPHOMA, EXTRNOD AND SOLID ORGAN SITES SNOMED Code(s): 979301826 Plan: Home medications have been reordered.PCP service has been consulted for medical management Continue anticoagulation, which she was taking at home for prior history of DVT/PEs. Okay to continue as long as platelet counts are greater than 50,000
[2021-05-17] MEDS: DEXAMETHASONE SOD PHOSPHATE 10 MG/ML 1 ML VIAL IV SCH (16:10)
[2021-05-17] MEDS: FAMOTIDINE 20 MG/2 ML VIAL IVP SCH (16:12)
[2021-05-17] MEDS: ONDANSETRON 16 MG in SODIUM CHLORIDE 0.9% 50 ML IVPB SCH (16:16)
[2021-05-17] MEDS: SODIUM CHLORIDE 0.9% IV SCH ×3 (17:47)
[2021-05-17] MEDS: ETOPOSIDE IV SCH ×3 (17:47)
[2021-05-17] MEDS ORDERED: MESNA IV ONE (18:00)
[2021-05-17] MEDS ORDERED: SODIUM CHLORIDE 0.9% IV ONE ×3 (18:00)
[2021-05-17] MEDS ORDERED: [UNRECOGNIZED DRUG - OTHER] IV ONE (18:00)
[2021-05-17] MEDS ORDERED: CARBOPLATIN IV ONE (18:00)
[2021-05-17] MEDS ORDERED: IFOSFAMIDE IV ONE (18:00)
--- NOTE | 2021-05-17 19:32 | P.CON ---
Consult Note - . Consult date: 05/17/21 Assessment/Plan:: Medical consultation for management for history of DVT/pulmonary embolism, GERD/reflux HPI: 65-year-old male with past medical history of diffuse large B-cell lymphoma, GERD/reflux, history of DVT/pulmonary embolism status post after spinal surgery, history of nicotine dependence, prostate disorder, heparin-induced thrombocytopenia and additional comorbidities is admitted to the hospital with hematology/oncology for treatment of diffuse large B-cell lymphoma of extranodal site with chemotherapy treatment. Patient currently denies any symptoms at this time. He states he is tolerating treatment well with no acute adverse reactio ns. Physical assessment: Constitutional: average body habitus, cooperative, no acute signs of distress HEENT: normocephalic, nontraumatic, EMOI, hearing grossly normal, normal pharynx Respiratory: Even and unlabored respirations, clear and equal anterior and posterior lung jasso Cardiovascular: S1 and S2, regular no murmurs no rubs no clicks noted Gastrointestinal: Bowel sounds active in all 4 quadrants, soft nontender Integumentary: Skin intact normal Neurological: Cranial nerves intact Musculoskeletal: strength equal bilateral in all extremities Psychiatric: Alert and oriented 3 appropriate affect intact and judgment normal Assessment: Diffuse large cell lymphoma of extrandol sites, currently on chemotherapy History of DVT/pulmonary embolism currently on xarelto GERD/reflux Mixed anxiety and depression Seasonal ALLERGIES Former nicotine dependence History of spinal surgery Full code Plan: Continue home medications Continue to monitor vital signs and diagnostic testing Continue to follow on an as-needed basis with hematology oncology Further recommendations to come based on patient's clinical condition
[2021-05-17] MEDS: CITALOPRAM HYDROBROMIDE 20 MG TAB PO SCH (20:25)
[2021-05-17] MEDS: RIVAROXABAN 20 MG TAB PO SCH (20:25)
[2021-05-17] MEDS: MULTIVITAMINS, THERA 1 EACH TAB PO SCH (20:25)
[2021-05-17] MEDS: TEMAZEPAM 15 MG CAP PO SCH (22:51)
[2021-05-18] MEDS: SALT AND SODA MOUTHWASH 1,000 ML PO SCH ×5 (05:44→22:50)
[2021-05-18] MEDS: SODIUM CHLORIDE 0.9% 1,000 ML IV SCH ×3 (05:44→22:50)
[2021-05-18 06:59] LABS: Basophils % (A) 0 %; Eosinophils % (A) 0 %; HCT 39.1 % (39.0-53.0); HGB 12.8 gm/dL (13.0-17.5); Lymphocytes # (A) 0.5 k/uL (1.0-4.8); Lymphocytes % (A) 6 %; MCH 31.2 pg (25.0-35.0); MCHC 32.6 g/dL (31.0-37.0); MCV 95.7 fL (80.0-100.0); Mean Platelet Volume 7.5; Monocytes # (A) 0.5 k/uL (0-1.0); Monocytes % (A) 6 %; Neutrophils # (A) 6.9 k/uL (1.3-7.7); Neutrophils % (A) 87 %; Platelet Count 208 k/uL (150-450); RBC 4.09 m/uL (4.30-5.90); RDW 12.6 % (11.5-15.5); WBC 7.9 k/uL (3.8-10.6)
[2021-05-18 07:14] LABS: ALT 14 U/L (4-49); AST 23 U/L (17-59); African American GFR (CKD) >90 (>60 ml/min/1.73 sqM); Albumin 3.2 g/dL (3.5-5.0); Albumin/Globulin Ratio 1.2; Alkaline Phosphatase 29 U/L (38-126); Anion Gap 7 mmol/L; Blood Urea Nitrogen 17 mg/dL (9-20); Calcium 8.7 mg/dL (8.4-10.2); Carbon Dioxide 22 mmol/L (22-30); Chloride 111 mmol/L (98-107); Globulin 2.6 g/dL; Glucose 106 mg/dL (74-99); Non-African American GFR(CKD) >90 (>60 ml/min/1.73 sqM); Phosphorus 3.9 mg/dL (2.5-4.5); Sodium 140 mmol/L (137-145); Total Bilirubin 0.5 mg/dL (0.2-1.3); Total Protein 5.8 g/dL (6.3-8.2); Uric Acid 4.3 mg/dL (3.5-8.5)
[2021-05-18 07:38] LABS: Potassium 4.7 mmol/L (3.5-5.1)
--- NOTE | 2021-05-18 14:22 | P.PN ---
Subjective Progress Note Date: 05/18/21 Principal diagnosis: CIVI for DLBCL In f/u today pt denies fever, chills, oral irritation, DÍAZ, nausea, cough, SOB, palpitations, abd pain, loss of appetite, dysuria, diarrhea, constipation, bleeding, swelling, rashes or pain. Objective - Vital Signs Vital signs: Vital Signs Temp 98.3 F 05/18/21 08:00 Pulse 59 L 05/18/21 08:00 Resp 17 05/18/21 08:00 BP 131/80 05/18/21 08:00 Pulse Ox 95 05/18/21 08:00 Intake & Output 05/17/21 05/18/21 05/18/21 18:59 06:59 18:59 Intake Total 2580 Balance 2580 Weight 80.739 kg Intake: Intake, IV Titration 1980 Amount Ifosfamide 2,000 mg 240 Ifosfamide 9,000 mg In Sodium Chloride 0.9% 500 ml 330 ml In Empty Bag 1 bag @ 22.917 mls/hr IV ONCE ONE Rx#:[id number] [place] 11,000 mg In Sodium 240 Chloride 0.9% 500 ml 440 ml In Empty Bag 1 bag @ 22.917 mls/hr IV ONCE ONE Rx#:[id number] Sodium Chloride 0.9% 1, 1500 000 ml @ 125 mls/hr IV . Q8H [facility] Rx#:[id number] Oral 600 Other: Voiding Method Toilet Toilet # Voids 4 4 # Bowel Movements 1 - Constitutional General appearance: Present: average body habitus, cooperative, no acute distres s - EENT Eyes: Present: anicteric sclerae, EOMI ENT: Present: hearing grossly normal, normal oropharynx - Respiratory Respiratory: bilateral: CTA - Cardiovascular Rhythm: regular Heart sounds: normal: S1, S2 Abnormal Heart Sounds: Absent: systolic murmur, diastolic murmur, rub, S3 Gallop, S4 Gallop, click, other - Peripheral edema leg Peripheral Edema: bilateral: None - Gastrointestinal General gastrointestinal: Present: normal bowel sounds, soft. Absent: absent bowel sounds, decreased bowel sounds, distended, hepatomegaly, hyperactive bowel sounds, organomegaly, rigid, scaphoid, splenomegaly, tenderness, umbilical hernia, ventral hernia - Integumentary Integumentary: Present: normal, normal turgor - Neurologic Neurologic: Present: CNII-XII intact - Musculoskeletal Musculoskeletal: Present: strength equal bilaterally - Psychiatric Psychiatric: Present: A&O x's 3, appropriate affect, intact judgment & insight - Labs CBC & Chem 7: 05/18/21 06:27 05/18/21 06:27 Labs: Abnormal Lab Results - Last 24 Hours (Table) 05/18/21 05/18/21 Range/Units 06:27 06:27 RBC 4.09 L (4.30-5.90) m/uL Hgb 12.8 L (13.0-17.5) gm/dL Lymphocytes # 0.5 L (1.0-4.8) k/uL Chloride 111 H (98-107) mmol/L Glucose 106 H (74-99) mg/dL Alkaline Phosphatase 29 L (38-126) U/L Total Protein 5.8 L (6.3-8.2) g/dL Albumin 3.2 L (3.5-5.0) g/dL Assessment and Plan (1) HIT (heparin-induced thrombocytopenia) Narrative/Plan: Pt has history of HIT. NO heparin products, no heparin in port, will plan for three times a week NS flushes. Communication order sent for the same. Heparin is noted as an allergy Current Visit: Yes Status: Acute Priority: High Code(s): D75.82 - HEPARIN INDUCED THROMBOCYTOPENIA (HIT) SNOMED Code(s): 43060411 (2) Diffuse large B-cell lymphoma of extranodal site Narrative/Plan: Admit for CIVI ICE. Cont treatment without adjustments Reg diet Encourage activity Oral care Pt on xarelto-no DVT proph needed Supportive meds Telemetry while inpt Appreciate Internal Medicine following for medical mgmt Cont daily wt-monitoring for fluid overload Current Visit: Yes Status: Chronic Priority: High Code(s): C83.39 - DIFFUSE LARGE B-CELL LYMPHOMA, EXTRNOD AND SOLID ORGAN SITES SNOMED Code(s): 373638035 Plan: attests: I have seen and examined pt, performed H&P, developed impression and plan of care. Discussed with dictator. Agree with documentation, documented as a scribe.
[2021-05-18] MEDS: ONDANSETRON 16 MG in SODIUM CHLORIDE 0.9% 50 ML IVPB SCH (17:47)
[2021-05-18] MEDS: CITALOPRAM HYDROBROMIDE 20 MG TAB PO SCH (21:39)
[2021-05-18] MEDS: TEMAZEPAM 15 MG CAP PO SCH (21:39)
[2021-05-18] MEDS: MULTIVITAMINS, THERA 1 EACH TAB PO SCH (21:39)
[2021-05-18] MEDS: RIVAROXABAN 20 MG TAB PO SCH (21:39)
[2021-05-18] MEDS: DEXAMETHASONE SOD PHOSPHATE 10 MG/ML 1 ML VIAL IV SCH (21:41)
[2021-05-18] MEDS: FAMOTIDINE 20 MG/2 ML VIAL IVP SCH (21:41)
[2021-05-18] MEDS: SODIUM CHLORIDE 0.9% IV SCH ×3 (21:59)
[2021-05-18] MEDS: ETOPOSIDE IV SCH ×3 (21:59)
[2021-05-18 23:27] VITALS: RESP 18
[2021-05-19] MEDS: SODIUM CHLORIDE 0.9% 1,000 ML IV SCH (04:20)
[2021-05-19] MEDS: SALT AND SODA MOUTHWASH 1,000 ML PO SCH ×2 (04:20→12:24)
[2021-05-19 04:21] VITALS: BP 143/75; PULSE 50; TEMP 97.7
[2021-05-19 09:23] LABS: Basophils % (A) 0 %; Eosinophils % (A) 0 %; HCT 38.8 % (39.0-53.0); HGB 12.8 gm/dL (13.0-17.5); Lymphocytes # (A) 0.5 k/uL (1.0-4.8); Lymphocytes % (A) 10 %; MCH 31.6 pg (25.0-35.0); MCV 95.5 fL (80.0-100.0); Mean Platelet Volume 7.8; Monocytes # (A) 0.2 k/uL (0-1.0); Monocytes % (A) 4 %; Neutrophils # (A) 4.1 k/uL (1.3-7.7); Neutrophils % (A) 85 %; Platelet Count 196 k/uL (150-450); RBC 4.06 m/uL (4.30-5.90); RDW 12.6 % (11.5-15.5); WBC 4.8 k/uL (3.8-10.6)
[2021-05-19 09:34] LABS: ALT 14 U/L (4-49); AST 15 U/L (17-59); African American GFR (CKD) >90 (>60 ml/min/1.73 sqM); Albumin 3.2 g/dL (3.5-5.0); Albumin/Globulin Ratio 1.3; Alkaline Phosphatase 35 U/L (38-126); Anion Gap 6 mmol/L; Blood Urea Nitrogen 15 mg/dL (9-20); Carbon Dioxide 25 mmol/L (22-30); Chloride 108 mmol/L (98-107); Globulin 2.4 g/dL; Glucose 135 mg/dL (74-99); Non-African American GFR(CKD) >90 (>60 ml/min/1.73 sqM); Potassium 4.4 mmol/L (3.5-5.1); Sodium 139 mmol/L (137-145); Total Bilirubin 0.8 mg/dL (0.2-1.3); Total Protein 5.6 g/dL (6.3-8.2)
[2021-05-19] MEDS ORDERED: ONDANSETRON ODT 8 MG TAB.RAPDIS PO STA (12:20)
--- NOTE | 2021-05-19 16:17 | P.DS ---
Providers Date of admission: 05/16/21 14:21 Expected date of discharge: 05/19/21 Attending physician: Mike Harris Consults: 05/16/21 17:44 Consult Physician Routine Consulting Provider: Gregg Mccarty Consult Reason/Comments: medical management Do you want consulting provider notified?: Yes, Notify in am Primary care physician: Stated None - Discharge Diagnosis(es) (1) HIT (heparin-induced thrombocytopenia) Status: Acute Priority: High (2) Diffuse large B-cell lymphoma of extranodal site Status: Chronic Priority: High Hospital Course: Pt admitted for 1/4 treatments with the ICE portion of R-ICE regimen for recurrent DLBCL. He tolerated treatment well, only mild nausea which was relieved with antiemetics. He remained hemodynamically stable. No SE otherwise to report, 10 point ROS neg other then concern for mild constipation and some post nasal drip. He feels can manage very well at home. Assessment: WDWN,NAD, A&OX4, oral mucosa free of thrush or lesions, S1S2, no murmur, BBS CTA, resp effort unlabored, BS + 4 quead, no abd distension or tenderness, swelling in the legs, rash, pt visualized ambulating with out any distress Pertinent Studies: none Procedures: none Patient Condition at Discharge: Good Plan - Discharge Summary Discharge Rx Participant: Yes New Discharge Prescriptions: New Ondansetron [Zuplenz] 8 mg PO Q6H PRN #45 film PRN Reason: Nausea No Action Montelukast Sodium [Singulair] 10 mg PO HS PRN PRN Reason: ALLERGIES Rivaroxaban [Xarelto] 20 mg PO HS Fluticasone Nasal [place] [Flonase Nasal [place]] 2 spray EA NOSTRIL BID PRN PRN Reason: Allergy Symptoms Melatonin 5 - 10 mg PO HS PRN PRN Reason: Insomnia Citalopram Hydrobromide [CeleXA] 20 mg PO HS Acetaminophen/Diphenhydramine [Tylenol PM 500-25mg] 1 tab PO HS PRN PRN Reason: LEG/NERVE PAIN Multivit-Min/Folic/Vit K/Lycop [Men's Multivitamin Tablet] 1 tab PO HS Omeprazole 20 mg PO HS PRN PRN Reason: Gi Upset Discharge Medication List Montelukast Sodium [Singulair] 10 mg PO HS PRN 08/28/17 [History] Rivaroxaban [Xarelto] 20 mg PO HS 05/08/18 [History] Acetaminophen/Diphenhydramine [Tylenol PM 500-25mg] 1 tab PO HS PRN 09/10/20 [History] Citalopram Hydrobromide [CeleXA] 20 mg PO HS 09/10/20 [History] Fluticasone Nasal [place] [Flonase Nasal [place]] 2 spray EA NOSTRIL BID PRN 09/10/20 [History] Melatonin 5 - 10 mg PO HS PRN 09/10/20 [History] Multivit-Min/Folic/Vit K/Lycop [Men's Multivitamin Tablet] 1 tab PO HS 09/10/20 [History] Omeprazole 20 mg PO HS PRN 05/16/21 [History] Ondansetron [Zuplenz] 8 mg PO Q6H PRN #45 film 05/19/21 [Rx] Follow up Appointment(s)/Referral(s): Mike Harris MD [STAFF PHYSICIAN] - 05/20/21 12:00 pm (Booster shot at noon on Sunday-get more appts at that time) Patient Instructions/Handouts: Non-Hodgkin Lymphoma (DC), Heparin-Induced Thrombocytopenia (DC) Activity/Diet/Wound Care/Special Instructions: Diet as tolerated Activity as tolerated Temp monitoring-call MD for temp 100.5F [place] fluid intake Discharge Disposition: HOME SELF-CARE Pending Studies Pending Results: none
--- NOTE | 2021-05-20 07:23 | P.CON ---
Consult Note - . Consult date: 05/19/21 Assessment/Plan:: Medical consultation for management for history of DVT/pulmonary embolism, GERD/reflux HPI: 65-year-old male with past medical history of diffuse large B-cell lymphoma, GERD/reflux, history of DVT/pulmonary embolism status post after spinal surgery, history of nicotine dependence, prostate disorder, heparin-induced thrombocytopenia and additional comorbidities is admitted to the hospital with hematology/oncology for treatment of diffuse large B-cell lymphoma of extranodal site with chemotherapy treatment. Patient currently denies any symptoms at this time. Patient had finished treatment plan with no adverse reactions noted Physical assessment: Constitutional: average body habitus, cooperative, no acute signs of distress HEENT: normocephalic, nontraumatic, EMOI, hearing grossly normal, normal pharynx Respiratory: Even and unlabored respirations, clear and equal anterior and posterior lung jasso Cardiovascular: S1 and S2, regular no murmurs no rubs no clicks noted Gastrointestinal: Bowel sounds active in all 4 quadrants, soft nontender Integumentary: Skin intact normal Neurological: Cranial nerves intact Musculoskeletal: strength equal bilateral in all extremities Psychiatric: Alert and oriented 3 appropriate affect intact and judgment normal Assessment: Diffuse large cell lymphoma of extrandol sites, currently on chemotherapy History of DVT/pulmonary embolism currently on xarelto GERD/reflux Mixed anxiety and depression Seasonal ALLERGIES Former nicotine dependence History of spinal surgery Full code Plan: Continue home medications Continue to monitor vital signs and diagnostic testing Continue to follow on an as-needed basis with hematology oncology Clear for discharge from a medical standpoint
== END 2021-05-19 12:51 | disposition home or self-care (01) | DRG 847 ==
LOC: 5NMEDONC 14:21
PROVIDERS: ADMIT Internal Medicine Hematology & Oncology; ATTEND Internal Medicine Hematology & Oncology
PROC: XW043B3 Introduction of Cytarabine and Daunorubicin Liposome Antineoplastic into Central Vein, Percutaneous Approach, New Technology Group 3 (ICD-10-PCS; principal; 2021-05-16)
DX: Z51.11 Encounter for antineoplastic chemotherapy (principal); C83.39 Diffuse large B-cell lymphoma, extranodal and solid organ sites; F17.210 Nicotine dependence, cigarettes, uncomplicated; F41.8 Other specified anxiety disorders; J30.2 Other seasonal allergic rhinitis; K21.9 Gastro-esophageal reflux disease without esophagitis; N40.0 Benign prostatic hyperplasia without lower urinary tract symptoms; Z79.01 Long term (current) use of anticoagulants; Z79.899 Other long term (current) drug therapy; Z80.1 Family history of malignant neoplasm of trachea, bronchus and lung; Z80.8 Family history of malignant neoplasm of other organs or systems; Z86.711 Personal history of pulmonary embolism; Z86.718 Personal history of other venous thrombosis and embolism; Z92.21 Personal history of antineoplastic chemotherapy; M54.9 Dorsalgia, unspecified; G62.9 Polyneuropathy, unspecified; N42.9 Disorder of prostate, unspecified; R59.1 Generalized enlarged lymph nodes; D75.82 Heparin induced thrombocytopenia (HIT)
CPT/HCPCS: 80053; 84100; 84550; 85025; 85027

== ENCOUNTER 2021-06-06 13:43 | Inpatient (IN) | payer MEDICARE ==
[2021-06-06] MEDS ORDERED: ONDANSETRON 4 MG/2 ML VIAL IVP PRN (14:00)
[2021-06-06] MEDS ORDERED: SODIUM CHLORIDE 0.9% 1,000 ML IV SCH (15:00)
[2021-06-06] MEDS ORDERED: SENNOSIDES-DOCUSATE SODIUM 1 EACH TAB PO PRN (15:10)
[2021-06-06] MEDS ORDERED: MELATONIN 5 MG TABLET PO PRN (15:10)
[2021-06-06] MEDS ORDERED: ACETAMINOPHEN TAB 500 MG TAB PO PRN (15:10)
[2021-06-06] MEDS ORDERED: methocarbamoL 750 MG TAB PO PRN (15:10)
[2021-06-06] MEDS ORDERED: LORATADINE 10 MG TAB PO PRN (15:10)
[2021-06-06] MEDS ORDERED: diphenhydrAMINE 25 MG CAP PO PRN (15:29)
[2021-06-06 15:52] LABS: ALT 17 U/L (4-49); AST 18 U/L (17-59); African American GFR (CKD) >90 (>60 ml/min/1.73 sqM); Albumin 3.8 g/dL (3.5-5.0); Albumin/Globulin Ratio 1.4; Alkaline Phosphatase 50 U/L (38-126); Anion Gap 6 mmol/L; Blood Urea Nitrogen 19 mg/dL (9-20); Calcium 9.3 mg/dL (8.4-10.2); Carbon Dioxide 24 mmol/L (22-30); Chloride 108 mmol/L (98-107); Globulin 2.7 g/dL; Glucose 146 mg/dL (74-99); Non-African American GFR(CKD) 87 (>60 ml/min/1.73 sqM); Phosphorus 2.7 mg/dL (2.5-4.5); Potassium 4.7 mmol/L (3.5-5.1); Sodium 138 mmol/L (137-145); Total Bilirubin 0.2 mg/dL (0.2-1.3); Total Protein 6.5 g/dL (6.3-8.2); Uric Acid 5.1 mg/dL (3.5-8.5)
[2021-06-06 16:00] LABS: Basophils % (A) 0 %; Eosinophils % (A) 0 %; HCT 35.5 % (39.0-53.0); HGB 11.9 gm/dL (13.0-17.5); Lymphocytes # (A) 0.3 k/uL (1.0-4.8); Lymphocytes % (A) 3 %; MCH 31.1 pg (25.0-35.0); MCHC 33.6 g/dL (31.0-37.0); MCV 92.5 fL (80.0-100.0); Mean Platelet Volume 6.8; Monocytes # (A) 0.1 k/uL (0-1.0); Monocytes % (A) 1 %; Neutrophils # (A) 9.1 k/uL (1.3-7.7); Neutrophils % (A) 96 %; RBC 3.84 m/uL (4.30-5.90); RDW 13.2 % (11.5-15.5); WBC 9.5 k/uL (3.8-10.6)
[2021-06-06 16:03] LABS: Platelet Count 550 k/uL (150-450)
[2021-06-06] MEDS: SODIUM CHLORIDE 0.9% 1,000 ML IV SCH (16:58)
[2021-06-06] MEDS ORDERED: LORazepam 2 MG/ML INJ IV PRN (17:27)
--- NOTE | 2021-06-06 17:27 | P.HPIM ---
History of Present Illness H&P Date: 06/06/21 Chief Complaint: Large B Cell Lymphoma Jim presents for second treatment of R-ICE, he received Rituxan in office this am. He had a difficult time eating, drinking, and with constipation and nausea cycle one, therefore changes to support these symptoms will be made this cycle. Review of Systems All systems: negative Constitutional: Reports as per HPI Past Medical History Past Medical History: Cancer, Deep Vein Thrombosis (DVT), GERD/Reflux, Musculoskeletal Disorder, Neurologic Disorder, Prostate Disorder, Pulmonary Embolus (PE) Additional Past Medical History / Comment(s): Lymphoma, Neuropathy; Degenerative disc disease; Back pain, benign prostatic hypertrophy. multiple Blood Clots. 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 last chemo "couple years ago" History of Any Multi-Drug Resistant Organisms: None Reported Past Surgical History: Back Surgery, Orthopedic Surgery, Tonsillectomy Additional Past Surgical History / Comment(s): Back surgery x6; Cervical surgery; arthroscopic right knee, TURP. Port a cath, IVC filter Past Anesthesia/Blood Transfusion Reactions: No Reported Reaction Past Psychological History: No Psychological Hx Reported Smoking Status: Former smoker Past Alcohol Use History: Rare Additional Past Alcohol Use History / Comment(s): He was a smoker of a half a pack per day for 25-30 years. now occasionally smokes a few cigarettes daily Past Drug Use History: None Reported - Past Family History Mother Family Medical History: Cancer, Pulmonary Embolus Additional Family Medical History / Comment(s): Lung Cancer. Sister(s) Family Medical History: Cancer Additional Family Medical History / Comment(s): MELANOMA. Father Family Medical History: Pulmonary Embolus Medications and Allergies Home Medications Medication Instructions Recorded Confirmed Type Rivaroxaban [Xarelto] 20 mg PO HS 05/08/18 06/06/21 History Acetaminophen/Diphenhydramine 1 tab PO HS PRN 09/10/20 06/06/21 History [Tylenol PM 500-25mg] Citalopram Hydrobromide [CeleXA] 20 mg PO HS 09/10/20 06/06/21 History Fluticasone Nasal [place] [Flonase 2 spr EA NOSTRIL BID PRN 09/10/20 06/06/21 History Nasal [place]] Melatonin 5 - 10 mg PO HS PRN 09/10/20 06/06/21 History Lidocaine-Prilocaine Cream [Emla 1 applic TOPICAL DAILY PRN 06/06/21 06/06/21 History Cream 2.5%/2.5%] Loratadine 10 mg PO DAILY PRN 06/06/21 06/06/21 History Methocarbamol [Robaxin-750] 1,500 mg PO TID PRN 06/06/21 06/06/21 History Omeprazole 20 mg PO DAILY PRN 06/06/21 06/06/21 History Ondansetron HCl [Zofran] 8 mg PO Q6H PRN 06/06/21 06/06/21 History Sennosides/Docusate Sodium 2 tab PO HS PRN 06/06/21 06/06/21 History [Senna-S 8.6-50 mg Tablet] Allergies Allergy/AdvReac Type Severity Reaction Status Date / Time codeine Allergy Rash/Hives Verified 06/06/21 14:41 enoxaparin [From Lovenox] Allergy HEPARIN Verified 06/06/21 14:41 ALLERGY-CAN NOT TAKE" heparin Allergy HEPARIN Verified 06/06/21 14:41 INDUCED THROMBOCYTOPENIA (HIT) Physical Exam Vitals: Vital Signs Temp Pulse Resp BP Pulse Ox 06/06/21 14:00 98.1 F 72 17 121/73 95 Intake and Output 06/06/21 06/06/21 06/06/21 06:59 14:59 22:59 Other: Weight 93.7 kg - Constitutional General appearance: cooperative, no acute distress - EENT Eyes: EOMI, PERRLA ENT: NA/AT - Neck Neck: normal ROM - Respiratory Respiratory: bilateral: CTA - Cardiovascular Rhythm: regular - Gastrointestinal General gastrointestinal: normal bowel sounds - Integumentary Integumentary: pale - Neurologic Neurologic: CNII-XII intact - Musculoskeletal Musculoskeletal: generalized weakness - Psychiatric Psychiatric: A&O x's 3, appropriate affect, intact judgment & insight Results CBC & Chem 7: 06/06/21 15:22 06/06/21 15:22 Labs: Abnormal Lab Results - Last 24 Hours (Table) 06/06/21 06/06/21 Range/Units 15:22 15:22 RBC 3.84 L (4.30-5.90) m/uL Hgb 11.9 L (13.0-17.5) gm/dL Hct 35.5 L (39.0-53.0) % Plt Count 550 H D (150-450) k/uL Neutrophils # 9.1 H (1.3-7.7) k/uL Lymphocytes # 0.3 L (1.0-4.8) k/uL Chloride 108 H (98-107) mmol/L Glucose 146 H (74-99) mg/dL Thrombosis Risk Factor Assmnt - DVT/VTE Prophylaxis DVT/VTE Prophylaxis: Pharmacologic Prophylaxis ordered - Choose All That Apply Any of the Below Risk Factors Present?: No Other Risk Factors: Yes Each Risk Factor Represents 2 Points: Age 61-74 years, Central venous access Each Risk Factor Represents 3 Points: Heparin-induced thrombocytopenia (HIT), Hi story of DVT/PE Other congenital or acquired thrombophilia - If yes, enter type in comment: No Thrombosis Risk Factor Assessment Total Risk Factor Score: 10 Thrombosis Risk Factor Assessment Level: High Risk Assessment and Plan (1) Diffuse large B cell lymphoma Current Visit: No Status: Acute Code(s): C83.30 - DIFFUSE LARGE B-CELL LYMPHOMA, UNSPECIFIED SITE SNOMED Code(s): 398571269 (2) HIT (heparin-induced thrombocytopenia) Current Visit: No Status: Acute Priority: High Code(s): D75.82 - HEPARIN INDUCED THROMBOCYTOPENIA (HIT) SNOMED Code(s): 85335061 Plan: Large B-Cell Lymphoma: - Cycle 2 Day One of [place] - Monitor UA daily for RBC - Monitor daily labs and for TLS - Increase bowel regimen and Antiemetic Regimen
[2021-06-06] MEDS: PANTOPRAZOLE 40 MG/10 ML VIAL IVP SCH (18:12)
[2021-06-06] MEDS: LORATADINE 10 MG TAB PO SCH (20:44)
[2021-06-06] MEDS: RIVAROXABAN 20 MG TAB PO SCH (20:44)
[2021-06-06] MEDS: CITALOPRAM HYDROBROMIDE 20 MG TAB PO SCH (20:44)
[2021-06-06] MEDS: OLANZapine 5 MG TAB PO SCH (20:44)
[2021-06-06] MEDS: SENNOSIDES-DOCUSATE SODIUM 1 EACH TAB PO SCH (20:45)
[2021-06-06] MEDS ORDERED: ONDANSETRON 16 MG in SODIUM CHLORIDE 0.9% 50 ML IVPB SCH (21:00)
[2021-06-06] MEDS ORDERED: SODIUM CHLORIDE 0.9% IV SCH ×3 (21:00)
[2021-06-06] MEDS ORDERED: ETOPOSIDE IV SCH ×3 (21:00)
[2021-06-07] MEDS: SODIUM CHLORIDE 0.9% 1,000 ML IV SCH ×3 (04:59→19:50)
[2021-06-07 06:01] LABS: ALT 13 U/L (4-49); AST 13 U/L (17-59); African American GFR (CKD) >90 (>60 ml/min/1.73 sqM); Albumin 3.2 g/dL (3.5-5.0); Albumin/Globulin Ratio 1.3; Alkaline Phosphatase 41 U/L (38-126); Anion Gap 5 mmol/L; Blood Urea Nitrogen 14 mg/dL (9-20); Calcium 9.2 mg/dL (8.4-10.2); Carbon Dioxide 24 mmol/L (22-30); Chloride 113 mmol/L (98-107); Globulin 2.5 g/dL; Glucose 104 mg/dL (74-99); LDH 329 U/L (313-618); Magnesium 2.2 mg/dL (1.6-2.3); Non-African American GFR(CKD) >90 (>60 ml/min/1.73 sqM); Potassium 4.6 mmol/L (3.5-5.1); Sodium 142 mmol/L (137-145); Total Bilirubin 0.4 mg/dL (0.2-1.3); Total Protein 5.7 g/dL (6.3-8.2); Uric Acid 4.7 mg/dL (3.5-8.5)
[2021-06-07 06:18] LABS: Basophils % (A) 0 %; Eosinophils % (A) 0 %; HGB 11.3 gm/dL (13.0-17.5); Lymphocytes # (A) 0.7 k/uL (1.0-4.8); Lymphocytes % (A) 7 %; MCH 31.2 pg (25.0-35.0); MCHC 34.2 g/dL (31.0-37.0); MCV 91.4 fL (80.0-100.0); Mean Platelet Volume 6.8; Monocytes # (A) 0.6 k/uL (0-1.0); Monocytes % (A) 6 %; Neutrophils # (A) 8.3 k/uL (1.3-7.7); Neutrophils % (A) 85 %; Platelet Count 570 k/uL (150-450); RBC 3.61 m/uL (4.30-5.90); RDW 13.8 % (11.5-15.5); WBC 9.8 k/uL (3.8-10.6)
[2021-06-07] MEDS: SENNOSIDES-DOCUSATE SODIUM 1 EACH TAB PO SCH ×2 (08:59→20:50)
[2021-06-07] MEDS: PANTOPRAZOLE 40 MG/10 ML VIAL IVP SCH (09:01)
[2021-06-07] MEDS: FAMOTIDINE 20 MG/2 ML VIAL IVP SCH (11:11)
[2021-06-07] MEDS: SALT AND SODA MOUTHWASH 1,000 ML PO SCH ×4 (11:11→23:31)
[2021-06-07] MEDS: DEXAMETHASONE SOD PHOSPHATE 10 MG/ML 1 ML VIAL IV SCH (11:11)
[2021-06-07] MEDS: ONDANSETRON 16 MG in SODIUM CHLORIDE 0.9% 50 ML IVPB SCH (11:12)
[2021-06-07] MEDS ORDERED: METOCLOPRAMIDE 5 MG/ML 2 ML VIAL IVP PRN (11:26)
[2021-06-07] MEDS ORDERED: BUTALB/APAP/CAFF 50-325-40MG TAB PO PRN (11:41)
[2021-06-07] MEDS ORDERED: SODIUM CHLORIDE 0.9% IV ONE ×3 (12:00)
[2021-06-07] MEDS ORDERED: MESNA IV ONE (12:00)
[2021-06-07] MEDS ORDERED: IFOSFAMIDE IV ONE (12:00)
[2021-06-07] MEDS ORDERED: CARBOPLATIN IV ONE (12:00)
[2021-06-07] MEDS ORDERED: [UNRECOGNIZED DRUG - OTHER] IV ONE (12:00)
[2021-06-07 12:27] LABS: Vitamin B12 >2000.0 pg/mL (200.0-944.0)
[2021-06-07 13:28] LABS: Appearance,Urine Clear (Clear); Bilirubin,Urine Negative (Negative); Blood,Urine Negative (Negative); Color,Urine Yellow; Glucose,Urine (UA) Negative (Negative); Ketones,Urine Negative (Negative); Leukocyte Esterase,Urine Negative (Negative); Nitrite,Urine Negative (Negative); PH, Urine 5.5 (5.0-8.0); Protein,Urine Negative (Negative); Specific Gravity,Urine 1.017 (1.001-1.035); Urobilinogen,Urine <2.0 mg/dL (<2.0)
[2021-06-07] MEDS: SODIUM CHLORIDE 0.9% IV SCH ×3 (15:29)
[2021-06-07] MEDS: ETOPOSIDE IV SCH ×3 (15:29)
--- NOTE | 2021-06-07 17:57 | P.PN ---
Subjective Progress Note Date: 06/07/21 Principal diagnosis: NHL RICE CYcle 2 Tolerating chemo ok, difficult time sleeping, reminded him there is ativan on PRN list. He also complained headache, fiorecet ordered Objective - Vital Signs Vital signs: Vital Signs Temp 97.9 F 06/07/21 03:58 Pulse 59 L 06/07/21 03:58 Resp 16 06/07/21 03:58 BP 107/63 06/07/21 03:58 Pulse Ox 94 L 06/07/21 03:58 Intake & Output 06/06/21 06/07/21 06/07/21 18:59 06:59 18:59 Intake Total 50 1100 Balance 50 1100 Weight 93.7 kg Intake: Intake, IV Titration 50 1100 Amount Ondansetron 16 mg In 50 Sodium Chloride 0.9% 50 ml @ 232 mls/hr IVPB Q24H [facility] Rx#:[id number] Sodium Chloride 0.9% 1, 1100 000 ml @ 100 mls/hr IV . Q10H [facility] Rx#:[id number] - Exam Alert and oriented NAD Neck Supple Lungs: CTA Heart: RRR Abdomen: Soft ND Ext: No Edema. - Labs CBC & Chem 7: 06/07/21 05:20 06/07/21 05:20 Labs: Abnormal Lab Results - Last 24 Hours (Table) 06/06/21 06/06/21 06/07/21 Range/Units 15:22 15:22 05:20 RBC 3.84 L 3.61 L (4.30-5.90) m/uL Hgb 11.9 L 11.3 L (13.0-17.5) gm/dL Hct 35.5 L 33.0 L (39.0-53.0) % Plt Count 550 H D 570 H (150-450) k/uL Neutrophils # 9.1 H 8.3 H (1.3-7.7) k/uL Lymphocytes # 0.3 L 0.7 L (1.0-4.8) k/uL Chloride 108 H (98-107) mmol/L Glucose 146 H (74-99) mg/dL AST (17-59) U/L Total Protein (6.3-8.2) g/dL Albumin (3.5-5.0) g/dL Vitamin D 25-Hydroxy (30.0-100.0) ng/mL 06/07/21 Range/Units 05:20 RBC (4.30-5.90) m/uL Hgb (13.0-17.5) gm/dL Hct (39.0-53.0) % Plt Count (150-450) k/uL Neutrophils # (1.3-7.7) k/uL Lymphocytes # (1.0-4.8) k/uL Chloride 113 H (98-107) mmol/L Glucose 104 H (74-99) mg/dL AST 13 L (17-59) U/L Total Protein 5.7 L (6.3-8.2) g/dL Albumin 3.2 L (3.5-5.0) g/dL Vitamin D 25-Hydroxy 23.1 L (30.0-100.0) ng/mL Assessment and Plan (1) Diffuse large B cell lymphoma Current Visit: No Status: Acute Code(s): C83.30 - DIFFUSE LARGE B-CELL LYMPHOMA, UNSPECIFIED SITE SNOMED Code(s): 035750905 (2) HIT (heparin-induced thrombocytopenia) Current Visit: No Status: Acute Priority: High Code(s): D75.82 - HEPARIN INDUCED THROMBOCYTOPENIA (HIT) SNOMED Code(s): 20676195 Plan: Large B-Cell Lymphoma: - Cycle 2 Day Two of [place] - Monitor UA daily for RBC - Monitor daily labs and for TLS - Increase bowel regimen and Antiemetic Regimen Utilize At[place] at HS Migraine medication PRN
[2021-06-07] MEDS: RIVAROXABAN 20 MG TAB PO SCH (20:50)
[2021-06-07] MEDS: CITALOPRAM HYDROBROMIDE 20 MG TAB PO SCH (20:50)
[2021-06-07] MEDS: LORATADINE 10 MG TAB PO SCH (20:50)
[2021-06-07] MEDS: OLANZapine 5 MG TAB PO SCH (20:50)
[2021-06-07] MEDS ORDERED: TEMAZEPAM 15 MG CAP PO SCH (21:00)
--- NOTE | 2021-06-07 21:14 | P.CON ---
Consult Note - . Consult date: 06/07/21 Assessment/Plan:: Assessment/Plan:: Medical consultation for management for history of DVT/pulmonary embolism, GERD/reflux HPI: 65-year-old male with past medical history of diffuse large B-cell lymphoma, GERD/reflux, history of DVT/pulmonary embolism status post after spinal surgery, history of nicotine dependence, prostate disorder, heparin-induced thrombocytopenia and additional comorbidities is admitted to the hospital with hematology/oncology for treatment of diffuse large B-cell lymphoma of extranodal site with chemotherapy treatment. Patient endorses cephalgia, chills, mild cough and exertional shortness of breath. Patient tolerating chemotherapy treatment with no adverse reaction. Physical assessment: Constitutional: average body habitus, cooperative, no acute signs of distress HEENT: normocephalic, nontraumatic, EMOI, hearing grossly normal, normal pharynx Respiratory: Even and unlabored respirations, clear and equal anterior and posterior lung jasso Cardiovascular: S1 and S2, regular no murmurs no rubs no clicks noted Gastrointestinal: Bowel sounds active in all 4 quadrants, soft nontender Integumentary: Skin intact normal Neurological: Cranial nerves intact Musculoskeletal: strength equal bilateral in all extremities Psychiatric: Alert and oriented 3 appropriate affect intact and judgment normal Assessment: Diffuse large cell lymphoma of extrandol sites, currently on chemotherapy History of DVT/pulmonary embolism currently on xarelto GERD/reflux Mixed anxiety and depression Seasonal ALLERGIES Former nicotine dependence History of spinal surgery Full code Plan: Mildly elevated fever with associated cough, we'll obtain chest x-ray, ESR, CRP, Pro calcitonin Continue home medications Continue to monitor vital signs and diagnostic testing Further recommendations come based on patient's clinical condition
[2021-06-08] MEDS: SALT AND SODA MOUTHWASH 1,000 ML PO SCH ×5 (04:37→23:01)
[2021-06-08] MEDS: SODIUM CHLORIDE 0.9% 1,000 ML IV SCH ×2 (04:37→14:32)
[2021-06-08 05:46] LABS: HCT 32.2 % (39.0-53.0); MCHC 34.1 g/dL (31.0-37.0); MCV 93.8 fL (80.0-100.0); Mean Platelet Volume 7.2; Platelet Count 502 k/uL (150-450); RBC 3.44 m/uL (4.30-5.90); RDW 13.4 % (11.5-15.5); WBC 6.9 k/uL (3.8-10.6)
[2021-06-08 08:55] LABS: Erythrocyte Sedimentation Rate 10 mm/hr (0-15)
[2021-06-08] MEDS: PANTOPRAZOLE 40 MG/10 ML VIAL IVP SCH (09:03)
[2021-06-08] MEDS: SENNOSIDES-DOCUSATE SODIUM 1 EACH TAB PO SCH ×2 (09:03→20:29)
[2021-06-08] MEDS: CHOLECALCIFEROL 25 MCG (1000 IU) TABLET PO SCH (09:03)
--- NOTE | 2021-06-08 10:58 | P.PN ---
Subjective Progress Note Date: 06/08/21 Principal diagnosis: NHL RICE CYcle 2 He is tolerating chemo well at this time, no nausea or vomiting but was a bit "hung over" this am after restoril. Objective - Vital Signs Vital signs: Vital Signs Temp 97.8 F 06/08/21 08:00 Pulse 64 06/08/21 08:00 Resp 16 06/08/21 08:00 BP 119/65 06/08/21 08:00 Pulse Ox 96 06/08/21 08:00 Intake & Output 06/07/21 06/08/21 06/08/21 18:59 06:59 18:59 Intake Total 850 Output Total 1000 800 Balance -150 -800 Intake: Intake, IV Titration 850 Amount CARBOplatin 520 mg In 250 Sodium Chloride 0.9% 250 ml @ 604 mls/hr IV ONCE ONE Rx#:[id number] Etoposide 220 mg In 550 Sodium Chloride 0.9% ( Dehp [place] 500 ml In Sodium Chloride 0.9% 39 ml @ 550 mls/hr IV Q24H [facility] Rx #:[id number] Ondansetron 16 mg In 50 Sodium Chloride 0.9% 50 ml @ 232 mls/hr IVPB Q24H [facility] Rx#:[id number] Output: Urine 1000 800 Other: Voiding Method Toilet Urinal - Exam Alert and oriented NAD Neck Supple Lungs: CTA Heart: RRR Abdomen: Soft ND Ext: No Edema. - Labs CBC & Chem 7: 06/08/21 05:25 06/08/21 05:25 Labs: Abnormal Lab Results - Last 24 Hours (Table) 06/07/21 06/08/21 Range/Units 05:20 05:25 RBC 3.44 L (4.30-5.90) m/uL Hgb 11.0 L (13.0-17.5) gm/dL Hct 32.2 L (39.0-53.0) % Plt Count 502 H (150-450) k/uL Vitamin B12 >2000.0 H (200.0-944.0) pg/mL Vitamin D 25-Hydroxy 23.1 L (30.0-100.0) ng/mL Assessment and Plan (1) Diffuse large B cell lymphoma Current Visit: No Status: Acute Code(s): C83.30 - DIFFUSE LARGE B-CELL LYMPHOMA, UNSPECIFIED SITE SNOMED Code(s): 591017638 (2) HIT (heparin-induced thrombocytopenia) Current Visit: No Status: Acute Priority: High Code(s): D75.82 - HEPARIN INDUCED THROMBOCYTOPENIA (HIT) SNOMED Code(s): 47857790 Plan: Large B-Cell Lymphoma: - Cycle 2 Day 2 of [place] - Monitor UA daily for RBC - Monitor daily labs and for TLS - Increase bowel regimen and Antiemetic Regimen Order ativan at hs for sleep as opposed to restoril for shorter half life Discontinue benadryl secondary to restless legs Discussed with primary team
[2021-06-08 12:43] LABS: ALT 10 U/L (10-49); AST 9 U/L (14-35); African American GFR (CKD) 107.7 (60.0-200.0); Albumin 3.5 g/dL (3.8-4.9); Albumin/Globulin Ratio 1.95 (1.60-3.17); Alkaline Phosphatase 43 U/L (41-126); BUN/Creat Ratio 15.13 Ratio (12.00-20.00); Blood Urea Nitrogen 12.8 mg/dL (9.0-27.0); Calcium 8.9 mg/dL (8.7-10.3); Carbon Dioxide 19.6 mmol/L (21.6-31.8); Chloride 113 mmol/L (96-109); Globulin 1.8 g/dL (1.6-3.3); Glucose 103 mg/dL (70-110); Magnesium 2.2 mg/dL (1.5-2.4); Non-African American GFR(CKD) 92.9 (60.0-200.0); Potassium 4.3 mmol/L (3.5-5.5); Sodium 144 mmol/L (135-145); Total Protein 5.3 g/dL (6.2-8.2)
[2021-06-08 12:53] LABS: C Reactive Protein <0.30 mg/dL (0.00-0.80)
[2021-06-08 14:28] LABS: Phosphorus 3.7 mg/dL (2.4-5.1)
[2021-06-08] MEDS: DEXAMETHASONE SOD PHOSPHATE 10 MG/ML 1 ML VIAL IV SCH (14:31)
[2021-06-08] MEDS: FAMOTIDINE 20 MG/2 ML VIAL IVP SCH (14:31)
[2021-06-08] MEDS: ACYCLOVIR 200 MG CAP PO SCH ×2 (14:31→20:31)
[2021-06-08] MEDS: ONDANSETRON 16 MG in SODIUM CHLORIDE 0.9% 50 ML IVPB SCH (14:31)
[2021-06-08] MEDS: SODIUM CHLORIDE 0.9% IV SCH ×3 (15:05)
[2021-06-08] MEDS: ETOPOSIDE IV SCH ×3 (15:05)
--- NOTE | 2021-06-08 15:06 | XR ---
EXAMINATION TYPE: XR abdomen acute w cxr DATE OF EXAM: 06/08/2021 COMPARISON: NONE HISTORY: 65-year-old male with abdominal pain and cough TECHNIQUE: Supine, upright, and left side down lateral decubitus views of the abdomen are obtained. FINDINGS: ACDF hardware. Left anterior chest wall injection port with catheter tip at the upper SVC. Heart norm al size. Aorta and pelvic vasculature within normal limits. Some strandy atelectasis in the lower paulie gs. No consolidation or pleural effusion. No evidence for free intraperitoneal air. No dilated small bowel or differential air-fluid levels. IVC filter. Moderate stool burden. Degenerated dextroconvex scoliosis lumbar spine. Mild degenerative changes SI joints. No suspicious calcifications are identified. IMPRESSION: 1. No acute cardiopulmonary process. 2. No evidence for free air or bowel obstruction. 3. Moderate stool burden. 4. IVC filter.
[2021-06-08] MEDS: MAG HYDROX/AL HYDROX/SIMETH 30 ML, LIDOCAINE VISCOUS 30 ML, diphenhydrAMINE ELIXIR 75 M... PO SCH ×8 (16:02→20:31)
[2021-06-08] MEDS ORDERED: TEMAZEPAM 15 MG CAP PO PRN (16:17)
--- NOTE | 2021-06-08 20:15 | P.CON ---
Consult Note - . Consult date: 06/08/21 Assessment/Plan:: Medical consultation for management for history of DVT/pulmonary embolism, GERD/reflux HPI: 65-year-old male with past medical history of diffuse large B-cell lymphoma, GERD/reflux, history of DVT/pulmonary embolism status post after spinal surgery, history of nicotine dependence, prostate disorder, heparin-induced thrombocytopenia and additional comorbidities is admitted to the hospital with hematology/oncology for treatment of diffuse large B-cell lymphoma of extranodal site with chemotherapy treatment. Patient endorses chills, difficulty swallowing and generalized weakness. Patient tolerating chemotherapy treatment with no adverse reaction. Physical assessment: Constitutional: average body habitus, cooperative, no acute signs of distress HEENT: normocephalic, nontraumatic, EMOI, hearing grossly normal, normal pharynx Respiratory: Even and unlabored respirations, clear and equal anterior and posterior lung jasso Cardiovascular: S1 and S2, regular no murmurs no rubs no clicks noted Gastrointestinal: Bowel sounds active in all 4 quadrants, soft nontender Integumentary: Skin intact normal Neurological: Cranial nerves intact Musculoskeletal: strength equal bilateral in all extremities Psychiatric: Alert and oriented 3 appropriate affect intact and judgment normal Assessment: Diffuse large cell lymphoma of extrandol sites, currently on chemotherapy History of DVT/pulmonary embolism currently on xarelto GERD/reflux Mixed anxiety and depression Seasonal ALLERGIES Former nicotine dependence History of spinal surgery Full code Plan: For difficulty swallowing added additional Magic mouthwash Subjective chills and generalized weakness stat blood cultures Continue home medications Continue to monitor vital signs and diagnostic testing Further recommendations come based on patient's clinical condition
[2021-06-08] MEDS: LORATADINE 10 MG TAB PO SCH (20:29)
[2021-06-08] MEDS: RIVAROXABAN 20 MG TAB PO SCH (20:29)
[2021-06-08] MEDS: CITALOPRAM HYDROBROMIDE 20 MG TAB PO SCH (20:29)
[2021-06-08] MEDS: OLANZapine 5 MG TAB PO SCH (20:29)
[2021-06-09] MEDS: SODIUM CHLORIDE 0.9% 1,000 ML IV SCH ×2 (00:39→10:19)
[2021-06-09 05:07] VITALS: PULSE 72; RESP 20; TEMP 97.6
[2021-06-09 05:08] VITALS: BP 109/57
[2021-06-09] MEDS: SALT AND SODA MOUTHWASH 1,000 ML PO SCH ×2 (05:52→10:19)
[2021-06-09 06:40] LABS: Basophils % (A) 0 %; Eosinophils % (A) 0 %; HCT 32.2 % (39.0-53.0); HGB 10.7 gm/dL (13.0-17.5); Lymphocytes # (A) 0.6 k/uL (1.0-4.8); Lymphocytes % (A) 12 %; MCH 31.1 pg (25.0-35.0); MCHC 33.1 g/dL (31.0-37.0); MCV 93.9 fL (80.0-100.0); Mean Platelet Volume 7.1; Monocytes # (A) 0.3 k/uL (0-1.0); Monocytes % (A) 6 %; Neutrophils # (A) 4.2 k/uL (1.3-7.7); Neutrophils % (A) 80 %; Platelet Count 511 k/uL (150-450); RBC 3.43 m/uL (4.30-5.90); RDW 13.4 % (11.5-15.5); WBC 5.3 k/uL (3.8-10.6)
[2021-06-09] MEDS: CHOLECALCIFEROL 25 MCG (1000 IU) TABLET PO SCH (09:10)
[2021-06-09] MEDS: ACYCLOVIR 200 MG CAP PO SCH (09:10)
[2021-06-09] MEDS: SENNOSIDES-DOCUSATE SODIUM 1 EACH TAB PO SCH (09:10)
[2021-06-09] MEDS: MAG HYDROX/AL HYDROX/SIMETH 30 ML, LIDOCAINE VISCOUS 30 ML, diphenhydrAMINE ELIXIR 75 M... PO SCH ×4 (09:11)
[2021-06-09] MEDS: PANTOPRAZOLE 40 MG/10 ML VIAL IVP SCH (09:11)
[2021-06-09 11:09] LABS: African American GFR (CKD) 117.7 (60.0-200.0); Albumin 3.4 g/dL (3.8-4.9); Albumin/Globulin Ratio 2.12 (1.60-3.17); Anion Gap 8.7 mmol/L (4.00-12.00); BUN/Creat Ratio 18.62 Ratio (12.00-20.00); Blood Urea Nitrogen 12.7 mg/dL (9.0-27.0); Calcium 8.9 mg/dL (8.7-10.3); Carbon Dioxide 22.7 mmol/L (21.6-31.8); Globulin 1.6 g/dL (1.6-3.3); Magnesium 2.1 mg/dL (1.5-2.4); Non-African American GFR(CKD) 101.5 (60.0-200.0); Phosphorus 3.4 mg/dL (2.4-5.1); Potassium 4.4 mmol/L (3.5-5.5); Total Bilirubin 0.4 mg/dL (0.30-1.20)
--- NOTE | 2021-06-09 12:36 | P.CON ---
Consult Note - . Consult date: 06/09/21 Assessment/Plan:: Medical consultation for management for history of DVT/pulmonary embolism, GERD/reflux HPI: 65-year-old male with past medical history of diffuse large B-cell lymphoma, GERD/reflux, history of DVT/pulmonary embolism status post after spinal surgery, history of nicotine dependence, prostate disorder, heparin-induced thrombocytopenia and additional comorbidities is admitted to the hospital with hematology/oncology for treatment of diffuse large B-cell lymphoma of extranodal site with chemotherapy treatment. Patient tolerated chemotherapy treatment with no adverse reaction. Physical assessment: Constitutional: average body habitus, cooperative, no acute signs of distress HEENT: normocephalic, nontraumatic, EMOI, hearing grossly normal, normal pharynx Respiratory: Even and unlabored respirations, clear and equal anterior and posterior lung jasso Cardiovascular: S1 and S2, regular no murmurs no rubs no clicks noted Gastrointestinal: Bowel sounds active in all 4 quadrants, soft nontender Integumentary: Skin intact normal Neurological: Cranial nerves intact Musculoskeletal: strength equal bilateral in all extremities Psychiatric: Alert and oriented 3 appropriate affect intact and judgment normal Assessment: Diffuse large cell lymphoma of extrandol sites, currently on chemotherapy History of DVT/pulmonary embolism currently on xarelto GERD/reflux Mixed anxiety and depression Seasonal ALLERGIES Former nicotine dependence History of spinal surgery Full code Plan: cleared for discharge from medical standpoint
--- NOTE | 2021-06-09 17:40 | P.DS ---
Providers Date of admission: 06/06/21 13:43 Expected date of discharge: 06/09/21 Attending physician: Renetta Solis Consults: 06/06/21 17:42 Consult Physician Routine Consulting Provider: Gregg Mccarty Consult Reason/Comments: medical managment Do you want consulting provider notified?: Yes Primary care physician: Gregg Mccarty - Discharge Diagnosis(es) (1) Diffuse large B cell lymphoma Status: Acute (2) HIT (heparin-induced thrombocytopenia) Status: Acute Priority: High Plan - Discharge Summary Discharge Rx Participant: Yes New Discharge Prescriptions: New Butalb/APAP/Caff 50-325-40Mg [Fioricet 50-325-40] 2 each PO Q6HR PRN #30 tab PRN Reason: Headache Nystatin 100,000 Unit/ml Susp [Mycostatin Oral Susp] 3,000,000 unit PO TID ml Lidocaine Viscous [Xylocaine Viscous 2%] 30 ml PO TID #240 ml OLANZapine [ZyPREXA] 7.5 mg PO HS #45 tab LORazepam 0.5 mg PO Q8H 3 Days #9 tab Cholecalciferol [Vitamin D3 (25 Mcg = 1000 Iu)] 50 mcg PO DAILY #60 tablet Acyclovir [Zovirax] 400 mg PO BID cap Continue Rivaroxaban [Xarelto] 20 mg PO HS Fluticasone Nasal [place] [Flonase Nasal [place]] 2 spr EA NOSTRIL BID PRN PRN Reason: Allergy Symptoms Melatonin 5 - 10 mg PO HS PRN PRN Reason: Insomnia Citalopram Hydrobromide [CeleXA] 20 mg PO HS Methocarbamol [Robaxin-750] 1,500 mg PO TID PRN PRN Reason: Muscle Spasm Lidocaine-Prilocaine Cream [Emla Cream 2.5%/2.5%] 1 applic TOPICAL DAILY PRN PRN Reason: port access Ondansetron HCl [Zofran] 8 mg PO Q6H PRN #45 tab PRN Reason: Nausea And Vomiting Loratadine 10 mg PO DAILY PRN PRN Reason: Allergy Symptoms Changed Omeprazole 20 mg PO DAILY #30 Sennosides/Docusate Sodium [Senna-S 8.6-50 mg Tablet] 2 tab PO HS #60 Discontinued Acetaminophen/Diphenhydramine [Tylenol PM 500-25mg] 1 tab PO HS PRN PRN Reason: LEG/NERVE PAIN Discharge Medication List Rivaroxaban [Xarelto] 20 mg PO HS 05/08/18 [History] Citalopram Hydrobromide [CeleXA] 20 mg PO HS 09/10/20 [History] Fluticasone Nasal [place] [Flonase Nasal [place]] 2 spr EA NOSTRIL BID PRN 09/10/20 [History] Melatonin 5 - 10 mg PO HS PRN 09/10/20 [History] Lidocaine-Prilocaine Cream [Emla Cream 2.5%/2.5%] 1 applic TOPICAL DAILY PRN 06/06/21 [History] Loratadine 10 mg PO DAILY PRN 06/06/21 [History] Methocarbamol [Robaxin-750] 1,500 mg PO TID PRN 06/06/21 [History] Acyclovir [Zovirax] 400 mg PO BID cap 06/09/21 [Rx] Butalb/APAP/Caff 50-325-40Mg [Fioricet 50-325-40] 2 each PO Q6HR PRN #30 tab 06/09/21 [Rx] Cholecalciferol [Vitamin D3 (25 Mcg = 1000 Iu)] 50 mcg PO DAILY #60 tablet 06/09/21 [Rx] LORazepam 0.5 mg PO Q8H 3 Days #9 tab 06/09/21 [Rx] Lidocaine Viscous [Xylocaine Viscous 2%] 30 ml PO TID #240 ml 06/09/21 [Rx] Nystatin 100,000 Unit/ml Susp [Mycostatin Oral Susp] 3,000,000 unit PO TID ml 06/09/21 [Rx] OLANZapine [ZyPREXA] 7.5 mg PO HS #45 tab 06/09/21 [Rx] Omeprazole 20 mg PO DAILY #30 06/09/21 [Rx] Ondansetron HCl [Zofran] 8 mg PO Q6H PRN #45 tab 06/09/21 [Rx] Sennosides/Docusate Sodium [Senna-S 8.6-50 mg Tablet] 2 tab PO HS #60 06/09/21 [Rx] Follow up Appointment(s)/Referral(s): Carroll Rivera MD [STAFF PHYSICIAN] - 06/10/21 1:30 pm Barkley,Claudia, ANPBC [Nurse Practitioner] - 1 Week Patient Instructions/Handouts: Pegfilgrastim (By injection) Activity/Diet/Wound Care/Special Instructions: Patient will go to [facility] for neulasta on 06/10/21 @1:30pm Discharge Disposition: HOME SELF-CARE Care Plan Goals (MU): chemo completion
== END 2021-06-09 13:54 | disposition home or self-care (01) | DRG 847 ==
LOC: 5NMEDONC 13:43
PROVIDERS: ADMIT Internal Medicine Hematology & Oncology; ATTEND Internal Medicine Hematology & Oncology
DX: Z51.11 Encounter for antineoplastic chemotherapy (principal); C83.39 Diffuse large B-cell lymphoma, extranodal and solid organ sites; D75.82 Heparin induced thrombocytopenia (HIT); F17.210 Nicotine dependence, cigarettes, uncomplicated; F41.8 Other specified anxiety disorders; K21.9 Gastro-esophageal reflux disease without esophagitis; K59.00 Constipation, unspecified; N40.0 Benign prostatic hyperplasia without lower urinary tract symptoms; J30.2 Other seasonal allergic rhinitis; R51.9 Headache, unspecified; Z86.718 Personal history of other venous thrombosis and embolism; Z86.711 Personal history of pulmonary embolism; Z79.01 Long term (current) use of anticoagulants; Z79.899 Other long term (current) drug therapy; Z80.1 Family history of malignant neoplasm of trachea, bronchus and lung; Z80.8 Family history of malignant neoplasm of other organs or systems
CPT/HCPCS: 74022; 80053; 81003; 82306; 82607; 82746; 82784; 83615; 83735; 84100; 84145; 84207; 84550; 85025; 85027; 85652; 86140; 87040

== ENCOUNTER 2023-03-11 18:27 | Emergency (ER) | payer MEDICARE ==
[2023-03-11] MEDS ORDERED: MORPHINE SULFATE 4 MG/ML SYRINGE IVP STA (20:27)
[2023-03-11] MEDS ORDERED: SODIUM CHLORIDE 0.9% 1,000 ML IV STA (20:28)
--- NOTE | 2023-03-11 20:33 | ED ---
Abdominal Pain HPI - General Chief Complaint: Abdominal Pain Stated Complaint: Abd pain Time Seen by Provider: 03/11/23 20:04 Source: patient Mode of arrival: ambulatory Limitations: no limitations - History of Present Illness Initial Comments: -year-old male with a past medical history significant for diverticulitis presents to ED with a chief complaint of abdominal pain. Patient states since yesterday started to experience left lower abdominal pain. Since onset reports pain has worsened in severity. Last bowel movement was yesterday which was no rmal in caliber for the patient, no diarrhea, no blood. Additionally, notes left-sided back pain. Associated urgency and frequency however denies pain with urination or hematuria. Denies chest pain or shortness of breath. No other complaints. - Related Data Home Medications Medication Instructions Recorded Confirmed Rivaroxaban [Xarelto] 20 mg PO HS 05/08/18 06/06/21 Citalopram Hydrobromide [CeleXA] 20 mg PO HS 09/10/20 06/06/21 Fluticasone Nasal [place] [Flonase 2 spr EA NOSTRIL BID PRN 09/10/20 06/06/21 Nasal [place]] Melatonin 5 - 10 mg PO HS PRN 09/10/20 06/06/21 Lidocaine-Prilocaine Cream [Emla 1 applic TOPICAL DAILY PRN 06/06/21 06/06/21 Cream 2.5%/2.5%] Loratadine 10 mg PO DAILY PRN 06/06/21 06/06/21 methocarbamoL [Robaxin-750] 1,500 mg PO TID PRN 06/06/21 06/06/21 Previous Rx's Medication Instructions Recorded Acyclovir [Zovirax] 400 mg PO BID cap 06/09/21 Butalb/APAP/Caff 50-325-40Mg 2 each PO Q6HR PRN #30 tab 06/09/21 [Fioricet 50-325-40] Cholecalciferol [Vitamin D3 (25 50 mcg PO DAILY #60 tablet 06/09/21 Mcg = 1000 Iu)] LORazepam 0.5 mg PO Q8H 3 Days #9 tab 06/09/21 Lidocaine Viscous [Xylocaine 30 ml PO TID #240 ml 06/09/21 Viscous 2%] Nystatin 100,000 Unit/ml Susp 3,000,000 unit PO TID ml 06/09/21 [Mycostatin Oral Susp] OLANZapine [ZyPREXA] 7.5 mg PO HS #45 tab 06/09/21 Omeprazole 20 mg PO DAILY #30 06/09/21 Sennosides/Docusate Sodium 2 tab PO HS #60 06/09/21 [Senna-S 8.6-50 mg Tablet] ondansetron HCL [Zofran] 8 mg PO Q6H PRN #45 tab 06/09/21 Amoxic-Pot Clav 875-125Mg 1 tab PO Q12HR 7 Days #14 tab 03/11/23 [Augmentin 875-125] Allergies Allergy/AdvReac Type Severity Reaction Status Date / Time codeine Allergy Rash/Hives Verified 03/11/23 18:44 enoxaparin [From Lovenox] Allergy HEPARIN Verified 03/11/23 18:44 ALLERGY-CAN NOT TAKE" heparin Allergy HEPARIN Verified 03/11/23 18:44 INDUCED THROMBOCYTOPENIA (HIT) Review of Systems ROS Statement: Those systems with pertinent positive or pertinent negative responses have been documented in the HPI. ROS Other: All systems not noted in ROS Statement are negative. Past Medical History Past Medical History: Cancer, Deep Vein Thrombosis (DVT), GERD/Reflux, Musculoskeletal Disorder, Neurologic Disorder, Prostate Disorder, Pulmonary Embolus (PE) Additional Past Medical History / Comment(s): Lymphoma, Neuropathy; Degenerative disc disease; Back pain, benign prostatic hypertrophy. multiple Blood Clots. 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 last chemo "couple years ago" History of Any Multi-Drug Resistant Organisms: None Reported Past Surgical History: Back Surgery, Orthopedic Surgery, Tonsillectomy Additional Past Surgical History / Comment(s): Back surgery x6; Cervical surgery; arthroscopic right knee, TURP. Port a cath, IVC filter Past Anesthesia/Blood Transfusion Reactions: No Reported Reaction Past Psychological History: No Psychological Hx Reported Smoking Status: Former smoker Past Alcohol Use History: Rare Past Drug Use History: None Reported - Past Family History Mother Family Medical History: Cancer, Pulmonary Embolus Additional Family Medical History / Comment(s): Lung Cancer. Sister(s) Family Medical History: Cancer Additional Family Medical History / Comment(s): MELANOMA. Father Family Medical History: Pulmonary Embolus General Exam Limitations: no limitations General appearance: alert Neck exam: Present: normal inspection Respiratory exam: Present: normal lung sounds bilaterally Cardiovascular Exam: Present: regular rate, normal rhythm GI/Abdominal exam: Present: soft, tenderness (Diffuse abdominal tenderness to palpation however worsening left lower quadrant. No CVA tenderness to percussion bilaterally.) Neurological exam: Present: alert, oriented X3 Course Vital Signs 03/11/23 03/11/23 03/11/23 18:41 20:18 22:24 Temperature 98.4 F 99.5 F 98.5 F Pulse Rate 75 58 L Respiratory 20 16 Rate Blood Pressure 129/86 120/77 O2 Sat by Pulse 97 96 Oximetry Medical Decision Making - Medical Decision Making Was pt. sent in by a medical professional or institution (, PA, FIRE PREVENTION CHIEF, urgent care, hospital, or assisted...) When possible be specific @ -No Did you speak to anyone other than the patient for history (EMS, parent, family, police, friend...)? What history was obtained from this source @ -No Did you review nursing and triage notes (agree or disagree)? Why? @ -I reviewed and agree with nursing and triage notes Were old charts reviewed (outside hosp., previous admission, EMS record, old EKG, old radiological studies, urgent care reports/EKG's, assisted records)? Report findings @ -No old charts were reviewed Differential Diagnosis (chest pain, altered mental status, abdominal pain women, abdominal pain men, vaginal bleeding, weakness, fever, dyspnea, syncope, headache, dizziness, GI bleed, back pain, seizure, CVA, palpatations, mental health, musculoskeletal)? @ -Differential Abdominal Pain Men: Appendicitis, cholecystitis, diverticulosis, ischemic bowel, pancreatitis, hepatitis, UTI, gastroenteritis, AAA, incarcerated hernia, bowel obstruction, constipation, inflammatory bowel, hepatitis, peptic ulcer disease, splenic infarction, perforated viscus, testicular torsion, this is not meant to be an all-inclusive list EKG interpreted by me (3pts min.). @ -None X-rays interpreted by me (1pt min.). @ -None done CT interpreted by me (1pt min.). @ -CT shows evidence of diverticulitis without abscess or free air. No other acute findings. U/S interpreted by me (1pt. min.). @ -None done What testing was considered but not performed or refused? (CT, X-rays, U/S, labs)? Why? @ -None What meds were considered but not given or refused? Why? @ -None Did you discuss the management of the patient with other professionals (professionals i.e. , PA, FIRE PREVENTION CHIEF, lab, RT, psych nurse, sexual assault social worker, petroleum terminal plant operator, teacher, air intelligence officer, caser)? Give summary @ -No Was smoking cessation discussed for >3mins.? @ -No Was critical care preformed (if so, how long)? @ -No Were there social determinants of health that impacted care today? How? (Homelessness, low income, unemployed, alcoholism, drug addiction, transportation, low edu. Level, literacy, decrease access to med. care, fpc, rehab)? @ -No Was there de-escalation of care discussed even if they declined (Discuss DNR or withdrawal of care, Hospice)? DNR status @ -No What co-morbidities impacted this encounter? (DM, HTN, Smoking, COPD, CAD, Cancer, CVA, ARF, Chemo, Hep., AIDS, mental health diagnosis, sleep apnea, morb id obesity)? @ -None Was patient admitted / discharged? Hospital course, mention meds given and route, prescriptions, significant lab abnormalities, going to OR and other pertinent info. @ -Discharge. Laboratory studies significant for a white blood cell count elevated at 17.2. Lactic acid elevated at 2.7. Laboratory studies otherwise unremarkable. Vital signs stable, afebrile. Imaging consistent with diverticulitis without abscess or free air. Discussed inpatient treatment versus outpatient treatment. At this time, patient states that he would like to be discharged home. Provided Augmentin while here in the ED and provided pre scription for Augmentin. Discussed close return precautions. Patient verbalized agreement. Discharged home in stable condition. Undiagnosed new problem with uncertain prognosis? @ -No Drug Therapy requiring intensive monitoring for toxicity (Heparin, Nitro, Insulin, Cardizem)? @ -No Were any procedures done? @ -No Diagnosis/symptom? @ -Diverticulitis Acute, or Chronic, or Acute on Chronic? @ -Acute Uncomplicated (without systemic symptoms) or Complicated (systemic symptoms)? @ -Uncomplicated Side effects of treatment? @ -No Exacerbation, Progression, or Severe Exacerbation? @ -No Poses a threat to life or bodily function? How? (Chest pain, [place], AR, pneumonia, PE, COPD, DKA, ARF, appy, cholecystitis, CVA, Diverticulitis, Homicidal, Suicidal, threat to staff... and all critical care pts) @ -No - Lab Data Result diagrams: 03/11/23 21:09 03/11/23 21:09 Lab Results 03/11/23 03/11/23 03/11/23 Range/Units 21:09 21:09 21:09 WBC 17.2 H (3.8-10.6) k/uL RBC 4.63 (4.30-5.90) m/uL Hgb 15.2 (13.0-17.5) gm/dL Hct 44.3 (39.0-53.0) % MCV 95.7 (80.0-100.0) fL MCH 32.8 (25.0-35.0) pg MCHC 34.2 (31.0-37.0) g/dL RDW 13.0 (11.5-15.5) % Plt Count 158 (150-450) k/uL MPV 7.5 Neutrophils % 86 % Lymphocytes % 8 % Monocytes % 5 % Eosinophils % 1 % Basophils % 0 % Neutrophils # 14.8 H (1.3-7.7) k/uL Lymphocytes # 1.3 (1.0-4.8) k/uL Monocytes # 0.8 (0-1.0) k/uL Eosinophils # 0.1 (0-0.7) k/uL Basophils # 0.0 (0-0.2) k/uL Sodium 134 L (137-145) mmol/L Potassium 4.3 (3.5-5.1) mmol/L Chloride 102 (98-107) mmol/L Carbon Dioxide 24 (22-30) mmol/L Anion Gap 8 mmol/L BUN 26 H (9-20) mg/dL Creatinine 0.90 (0.66-1.25) mg/dL Est GFR (CKD-EPI)AfAm >90 (>60 ml/min/1.73 sqM) Est GFR (CKD-EPI)NonAf 89 (>60 ml/min/1.73 sqM) Glucose 90 (74-99) mg/dL Plasma Lactic Acid Andrey 2.7 H* (0.7-2.0) mmol/L Calcium 9.3 (8.4-10.2) mg/dL Total Bilirubin 0.8 (0.2-1.3) mg/dL AST 21 (17-59) U/L ALT 19 (4-49) U/L Alkaline Phosphatase 63 (38-126) U/L Total Protein 6.5 (6.3-8.2) g/dL Albumin 3.9 (3.5-5.0) g/dL Amylase 118 H (30-110) U/L Lipase 188 (23-300) U/L Urine Color Urine Appearance (Clear) Urine pH (5.0-8.0) Ur Specific [place] (1.001-1.035) Urine Protein (Negative) Urine Glucose (UA) (Negative) Urine Ketones (Negative) Urine Blood (Negative) Urine Nitrite (Negative) Urine Bilirubin (Negative) Urine Urobilinogen (<2.0) mg/dL Ur Leukocyte Esterase (Negative) 03/11/23 Range/Units 22:30 WBC (3.8-10.6) k/uL RBC (4.30-5.90) m/uL Hgb (13.0-17.5) gm/dL Hct (39.0-53.0) % MCV (80.0-100.0) fL MCH (25.0-35.0) pg MCHC (31.0-37.0) g/dL RDW (11.5-15.5) % Plt Count (150-450) k/uL MPV Neutrophils % % Lymphocytes % % Monocytes % % Eosinophils % % Basophils % % Neutrophils # (1.3-7.7) k/uL Lymphocytes # (1.0-4.8) k/uL Monocytes # (0-1.0) k/uL Eosinophils # (0-0.7) k/uL Basophils # (0-0.2) k/uL Sodium (137-145) mmol/L Potassium (3.5-5.1) mmol/L Chloride (98-107) mmol/L Carbon Dioxide (22-30) mmol/L Anion Gap mmol/L BUN (9-20) mg/dL Creatinine (0.66-1.25) mg/dL Est GFR (CKD-EPI)AfAm (>60 ml/min/1.73 sqM) Est GFR (CKD-EPI)NonAf (>60 ml/min/1.73 sqM) Glucose (74-99) mg/dL Plasma Lactic Acid Andrey (0.7-2.0) mmol/L Calcium (8.4-10.2) mg/dL Total Bilirubin (0.2-1.3) mg/dL AST (17-59) U/L ALT (4-49) U/L Alkaline Phosphatase (38-126) U/L Total Protein (6.3-8.2) g/dL Albumin (3.5-5.0) g/dL Amylase (30-110) U/L Lipase (23-300) U/L Urine Color Light Yellow Urine Appearance Clear (Clear) Urine pH 7.5 (5.0-8.0) Ur Specific [place] 1.018 (1.001-1.035) Urine Protein Negative (Negative) Urine Glucose (UA) Negative (Negative) Urine Ketones Negative (Negative) Urine Blood Negative (Negative) Urine Nitrite Negative (Negative) Urine Bilirubin Negative (Negative) Urine Urobilinogen <2.0 (<2.0) mg/dL Ur Leukocyte Esterase Negative (Negative) Disposition Clinical Impression: Diverticulitis Disposition: HOME SELF-CARE Condition: Good Instructions (If sedation given, give patient instructions): Diverticulitis (ED) Additional Instructions: Please return to the Emergency Department if symptoms worsen or any other concerns. Prescriptions: Amoxic-Pot Clav 875-125Mg [Augmentin 875-125] 1 tab PO Q12HR 7 Days #14 tab Is patient prescribed a controlled substance at d/c from ED?: No Referrals: Gregg Mccarty MD [Primary Care Provider] - 1-2 days Time of Disposition: 23:13
[2023-03-11 21:53] LABS: ALT 19 U/L (4-49); AST 21 U/L (17-59); African American GFR (CKD) >90 (>60 ml/min/1.73 sqM); Albumin 3.9 g/dL (3.5-5.0); Alkaline Phosphatase 63 U/L (38-126); Amylase 118 U/L (30-110); Anion Gap 8 mmol/L; Blood Urea Nitrogen 26 mg/dL (9-20); Calcium 9.3 mg/dL (8.4-10.2); Carbon Dioxide 24 mmol/L (22-30); Chloride 102 mmol/L (98-107); Glucose 90 mg/dL (74-99); Lipase 188 U/L (23-300); Non-African American GFR(CKD) 89 (>60 ml/min/1.73 sqM); Potassium 4.3 mmol/L (3.5-5.1); Sodium 134 mmol/L (137-145); Total Bilirubin 0.8 mg/dL (0.2-1.3); Total Protein 6.5 g/dL (6.3-8.2)
--- NOTE | 2023-03-11 21:57 | CT ---
EXAMINATION TYPE: CT abdomen pelvis wo con CT DLP: 875.4 mGycm, Automated exposure control for dose reduction was used. DATE OF EXAM: 03/11/2023 9:48 PM COMPARISON: CT abdomen pelvis most recent from 11/16/2017. CLINICAL INDICATION:Male, 67 years old with history of LLQ pain hx diverticulitis, also left flank pa in; low abd pain. Flank pain. hx diverticulitis TECHNIQUE: Axial CT of the abdomen and pelvis. Sagittal and coronal reformats were created on a ANPI workstation. Contrast used: mL of , (none if empty) Oral contrast used: without Oral Contrast (none if empty) FINDINGS: LOWER CHEST: Unremarkable ABDOMEN LIVER: Unremarkable GALLBLADDER AND BILE DUCTS: Unremarkable. PANCREAS: Unremarkable. SPLEEN: Unremarkable. ADRENAL GLANDS: Unremarkable. KIDNEYS AND URETERS: No evidence of hydronephrosis or renal calculus. The ureters are unremarkable. Bilateral probable renal cysts. PELVIS BLADDER: Unremarkable REPRODUCTIVE: Unremarkable. ABDOMEN & PELVIS STOMACH AND BOWEL: There is a short segment of sigmoid colon wall thickening measuring up to 15 mm in thickness and measuring 4.8 cm in length. Multiple colonic diverticula are present with fat strandin g changes surrounding the colon. No evidence of organizing fluid collection or free fluid.. Evidence of bowel obstruction. PERITONEUM/RETROPERITONEUM: No evidence of pneumoperitoneum or free fluid. VASCULATURE: No evidence of aortic aneurysm. IVC filter in place. The IVC is diminutive in size exten ding inferiorly from the IVC filter there is multiple tortuous vessels in the subcutaneous tissue sim ilar to 11/17/2017. Recanalization of the paraumbilical vein. MUSCULOSKELETAL: No acute osseous abnormalities. Mild disc degeneration changes are present throughou t the thoracolumbar spine. Degeneration worse in the lower lumbar spine with some scoliosis changes w ith dextroscoliosis apex L2-L3. LYMPH NODES: No gross evidence for lymphadenopathy. SOFT TISSUE/ABDOMINAL WALL: Fatty changes to the inguinal canals with tortuous vessels in the right i nguinal canal. IMPRESSION: 1. Sigmoid colon diverticulitis/colitis. No evidence for organizing fluid collection or free air. 2. IVC filter in place with diminutive inferior vena cava inferior to the filter. There is some tort uosity to the vessels in the subcutaneous tissues suggesting occlusion of the distal inferior vena ca va. Findings similar to 2018.
[2023-03-11 22:03] LABS: Basophils % (A) 0 %; Eosinophils # (A) 0.1 k/uL (0-0.7); Eosinophils % (A) 1 %; HCT 44.3 % (39.0-53.0); HGB 15.2 gm/dL (13.0-17.5); Lymphocytes # (A) 1.3 k/uL (1.0-4.8); Lymphocytes % (A) 8 %; MCH 32.8 pg (25.0-35.0); MCHC 34.2 g/dL (31.0-37.0); MCV 95.7 fL (80.0-100.0); Mean Platelet Volume 7.5; Monocytes # (A) 0.8 k/uL (0-1.0); Monocytes % (A) 5 %; Neutrophils # (A) 14.8 k/uL (1.3-7.7); Neutrophils % (A) 86 %; Platelet Count 158 k/uL (150-450); RBC 4.63 m/uL (4.30-5.90); WBC 17.2 k/uL (3.8-10.6)
[2023-03-11] MEDS ORDERED: SODIUM CHLORIDE 0.9% 1,000 ML IV ONE (22:33)
[2023-03-11 22:58] LABS: Appearance,Urine Clear (Clear); Bilirubin,Urine Negative (Negative); Blood,Urine Negative (Negative); Color,Urine Light Yellow; Glucose,Urine (UA) Negative (Negative); Ketones,Urine Negative (Negative); Leukocyte Esterase,Urine Negative (Negative); Nitrite,Urine Negative (Negative); PH, Urine 7.5 (5.0-8.0); Protein,Urine Negative (Negative); Specific Gravity,Urine 1.018 (1.001-1.035); Urobilinogen,Urine <2.0 mg/dL (<2.0)
[2023-03-11] MEDS ORDERED: AMOXIC-POT CLAV 875MG STARTER PACK 2 TAB BTL PO STA (23:07)
[2023-03-11] MEDS ORDERED: AMOXIC-POT CLAV 875-125MG 1 EACH TAB PO STA (23:08)
[2023-03-11 23:45] VITALS: BP 124/80; PULSE 76; RESP 18; TEMP 99.5
== END 2023-03-11 23:30 | disposition home or self-care (01) ==
LOC: EC 18:27
DX: K57.32 Diverticulitis of large intestine without perforation or abscess without bleeding (principal); Z79.01 Long term (current) use of anticoagulants; Z88.5 Allergy status to narcotic agent; Z88.8 Allergy status to other drugs, medicaments and biological substances; Z86.718 Personal history of other venous thrombosis and embolism; Z86.711 Personal history of pulmonary embolism; Z87.891 Personal history of nicotine dependence
CPT/HCPCS: 36415; 80053; 82150; 83605; 83690; 85025; 81003; 74176; 99284; 96374; 96361 ×2; J2270

== ENCOUNTER → 2023-03-19 | Outpatient (CLI) | payer MEDICARE ==
--- NOTE | 2023-03-19 07:47 | US ---
EXAMINATION TYPE: US duplex aorta DATE OF EXAM: 03/19/2023 COMPARISON: CT CLINICAL INDICATION: Male, 67 years old with history of Z13.6 SCREENING CARDIOVASCULAR DISEASE; Scree olga for AAA, pt has no complaints at this time TECHNIQUE: Multiple sonographic images of the abdominal aorta are obtained. FINDINGS: EXAM MEASUREMENTS: Abdominal Aorta: Proximal: 2.4 x 2.4 cm Mid: 2.3 x 2.0 cm Distal: 2.0 x 2.0 cm Bifurcation: MILAD: 1.6 x 1.6 cm YADIEL: 1.7 x 1.5 cm AUTOMOTIVE TIRE TECHNICIAN NOTES: Ectatic aorta without evidence of AAA IMPRESSION: No aneurysmal dilatation abdominal aorta.
== END | disposition home or self-care (01) ==
LOC: RADUSWWP 06:50
PROVIDERS: ATTEND Family Medicine
DX: Z13.6 Encounter for screening for cardiovascular disorders (principal)
CPT/HCPCS: 76706

== ENCOUNTER → 2023-04-17 | Outpatient (CLI) | payer MEDICARE ==
--- NOTE | 2023-04-19 16:39 | CT ---
EXAMINATION TYPE: CT abdomen pelvis wo con DATE OF EXAM: 04/17/2023 COMPARISON: 03/11/2023 INDICATION: Diverticulitis DLP: 1007 mGycm, Automated exposure control for dose reduction was used. CONTRAST: 0 mL of Isovue 300. Study performed with Oral Contrast TECHNIQUE: Axial images were obtained from above the diaphragm to the pubic rami in the axial plane a t 5 mm thick sections. Reconstructed images are reviewed on the computer in the coronal plane. FINDINGS: Limited CT sections are obtained the lung bases. There is a 0.6 cm nodule in the posterior lateral r ight lung. Series 3 image 1 follow-up is recommended. Lung bases otherwise clear CT ABDOMEN: Liver: Normal Spleen: Normal Pancreas: Normal Adrenal glands: The adrenal glands are normal. Gallbladder: Normal Kidneys: No masses are evident. No hydronephrosis is present. There is a 2.4 cm cyst superior pole right kidney. There is a mid to inferior anterior left renal cyst measuring 3.3 cm. No renal stones are evident. Aorta: Vascular calcification is within the aorta. Inferior vena cava: There is a filter within the inferior vena cava. CT PELVIS: Diverticular changes are within the sigmoid colon.14 some mild inflammatory change may be superior to the mid sigmoid colon. Consider mild diverticulitis in the central pelvis. No free air is evident. N o abscess formation is evident. Oral contrast extends to the descending colon. There are loops of bow el which are incompletely distended or lack oral contrast limiting their evaluation. Appendix: Normal as visualized. Urinary bladder: Normal. Genitourinary structures: Osseous structures: No suspicious lytic or sclerotic lesions. IMPRESSION: 1. There may be some mild diverticulitis present within the sigmoid colon central pelvis. Correlate with the patient's symptoms. 2. Renal cysts 3. 0.6 cm nodule right posterior lateral lung field. Follow-up CT chest in 3 months is recommended. A [place] level critical message alert has been initiated for Gregg Mccarty MD via the [email or web address] Critical Results System on 04/19/2023 4:37 PM. This message alert has been sent to Gregg Mccarty MD via the preferences provided by the clinician for the receipt of Radiology Critical Findings. [facility] ID [id number].
== END | disposition home or self-care (01) ==
LOC: RADCTMAIN 16:27
PROVIDERS: ATTEND Family Medicine
DX: K57.32 Diverticulitis of large intestine without perforation or abscess without bleeding (principal); N28.1 Cyst of kidney, acquired; R91.1 Solitary pulmonary nodule
CPT/HCPCS: 74176

== ENCOUNTER → 2023-12-17 | Outpatient (CLI) | payer MEDICARE ==
--- NOTE | 2023-12-17 07:44 | MM ---
Reason for Exam: Clinical finding. Baseline mammogram. Indicated Problems: Lump or thickening of the right side for 2 Month(s). Prior Study Comparison: Patient's first Mammogram. No prior studies available for comparison. Tissue Density: There are scattered areas of fibroglandular density. Findings: Analyzed By CAD. There is increased density within the subareolar right breast compared to the left. This is a nonsuspicious pattern but is asymmetric with the left breast correlates with patient's palpable abnormality. Ultrasound recommended for additional evaluation. No suspicious groups of microcalcifications, spiculated or lobular masses, architectural distortion or other secondary signs of malignancy are mammographically apparent. Overall Assessment: Incomplete: need additional imaging evaluation, BI-RAD 0 Management: Diagnostic Breast Ultrasound of the right breast. A negative mammogram report should not preclude additional follow up of suspicious palpable abnormalities. Patient should continue monthly self breast exam. A clinical breast exam by your physician is recommended on an annual basis and results should be correlated with mammographic findings. Note on Vickie scores and lifetime risk: 1. A Vickie score greater than 3% is considered moderate risk. If this is the case, consider specialist referral to assess eligibility for a risk reducing agent. 2. If overall lifetime risk for the development of breast cancer is 20% or higher, the patient may qualify for future screening with alternating mammogram and breast MRI. Electronically signed and approved by: Jeovany Trejo D.O. Radiologis
--- NOTE | 2023-12-17 09:10 | USB ---
Reason for Exam: Clinical finding. Technique: Method: Targeted. Findings: The retroareolar of both breasts was scanned. No solid or cystic masses are identified. There is increased markings in the retroareolar position on the right compatible with gynecomastia. Short-term precautionary follow-up ultrasound in 6 months is recommended. No left-sided abnormalities evident.. Overall Assessment: Probably benign, BI-RAD 3 Management: Diagnostic Breast Ultrasound of the right breast in 6 months. A clinical breast exam by your physician is recommended on an annual basis and results should be correlated with mammographic findings. This exam should not preclude additional follow-up of suspicious palpable abnormalities. Results were given to the patient verbally at the time of exam. Electronically signed and approved by: Jeovany Trejo D.O. Radiologis
== END | disposition home or self-care (01) ==
LOC: RADMAMWWP 07:18
PROVIDERS: ATTEND Family Medicine
DX: R92.323 Mammographic fibroglandular density, bilateral breasts (principal); N63.10 Unspecified lump in the right breast, unspecified quadrant
CPT/HCPCS: 77066; 76642; G0279; 77062

== ENCOUNTER 2024-08-25 06:07 | Day surgery (SDC) | payer MEDICARE ==
[2024-08-25] MEDS ORDERED: MIDAZOLAM 2 MG/2 ML VIAL IV PRN (07:00)
[2024-08-25] MEDS ORDERED: fentaNYL (PF) 50 MCG/ML 2 ML AMP IV PRN (07:00)
[2024-08-25] MEDS: LACTATED RINGERS 1,000 ML IV SCH (07:07)
[2024-08-25] MEDS: IV FLUID CONTINUATION 1,000 ML IV ONE ×2 (07:08→07:30)
[2024-08-25] MEDS: ACETAMINOPHEN TAB 500 MG TAB PO PRN (07:11)
[2024-08-25] MEDS: DEXAMETHASONE SOD PHOSPHATE 4 MG/ML 1 ML VIAL IV ONE (07:11)
[2024-08-25] MEDS: ONDANSETRON 4 MG/2 ML VIAL IVP ONE (07:11)
[2024-08-25 07:17] VITALS: TEMP 96.5
[2024-08-25] MEDS ORDERED: PROPOFOL 10 MG/ML 20 ML VIAL IV ONE (07:30)
[2024-08-25] MEDS ORDERED: MIDAZOLAM 2 MG/2 ML VIAL ONE (07:30)
[2024-08-25] MEDS ORDERED: PHENYLEPHRINE-0.9% NACL SYG 1,000 MCG/10 ML SYRINGE ONE (07:30)
[2024-08-25] MEDS ORDERED: fentaNYL (PF) 50 MCG/ML 2 ML AMP ONE (07:30)
--- NOTE | 2024-08-25 07:43 | P.GSHP ---
History of Present Illness H&P Date: 08/25/24 Chief Complaint: Lymphoma 68-year-old male here today for Port-A-Cath removal. Port was apparently replaced for the second time 3 years ago. He finished chemotherapy about 2 to 3 years ago. Has been flushed up until 4 months ago. No longer using it. Past Medical History Past Medical History: Cancer, Deep Vein Thrombosis (DVT), GERD/Reflux, Musculoskeletal Disorder, Neurologic Disorder, Prostate Disorder, Pulmonary Embolus (PE) Additional Past Medical History / Comment(s): Lymphoma, Neuropathy; Degenerative disc disease; Back pain, benign prostatic hypertrophy. multiple Blood Clots. hx of heparin induced thrombocytopenia, punctured dura from last back surgery, last chemo. 2020, stem cell transplant 2021 History of Any Multi-Drug Resistant Organisms: None Reported Past Surgical History: Back Surgery, Orthopedic Surgery, Tonsillectomy Additional Past Surgical History / Comment(s): Back surgery x 7; Cervical kenny cheri x 2; Rt. knee arthroscopy, TURP. Port a cath, IVC filter Past Anesthesia/Blood Transfusion Reactions: No Reported Reaction Smoking Status: Former smoker - Past Family History Mother Family Medical History: Cancer, Pulmonary Embolus Additional Family Medical History / Comment(s): Lung Cancer. Sister(s) Family Medical History: Cancer Additional Family Medical History / Comment(s): MELANOMA. Father Family Medical History: Pulmonary Embolus Medications and Allergies Home Medications Medication Instructions Recorded Confirmed Type Rivaroxaban [Xarelto] 20 mg PO HS 05/08/18 08/25/24 History Fluticasone Nasal Milo [Flonase 2 spr EA NOSTRIL BID PRN 09/10/20 08/25/24 History Nasal Milo] Melatonin 5 - 10 mg PO HS PRN 09/10/20 08/25/24 History Neur Rx 1 tab PO DAILY 08/21/24 08/25/24 History Omeprazole 20 mg PO DAILY PRN 08/21/24 08/25/24 History Tamsulosin [Flomax] 0.4 mg PO DAILY PRN 08/21/24 08/25/24 History Allergies Allergy/AdvReac Type Severity Reaction Status Date / Time codeine Allergy Rash/Hives Verified 08/25/24 06:51 enoxaparin [From Lovenox] Allergy HEPARIN Verified 08/25/24 06:51 ALLERGY-CAN NOT TAKE" heparin Allergy HEPARIN Verified 08/25/24 06:51 INDUCED THROMBOCYTOPENIA (HIT) Surgical - Exam Vital Signs Temp Pulse Resp BP Pulse Ox 96.5 F L 64 18 122/70 95 08/25/24 07:16 08/25/24 07:16 08/25/24 07:16 08/25/24 07:16 08/25/24 07:16 Physical exam: General: Well-developed, well-nourished HEENT: Normocephalic, sclerae nonicteric Abdomen: Nontender, nondistended Extremities: No edema Neuro: Alert and oriented Chest: Left-sided Port-A-Cath in place IJ insertion Assessment and Plan (1) Diffuse large B cell lymphoma Narrative/Plan: Will proceed with Port-A-Cath removal at this time. Current Visit: No Status: Acute Code(s): C83.30 - DIFFUSE LARGE B-CELL LYMPHOMA, UNSPECIFIED SITE SNOMED Code(s): 988488523
[2024-08-25] MEDS: LIDOCAINE 1% INJ 10MG/ML (20 ML MDV) SQ ONE ×2 (07:56)
--- NOTE | 2024-08-25 08:27 | P.OP ---
Date of Procedure: 08/25/24 Procedure(s) Performed: PREOPERATIVE DIAGNOSIS: Lymphoma POSTOPERATIVE DIAGNOSIS: Same PROCEDURE: Port-A-Cath removal SURGEON: Alyssia EBL: Minimal ANESTHESIA: Sedation COMPLICATIONS: None OPERATIVE PROCEDURE: Patient was placed in the supine position. The patient was sedated per anesthesia that time. The chest was prepped and draped in the usual sterile fashion. The skin was localized with Marcaine solution. The previous incision was re-incised using a scalpel. The port was easily excised using acco mmodation of blunt dissection sharp dissection and electrocautery. The subcutaneous tissues were reapproximated using 3-0 Vicryl sutures. The skin was reapproximated using 4-0 Monocryl sutures. Skin glue was then applied. DISPOSITION: Stable to recovery room
[2024-08-25] MEDS ORDERED: NALOXONE 0.4 MG/ML 1 ML VIAL IV PRN (08:33)
[2024-08-25 08:50] VITALS: BP 103/67; PULSE 51; RESP 16
== END 2024-08-25 09:07 | disposition home or self-care (01) ==
LOC: OR 06:07
PROVIDERS: ATTEND Surgery
DX: Z45.2 Encounter for adjustment and management of vascular access device (principal); C83.30 Diffuse large B-cell lymphoma, unspecified site; N40.0 Benign prostatic hyperplasia without lower urinary tract symptoms; G62.9 Polyneuropathy, unspecified; K21.9 Gastro-esophageal reflux disease without esophagitis; Z86.718 Personal history of other venous thrombosis and embolism; Z86.711 Personal history of pulmonary embolism; Z87.891 Personal history of nicotine dependence; Z94.84 Stem cells transplant status; Z79.01 Long term (current) use of anticoagulants; Z79.899 Other long term (current) drug therapy; Z88.8 Allergy status to other drugs, medicaments and biological substances; Z88.5 Allergy status to narcotic agent; Z98.890 Other specified postprocedural states
CPT/HCPCS: 36590; J2250; J1100; J0690; J2405; J2003; J3010; J2704; J2371